=== PATIENT | male | born 1965 | race Caucasian/White ===

== ENCOUNTER 2019-12-01 13:49 | Emergency (ER) | payer OTHER, SELFPAY ==
[2019-12-01] VITALS (7 sets, daily range): BP systolic 86–125; BP diastolic 50–76; PULSE 73–118; RESP 18–19; TEMP 36.7–37.1; O2SAT 99–100; BMI 25.8
[2019-12-01 15:07] LABS: Basophils # 0.1 10^3/uL (0.0-0.1); Basophils % 1.1 %; Eosinophils # 0.1 10^3/uL (0.0-0.8); Hematocrit 28.5 % (42.0-52.0); Hemoglobin 9.4 g/dL (11.7-16.6); Lymphocytes % 9.8 %; Mean Corpuscular Hemoglobin 31.2 pg (28.0-34.0); Mean Corpuscular Volume 94.7 fL (80-94); Monocytes # 0.8 10^3/uL (0.2-0.9); Monocytes % 7.3 %; Neutrophils # 8.3 10^3/uL (1.8-7.7); Neutrophils % 80.4 %; Nucleated Red Blood Cells % 0 %; Platelet Count 139 10^3/cmm (130-400); Red Blood Count 3.01 10^6/uL (4.1-5.3); Red Cell Distribution Width 15.8 % (12.1-15.1); White Blood Count 10.3 10^3/uL (4.0-10.0)
[2019-12-01 15:16] LABS: Partial Thromboplastin Time 26.7 SECONDS (23.9-36.7)
[2019-12-01 15:19] LABS: Alanine Aminotransferase 24 U/L (0-41); Albumin Level 3.8 g/dL (3.5-5.2); Alkaline Phosphatase 61 IU/L (40-130); Anion Gap 19.5 (5-19); Aspartate Amino Transferase 25 U/L (0-40); Blood Urea Nitrogen 36 mg/dL (6-20); Calcium 9.6 mg/dL (8.5-10.5); Carbon Dioxide 22 mmol/L (22-29); Chloride 95 mmol/L (98-107); Globulin 3.4 g/dL (1.3-4.6); Glomerular Filtration Rate 69.5 mL/min (90-130); Glucose 415 mg/dL (65-115); Lipase 41 U/L (13-60); Magnesium 1.9 mg/dL (1.7-2.3); Osmolality Calculated 289 mOsm/kg (285-295); Potassium 4.5 mmol/L (3.5-5.1); Sodium 132 mmol/L (136-145); Total Bilirubin 1.6 mg/dL (0.15-1.2); Total Protein 7.2 g/dL (6.6-8.7)
--- NOTE | 2019-12-01 15:57 | ED_ITS ---
Documented by User: Nadia Mosquera MD 12/01/19 17:59 HPI - Nausea/Vomiting/Diarrhea General: Chief complaint: Nausea/Vomiting/Diarrhea Stated complaint: abd pain, N/vomiting blood Time Seen by Provider: 12/01/19 15:36 History of Present Illness: HPI Narrative: This patient is a 54-year-old male presenting with vomiting blood. He said last night around midnight he threw up about a quart and 1/2 to 2 quarts of dark blood. He did not come in right away because he was hoping it would stop and he would feel better. He has not had any further episodes of vomiting blood but has had black tarry stools today. He feels queasy and has a little bit of discomfort on the left side of his abdomen. He feels weak and a little bit lightheaded. He said his heart rate at home was 135. He has had one episode of GI bleeding, approximately a year ago that was treated here. He has seen Dr. Bowen for endoscopies and also for treatment of nonalcoholic cirrhosis. He also sees a GI specialist in [place]. He has type 2 diabetes. He denies any history of heart problems. MD elicited complaint: nausea and vomiting Onset (ago): day(s) (1) Description of vomiting: bloody Description of diarrhea: black tarry Associated nausea: Yes Severity: similar to previous episodes Associated symtoms: Reports fatigue, malaise and nausea; Denies change in vision, chest pain or headache(s) Review of Systems General: Reports: 10 or more systems reviewed and unremarkable except in HPI and below Const: Reports: fatigue and malaise; Denies: fever(s) or chills Eyes: Denies: change in vision ENMT: Denies: odynophagia Card: Denies: chest pain or swelling of feet/ankles Resp: Denies: dyspnea, productive cough or non-productive cough GI: Reports: abdominal pain, nausea, vomiting, hematemesis and melena : Denies: flank pain Musc: Denies: neck pain or back pain Skin/Breast: Denies: rash Neuro: Denies: headache(s), numbness in extremities or weakness in extremities Chip/Lymph: Denies: easy bruising or easy bleeding PFS ED PFSH: Medical History (Updated 06/06/20 @ 19:32 by Jimmie Christine MD) Anemia Hypertension Liver cirrhosis Nephrolithiasis Normal colonoscopy Type 2 diabetes mellitus Surgical History (Updated 12/01/19 @ 17:15 by Duane Preston MD) H/O lithotripsy History of esophagogastroduodenoscopy (EGD) April 2019 Family History (Updated 12/01/19 @ 17:17 by Duane Preston MD) Other Cancer Diabetes Social History (Updated 12/01/19 @ 17:17 by Duane Preston MD) Smoking and tobacco status: former smoker Alcohol intake: former Marital status: Physical Exam Const: COMMON NORMALS: no acute distress, patient oriented x3, no limitations and alert GENERAL APPEARANCE: cooperative and comfortable HENMT: HEAD & SCALP: normal to inspection FACE & SINUS: normal facial exam Eye: GENERAL EYE: appearance normal, both eyes and all related structures Neck/C-Spine: COMMON NORMALS: supple, no meningeal signs and no JVD Chest: COMMONS NORMALS: normal inspection of the chest Resp: COMMON NORMALS: normal respiratory effort, No use of accessory muscles and clear to auscultation bilaterally AUSCULTATION: clear to auscultation bilaterally Cardio: COMMON NORMALS: no JVD, regular rhythm and No murmurs present (Cardio) RATE: tachycardic RHYTHM: regular rhythm GI: COMMON NORMALS: Normal to inspection, nondistended, normoactive bowel sounds present and Soft to palpation INSPECTION: Yes normal to inspection AUSCULTATION: Yes normoactive bowel sounds PALPATION: Yes Soft to palpation and Yes Tenderness to palpation present (GI) (Mild tenderness in the left upper quadrant.) Back/Pelvis: COMMON NORMALS: thoracic and lumbar spine normal to inspection Extremity: COMMON NORMALS: normal to inspection Neuro: COMMON NORMALS: patient oriented x3, moves all extremities, no focal motor deficits and no sensory deficits noted SENSORIUM/ORIENTATION: Yes alert MENINGEAL SIGNS: Yes no meningeal signs Psych: COMMON NORMALS: mental status grossly normal, cooperative and normal a ffect Skin: COMMON NORMALS: no rashes or lesions noted and turgor normal GENERAL SKIN EXAM: no rashes or lesions noted and turgor normal Course ED course: I spoke with Dr. Sosa by admitting the patient. He reviewed the patient's chart and was concerned that he might have esophageal varices. For that reason he has ordered some octreotide. Patient also has become somewhat more tachycardic and his blood pressure is dropping again so he asked me to order a unit of packed red cells which have done. I have also ordered some albumin. I am turning the patient over to Dr. Christine at this point while awaiting evaluation by Dr. Baez. Dr. Sosa agrees that if Dr. Baez is comfortable keeping him here that is fine. If not he would like him transferred out due to the concern for possible varices. Vital Signs: Vital signs: Vital Signs Temperature 97.8 F 12/02/19 00:09 Pulse Rate 87 12/02/19 00:09 Respiratory Rate 18 12/02/19 00:09 Blood Pressure 138/64 12/02/19 00:09 Pulse Oximetry 99 12/02/19 00:09 MDM - Nausea/Vomiting/Diarrhea MDM Narrative: Medical decision making narrative: Tachycardia, hypotension, hemoglobin of 9, history of upper GI bleed and liver disease. Patient will need to be admitted to the hospital and scoped. Discussed with Dr. Renae who will admit to the ICU. He requested that I consult Dr. Baez who is on-call for surgery today. Patient is agreeable to the plan. I do not think he needs to be transfused at this time but will require rechecks of his hemoglobin. Blood sugar was also markedly elevated and insulin was given in the ED. Lab Data: Labs: Lab Results 12/01/19 12/01/19 12/01/19 Range/Units 14:50 14:50 14:50 WBC 10.3 H (4.0-10.0) 10^3/ uL RBC 3.01 L (4.1-5.3) 10^6/u L Hgb 9.4 L (11.7-16.6) g/dL Hct 28.5 L (42.0-52.0) % MCV 94.7 H (80-94) fL MCH 31.2 (28.0-34.0) pg MCHC 33.0 (30.0-36.0) g/dL RDW 15.8 H (12.1-15.1) % Plt Count 139 (130-400) 10^3/c mm MPV 12.0 H (7.4-10.4) fL Neut % (Auto) 80.4 % Lymph % (Auto) 9.8 % [place] % (Auto) 7.3 % Eos % (Auto) 1.0 % Baso % (Auto) 1.1 % Neut # (Auto) 8.3 H (1.8-7.7) 10^3/u L Lymph # (Auto) 1.0 (0.8-4.8) 10^3/u L [place] # (Auto) 0.8 (0.2-0.9) 10^3/u L Eos # (Auto) 0.1 (0.0-0.8) 10^3/u L Baso # (Auto) 0.1 (0.0-0.1) 10^3/u L Nucleated RBC % (a uto) 0 % Nucleated RBCs # 0.0 /100WBC PT 16.60 H (10.5-13.3) SECO NDS INR 1.30 H (0.8-1.2) APTT 26.7 (23.9-36.7) SECO NDS Sodium 132 L (136-145) mmol/L Potassium 4.5 (3.5-5.1) mmol/L Chloride 95 L (98-107) mmol/L Carbon Dioxide 22 (22-29) mmol/L Anion Gap 19.5 H (5-19) BUN 36 H (6-20) mg/dL Creatinine 1.1 (0.7-1.2) mg/dL GFR Calculation 69.5 L (90-130) mL/min Glucose 415 H (65-115) mg/dL Calculated Osmolal ity 289 (285-295) mOsm/k g Calcium 9.6 (8.5-10.5) mg/dL Magnesium 1.9 (1.7-2.3) mg/dL Iron (59-158) ug/dL TIBC mcg/dl % Saturation (20-50) % Unsat Iron Binding (112-347) ug/dL Total Bilirubin 1.6 H (0.15-1.2) mg/dL AST 25 (0-40) U/L ALT 24 (0-41) U/L Alkaline Phosphata se 61 (40-130) IU/L Total Protein 7.2 (6.6-8.7) g/dL Albumin 3.8 (3.5-5.2) g/dL Globulin 3.4 (1.3-4.6) g/dL Lipase 41 (13-60) U/L Blood Type Rho(D) Type Antibody Screen Crossmatch 12/01/19 12/01/19 Range/Units 14:50 14:50 WBC (4.0-10.0) 10^3/ uL RBC (4.1-5.3) 10^6/u L Hgb (11.7-16.6) g/dL Hct (42.0-52.0) % MCV (80-94) fL MCH (28.0-34.0) pg MCHC (30.0-36.0) g/dL RDW (12.1-15.1) % Plt Count (130-400) 10^3/c mm MPV (7.4-10.4) fL Neut % (Auto) % Lymph % (Auto) % [place] % (Auto) % Eos % (Auto) % Baso % (Auto) % Neut # (Auto) (1.8-7.7) 10^3/u L Lymph # (Auto) (0.8-4.8) 10^3/u L [place] # (Auto) (0.2-0.9) 10^3/u L Eos # (Auto) (0.0-0.8) 10^3/u L Baso # (Auto) (0.0-0.1) 10^3/u L Nucleated RBC % (a uto) % Nucleated RBCs # /100WBC PT (10.5-13.3) SECO NDS INR (0.8-1.2) APTT (23.9-36.7) SECO NDS Sodium (136-145) mmol/L Potassium (3.5-5.1) mmol/L Chloride (98-107) mmol/L Carbon Dioxide (22-29) mmol/L Anion Gap (5-19) BUN (6-20) mg/dL Creatinine (0.7-1.2) mg/dL GFR Calculation (90-130) mL/min Glucose (65-115) mg/dL Calculated Osmolal ity (285-295) mOsm/k g Calcium (8.5-10.5) mg/dL Magnesium (1.7-2.3) mg/dL Iron 231 H (59-158) ug/dL TIBC 248 mcg/dl % Saturation 93.1 H (20-50) % Unsat Iron Binding < 17 L (112-347) ug/dL Total Bilirubin (0.15-1.2) mg/dL AST (0-40) U/L ALT (0-41) U/L Alkaline Phosphata se (40-130) IU/L Total Protein (6.6-8.7) g/dL Albumin (3.5-5.2) g/dL Globulin (1.3-4.6) g/dL Lipase (13-60) U/L Blood Type A Positive Rho(D) Type Positive Antibody Screen Negative Crossmatch See Detail Discharge Plan Discharge Patient Disposition: Xfer Other Clinical Impression: GI bleed Qualifiers: GI bleed type/associated pathology: melena Qualified Code(s): K92.1 - Melena Liver cirrhosis Qualifiers: Hepatic cirrhosis type: unspecified hepatic cirrhosis Ascites presence: without ascites Qualified Code(s): K74.60 - Unspecified cirrhosis of liver Condition: Stable Referrals: Viktor Bowen MD [Primary Care Provider] - Discharge Date/Time: 12/02/19 00:14 Coding Level of Care Code ED Shipping Checker for Chg Fwd Exam Comprehensive Documented by User: Jimmie Christine MD 12/02/19 00:17 HPI - Nausea/Vomiting/Diarrhea General: Chief complaint: Nausea/Vomiting/Diarrhea Stated complaint: abd pain, N/vomiting blood Time Seen by Provider: 12/01/19 15:36 [facility] ED PFSH: Medical History (Updated 12/01/19 @ 19:32 by Jimmie Christine MD) Anemia Hypertension Liver cirrhosis Nephrolithiasis Normal colonoscopy Type 2 diabetes mellitus Surgical History (Updated 12/01/19 @ 17:15 by Duane Preston MD) H/O lithotripsy History of esophagogastroduodenoscopy (EGD) April 2019 Family History (Updated 12/01/19 @ 17:17 by Duane Preston MD) Other Cancer Diabetes Social History (Updated 12/01/19 @ 17:17 by Duane Preston MD) Smoking and tobacco status: former smoker Alcohol intake: former Marital status: Course Vital Signs: Vital signs: Vital Signs Temperature 97.8 F 12/02/19 00:09 Pulse Rate 87 12/02/19 00:09 Respiratory Rate 18 12/02/19 00:09 Blood Pressure 138/64 12/02/19 00:09 Pulse Oximetry 99 12/02/19 00:09 MDM - Nausea/Vomiting/Diarrhea MDM Narrative: Medical decision making narrative: Patient presents with upper GI bleed does have a history of cirrhosis. Spoke to Dr. Baez general surgery who felt patient needs to be transferred as he is at risk for variceal bleed and we do not have GI capability. Spoke to ER physician at [facility] and will transfer there for higher level of care needing GI physician. Lab Data: Labs: Lab Results 12/01/19 12/01/19 12/01/19 Range/Units 14:50 14:50 14:50 WBC 10.3 H (4.0-10.0) 10^3/ uL RBC 3.01 L (4.1-5.3) 10^6/u L Hgb 9.4 L (11.7-16.6) g/dL Hct 28.5 L (42.0-52.0) % MCV 94.7 H (80-94) fL MCH 31.2 (28.0-34.0) pg MCHC 33.0 (30.0-36.0) g/dL RDW 15.8 H (12.1-15.1) % Plt Count 139 (130-400) 10^3/c mm MPV 12.0 H (7.4-10.4) fL Neut % (Auto) 80.4 % Lymph % (Auto) 9.8 % [place] % (Auto) 7.3 % Eos % (Auto) 1.0 % Baso % (Auto) 1.1 % Neut # (Auto) 8.3 H (1.8-7.7) 10^3/u L Lymph # (Auto) 1.0 (0.8-4.8) 10^3/u L [place] # (Auto) 0.8 (0.2-0.9) 10^3/u L Eos # (Auto) 0.1 (0.0-0.8) 10^3/u L Baso # (Auto) 0.1 (0.0-0.1) 10^3/u L Nucleated RBC % (a uto) 0 % Nucleated RBCs # 0.0 /100WBC PT 16.60 H (10.5-13.3) SECO NDS INR 1.30 H (0.8-1.2) APTT 26.7 (23.9-36.7) SECO NDS Sodium 132 L (136-145) mmol/L Potassium 4.5 (3.5-5.1) mmol/L Chloride 95 L (98-107) mmol/L Carbon Dioxide 22 (22-29) mmol/L Anion Gap 19.5 H (5-19) BUN 36 H (6-20) mg/dL Creatinine 1.1 (0.7-1.2) mg/dL GFR Calculation 69.5 L (90-130) mL/min Glucose 415 H (65-115) mg/dL Calculated Osmolal ity 289 (285-295) mOsm/k g Calcium 9.6 (8.5-10.5) mg/dL Magnesium 1.9 (1.7-2.3) mg/dL Iron (59-158) ug/dL TIBC mcg/dl % Saturation (20-50) % Unsat Iron Binding (112-347) ug/dL Total Bilirubin 1.6 H (0.15-1.2) mg/dL AST 25 (0-40) U/L ALT 24 (0-41) U/L Alkaline Phosphata se 61 (40-130) IU/L Total Protein 7.2 (6.6-8.7) g/dL Albumin 3.8 (3.5-5.2) g/dL Globulin 3.4 (1.3-4.6) g/dL Lipase 41 (13-60) U/L Blood Type Rho(D) Type Antibody Screen Crossmatch 12/01/19 12/01/19 Range/Units 14:50 14:50 WBC (4.0-10.0) 10^3/ uL RBC (4.1-5.3) 10^6/u L Hgb (11.7-16.6) g/dL Hct (42.0-52.0) % MCV (80-94) fL MCH (28.0-34.0) pg MCHC (30.0-36.0) g/dL RDW (12.1-15.1) % Plt Count (130-400) 10^3/c mm MPV (7.4-10.4) fL Neut % (Auto) % Lymph % (Auto) % [place] % (Auto) % Eos % (Auto) % Baso % (Auto) % Neut # (Auto) (1.8-7.7) 10^3/u L Lymph # (Auto) (0.8-4.8) 10^3/u L [place] # (Auto) (0.2-0.9) 10^3/u L Eos # (Auto) (0.0-0.8) 10^3/u L Baso # (Auto) (0.0-0.1) 10^3/u L Nucleated RBC % (a uto) % Nucleated RBCs # /100WBC PT (10.5-13.3) SECO NDS INR (0.8-1.2) APTT (23.9-36.7) SECO NDS Sodium (136-145) mmol/L Potassium (3.5-5.1) mmol/L Chloride (98-107) mmol/L Carbon Dioxide (22-29) mmol/L Anion Gap (5-19) BUN (6-20) mg/dL Creatinine (0.7-1.2) mg/dL GFR Calculation (90-130) mL/min Glucose (65-115) mg/dL Calculated Osmolal ity (285-295) mOsm/k g Calcium (8.5-10.5) mg/dL Magnesium (1.7-2.3) mg/dL Iron 231 H (59-158) ug/dL TIBC 248 mcg/dl % Saturation 93.1 H (20-50) % Unsat Iron Binding < 17 L (112-347) ug/dL Total Bilirubin (0.15-1.2) mg/dL AST (0-40) U/L ALT (0-41) U/L Alkaline Phosphata se (40-130) IU/L Total Protein (6.6-8.7) g/dL Albumin (3.5-5.2) g/dL Globulin (1.3-4.6) g/dL Lipase (13-60) U/L Blood Type A Positive Rho(D) Type Positive Antibody Screen Negative Crossmatch See Detail Critical Care Time Critical Care Time: Critical Care Time: Yes Total Critical Care Time: 36 Attestation: This case had a high probability of a clinically significant, sudden, or life threatening deterioration of this patient's condition which required my full and direct attention, intervention and personal management. Discharge Plan Discharge Patient Disposition: Xfer Other Clinical Impression: GI bleed Qualifiers: GI bleed type/associated pathology: melena Qualified Code(s): K92.1 - Melena Liver cirrhosis Qualifiers: Hepatic cirrhosis type: unspecified hepatic cirrhosis Ascites presence: without ascites Qualified Code(s): K74.60 - Unspecified cirrhosis of liver Condition: Stable Referrals: Viktor Bowen MD [Primary Care Provider] - Discharge Date/Time: 12/02/19 00:14 Coding Level of Care Code ED Shipping Checker for Chg Fwd Exam Comprehensive
[2019-12-01] MEDS: sodium chloride 0.9% 1,000 ML 999 ML IV (17:08)
[2019-12-01] MEDS: cefTRIAXone 1,000 MG in sodium chloride 0.9% (plus) 50 ML 100 MG IV (17:11)
--- NOTE | 2019-12-01 17:12 | PM.HP ---
Providers/Chief Complaint Primary Care Provider: Viktor Bowen MD Chief Complaint: weak, vomiting blood History of Present Illness Tani Montenegro is a 54 year old male past medical history of hypertension, type 2 diabetes mellitus, liver cirrhosis, leukopenia and thrombocytopenia being followed up with Dr. Floyd with baseline hemoglobin of around 12-13 in November 2018. Patient presented to the ER with c/o 1 episode of spring bloody emesis last night along with 2 episodes of black tarry bowel movement since last night. Patient states he has been having some black tarry bowel movements for last. Bowel movements are usually well formed. Patient has been feeling weak, tired and dizzy since yesterday. He denies of having any abdominal pain, dysuria, flulike symptoms, fever, NSAID use, use of any pain medications. He complains of feeling dizzy, lightheaded on slight movement and sitting up since today morning so he presented to the ER. In ER patient was found to have a hemoglobin of 8.9 with blood pressure of 80 systolic which responded to a bolus of fluid. He was started on Protonix drip. On my evaluation patient was tachycardic with blood pressure back in 80s systolics but patient was AO x3 and patient has not had any bowel movements of hematemesis or melena since presenting to the ER. On review of old records patient had a CT scan done in January 2019 which was concerning for liver cirrhosis with splenomegaly and he had an EGD and colonoscopy in February [address] Bowen with those being normal. Review of Systems Const: Denies: fever(s), chills, body aches, change in appetite, malaise, night sweats, diaphoresis, change in sleep pattern, daytime sleepiness or snoring Eyes: Denies: change in vision, blurry vision, photophobia, eye discomfort or eye discharge ENMT: Denies: throat pain, enlarged tonsils, hoarseness, mouth pain, oral sores, dry mouth, tinnitus, nasal congestion or post nasal drip Card: Denies: chest pain, palpitations, irregular heart rhythm, edema, swelling of feet/ankles, lightheadedness, syncope, pre-syncope, dyspnea on exertion, orthopnea, leg pain with exertion or acrocyanosis Resp: Denies: dyspnea, productive cough, non-productive cough, wheezing, stridor, pain on inspiration, change in phlegm color, hemoptysis or chest congestion GI: Reports: nausea, vomiting, hematemesis, coffee ground emesis, heartburn and melena; Denies: abdominal pain, dysphagia, diarrhea, constipation, bloating, GI cramping, change in bowel habits, pain on defecation or hematochezia : Denies: flank pain, difficulty urinating, dysuria, urinary frequency, urinary urgency, urinary hesitancy, urinary dribbling, difficulty starting urination, change in urine stream, nocturia or hematuria Musc: Denies: neck pain, back pain, extremity pain, joint pain, joint swelling, joint redness, joint stiffness or limited range of motion Neuro: Reports: weakness in extremities and dizziness; Denies: headache(s), numbness in extremities, sensory changes, lack of coordination, difficulty walking, frequent falls, vertigo, confusion, Slurred speech present, difficulty communicating thoughts or seizure-like activity Psych: Denies: anxiety, depression, mood swings, panic attacks, hopelessness or irritability Endo: Denies: polyuria, polydipsia, tired all the time, cold intolerance, excessive sweating, flushing or heat intolerance Chip/Lymph: Denies: easy bruising or easy bleeding All/Imm: Denies: tongue swelling, facial swelling or acute wheezing Medications/Allergies Home Medications Medication Instructions Recorded Confirmed Last Taken Type lisinopril 10 mg tablet 10 mg PO DAILY #30 tab 11/13/19 12/01/19 12/01/19 Rx cinnamon bark [Cinnamon] 500 mg PO BID 12/01/19 12/01/19 Unknown History cranberry 1 tab PO BID 12/01/19 12/01/19 Unknown History ferrous gluconate 324 mg PO BID 12/01/19 12/01/19 12/01/19 History levothyroxine 50 mcg PO DAILY 12/01/19 12/01/19 12/01/19 History metformin 1,000 mg PO BID 12/01/19 12/01/19 12/01/19 History spironolactone 50 mg PO DAILY 12/01/19 12/01/19 12/01/19 History Allergies Allergy/AdvReac Type Severity Reaction Status Date / Time No Known Allergies Allergy Verified 12/01/19 16:18 PFSH Acute PFSH: Medical History (Updated 12/01/19 @ 19:32 by Jimmie Christine MD) Anemia Hypertension Liver cirrhosis Nephrolithiasis Normal colonoscopy Type 2 diabetes mellitus Surgical History (Updated 12/01/19 @ 17:15 by Duane Preston MD) H/O lithotripsy History of esophagogastroduodenoscopy (EGD) April 2019 Family History (Updated 12/01/19 @ 17:17 by Duane Preston MD) Other Cancer Diabetes Social History (Updated 12/01/19 @ 17:17 by Duane Preston MD) Smoking and tobacco status: former smoker Alcohol intake: former Marital status: Vitals/I&O/Wt Last Vital Signs Temp 98.0 F 12/01/19 14:11 Pulse 118 H 12/01/19 14:11 Resp 18 12/01/19 14:11 BP 86/50 12/01/19 14:11 Pulse Ox 100 12/01/19 14:11 Weight last 48 hrs Weight 81.647 kg Physical Exam Narrative: EXAM NARRATIVE: General: No acute distress, AO x3, pale, mildly icteric, pulse soft and thready HEENT: PERRLA, pupils bilaterally equal and reactive Chest: Normal vesicular breath sounds, no added sounds, equal good air entry bilaterally CVS: S1-S2 regular, no murmurs, tachycardia, no gallops, no rubs Abdomen: Soft, nontender, no organomegaly, bowel sounds present Neuro: No focal deficits, no facial deformity, AO x3, power 5/5 in all limbs Data : 12/01/19 14:50 12/01/19 14:50 A&P Assessment and plan (1) Liver cirrhosis: Status: Acute (2) Anemia: Status: Acute (3) GI bleed: Status: Acute (4) Type 2 diabetes mellitus: Status: Acute (5) Hypertension: Status: Acute Additional A&P Information GI bleed: Most likely upper GI. Given the finding of cirrhosis on abdominal imaging less than 1 year ago with splenomegaly and history of alcohol use in the past with bilirubin of 1.6 I am concerned about origin of bleed being variceal. Along with Protonix drip will also start patient on octreotide drip. Stat type and screen. Transfuse 1 unit of PRBC. We will also request for albumin. Normal saline 100 cc/h. Hold off on antihypertensives for now. CBC every 6 hours. Last colonoscopy and EGD done February 2019 was negative for any varices. Case discussed with Dr. Mosquera. Have discussed that given the history of cirrhosis and some concerns of varices will have to confirm with general surgery first if they are comfortable with patient being at [facility] or if their suspicions are also high for variceal bleed. For now we will hold off on admission as if the suspicion of variceal bleed also high as per surgical recommendation then patient should be transferred to a facility to have gastroenterology. Attestations Medical Necessity Statement*: Await recommendations from general surgery before admission. Time Spent in Patient Care: Greater than 35 minutes (>than 50% of time spent in counselling and/or direct pt care on unit). Coding Level of Care Code [employer] Counselor for humberto Murphy Diagnoses Liver cirrhosis K74.60 Anemia D64.9 GI bleed K92.2 Type 2 diabetes mellitus E11.9 Hypertension I10
[2019-12-01] MEDS: pantoprazole 40 mg SDV 80 MG IVP (17:13)
[2019-12-01] MEDS: pantoprazole 40 MG in sodium chloride 0.9% (plus) 100 ML 20 MG IV (17:24)
[2019-12-01] MEDS: insulin regular-human 100 units/1 mL 10 UNIT IVP (17:29)
[2019-12-01 17:48] LABS: Iron 231 ug/dL (59-158)
[2019-12-01 18:40] LABS: Percent Saturation 93.1 % (20-50); Total Iron Binding Capacity 248 mcg/dl; Unsaturated Iron Binding < 17 ug/dL (112-347)
--- NOTE | 2019-12-01 22:14 | PC.NURSE ---
During pt rounding, pt informed of transport ETA of [id number]. Pt ECG leads readjusted. Pt reports of no complaints at this time
[2019-12-02 00:09] VITALS: BP 138/64; PULSE 87; RESP 18; TEMP 36.6; O2SAT 99
== END 2019-12-02 00:14 | disposition other institution (70) ==
LOC: ER 15:36 → ICU 18:14
PROVIDERS: Emergency Medicine; Student in an Organized Health Care Education/Training Program; Emergency Provider Emergency Medicine; PCP Internal Medicine
DX: K92.1 Melena (principal); K74.60 Unspecified cirrhosis of liver; I10 Essential (primary) hypertension; E11.9 Type 2 diabetes mellitus without complications; Z87.891 Personal history of nicotine dependence
CPT/HCPCS: 12345; 36415; 36430; 80053; 83540; 83550; 83690; 83735; 85025; 85610; 85730; 86850; 86900; 86920; 96365; 96366; 96367; 96368; 96375; 99283; 99285; C9113; J0696; J1815; J7030; J7050; P9016

== ENCOUNTER → 2019-12-11 11:57 | Outpatient (BNVA) | payer OTHER, SELFPAY | PROVIDERS: PCP Internal Medicine; Visit Provider Internal Medicine | DX: K92.1 Melena (principal); K74.60 Unspecified cirrhosis of liver; I10 Essential (primary) hypertension | CPT/HCPCS: 85007; 85025 ==

== ENCOUNTER → 2020-01-16 10:00 | Outpatient (BNVA) | payer OTHER, SELFPAY | PROVIDERS: PCP Internal Medicine; Visit Provider Internal Medicine | DX: K74.60 Unspecified cirrhosis of liver (principal); E11.9 Type 2 diabetes mellitus without complications; I10 Essential (primary) hypertension; D64.9 Anemia, unspecified | CPT/HCPCS: 80053 ==

== ENCOUNTER → 2020-04-24 10:30 | Outpatient (BNVA) | payer OTHER, SELFPAY | PROVIDERS: PCP Internal Medicine; Visit Provider Internal Medicine | DX: D64.9 Anemia, unspecified (principal); R11.2 Nausea with vomiting, unspecified; K74.60 Unspecified cirrhosis of liver; K92.1 Melena | CPT/HCPCS: 80053; 83550; 85025 ==

== ENCOUNTER 2020-04-25 07:35 | Emergency (ER) | payer OTHER, SELFPAY ==
--- NOTE | 2020-04-25 07:41 | ECG_ITS ---
[facility] Test Date: 2020-04-25 Pat Name: Tani Montenegro Department: Room: Gender: Male [employer]: : 1965 Requested By: Richard Campbell Order Number: [id number] Reading MD: STEVE MORRIS Measurements Intervals [place] Rate: 118 P: 50 MN: 178 QRS: -3 QRSD: 103 T: 61 QT: 330 QTc: 464 Interpretive Statements SINUS TACHYCARDIA ABNORMAL RHYTHM ECG No previous ECG available for comparison Electronically Signed On 04-25-2020 18:20:51 CDT by SETVE MORRIS [email or web address]
[2020-04-25 07:43] VITALS: BP 131/70; PULSE 127; RESP 19; TEMP 36.2; O2SAT 100; BMI 25.1
[2020-04-25 07:55] LABS: Glucose Point of Care 507 mg/dL (70-110)
[2020-04-25 08:13] LABS: Basophils # 0.1 10^3/uL (0.0-0.1); Basophils % 0.6 %; Eosinophils % 0.1 %; Hematocrit 25.1 % (42.0-52.0); Lymphocytes # 1.3 10^3/uL (0.8-4.8); Lymphocytes % 9.7 %; Mean Corpuscular HGB Conc 31.9 g/dL (30.0-36.0); Mean Corpuscular Hemoglobin 30.9 pg (28.0-34.0); Mean Corpuscular Volume 96.9 fL (80-94); Monocytes # 0.6 10^3/uL (0.2-0.9); Monocytes % 4.3 %; Neutrophils # 11.07 10^3/uL (1.8-7.7); Neutrophils % 84.4 %; Nucleated Red Blood Cells % 0 %; Platelet Count 220 10^3/cmm (130-400); Red Blood Count 2.59 10^6/uL (4.1-5.3); Red Cell Distribution Width 14.8 % (12.1-15.1); White Blood Count 13.1 10^3/uL (4.0-10.0)
[2020-04-25 08:16] LABS: ABG PCO2 24.9 mmHg (35-45); ABG PH Result 7.33 (7.35-7.45); Arterial Blood Gas Hematocrit 26.3 % (42-52); Base Excess ABG -11.6 mmol/L (-2.0-2.0); Blood Gas Allen Test Pos; Blood Gas Sample Site Radial, left; Blood Gas Sample Type Arterial; Carboxyhemoglobin 1.4 %THgb (0.4-20.1); HGB O2 Sat 96.3 % (95-100); Ionized Calcium Level - ABG 1.1 mmol/L (1.1-1.4); Oxygen Device ROOM AIR; Oxygen Saturation ABG 98.7; Potassium Level - ABG 4.8 mmol/L (3.5-5.0); Total Hemoglobin 8.6 g/dL (14-18)
[2020-04-25 08:23] LABS: Ketone (Acetest) Serum Negative (Negative)
[2020-04-25 08:31] LABS: Alanine Aminotransferase 43 U/L (0-41); Albumin Level 3.5 g/dL (3.5-5.2); Alkaline Phosphatase 75 IU/L (40-130); Anion Gap 28.2 (5-19); Aspartate Amino Transferase 34 U/L (0-40); Blood Urea Nitrogen 57 mg/dL (6-20); Calcium 8.9 mg/dL (8.5-10.5); Carbon Dioxide 15 mmol/L (22-29); Chloride 88 mmol/L (98-107); Globulin 3.1 g/dL (1.3-4.6); Glomerular Filtration Rate 62.6 mL/min (90-130); Lipase 43 U/L (13-60); Osmolality Calculated 301 mOsm/kg (285-295); Potassium 5.2 mmol/L (3.5-5.1); Sodium 126 mmol/L (136-145); Total Bilirubin 1.2 mg/dL (0.15-1.2); Total Protein 6.6 g/dL (6.6-8.7)
[2020-04-25] MEDS: sodium chloride 0.9% 1,000 ML 999 ML IV (08:37)
[2020-04-25] MEDS: pantoprazole 40 MG in sodium chloride 0.9% (plus) 100 ML 20 MG IV ×2 (08:41→15:01)
--- NOTE | 2020-04-25 08:42 | ED_ITS ---
HPI - General Adult General: Chief complaint: General Medical Stated complaint: hyperglycemia Time Seen by Provider: 04/25/20 07:42 History of Present Illness: HPI narrative: This patient is a 55-year-old male who comes in with vomiting since Tuesday night. He has been feeling very poorly. He feels very weak. He denies cough, fever, shortness of breath. He has been having some dark stools. He is had some dark emesis and has also seen some blood in it. He has a history of some liver problems and has had some cirrhosis. He had a endoscopy over the summer and did not have any esophageal varices at that time. He had been admitted due to something similar with GI bleeding and a low hemoglobin. He was given 2 units of blood at that time. He said no one is really figured out why he is having the symptoms. He was put on Protonix at that time and did run out a couple of days ago. He saw his primary care doctor, Dr. Bowen yesterday. He refilled his Protonix and sent him home. Review of the office notes shows that at that time he was tachycardic and borderline hypotensive as well. Apparently his blood sugar was quite elevated yesterday and is elevated again today. He only takes Metformin for type 2 diabetes. His blood sugars have been over 400 at least since last night. He also has a history of hypothyroidism. Onset (ago): day(s) (4) Associated symptoms: Reports decreased appetite, malaise, nausea and vomiting; Deny chest pain, dyspnea or rash Review of Systems General: Reports: 10 or more systems reviewed and unremarkable except in HPI and below Const: Reports: malaise Eyes: Denies: change in vision ENMT: Denies: odynophagia Card: Denies: chest pain or swelling of feet/ankles Resp: Denies: dyspnea, productive cough or non-productive cough GI: Reports: nausea and vomiting : Denies: flank pain Musc: Denies: neck pain or back pain Skin/Breast: Denies: rash Neuro: Denies: numbness in extremities or weakness in extremities Chip/Lymph: Denies: easy bruising or easy bleeding PFS ED PFSH: Medical History Anemia Hypertension Liver cirrhosis Nephrolithiasis Normal colonoscopy Type 2 diabetes mellitus Surgical History H/O lithotripsy History of esophagogastroduodenoscopy (EGD) April 2019 Family History Other Cancer Diabetes Social History Smoking and tobacco status: former smoker Alcohol intake: former Substance/Drug Use: never Marital status: History of recent travel: No Physical Exam Const: COMMON NORMALS: patient oriented x3, no limitations and alert GENERAL APPEARANCE: cooperative, ill appearing and other (Pale) NUTRITIONAL APPEARANCE: thin ORIENTATION/CONSCIOUSNESS: Yes awake HENMT: HEAD & SCALP: normal to inspection FACE & SINUS: normal facial exam Eye: GENERAL EYE: appearance normal, both eyes and all related structures Neck/C-Spine: COMMON NORMALS: supple, no meningeal signs and no JVD Chest: COMMONS NORMALS: normal inspection of the chest Resp: COMMON NORMALS: normal respiratory effort, No use of accessory muscles and clear to auscultation bilaterally AUSCULTATION: clear to auscultation bilaterally Cardio: COMMON NORMALS: no JVD, regular rhythm and No murmurs present (Cardio) RATE: tachycardic RHYTHM: regular rhythm GI: COMMON NORMALS: Normal to inspection, nondistended, normoactive bowel sounds present, Soft to palpation and non-tender INSPECTION: Yes normal to inspection AUSCULTATION: Yes normoactive bowel sounds PALPATION: Yes Soft to palpation Back/Pelvis: COMMON NORMALS: thoracic and lumbar spine normal to inspection Extremity: COMMON NORMALS: normal to inspection Neuro: COMMON NORMALS: patient oriented x3, moves all extremities, no focal motor deficits and no sensory deficits noted SENSORIUM/ORIENTATION: Yes alert MENINGEAL SIGNS: Yes no meningeal signs Psych: COMMON NORMALS: mental status grossly normal, cooperative and normal affect Skin: COMMON NORMALS: no rashes or lesions noted and turgor normal GENERAL SKIN EXAM: no rashes or lesions noted and turgor normal Course ED course: This patient presents with DKA although he is a type II diabetic normally on metformin. His serum ketones were negative but his urine ketones are positive. He is slightly acidotic on his ABG with a pH of 7.33. His CO2 is low. He also is having blood in his emesis. His hemoglobin was 8. He had an EGD recently which showed no varices. He is having blood in his stool and vomit. He is not having abdominal pain but does have continued nausea. During his ED stay he was persistently tachycardic around 125. His blood pressures remained good around 110 systolic. His BUN was elevated at 57 with a normal creatinine. Initial blood sugar was 518. He was put on appropriate tonics drip and an insulin drip. His blood sugar was gradually coming down. Repeat labs prior to transfer showed his hemoglobin had dropped to 7.0. I have not witnessed any further vomiting of blood or bloody stools while in the department. This may be from hydration. We have no ICU beds or monitored beds here and we will transfer the patient to [facility]. He is concerned about the financial implications of that but did eventually agree to go. His repeat chemistry still pending at this time. Vital Signs: Vital signs: Vital Signs Temperature 97.2 F L 04/25/20 07:43 Pulse Rate 124 H 04/25/20 15:06 Respiratory Rate 16 04/25/20 15:06 Blood Pressure 111/59 04/25/20 15:06 Pulse Oximetry 99 04/25/20 15:06 MDM - General Adult Lab Data: Labs: Lab Results 04/25/20 04/25/20 04/25/20 Range/Units 07:52 08:06 08:07 WBC 13.1 H (4.0-10.0) 10^3/ uL RBC 2.59 L (4.1-5.3) 10^6/u L Hgb 8.0 L (11.7-16.6) g/dL Hct 25.1 L (42.0-52.0) % MCV 96.9 H (80-94) fL MCH 30.9 (28.0-34.0) pg MCHC 31.9 (30.0-36.0) g/dL RDW 14.8 (12.1-15.1) % Plt Count 220 (130-400) 10^3/c mm MPV 12.0 H (7.4-10.4) fL Neut % (Auto) 84.4 % Lymph % (Auto) 9.7 % [place] % (Auto) 4.3 % Eos % (Auto) 0.1 % Baso % (Auto) 0.6 % Neut # (Auto) 11.07 H (1.8-7.7) 10^3/u L Lymph # (Auto) 1.3 (0.8-4.8) 10^3/u L [place] # (Auto) 0.6 (0.2-0.9) 10^3/u L Eos # (Auto) 0.0 (0.0-0.8) 10^3/u L Baso # (Auto) 0.1 (0.0-0.1) 10^3/u L Nucleated RBC % (a uto) 0 % Nucleated RBCs # 0.0 /100WBC Specimen Type Arterial Sample Site Radial, left ABG pH 7.33 L (7.35-7.45) ABG pCO2 24.9 L (35-45) mmHg ABG pO2 103.0 H (80.0-100.0) mmH g ABG HCO3 13.0 L (22-26) mmol/L ABG O2 Saturation 98.7 ABG Base Excess -11.6 L (-2.0-2.0) mmol/ L Paresh Test Pos A-a O2 Gradient 2.0 L (5-10) mmHg Hematocrit 26.3 L (42-52) % Hgb O2 Saturation 96.3 (95-100) % Carboxyhemoglobin 1.4 (0.4-20.1) %THgb Methemoglobin 1.0 (0.4-1.5) % Total Hemoglobin 8.6 L (14-18) g/dL Sodium 130.0 L (131-143) mmol/L Potassium 4.8 (3.5-5.0) mmol/L Glucose 461.0 H (70-115) mg/dL Ionized Calcium 1.1 (1.1-1.4) mmol/L O2 Delivery Device Room air FiO2 21.0 % Tandem [employer] Sticker ID jmn Chloride (98-107) mmol/L Carbon Dioxide (22-29) mmol/L Anion Gap (5-19) BUN (6-20) mg/dL Creatinine (0.7-1.2) mg/dL GFR Calculation (90-130) mL/min POC Glucose 507 (70-110) mg/dL Calculated Osmolal ity (285-295) mOsm/k g Calcium (8.5-10.5) mg/dL Total Bilirubin (0.15-1.2) mg/dL AST (0-40) U/L ALT (0-41) U/L Alkaline Phosphata se (40-130) IU/L Total Protein (6.6-8.7) g/dL Albumin (3.5-5.2) g/dL Globulin (1.3-4.6) g/dL Lipase (13-60) U/L Urine Color (Yellow) Urine Appearance (CLEAR) Urine pH (5-7) Ur Specific Gravit y (1.005-1.030) Urine Protein (Negative) Urine Glucose (UA) (Normal) Urine Ketones (Negative) Urine Blood (Negative) Urine Nitrate (Negative) Urine Bilirubin (Negative) Urine Urobilinogen (Negative) mg/dL Ur Leukocyte Elma ase (Negative) Urine RBC (0-2) /hpf Urine WBC (0-5) /hpf Ur Squamous Epith Cells (0-5) /hpf Amorphous Sediment Urine Bacteria (NONE) /hpf Serum Ketones (Negative) Blood Type Rho(D) Type Antibody Screen 04/25/20 04/25/20 04/25/20 Range/Units 08:07 08:07 09:33 WBC (4.0-10.0) 10^3/ uL RBC (4.1-5.3) 10^6/u L Hgb (11.7-16.6) g/dL Hct (42.0-52.0) % MCV (80-94) fL MCH (28.0-34.0) pg MCHC (30.0-36.0) g/dL RDW (12.1-15.1) % Plt Count (130-400) 10^3/c mm MPV (7.4-10.4) fL Neut % (Auto) % Lymph % (Auto) % [place] % (Auto) % Eos % (Auto) % Baso % (Auto) % Neut # (Auto) (1.8-7.7) 10^3/u L Lymph # (Auto) (0.8-4.8) 10^3/u L [place] # (Auto) (0.2-0.9) 10^3/u L Eos # (Auto) (0.0-0.8) 10^3/u L Baso # (Auto) (0.0-0.1) 10^3/u L Nucleated RBC % (a uto) % Nucleated RBCs # /100WBC Specimen Type Sample Site ABG pH (7.35-7.45) ABG pCO2 (35-45) mmHg ABG pO2 (80.0-100.0) mmH g ABG HCO3 (22-26) mmol/L ABG O2 Saturation ABG Base Excess (-2.0-2.0) mmol/ L Paresh Test A-a O2 Gradient (5-10) mmHg Hematocrit (42-52) % Hgb O2 Saturation (95-100) % Carboxyhemoglobin (0.4-20.1) %THgb Methemoglobin (0.4-1.5) % Total Hemoglobin (14-18) g/dL Sodium 126 L (131-143) mmol/L Potassium 5.2 H (3.5-5.0) mmol/L Glucose 518 H* (70-115) mg/dL Ionized Calcium (1.1-1.4) mmol/L O2 Delivery Device FiO2 % Tandem [employer] Sticker ID Chloride 88 L (98-107) mmol/L Carbon Dioxide 15 L (22-29) mmol/L Anion Gap 28.2 H (5-19) BUN 57 H (6-20) mg/dL Creatinine 1.2 (0.7-1.2) mg/dL GFR Calculation 62.6 L (90-130) mL/min POC Glucose (70-110) mg/dL Calculated Osmolal ity 301 H (285-295) mOsm/k g Calcium 8.9 (8.5-10.5) mg/dL Total Bilirubin 1.2 (0.15-1.2) mg/dL AST 34 (0-40) U/L ALT 43 H (0-41) U/L Alkaline Phosphata se 75 (40-130) IU/L Total Protein 6.6 (6.6-8.7) g/dL Albumin 3.5 (3.5-5.2) g/dL Globulin 3.1 (1.3-4.6) g/dL Lipase 43 (13-60) U/L Urine Color Yellow (Yellow) Urine Appearance Clear (CLEAR) Urine pH 5.0 (5-7) Ur Specific Gravit y 1.015 (1.005-1.030) Urine Protein Neg (Negative) Urine Glucose (UA) 4+ H (Normal) Urine Ketones 1+ H (Negative) Urine Blood Neg (Negative) Urine Nitrate Negative (Negative) Urine Bilirubin Neg (Negative) Urine Urobilinogen Norm (Negative) mg/dL Ur Leukocyte Elma ase Negative (Negative) Urine RBC Rare (0-2) /hpf Urine WBC Rare (0-5) /hpf Ur Squamous Epith Cells Rare (0-5) /hpf Amorphous Sediment Not Reportable Urine Bacteria None (NONE) /hpf Serum Ketones Negative (Negative) Blood Type A Positive Rho(D) Type Positive Antibody Screen Negative 04/25/20 04/25/20 04/25/20 Range/Units 10:03 11:00 13:05 WBC (4.0-10.0) 10^3/ uL RBC (4.1-5.3) 10^6/u L Hgb (11.7-16.6) g/dL Hct (42.0-52.0) % MCV (80-94) fL MCH (28.0-34.0) pg MCHC (30.0-36.0) g/dL RDW (12.1-15.1) % Plt Count (130-400) 10^3/c mm MPV (7.4-10.4) fL Neut % (Auto) % Lymph % (Auto) % [place] % (Auto) % Eos % (Auto) % Baso % (Auto) % Neut # (Auto) (1.8-7.7) 10^3/u L Lymph # (Auto) (0.8-4.8) 10^3/u L [place] # (Auto) (0.2-0.9) 10^3/u L Eos # (Auto) (0.0-0.8) 10^3/u L Baso # (Auto) (0.0-0.1) 10^3/u L Nucleated RBC % (a uto) % Nucleated RBCs # /100WBC Specimen Type Sample Site ABG pH (7.35-7.45) ABG pCO2 (35-45) mmHg ABG pO2 (80.0-100.0) mmH g ABG HCO3 (22-26) mmol/L ABG O2 Saturation ABG Base Excess (-2.0-2.0) mmol/ L Paresh Test A-a O2 Gradient (5-10) mmHg Hematocrit (42-52) % Hgb O2 Saturation (95-100) % Carboxyhemoglobin (0.4-20.1) %THgb Methemoglobin (0.4-1.5) % Total Hemoglobin (14-18) g/dL Sodium (131-143) mmol/L Potassium (3.5-5.0) mmol/L Glucose (70-115) mg/dL Ionized Calcium (1.1-1.4) mmol/L O2 Delivery Device FiO2 % Tandem [employer] Sticker ID Chloride (98-107) mmol/L Carbon Dioxide (22-29) mmol/L Anion Gap (5-19) BUN (6-20) mg/dL Creatinine (0.7-1.2) mg/dL GFR Calculation (90-130) mL/min POC Glucose 459 445 385 (70-110) mg/dL Calculated Osmolal ity (285-295) mOsm/k g Calcium (8.5-10.5) mg/dL Total Bilirubin (0.15-1.2) mg/dL AST (0-40) U/L ALT (0-41) U/L Alkaline Phosphata se (40-130) IU/L Total Protein (6.6-8.7) g/dL Albumin (3.5-5.2) g/dL Globulin (1.3-4.6) g/dL Lipase (13-60) U/L Urine Color (Yellow) Urine Appearance (CLEAR) Urine pH (5-7) Ur Specific Gravit y (1.005-1.030) Urine Protein (Negative) Urine Glucose (UA) (Normal) Urine Ketones (Negative) Urine Blood (Negative) Urine Nitrate (Negative) Urine Bilirubin (Negative) Urine Urobilinogen (Negative) mg/dL Ur Leukocyte Elma ase (Negative) Urine RBC (0-2) /hpf Urine WBC (0-5) /hpf Ur Squamous Epith Cells (0-5) /hpf Amorphous Sediment Urine Bacteria (NONE) /hpf Serum Ketones (Negative) Blood Type Rho(D) Type Antibody Screen 04/25/20 04/25/20 04/25/20 Range/Units 14:24 14:24 14:27 WBC 12.7 H (4.0-10.0) 10^3/ uL RBC 2.25 L (4.1-5.3) 10^6/u L Hgb 7.1 L (11.7-16.6) g/dL Hct 20.9 L (42.0-52.0) % MCV 92.9 (80-94) fL MCH 31.6 (28.0-34.0) pg MCHC 34.0 D (30.0-36.0) g/dL RDW 14.8 (12.1-15.1) % Plt Count 180 (130-400) 10^3/c mm MPV 11.8 H (7.4-10.4) fL Neut % (Auto) 79.2 % Lymph % (Auto) 12.0 % [place] % (Auto) 8.2 % Eos % (Auto) 0.0 % Baso % (Auto) 0.2 % Neut # (Auto) 10.05 H (1.8-7.7) 10^3/u L Lymph # (Auto) 1.5 (0.8-4.8) 10^3/u L [place] # (Auto) 1.0 H (0.2-0.9) 10^3/u L Eos # (Auto) 0.0 (0.0-0.8) 10^3/u L Baso # (Auto) 0.0 (0.0-0.1) 10^3/u L Nucleated RBC % (a uto) 0 % Nucleated RBCs # 0.0 /100WBC Specimen Type Sample Site ABG pH (7.35-7.45) ABG pCO2 (35-45) mmHg ABG pO2 (80.0-100.0) mmH g ABG HCO3 (22-26) mmol/L ABG O2 Saturation ABG Base Excess (-2.0-2.0) mmol/ L Paresh Test A-a O2 Gradient (5-10) mmHg Hematocrit (42-52) % Hgb O2 Saturation (95-100) % Carboxyhemoglobin (0.4-20.1) %THgb Methemoglobin (0.4-1.5) % Total Hemoglobin (14-18) g/dL Sodium 126 L (131-143) mmol/L Potassium 4.2 (3.5-5.0) mmol/L Glucose 345 H (70-115) mg/dL Ionized Calcium (1.1-1.4) mmol/L O2 Delivery Device FiO2 % Tandem Mill Sticker ID Chloride 93 L (98-107) mmol/L Carbon Dioxide 20 L (22-29) mmol/L Anion Gap 17.2 (5-19) BUN 57 H (6-20) mg/dL Creatinine 1.0 (0.7-1.2) mg/dL GFR Calculation 77.3 L (90-130) mL/min POC Glucose 365 (70-110) mg/dL Calculated Osmolal ity 292 (285-295) mOsm/k g Calcium 8.2 L (8.5-10.5) mg/dL Total Bilirubin (0.15-1.2) mg/dL AST (0-40) U/L ALT (0-41) U/L Alkaline Phosphata se (40-130) IU/L Total Protein (6.6-8.7) g/dL Albumin (3.5-5.2) g/dL Globulin (1.3-4.6) g/dL Lipase (13-60) U/L Urine Color (Yellow) Urine Appearance (CLEAR) Urine pH (5-7) Ur Specific Gravit y (1.005-1.030) Urine Protein (Negative) Urine Glucose (UA) (Normal) Urine Ketones (Negative) Urine Blood (Negative) Urine Nitrate (Negative) Urine Bilirubin (Negative) Urine Urobilinogen (Negative) mg/dL Ur Leukocyte Elma ase (Negative) Urine RBC (0-2) /hpf Urine WBC (0-5) /hpf Ur Squamous Epith Cells (0-5) /hpf Amorphous Sediment Urine Bacteria (NONE) /hpf Serum Ketones (Negative) Blood Type Rho(D) Type Antibody Screen Discharge Plan Discharge Patient Disposition: Xfer Short-Term Hosp Clinical Impression: Acute GI bleeding Nausea & vomiting Qualifiers: Vomiting type: unspecified Vomiting Intractability: unspecified Qualified Code(s): R11.2 - Nausea with vomiting, unspecified Anemia Qualifiers: Anemia type: unspecified type Qualified Code(s): D64.9 - Anemia, unspecified DKA (diabetic ketoacidoses) Qualifiers: Diabetes mellitus type: type 2 Diabetes mellitus complication detail: without coma Qualified Code(s): E11.10 - Type 2 diabetes mellitus with ketoacidosis without coma Condition: Stable Referrals: Viktor Bowen MD [Primary Care Provider] - Discharge Date/Time: 04/25/20 15:03 Coding Level of Care Code ED Licensed Appraiser for Chg Fwd Exam Comprehensive
[2020-04-25 08:43] LABS: Glucose 518 mg/dL (65-115)
[2020-04-25] MEDS: insulin regular-human 250 UNIT in sodium chloride 0.9% 250 ML 7.1 UNIT IV (09:20)
[2020-04-25 09:44] LABS: Bilirubin Urine Neg (Negative); Blood Urine Neg (Negative); Glucose Urine UA 4+ (Normal); Ketones Urine 1+ (Negative); Leukocyte Esterase Urine Negative (Negative); Nitrate Urine Negative (Negative); Protein Urine Neg (Negative); Specific Gravity, Urine 1.015 (1.005-1.030); Urine Appearance Clear (CLEAR); Urine Color Yellow (Yellow); Urobilinogen Urine Norm (Negative)
[2020-04-25 09:47] VITALS: PULSE 120; RESP 18; O2SAT 99
[2020-04-25 10:00] LABS: Add Urine Culture? No; RBC Urine RARE /hpf (0-2); Squamous Epithelial Cell Urine RARE /hpf (0-5); WBC Urine RARE /hpf (0-5)
--- NOTE | 2020-04-25 10:08 | PC.NURSE ---
Accucheck per protocol perofrmed at this time. [id number]. Dr. Mosquera notified at this time. No further orders received.
[2020-04-25 10:09] LABS: Glucose Point of Care 459 mg/dL (70-110)
[2020-04-25] MEDS: sodium chloride 0.9% 1,000 ML 125 ML IV (10:45)
[2020-04-25] MEDS: metoclopramide 5 mg/mL SDV 2 mL IVP (10:45)
[2020-04-25 10:58] VITALS: BP 106/63; PULSE 134; RESP 16; O2SAT 100
[2020-04-25 11:03] LABS: Glucose Point of Care 445 mg/dL (70-110)
[2020-04-25 13:09] LABS: Glucose Point of Care 385 mg/dL (70-110)
[2020-04-25 14:32] LABS: Glucose Point of Care 365 mg/dL (70-110)
[2020-04-25 14:34] LABS: Basophils % 0.2 %; Hematocrit 20.9 % (42.0-52.0); Hemoglobin 7.1 g/dL (11.7-16.6); Lymphocytes # 1.5 10^3/uL (0.8-4.8); Mean Corpuscular Hemoglobin 31.6 pg (28.0-34.0); Mean Corpuscular Volume 92.9 fL (80-94); Mean Platelet Volume 11.8 fL (7.4-10.4); Monocytes % 8.2 %; Neutrophils # 10.05 10^3/uL (1.8-7.7); Neutrophils % 79.2 %; Nucleated Red Blood Cells % 0 %; Platelet Count 180 10^3/cmm (130-400); Red Blood Count 2.25 10^6/uL (4.1-5.3); Red Cell Distribution Width 14.8 % (12.1-15.1); White Blood Count 12.7 10^3/uL (4.0-10.0)
[2020-04-25 14:51] LABS: Anion Gap 17.2 (5-19); Blood Urea Nitrogen 57 mg/dL (6-20); Calcium 8.2 mg/dL (8.5-10.5); Carbon Dioxide 20 mmol/L (22-29); Chloride 93 mmol/L (98-107); Glomerular Filtration Rate 77.3 mL/min (90-130); Glucose 345 mg/dL (65-115); Osmolality Calculated 292 mOsm/kg (285-295); Potassium 4.2 mmol/L (3.5-5.1); Sodium 126 mmol/L (136-145)
[2020-04-25 15:06] VITALS: BP 111/59; PULSE 124; RESP 16; O2SAT 99
== END 2020-04-25 15:03 | disposition short-term general hospital (02) ==
PROVIDERS: Physician Assistant; Emergency Provider Emergency Medicine; PCP Internal Medicine
DX: E11.10 Type 2 diabetes mellitus with ketoacidosis without coma (principal); D64.9 Anemia, unspecified; K92.2 Gastrointestinal hemorrhage, unspecified; R11.2 Nausea with vomiting, unspecified; I10 Essential (primary) hypertension; Z87.891 Personal history of nicotine dependence
CPT/HCPCS: 12345; 36416; 36600; 80048; 80051; 80053; 81001; 82009; 82330; 82805; 82962; 83605; 83690; 85025; 86850; 86900; 93005; 96365; 96366; 96367; 96375; 99283; 99285; C9113; J1815; J2765; J7030; J7050

== ENCOUNTER → 2020-05-07 10:52 | Outpatient (BNVA) | payer OTHER, SELFPAY | PROVIDERS: PCP Internal Medicine; Visit Provider Internal Medicine | DX: E03.9 Hypothyroidism, unspecified (principal); E11.65 Type 2 diabetes mellitus with hyperglycemia; Z79.4 Long term (current) use of insulin; I10 Essential (primary) hypertension; K74.60 Unspecified cirrhosis of liver | CPT/HCPCS: 99204 ==

== ENCOUNTER → 2020-08-08 08:22 | Outpatient (BNVA) | payer OTHER, SELFPAY | PROVIDERS: PCP Internal Medicine; Visit Provider Internal Medicine | DX: E03.9 Hypothyroidism, unspecified (principal); E11.65 Type 2 diabetes mellitus with hyperglycemia; Z79.4 Long term (current) use of insulin; I10 Essential (primary) hypertension; K74.60 Unspecified cirrhosis of liver | CPT/HCPCS: 99215 ==

== ENCOUNTER 2020-12-17 18:32 | Inpatient (IN) | payer OTHER, SELFPAY ==
[2020-12-17 19:06] VITALS: BP 131/68; PULSE 134; RESP 16; TEMP 36.8; O2SAT 98; BMI 25.9
[2020-12-17 19:48] LABS: Glucose Point of Care 325 mg/dL (70-110)
[2020-12-17 20:10] VITALS: BP 139/87; PULSE 111; RESP 18; O2SAT 99
[2020-12-17 20:24] LABS: Basophils # 0.1 10^3/uL (0.0-0.1); Basophils % 1.4 %; Eosinophils # 0.1 10^3/uL (0.0-0.8); Eosinophils % 1.4 %; Hematocrit 29.5 % (42.0-52.0); Hemoglobin 9.9 g/dL (11.7-16.6); Lymphocytes % 13.2 %; Mean Corpuscular HGB Conc 33.6 g/dL (30.0-36.0); Mean Corpuscular Hemoglobin 31.8 pg (28.0-34.0); Mean Corpuscular Volume 94.9 fL (80-94); Mean Platelet Volume 11.5 fL (7.4-10.4); Monocytes # 0.7 10^3/uL (0.2-0.9); Monocytes % 9.1 %; Neutrophils # 5.41 10^3/uL (1.8-7.7); Neutrophils % 74.6 %; Nucleated Red Blood Cells % 0 %; Platelet Count 138 10^3/cmm (130-400); Red Blood Count 3.11 10^6/uL (4.1-5.3); Red Cell Distribution Width 13.5 % (12.1-15.1); White Blood Count 7.3 10^3/uL (4.0-10.0)
--- NOTE | 2020-12-17 20:30 | CTR_ITS ---
PROCEDURE INFORMATION: Exam: CT Abdomen And Pelvis With Contrast Exam date and time: 12/17/2020 8:30 PM Age: 55 years old Clinical indication: Nausea and other: Blood in stool; Abdominal pain; Generalized; Prior surgery; Surgery type: Egd, lithotripsy; Additional info: Abd pain. Rectal bleeding TECHNIQUE: Imaging protocol: Computed tomography of the abdomen and pelvis with contrast. Total images: 227 Radiation optimization: All CT scans at this facility use at least one of these dose optimization techniques: automated exposure control; mA and/or kV adjustment per patient size (includes targeted exams where dose is matched to clinical indication); or iterative reconstruction. Contrast material: OMNI 300; Contrast volume: 95 ml; Contrast route: INTRAVENOUS (IV); COMPARISON: 1. CT abdomen pelvis w con* [id number] 02/09/2019 9:[address] Abdomen/Pelvis Renal [id number] 04/11/2015 10:12 AM RADIATION DOSE METRICS: Total DLP (mGy-cm): 1310.74 FINDINGS: Lungs: Limited assessment of the lung bases fails to reveal evidence for active cardiopulmonary process. Liver: Cirrhosis of the liver. No visible hepatic mass or cystic structure. Few scattered hepatic calcified granulomas. Gallbladder and bile ducts: Gallbladder partially contracted. No visible cholelithiasis. No visible intra or extrahepatic biliary ectasia. Pancreas: Pancreas is unremarkable. No visible pancreatic ductal ectasia. Spleen: Splenomegaly. Scattered splenic calcified granulomas of antecedent disease. Small splenule. Adrenal glands: Adrenal glands unremarkable. Kidneys and ureters: No visible hydronephrosis or perinephric fluid. No visible nephrolithiasis. Stable simple cortical cyst equator right kidney measuring 14 mm. No follow-up recommended. Stomach and bowel: Colonic mucosal thickening beginning at the level of the hepatic flexure extending across the transverse colon terminating at the splenic flexure with concern for either active inflammatory or infectious colitis. Diverticulosis coli but without visible evidence for acute diverticulitis. Heavy fecal residue consistent with constipation. Nonobstructive bowel pattern. No visible evidence of significant associated adynamic or reactive ileus. Distended stomach without evidence for gastric outlet obstruction. Appendix: The appendix is visualized and appears noninflamed. Intraperitoneal space: Evidence of mild mesenteric lymphadenitis without associated panniculitis/mesenteritis. No visible pneumoperitoneum or generalized intraperitoneal ascites. Vasculature: Portal vein patent. Evidence of portal venous hypertension. Perigastric and paraesophageal varices. The abdominal aorta is nonaneurysmal. No visible intimal flap or dissection. Mild arterial sclerotic disease. Lymph nodes: Mild mesenteric lymphadenitis. Urinary bladder: Urinary bladder unremarkable. Reproductive: Mild prostate hypertrophy. Bones/joints: No visible active or acute osseous pathology. Age-appropriate degenerative disease and degenerative disc disease. Soft tissues: Unremarkable. Other findings: Motion artifact. CT/CT abdomen pelvis w con* [id number] IMPRESSION: 1. Colonic mucosal thickening beginning at the level of the hepatic flexure extending across the transverse colon terminating at the splenic flexure with concern for either active inflammatory or infectious colitis. 2. Diverticulosis coli but without visible evidence for acute diverticulitis. 3. Heavy fecal residue consistent with constipation. 4. Mild mesenteric lymphadenitis. 5. Cirrhosis of the liver with portal venous hypertension. 6. Splenomegaly. 7. Distended stomach without evidence for gastric outlet obstruction. 8. The appendix is visualized and appears noninflamed. Radiation Dose CTDIVOL = (mGy): DLP = 1310.74 (mGy-cm)
--- NOTE | 2020-12-17 20:30 | XRR_ITS ---
PROCEDURE INFORMATION: Exam: XR Chest Exam date and time: 12/17/2020 8:30 PM Age: 55 years old Clinical indication: Other: Low blood sugar; Additional info: Reduced breath sounds TECHNIQUE: Imaging protocol: XR of the chest. Views: 1 view. Total images: 1 COMPARISON: 1. CT abdomen pelvis w con* [id number] 02/09/2019 9:36 AM 2. CA XR KUB [id number] 04/11/2015 10:[address] Abdomen/Pelvis Renal [id number] 04/11/2015 10:12 AM FINDINGS: Lungs: No visible active interstitial or alveolar airspace disease. Pleural spaces: Unremarkable. No pleural effusion. No pneumothorax. Heart/Mediastinum: Unremarkable. No cardiomegaly. Bones/joints: Unremarkable. XR/XR chest 1V portable [id number] IMPRESSION: Nonacute.
--- NOTE | 2020-12-17 20:32 | ECG_ITS ---
[facility] Test Date: 2020-12-17 Pat Name: Tani Montenegro Department: Room: Gender: Male Physical Geographer: : 1965 Requested By: Chaitanya Alexandra Order Number: [id number] Armando MD: Tatiana Hewitt M.D. Measurements Intervals [place] Rate: 113 P: 34 WV: 182 QRS: -21 QRSD: 97 T: 59 QT: 315 QTc: 433 Interpretive Statements SINUS TACHYCARDIA ANTERIOR MYOCARDIAL INFARCTION [40+ ms Q WAVE AND/OR ST/T ABNORMALITY IN V3/V4], OF INDETERMINATE AGE Compared to ECG 04/25/2020 08:14:29 Myocardial infarct finding now present Electronically Signed On 12-19-2020 14:23:20 CDT by Tatiana Hewitt M.D. [email or web address]
[2020-12-17 20:47] LABS: Alanine Aminotransferase 48 U/L (0-41); Albumin Level 3.6 g/dL (3.5-5.2); Alkaline Phosphatase 83 IU/L (40-130); Anion Gap 15.1 (5-19); Aspartate Amino Transferase 33 U/L (0-40); Blood Urea Nitrogen 37 mg/dL (6-20); Calcium 9.2 mg/dL (8.5-10.5); Carbon Dioxide 24 mmol/L (22-29); Chloride 101 mmol/L (98-107); Globulin 2.8 g/dL (1.3-4.6); Glucose 318 mg/dL (65-115); Osmolality Calculated 303 mOsm/kg (285-295); Potassium 4.1 mmol/L (3.5-5.1); Sodium 136 mmol/L (136-145); Total Bilirubin 1.1 mg/dL (0.15-1.2); Total Protein 6.4 g/dL (6.6-8.7)
[2020-12-17] MEDS: iohexol 300 mg/mL 100 mL Btl IV (20:47)
[2020-12-17] MEDS: sodium chloride 0.9% 1,000 ML 999 ML IV (20:53)
[2020-12-17 20:58] LABS: Ketone (Acetest) Serum Negative (Negative)
[2020-12-17 21:07] LABS: Lipase 34 U/L (13-60); Troponin(5th) Baseline 11 ng/L (0-15)
[2020-12-17 21:36] VITALS: BP 129/82; PULSE 123; RESP 18; O2SAT 98
[2020-12-17 22:23] LABS: Glucose Point of Care 324 mg/dL (70-110)
[2020-12-17 22:26] VITALS: BP 118/71; PULSE 130; RESP 18; O2SAT 97
--- NOTE | 2020-12-17 22:32 | ECG_ITS ---
[facility] ED Test Date: 2020-12-18 Pat Name: Tani Montenegro Department: Room: 251 Gender: Male Portrait Consultant: : 1965 Requested By: Chaitanya Alexandra Order Number: [id number] Armando MD: Tatiana Hewitt M.D. Measurements Intervals [place] Rate: 109 P: 46 FL: 191 QRS: 2 QRSD: 95 T: 60 QT: 328 QTc: 443 Interpretive Statements SINUS TACHYCARDIA ABNORMAL RHYTHM ECG Compared to ECG 12/17/2020 20:39:20 Myocardial infarct finding no longer present Electronically Signed On 12-19-2020 14:27:05 CDT by Tatiana Hewitt M.D. [id number]
[2020-12-17 22:52] LABS: Add Urine Microscopic? NO; Charge for UA Resulting for Rev
[2020-12-17 22:56] LABS: Bilirubin Urine Neg (Negative); Blood Urine Neg (Negative); Glucose Urine UA 4+ (Normal); Ketones Urine Negative (Negative); Leukocyte Esterase Urine Negative (Negative); Nitrate Urine Negative (Negative); Protein Urine Neg (Negative); Urine Appearance Clear (CLEAR); Urine Color Yellow (Yellow); Urobilinogen Urine Norm (Negative); pH Urine 5 (5-7)
[2020-12-17 22:58] LABS: Troponin 5 2HR 14.74 ng/L (0-15); Troponin 5 2HR Delta 3.74 ABS# (0-10)
[2020-12-17 23:00] VITALS: BP 122/72; PULSE 131; RESP 16; O2SAT 96
[2020-12-17 23:03] LABS: D Dimer <= 0.27 ug/mIFEU (0-0.59)
[2020-12-17 23:31] LABS: Lactic Sepsis W/Reflex 2.2 mmol/L (0.5-2.2)
[2020-12-17] MEDS: ciprofloxacin 400 MG/200 ML PREMIX 200 MG IV (23:31)
[2020-12-17] MEDS: metroNIDAZOLE 500 MG Tablet PO (23:31)
--- NOTE | 2020-12-17 23:35 | PM.HP ---
Providers/Chief Complaint Primary Care Provider: Viktor Bowen MD Chief Complaint: low blood counts History of Present Illness Tani Montenegro is a 55 year old male who presents today with chief complaint of not feeling well. 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 He went home to rest but his symptoms did not resolve today he was experiencing worse hence decided to come to the hospital for further evaluation. He is denying fever, shortness of breath, chest pain, diarrhea, abdominal pain, but he is endorsing dark-colored stools for last 2 to 3 days, his previous colonoscopy was unremarkable. In the ER he had 1 large coffee-ground emesis. Diagnostics in the ER revealed normal lactic acid, CBC revealed anemia, macrocytic, normal BMP, hyperglycemia, no signs of DKA, EKG showing sinus tachycardia no signs of A. fib, clinically does not show signs of peritonitis. CT abdomen consistent with colitis involving hepatic flexure transverse colon extending up to the splenic flexure Patient is stating that his liver cirrhosis was thought secondary to Metformin use in the past, however no objective evidence no histopathological diagnosis has been made, he is a non-smoker, nonalcoholic. 1. Colonic mucosal thickening beginning at the level of the hepatic flexure extending across the transverse colon terminating at the splenic flexure with concern for either active inflammatory or infectious colitis. 2. Diverticulosis coli but without visible evidence for acute diverticulitis. 3. Heavy fecal residue consistent with constipation. 4. Mild mesenteric lymphadenitis. 5. Cirrhosis of the liver with portal venous hypertension. 6. Splenomegaly. 7. Distended stomach without evidence for gastric outlet obstruction. 8. The appendix is visualized and appears noninflamed. Review of Systems Const: Reports: chills, body aches, fatigue and malaise; Denies: fever(s) Eyes: Denies: change in vision ENMT: Denies: throat pain Card: Denies: chest pain Resp: Denies: dyspnea GI: Reports: nausea and vomiting; Denies: abdominal pain : Denies: flank pain Musc: Denies: neck pain Skin/Breast: Denies: rash Neuro: Denies: headache(s) Psych: Denies: anxiety Endo: Denies: polyuria Chip/Lymph: Denies: easy bruising All/Imm: Denies: urticaria Medications/Allergies Home Medications Medication Instructions Recorded Confirmed Last Taken Type cinnamon bark [Cinnamon] 500 mg PO BID 12/01/19 05/07/20 Unknown History cranberry 1 tab PO BID 12/01/19 08/08/20 Unknown History ferrous gluconate 324 mg PO BID 12/01/19 05/07/20 12/01/19 History ondansetron HCl 8 mg tablet 8 mg PO Q8H PRN #60 tab 04/24/20 05/07/20 04/25/20 Rx pen needle, diabetic 32 gauge x #50 each 04/24/20 05/07/20 Unknown Rx lisinopril 10 mg tablet 10 mg PO DAILY #30 tab 06/10/20 08/08/20 Unknown Rx spironolactone 50 mg tablet 50 mg PO DAILY #30 tab 06/23/20 08/08/20 Unknown Rx multivitamin 1 tab PO DAILY 08/08/20 08/08/20 Unknown History pantoprazole 40 mg tablet,delayed 40 mg PO DAILY #90 tab 08/29/20 Unknown Rx release levothyroxine 50 mcg tablet 50 mcg PO DAILY #40 tab 10/15/20 10/15/20 Unknown Rx insulin glargine U-300 conc 300 20 unit SUBCUT DAILY 90 Days #60 ml 10/27/20 Unknown Rx unit/mL (3 mL) subcutaneous pen liraglutide 0.6 mg/0.1 mL (18 mg/3 1.8 mg SUBCUT DAILY 90 Days #27 ml 10/27/20 Unknown Rx mL) subcutaneous pen injector Allergies Allergy/AdvReac Type Severity Reaction Status Date / Time No Known Allergies Allergy Verified 08/08/20 08:36 PFSH Acute PFSH: Medical History (Updated 12/18/20 @ 01:26 by Evonne Villeda MD) Anemia Hypertension Liver cirrhosis Nephrolithiasis Normal colonoscopy Type 2 diabetes mellitus Surgical History H/O lithotripsy History of esophagogastroduodenoscopy (EGD) April 2019 Family History Other Cancer Diabetes Social History Smoking and tobacco status: former smoker Alcohol intake: former Marital status: History of recent travel: No Vitals/I&O/Wt Last Vital Signs Temp 98.3 F 12/17/20 19:06 Pulse 130 H 12/17/20 22:26 Resp 18 12/17/20 22:26 BP 118/71 12/17/20 22:26 Pulse Ox 97 12/17/20 22:26 12/17/20 12/17/20 12/18/20 14:59 22:59 06:59 Intake Total 1000 / 1000 Balance 1000 / 1000 Weight last 48 hrs Weight 82.1 kg Physical Exam Narrative: EXAM NARRATIVE: This is a young male who appears his stated age, does not look in distress Sinus tachycardia on telemetry Does not look dehydrated No signs of fluid overload, S1, S2 sinus tachycardia no signs of murmur Abdomen soft nontender no signs of peritonitis, bowel sounds present in all quadrants Lower extremity no edema gangrene ulcer EOMI, PERRLA No neurological deficits, Pleasant and cooperative during my evaluation No joint swelling no sign of cellulitis Bilateral breath sounds without audible wheezing or stridor Data : 12/17/20 20:20 12/17/20 20:20 A&P Assessment and plan (1) Colitis: Status: Acute (2) Nausea & vomiting: Status: Acute Qualifiers: Vomiting Intractability: unspecified Vomiting type: unspecified Qualified Code(s): R11.2 - Nausea with vomiting, unspecified (3) Anemia: Status: Acute (4) Hematemesis: Status: Acute Additional A&P Information Colitis No signs of sepsis, no signs of A. fib, lactic acid normal no leukocytosis highly doubt mesenteric ischemia, patient ate tacos on Tuesday, his symptoms started on subsequent day, I would treat him as infectious colitis for now with Zosyn keep him n.p.o., he will need endoscopy in near future for histopathological diagnosis, he does not smoke nor drink alcohol Check celiac panel, stool culture requested Normal saline maintenance fluid Hematemesis Single episode, hemoglobin seems to be around baseline, he has history of liver cirrhosis which seems to be nonalcoholic, hemodynamically stable no urgent need of endoscopy Protonix 40 IV twice daily Type 2 diabetes: Hyperglycemia without signs of DKA, continue normal saline for now Full code N.p.o. DVT prophylaxis SCDs avoid anticoagulating agent Attestations Medical Necessity Statement*: Anticipating discharge within 48 hours, overnight monitoring needed for colitis, he needs IV fluid hydration Time Spent in Patient Care: 40 minutes Coding Level of Care Code Acute Under Presser for Erick Fwchandana Diagnoses Colitis K52.9 Nausea & vomiting R11.2 Vomiting Intractability: unspecified Vomiting type: unspecified Anemia D64.9 Hematemesis K92.0
[2020-12-17 23:37] LABS: Reflex Lactate Order REFLEX LACTIC ORDERD
[2020-12-17 23:38] LABS: Procalcitonin 0.11 ng/mL (0-0.5)
--- NOTE | 2020-12-17 23:57 | ED_ITS ---
Documented by User: Chaitanya Alexandra MD 12/18/20 17:48 HPI - General Adult General: Chief complaint: General Medical Stated complaint: Blood Sugar Low Time Seen by Provider: 12/17/20 19:59 History of Present Illness: HPI narrative: Patient comes to the ER complaining of not feeling well. He cannot describe it very well but he says occasionally he feels this way he needs a blood transfusion. He has a history of cirrhosis which she says is nonalcoholic and he follows a doctor for this. He has had scope EGD and colonoscopy which have been inconclusive but did not any find any acute reason for him to be needing blood. He is also diabetic with his glucose in the 300s. Heart rate 130 on arrival sinus tachycardia. He denies chest pain and shortness of breath. Admits mild discomfort in his abdomen. Severity: mild Pain Consistency: constant Relieving factors: none Exacerbating factors: none Associated symptoms: Reports no associated symptoms; Deny chest pain, cough, dyspnea, fevers/chills, headache(s), nausea, rash, vomiting or weakness Review of Systems General: Reports: 10 or more systems reviewed and unremarkable except in HPI and below Const: Denies: fatigue Eyes: Denies: change in vision, blurry vision or eye redness ENMT: Denies: throat pain, swelling of lips/tongue, ear or mastoid pain or nasal congestion Card: Denies: chest pain Resp: Denies: dyspnea GI: Reports: abdominal pain; Denies: nausea or vomiting : Denies: flank pain, urinary frequency or urinary urgency Musc: Denies: neck pain, back pain, extremity pain, joint pain, joint redness, limited range of motion or muscle weakness Skin/Breast: Denies: rash, pruritus, erythema, skin pain or skin tenderness Neuro: Denies: headache(s) Psych: Denies: anxiety or depression Endo: Denies: polyuria All/Imm: Denies: urticaria, throat swelling or tongue swelling PFSH ED PFSH: Medical History (Updated 12/18/20 @ 01:26 by Evonne Villeda MD) Anemia Hypertension Liver cirrhosis Nephrolithiasis Normal colonoscopy Type 2 diabetes mellitus Surgical History H/O lithotripsy History of esophagogastroduodenoscopy (EGD) April 2019 Family History Other Cancer Diabetes Social History (Reviewed 12/18/20 @ :24 by Evonne Villeda MD) Smoking and tobacco status: former smoker Alcohol intake: former Marital status: History of recent travel: No Physical Exam Const: COMMON NORMALS: no acute distress, average body habitus, patient oriented x3, no limitations, healthy appearing, alert and well nourished GENERAL APPEARANCE: cooperative, comfortable, well kempt and well developed ORIENTATION/CONSCIOUSNESS: Yes awake, Yes oriented to person, Yes oriented to place and Yes oriented to time HENMT: COMMON NORMALS: normocephalic, external ears normal and Normal external nose present HEAD & SCALP: normal to inspection and normocephalic NOSE: Normal external nose present EXTERNAL EAR: Yes external ears normal MOUTH: Normal oral and palatal mucosa present THROAT: posterior oropharynx normal Eye: COMMON NORMALS: Equal, round and reactive pupils present and EOMs intact bilaterally GENERAL EYE: appearance normal, both eyes and all related structures PUPIL: Yes Equal, round and reactive pupils present Neck/C-Spine: COMMON NORMALS: full ROM, no lymphadenopathy, no meningeal signs and no JVD GENERAL: Yes normal visual inspection Lymph: LYMPHATIC: no lymphadenopathy noted Chest: COMMONS NORMALS: normal inspection of the chest and normal palpation of entire chest wall Resp: COMMON NORMALS: normal respiratory effort, No retractions, No use of accessory muscles, clear to auscultation bilaterally and percussion normal EFFORT & INSPECTION: Yes able to speak in complete sentences AUSCULTATION: clear to auscultation bilaterally PERCUSSION: percussion normal Cardio: COMMON NORMALS: no JVD, regular rhythm, S1 normal heart sound present, S2 normal heart sound present and Peripheral pulses 2+ throughout RATE: tachycardic RHYTHM: regular rhythm HEART SOUNDS: S1 normal heart sound present and S2 normal heart sound present PERIPHERAL PULSES: Peripheral pulses 2+ throughout GI: COMMON NORMALS: Normal to inspection, nondistended, normoactive bowel sounds present, Soft to palpation, non-tender and no masses INSPECTION: Yes normal to inspection PALPATION: Yes Soft to palpation : COMMON NORMALS: Yes no CVA tenderness BLADDER/KIDNEY EXAM: Yes no CVA tenderness Back/Pelvis: COMMON NORMALS: no CVA tenderness, thoracic and lumbar spine normal to inspection, no thoracic nor lumbar tenderness and thoraco-lumbar ROM normal Extremity: COMMON NORMALS: normal to inspection, full ROM, capillary refill normal, no joint enlargement and no pedal edema GENERAL: Yes normal exam except as noted Neuro: COMMON NORMALS: patient oriented x3, CN's II-XII intact bilaterally, moves all extremities, no focal motor deficits, no sensory deficits noted and gait normal SENSORIUM/ORIENTATION: Yes alert, Yes oriented to person, Yes oriented to place and Yes oriented to time MENINGEAL SIGNS: Yes no meningeal signs Psych: COMMON NORMALS: mental status grossly normal, Normal thought process present, cooperative, normal affect and speech normal APPEARANCE: Yes well kempt ATTITUDE: Yes calm SPEECH: Yes normal speech THOUGHT PROCESS: Normal thought process present Skin: COMMON NORMALS: no rashes or lesions noted GENERAL SKIN EXAM: no rashes or lesions noted Course Vital Signs: Vital signs: Vital Signs Temperature 98.1 F 12/18/20 17:20 Pulse Rate 125 H 12/18/20 17:20 Respiratory Rate 18 12/18/20 17:20 Blood Pressure 121/65 12/18/20 17:20 Pulse Oximetry 98 12/18/20 17:20 MDM - General Adult MDM Narrative: Medical decision making narrative: Patient came in complaining of mild abdominal discomfort and feeling like he needs a transfusion of blood. His hemoglobin is 9.9 so he most certainly does not. He has been worked up in the past and found no reason that he needs transfusions. 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 CT of his abdomen pelvis does show colitis. Normal white count. He was given a liter of IV fluids and Cipro and Flagyl as well. On reexam he was in sinus tachycardia in the mid 130s. Discussed with Dr. Christine who I will be signing him out to at midnight. We will give a second liter of fluid and he will reexamine him at that time and decide whether he needs to be held observation versus discharge home. Lab Data: Labs: Lab Results 12/17/20 12/17/20 12/17/20 Range/Units 19:17 20:20 20:20 WBC 7.3 (4.0-10.0) 10^3/ uL RBC 3.11 L (4.1-5.3) 10^6/u L Hgb 9.9 L (11.7-16.6) g/dL Hct 29.5 L (42.0-52.0) % MCV 94.9 H (80-94) fL MCH 31.8 (28.0-34.0) pg MCHC 33.6 (30.0-36.0) g/dL RDW 13.5 (12.1-15.1) % Plt Count 138 (130-400) 10^3/c mm MPV 11.5 H (7.4-10.4) fL Neut % (Auto) 74.6 % Lymph % (Auto) 13.2 % [place] % (Auto) 9.1 % Eos % (Auto) 1.4 % Baso % (Auto) 1.4 % Neut # (Auto) 5.41 (1.8-7.7) 10^3/u L Lymph # (Auto) 1.0 (0.8-4.8) 10^3/u L [place] # (Auto) 0.7 (0.2-0.9) 10^3/u L Eos # (Auto) 0.1 (0.0-0.8) 10^3/u L Baso # (Auto) 0.1 (0.0-0.1) 10^3/u L Nucleated RBC % (a uto) 0 % Nucleated RBCs # 0.0 /100WBC D-Dimer (0-0.59) ug/mIFE U Sodium 136 (136-145) mmol/L Potassium 4.1 (3.5-5.1) mmol/L Chloride 101 (98-107) mmol/L Carbon Dioxide 24 (22-29) mmol/L Anion Gap 15.1 (5-19) BUN 37 H (6-20) mg/dL Creatinine 0.8 (0.7-1.2) mg/dL GFR Calculation 100.0 (90-130) mL/min Glucose 318 H (65-115) mg/dL POC Glucose 325 H (70-110) mg/dL Calculated Osmolal ity 303 H (285-295) mOsm/k g Lactic Acid (0.5-2.2) mmol/L Calcium 9.2 (8.5-10.5) mg/dL Total Bilirubin 1.1 (0.15-1.2) mg/dL AST 33 (0-40) U/L ALT 48 H (0-41) U/L Alkaline Phosphata se 83 (40-130) IU/L Troponin T Baselin e (0-15) ng/L Troponin T 120 Min [place] (0-15) ng/L Delta Troponin T (0-10) ABS# Total Protein 6.4 L (6.6-8.7) g/dL Albumin 3.6 (3.5-5.2) g/dL Globulin 2.8 (1.3-4.6) g/dL Lipase (13-60) U/L Procalcitonin (0-0.5) ng/mL Urine Color (Yellow) Urine Appearance (CLEAR) Urine pH (5-7) Ur Specific Gravit y (1.005-1.030) Urine Protein (Negative) Urine Glucose (UA) (Normal) Urine Ketones (Negative) Urine Blood (Negative) Urine Nitrate (Negative) Urine Bilirubin (Negative) Urine Urobilinogen (Negative) mg/dL Ur Leukocyte [place]ma ase (Negative) Serum Ketones (Negative) 12/17/20 12/17/20 12/17/20 Range/Units 20:20 20:20 20:20 WBC (4.0-10.0) 10^3/ uL RBC (4.1-5.3) 10^6/u L Hgb (11.7-16.6) g/dL Hct (42.0-52.0) % MCV (80-94) fL MCH (28.0-34.0) pg MCHC (30.0-36.0) g/dL RDW (12.1-15.1) % Plt Count (130-400) 10^3/c mm MPV (7.4-10.4) fL Neut % (Auto) % Lymph % (Auto) % [place] % (Auto) % Eos % (Auto) % Baso % (Auto) % Neut # (Auto) (1.8-7.7) 10^3/u L Lymph # (Auto) (0.8-4.8) 10^3/u L [place] # (Auto) (0.2-0.9) 10^3/u L Eos # (Auto) (0.0-0.8) 10^3/u L Baso # (Auto) (0.0-0.1) 10^3/u L Nucleated RBC % (a uto) % Nucleated RBCs # /100WBC D-Dimer (0-0.59) ug/mIFE U Sodium (136-145) mmol/L Potassium (3.5-5.1) mmol/L Chloride (98-107) mmol/L Carbon Dioxide (22-29) mmol/L Anion Gap (5-19) BUN (6-20) mg/dL Creatinine (0.7-1.2) mg/dL GFR Calculation (90-130) mL/min Glucose (65-115) mg/dL POC Glucose (70-110) mg/dL Calculated Osmolal ity (285-295) mOsm/k g Lactic Acid (0.5-2.2) mmol/L Calcium (8.5-10.5) mg/dL Total Bilirubin (0.15-1.2) mg/dL AST (0-40) U/L ALT (0-41) U/L Alkaline Phosphata se (40-130) IU/L Troponin T Baselin e 11 (0-15) ng/L Troponin T 120 Min [place] (0-15) ng/L Delta Troponin T (0-10) ABS# Total Protein (6.6-8.7) g/dL Albumin (3.5-5.2) g/dL Globulin (1.3-4.6) g/dL Lipase 34 (13-60) U/L Procalcitonin (0-0.5) ng/mL Urine Color (Yellow) Urine Appearance (CLEAR) Urine pH (5-7) Ur Specific Gravit y (1.005-1.030) Urine Protein (Negative) Urine Glucose (UA) (Normal) Urine Ketones (Negative) Urine Blood (Negative) Urine Nitrate (Negative) Urine Bilirubin (Negative) Urine Urobilinogen (Negative) mg/dL Ur Leukocyte [place] ase (Negative) Serum Ketones Negative (Negative) 12/17/20 12/17/20 12/17/20 Range/Units 20:20 22:21 22:27 WBC (4.0-10.0) 10^3/ uL RBC (4.1-5.3) 10^6/u L Hgb (11.7-16.6) g/dL Hct (42.0-52.0) % MCV (80-94) fL MCH (28.0-34.0) pg MCHC (30.0-36.0) g/dL RDW (12.1-15.1) % Plt Count (130-400) 10^3/c mm MPV (7.4-10.4) fL Neut % (Auto) % Lymph % (Auto) % [place] % (Auto) % Eos % (Auto) % Baso % (Auto) % Neut # (Auto) (1.8-7.7) 10^3/u L Lymph # (Auto) (0.8-4.8) 10^3/u L [place] # (Auto) (0.2-0.9) 10^3/u L Eos # (Auto) (0.0-0.8) 10^3/u L Baso # (Auto) (0.0-0.1) 10^3/u L Nucleated RBC % (a uto) % Nucleated RBCs # /100WBC D-Dimer (0-0.59) ug/mIFE U Sodium (136-145) mmol/L Potassium (3.5-5.1) mmol/L Chloride (98-107) mmol/L Carbon Dioxide (22-29) mmol/L Anion Gap (5-19) BUN (6-20) mg/dL Creatinine (0.7-1.2) mg/dL GFR Calculation (90-130) mL/min Glucose (65-115) mg/dL POC Glucose 324 H (70-110) mg/dL Calculated Osmolal ity (285-295) mOsm/k g Lactic Acid 2.2 (0.5-2.2) mmol/L Calcium (8.5-10.5) mg/dL Total Bilirubin (0.15-1.2) mg/dL AST (0-40) U/L ALT (0-41) U/L Alkaline Phosphata se (40-130) IU/L Troponin T Baselin e (0-15) ng/L Troponin T 120 Min [place] (0-15) ng/L Delta Troponin T (0-10) ABS# Total Protein (6.6-8.7) g/dL Albumin (3.5-5.2) g/dL Globulin (1.3-4.6) g/dL Lipase (13-60) U/L Procalcitonin (0-0.5) ng/mL Urine Color Yellow (Yellow) Urine Appearance Clear (CLEAR) Urine pH 5 (5-7) Ur Specific Gravit y 1.010 (1.005-1.030) Urine Protein Neg (Negative) Urine Glucose (UA) 4+ H (Normal) Urine Ketones Negative (Negative) Urine Blood Neg (Negative) Urine Nitrate Negative (Negative) Urine Bilirubin Neg (Negative) Urine Urobilinogen Norm (Negative) mg/dL Ur Leukocyte [place] a[place] Negative (Negative) Serum Ketones (Negative) 12/17/20 12/17/20 12/17/20 Range/Units 22:32 22:32 22:40 WBC (4.0-10.0) 10^3/ uL RBC (4.1-5.3) 10^6/u L Hgb (11.7-16.6) g/dL Hct (42.0-52.0) % MCV (80-94) fL MCH (28.0-34.0) pg MCHC (30.0-36.0) g/dL RDW (12.1-15.1) % Plt Count (130-400) 10^3/c mm MPV (7.4-10.4) fL Neut % (Auto) % Lymph % (Auto) % [place] % (Auto) % Eos % (Auto) % Baso % (Auto) % Neut # (Auto) (1.8-7.7) 10^3/u L Lymph # (Auto) (0.8-4.8) 10^3/u L [place] # (Auto) (0.2-0.9) 10^3/u L Eos # (Auto) (0.0-0.8) 10^3/u L Baso # (Auto) (0.0-0.1) 10^3/u L Nucleated RBC % (a uto) % Nucleated RBCs # /100WBC D-Dimer <= 0.27 (0-0.59) ug/mIFE U Sodium (136-145) mmol/L Potassium (3.5-5.1) mmol/L Chloride (98-107) mmol/L Carbon Dioxide (22-29) mmol/L Anion Gap (5-19) BUN (6-20) mg/dL Creatinine (0.7-1.2) mg/dL GFR Calculation (90-130) mL/min Glucose (65-115) mg/dL POC Glucose (70-110) mg/dL Calculated Osmolal ity (285-295) mOsm/k g Lactic Acid (0.5-2.2) mmol/L Calcium (8.5-10.5) mg/dL Total Bilirubin (0.15-1.2) mg/dL AST (0-40) U/L ALT (0-41) U/L Alkaline Phosphata se (40-130) IU/L Troponin T Baselin e (0-15) ng/L Troponin T 120 Min [place] 14.74 (0-15) ng/L Delta Troponin T 3.74 (0-10) ABS# Total Protein (6.6-8.7) g/dL Albumin (3.5-5.2) g/dL Globulin (1.3-4.6) g/dL Lipase (13-60) U/L Procalcitonin 0.11 (0-0.5) ng/mL Urine Color (Yellow) Urine Appearance (CLEAR) Urine pH (5-7) Ur Specific Gravit y (1.005-1.030) Urine Protein (Negative) Urine Glucose (UA) (Normal) Urine Ketones (Negative) Urine Blood (Negative) Urine Nitrate (Negative) Urine Bilirubin (Negative) Urine Urobilinogen (Negative) mg/dL Ur Leukocyte [place] a[place] (Negative) Serum Ketones (Negative) 12/18/20 12/18/20 Range/Units 01:27 06:11 WBC (4.0-10.0) 10^3/ uL RBC (4.1-5.3) 10^6/u L Hgb (11.7-16.6) g/dL Hct (42.0-52.0) % MCV (80-94) fL MCH (28.0-34.0) pg MCHC (30.0-36.0) g/dL RDW (12.1-15.1) % Plt Count (130-400) 10^3/c mm MPV (7.4-10.4) fL Neut % (Auto) % Lymph % (Auto) % [place] % (Auto) % Eos % (Auto) % Baso % (Auto) % Neut # (Auto) (1.8-7.7) 10^3/u L Lymph # (Auto) (0.8-4.8) 10^3/u L [place] # (Auto) (0.2-0.9) 10^3/u L Eos # (Auto) (0.0-0.8) 10^3/u L Baso # (Auto) (0.0-0.1) 10^3/u L Nucleated RBC % (a uto) % Nucleated RBCs # /100WBC D-Dimer (0-0.59) ug/mIFE U Sodium (136-145) mmol/L Potassium (3.5-5.1) mmol/L Chloride (98-107) mmol/L Carbon Dioxide (22-29) mmol/L Anion Gap (5-19) BUN (6-20) mg/dL Creatinine (0.7-1.2) mg/dL GFR Calculation (90-130) mL/min Glucose (65-115) mg/dL POC Glucose 273 H 302 H (70-110) mg/dL Calculated Osmolal ity (285-295) mOsm/k g Lactic Acid (0.5-2.2) mmol/L Calcium (8.5-10.5) mg/dL Total Bilirubin (0.15-1.2) mg/dL AST (0-40) U/L ALT (0-41) U/L Alkaline Phosphata se (40-130) IU/L Troponin T Baselin e (0-15) ng/L Troponin T 120 Min [place] (0-15) ng/L Delta Troponin T (0-10) ABS# Total Protein (6.6-8.7) g/dL Albumin (3.5-5.2) g/dL Globulin (1.3-4.6) g/dL Lipase (13-60) U/L Procalcitonin (0-0.5) ng/mL Urine Color (Yellow) Urine Appearance (CLEAR) Urine pH (5-7) Ur Specific Gravit y (1.005-1.030) Urine Protein (Negative) Urine Glucose (UA) (Normal) Urine Ketones (Negative) Urine Blood (Negative) Urine Nitrate (Negative) Urine Bilirubin (Negative) Urine Urobilinogen (Negative) mg/dL Ur Leukocyte [place] ase (Negative) Serum Ketones (Negative) Discharge Plan Discharge Patient Disposition: Placed in Observation Admit Provider: Evonne Villeda Clinical Impression: Colitis Coding Level of Care Code ED Consolidation Accountant for Chg Fwd Exam Comprehensive Documented by User: Jimmie Christine MD 12/18/20 01:16 HPI - General Adult General: Chief complaint: General Medical Stated complaint: Blood Sugar Low Time Seen by Provider: 12/17/20 19:59 PFSH ED PFSH: Medical History (Updated 12/18/20 @ 01:26 by Evonne Villeda MD) Anemia Hypertension Liver cirrhosis Nephrolithiasis Normal colonoscopy Type 2 diabetes mellitus Surgical History H/O lithotripsy History of esophagogastroduodenoscopy (EGD) April 2019 Family History Other Cancer Diabetes Social History Smoking and tobacco status: former smoker Alcohol intake: former Marital status: History of recent travel: No Course Vital Signs: Vital signs: Vital Signs Temperature 98.1 F 12/18/20 17:20 Pulse Rate 125 H 12/18/20 17:20 Respiratory Rate 18 12/18/20 17:20 Blood Pressure 121/65 12/18/20 17:20 Pulse Oximetry 98 12/18/20 17:20 MDM - General Adult MDM Narrative: Medical decision making narrative: Patient still tachycardic and spoke to zeke Hunt and will admit for observation. Lab Data: Labs: Lab Results 12/17/20 12/17/20 12/17/20 Range/Units 19:17 20:20 20:20 WBC 7.3 (4.0-10.0) 10^3/ uL RBC 3.11 L (4.1-5.3) 10^6/u L Hgb 9.9 L (11.7-16.6) g/dL Hct 29.5 L (42.0-52.0) % MCV 94.9 H (80-94) fL MCH 31.8 (28.0-34.0) pg MCHC 33.6 (30.0-36.0) g/dL RDW 13.5 (12.1-15.1) % Plt Count 138 (130-400) 10^3/c mm MPV 11.5 H (7.4-10.4) fL Neut % (Auto) 74.6 % Lymph % (Auto) 13.2 % [place] % (Auto) 9.1 % Eos % (Auto) 1.4 % Baso % (Auto) 1.4 % Neut # (Auto) 5.41 (1.8-7.7) 10^3/u L Lymph # (Auto) 1.0 (0.8-4.8) 10^3/u L [place] # (Auto) 0.7 (0.2-0.9) 10^3/u L Eos # (Auto) 0.1 (0.0-0.8) 10^3/u L Baso # (Auto) 0.1 (0.0-0.1) 10^3/u L Nucleated RBC % (a uto) 0 % Nucleated RBCs # 0.0 /100WBC D-Dimer (0-0.59) ug/mIFE U Sodium 136 (136-145) mmol/L Potassium 4.1 (3.5-5.1) mmol/L Chloride 101 (98-107) mmol/L Carbon Dioxide 24 (22-29) mmol/L Anion Gap 15.1 (5-19) BUN 37 H (6-20) mg/dL Creatinine 0.8 (0.7-1.2) mg/dL GFR Calculation 100.0 (90-130) mL/min Glucose 318 H (65-115) mg/dL POC Glucose 325 H (70-110) mg/dL Calculated Osmolal ity 303 H (285-295) mOsm/k g Lactic Acid (0.5-2.2) mmol/L Calcium 9.2 (8.5-10.5) mg/dL Total Bilirubin 1.1 (0.15-1.2) mg/dL AST 33 (0-40) U/L ALT 48 H (0-41) U/L Alkaline Phosphata se 83 (40-130) IU/L Troponin T Baselin e (0-15) ng/L Troponin T 120 Min [place] (0-15) ng/L Delta Troponin T (0-10) ABS# Total Protein 6.4 L (6.6-8.7) g/dL Albumin 3.6 (3.5-5.2) g/dL Globulin 2.8 (1.3-4.6) g/dL Lipase (13-60) U/L Procalcitonin (0-0.5) ng/mL Urine Color (Yellow) Urine Appearance (CLEAR) Urine pH (5-7) Ur Specific Gravit y (1.005-1.030) Urine Protein (Negative) Urine Glucose (UA) (Normal) Urine Ketones (Negative) Urine Blood (Negative) Urine Nitrate (Negative) Urine Bilirubin (Negative) Urine Urobilinogen (Negative) mg/dL Ur Leukocyte [place] ase (Negative) Serum Ketones (Negative) 12/17/20 12/17/20 12/17/20 Range/Units 20:20 20:20 20:20 WBC (4.0-10.0) 10^3/ uL RBC (4.1-5.3) 10^6/u L Hgb (11.7-16.6) g/dL Hct (42.0-52.0) % MCV (80-94) fL MCH (28.0-34.0) pg MCHC (30.0-36.0) g/dL RDW (12.1-15.1) % Plt Count (130-400) 10^3/c mm MPV (7.4-10.4) fL Neut % (Auto) % Lymph % (Auto) % [place] % (Auto) % Eos % (Auto) % Baso % (Auto) % Neut # (Auto) (1.8-7.7) 10^3/u L Lymph # (Auto) (0.8-4.8) 10^3/u L [place] # (Auto) (0.2-0.9) 10^3/u L Eos # (Auto) (0.0-0.8) 10^3/u L Baso # (Auto) (0.0-0.1) 10^3/u L Nucleated RBC % (a uto) % Nucleated RBCs # /100WBC D-Dimer (0-0.59) ug/mIFE U Sodium (136-145) mmol/L Potassium (3.5-5.1) mmol/L Chloride (98-107) mmol/L Carbon Dioxide (22-29) mmol/L Anion Gap (5-19) BUN (6-20) mg/dL Creatinine (0.7-1.2) mg/dL GFR Calculation (90-130) mL/min Glucose (65-115) mg/dL POC Glucose (70-110) mg/dL Calculated Osmolal ity (285-295) mOsm/k g Lactic Acid (0.5-2.2) mmol/L Calcium (8.5-10.5) mg/dL Total Bilirubin (0.15-1.2) mg/dL AST (0-40) U/L ALT (0-41) U/L Alkaline Phosphata se (40-130) IU/L Troponin T Baselin e 11 (0-15) ng/L Troponin T 120 Min [place] (0-15) ng/L Delta Troponin T (0-10) ABS# Total Protein (6.6-8.7) g/dL Albumin (3.5-5.2) g/dL Globulin (1.3-4.6) g/dL Lipase 34 (13-60) U/L Procalcitonin (0-0.5) ng/mL Urine Color (Yellow) Urine Appearance (CLEAR) Urine pH (5-7) Ur Specific Gravit y (1.005-1.030) Urine Protein (Negative) Urine Glucose (UA) (Normal) Urine Ketones (Negative) Urine Blood (Negative) Urine Nitrate (Negative) Urine Bilirubin (Negative) Urine Urobilinogen (Negative) mg/dL Ur Leukocyte [place] ase (Negative) Serum Ketones Negative (Negative) 12/17/20 12/17/20 12/17/20 Range/Units 20:20 22:21 22:27 WBC (4.0-10.0) 10^3/ uL RBC (4.1-5.3) 10^6/u L Hgb (11.7-16.6) g/dL Hct (42.0-52.0) % MCV (80-94) fL MCH (28.0-34.0) pg MCHC (30.0-36.0) g/dL RDW (12.1-15.1) % Plt Count (130-400) 10^3/c mm MPV (7.4-10.4) fL Neut % (Auto) % Lymph % (Auto) % [place] % (Auto) % Eos % (Auto) % Baso % (Auto) % Neut # (Auto) (1.8-7.7) 10^3/u L Lymph # (Auto) (0.8-4.8) 10^3/u L [place] # (Auto) (0.2-0.9) 10^3/u L Eos # (Auto) (0.0-0.8) 10^3/u L Baso # (Auto) (0.0-0.1) 10^3/u L Nucleated RBC % (a uto) % Nucleated RBCs # /100WBC D-Dimer (0-0.59) ug/mIFE U Sodium (136-145) mmol/L Potassium (3.5-5.1) mmol/L Chloride (98-107) mmol/L Carbon Dioxide (22-29) mmol/L Anion Gap (5-19) BUN (6-20) mg/dL Creatinine (0.7-1.2) mg/dL GFR Calculation (90-130) mL/min Glucose (65-115) mg/dL POC Glucose 324 H (70-110) mg/dL Calculated Osmolal ity (285-295) mOsm/k g Lactic Acid 2.2 (0.5-2.2) mmol/L Calcium (8.5-10.5) mg/dL Total Bilirubin (0.15-1.2) mg/dL AST (0-40) U/L ALT (0-41) U/L Alkaline Phosphata se (40-130) IU/L Troponin T Baselin e (0-15) ng/L Troponin T 120 Min [place] (0-15) ng/L Delta Troponin T (0-10) ABS# Total Protein (6.6-8.7) g/dL Albumin (3.5-5.2) g/dL Globulin (1.3-4.6) g/dL Lipase (13-60) U/L Procalcitonin (0-0.5) ng/mL Urine Color Yellow (Yellow) Urine Appearance Clear (CLEAR) Urine pH 5 (5-7) Ur Specific Gravit y 1.010 (1.005-1.030) Urine Protein Neg (Negative) Urine Glucose (UA) 4+ H (Normal) Urine Ketones Negative (Negative) Urine Blood Neg (Negative) Urine Nitrate Negative (Negative) Urine Bilirubin Neg (Negative) Urine Urobilinogen Norm (Negative) mg/dL Ur Leukocyte [place] Negative (Negative) Serum Ketones (Negative) 12/17/20 12/17/20 12/17/20 Range/Units 22:32 22:32 22:40 WBC (4.0-10.0) 10^3/ uL RBC (4.1-5.3) 10^6/u L Hgb (11.7-16.6) g/dL Hct (42.0-52.0) % MCV (80-94) fL MCH (28.0-34.0) pg MCHC (30.0-36.0) g/dL RDW (12.1-15.1) % Plt Count (130-400) 10^3/c mm MPV (7.4-10.4) fL Neut % (Auto) % Lymph % (Auto) % [place] % (Auto) % Eos % (Auto) % Baso % (Auto) % Neut # (Auto) (1.8-7.7) 10^3/u L Lymph # (Auto) (0.8-4.8) 10^3/u L [place] # (Auto) (0.2-0.9) 10^3/u L Eos # (Auto) (0.0-0.8) 10^3/u L Baso # (Auto) (0.0-0.1) 10^3/u L Nucleated RBC % (a uto) % Nucleated RBCs # /100WBC D-Dimer <= 0.27 (0-0.59) ug/mIFE U Sodium (136-145) mmol/L Potassium (3.5-5.1) mmol/L Chloride (98-107) mmol/L Carbon Dioxide (22-29) mmol/L Anion Gap (5-19) BUN (6-20) mg/dL Creatinine (0.7-1.2) mg/dL GFR Calculation (90-130) mL/min Glucose (65-115) mg/dL POC Glucose (70-110) mg/dL Calculated Osmolal ity (285-295) mOsm/k g Lactic Acid (0.5-2.2) mmol/L Calcium (8.5-10.5) mg/dL Total Bilirubin (0.15-1.2) mg/dL AST (0-40) U/L ALT (0-41) U/L Alkaline Phosphata se (40-130) IU/L Troponin T Baselin e (0-15) ng/L Troponin T 120 Min [place] 14.74 (0-15) ng/L Delta Troponin T 3.74 (0-10) ABS# Total Protein (6.6-8.7) g/dL Albumin (3.5-5.2) g/dL Globulin (1.3-4.6) g/dL Lipase (13-60) U/L Procalcitonin 0.11 (0-0.5) ng/mL Urine Color (Yellow) Urine Appearance (CLEAR) Urine pH (5-7) Ur Specific Gravit y (1.005-1.030) Urine Protein (Negative) Urine Glucose (UA) (Normal) Urine Ketones (Negative) Urine Blood (Negative) Urine Nitrate (Negative) Urine Bilirubin (Negative) Urine Urobilinogen (Negative) mg/dL Ur Leukocyte [place] (Negative) Serum Ketones (Negative) 12/18/20 12/18/20 Range/Units 01:27 06:11 WBC (4.0-10.0) 10^3/ uL RBC (4.1-5.3) 10^6/u L Hgb (11.7-16.6) g/dL Hct (42.0-52.0) % MCV (80-94) fL MCH (28.0-34.0) pg MCHC (30.0-36.0) g/dL RDW (12.1-15.1) % Plt Count (130-400) 10^3/c mm MPV (7.4-10.4) fL Neut % (Auto) % Lymph % (Auto) % [place] % (Auto) % Eos % (Auto) % Baso % (Auto) % Neut # (Auto) (1.8-7.7) 10^3/u L Lymph # (Auto) (0.8-4.8) 10^3/u L [place] # (Auto) (0.2-0.9) 10^3/u L Eos # (Auto) (0.0-0.8) 10^3/u L Baso # (Auto) (0.0-0.1) 10^3/u L Nucleated RBC % (a uto) % Nucleated RBCs # /100WBC D-Dimer (0-0.59) ug/mIFE U Sodium (136-145) mmol/L Potassium (3.5-5.1) mmol/L Chloride (98-107) mmol/L Carbon Dioxide (22-29) mmol/L Anion Gap (5-19) BUN (6-20) mg/dL Creatinine (0.7-1.2) mg/dL GFR Calculation (90-130) mL/min Glucose (65-115) mg/dL POC Glucose 273 H 302 H (70-110) mg/dL Calculated Osmolal ity (285-295) mOsm/k g Lactic Acid (0.5-2.2) mmol/L Calcium (8.5-10.5) mg/dL Total Bilirubin (0.15-1.2) mg/dL AST (0-40) U/L ALT (0-41) U/L Alkaline Phosphata se (40-130) IU/L Troponin T Baselin e (0-15) ng/L Troponin T 120 Min [place] (0-15) ng/L Delta Troponin T (0-10) ABS# Total Protein (6.6-8.7) g/dL Albumin (3.5-5.2) g/dL Globulin (1.3-4.6) g/dL Lipase (13-60) U/L Procalcitonin (0-0.5) ng/mL Urine Color (Yellow) Urine Appearance (CLEAR) Urine pH (5-7) Ur Specific Gravit y (1.005-1.030) Urine Protein (Negative) Urine Glucose (UA) (Normal) Urine Ketones (Negative) Urine Blood (Negative) Urine Nitrate (Negative) Urine Bilirubin (Negative) Urine Urobilinogen (Negative) mg/dL Ur Leukocyte Elma ase (Negative) Serum Ketones (Negative) Discharge Plan Discharge Patient Disposition: Placed in Observation Admit Provider: Evonne Villeda Clinical Impression: Colitis Coding Level of Care Code ED Consolidation Accountant for Chg Fwd Exam Comprehensive
[2020-12-18] VITALS (19 sets, daily range): BP systolic 105–131; BP diastolic 57–77; PULSE 101–130; RESP 16–20; TEMP 36.7–37.6; O2SAT 97–99
[2020-12-18] MEDS: sodium chloride 0.9% 1,000 ML 999 ML IV (00:10)
[2020-12-18 01:30] LABS: Glucose Point of Care 273 mg/dL (70-110)
[2020-12-18] MEDS: sodium chloride 0.9% 1,000 ML 100 ML IV ×2 (02:57→12:33)
[2020-12-18] MEDS: piperacillin-tazobactam 3.375 GM in sodium chloride 0.9% (plus) 50 ML IV ×3 (02:57→18:21)
[2020-12-18 06:20] LABS: Glucose Point of Care 302 mg/dL (70-110)
[2020-12-18] MEDS: ondansetron 2 mg/ML SDV 2 mL 4 MG IVP (10:41)
[2020-12-18 12:15] LABS: Glucose Point of Care 381 mg/dL (70-110)
[2020-12-18] MEDS: pantoprazole 40 mg SDV IVP ×2 (12:33→22:08)
--- NOTE | 2020-12-18 14:51 | P.PN_ITS ---
Subjective Subjective: Interval history: Had additional episodes of vomiting again with dark coffee colored old blood, with some fresh blood mixed in. Denies abdominal pain. States felt a tiny bit better after having some clear liquids. Had a dark bowel movement, although was not collected. Feels he may have had an EGD in April but is really not sure. Had previously had a colonoscopy. Denies NSAID use. Does not drink alcohol. Vitals/I&O/Wt Last Vital Signs Temp 99.4 F 12/18/20 12:00 Pulse 126 H 12/18/20 12:00 Resp 20 H 12/18/20 12:00 BP 106/64 12/18/20 12:00 Pulse Ox 98 12/18/20 12:00 12/17/20 12/18/20 12/18/20 22:59 06:59 14:59 Intake Total 2199 / 0 2089 / 2089 Output Total 0 / 0 Balance 2199 / 2199 2089 / 2089 Weight last 48 hrs Weight 82.1 kg Physical Exam Const: COMMON NORMALS: no acute distress and patient oriented x3 HENMT: COMMON NORMALS: oropharynx normal Neck/C-Spine: COMMON NORMALS: no JVD Resp: COMMON NORMALS: normal respiratory effort and clear to auscultation b ilaterally AUSCULTATION: clear to auscultation bilaterally Cardio: COMMON NORMALS: no JVD, regular rhythm, S1 normal heart sound present, S2 normal heart sound present and No murmurs present (Cardio) RHYTHM: regular rhythm HEART SOUNDS: S1 normal heart sound present and S2 normal heart sound present GI: COMMON NORMALS: Normal to inspection, nondistended, normoactive bowel sounds present, Soft to palpation and non-tender PALPATION: Yes Soft to palpation Extremity: COMMON NORMALS: no joint enlargement and no pedal edema Neuro: COMMON NORMALS: patient oriented x3 and moves all extremities Skin: COMMON NORMALS: no rashes or lesions noted GENERAL SKIN EXAM: no rashes or lesions noted Data : 12/18/20 16:04 12/17/20 20:20 A&P Assessment and plan (1) GI bleed: Again had additional episode of vomiting after bloody contents mixed with some fresh blood. Loose stool which was dark today. No spring blood in the stool. Added Protonix IV twice daily. Sucralfate. Requested recheck hemoglobin. On recheck hemoglobin coming back as 5.7 down from 9.9. Requesting blood for him, as appears he is tachycardic, blood pressure with some mild decline down to 105/57, requesting 1 emergency release O+ blood unit, additional units after crossmatch should be available. Change to n.p.o., continue Protonix, sucralfate. Discussed with surgery with regards to consultation. Requesting to also place NGT. Liver cirrhosis is pleasant, although without ascites, he does not have known history of varices. Some portal venous hypertension noted on CT, no obvious varicose veins noted. He states he may have had a EGD in April in [place] which was inconclusive. Given coffee-ground/dark contents, not spring blood emesis, doubt variceal bleed so far, but continue to closely monitor, monitor output from NGT. On Zosyn, which should provide antibiotic prophylaxis, although does not have a scites. Status: Acute Qualifiers: GI bleed type/associated pathology: melena Qualified Code(s): K92.1 - Melena (2) Hematemesis: Denies NSAID. Does not drink alcohol. Status: Acute (3) Colitis: Possible colitis noted on CT. No diarrhea, loose stool which is dark currently. Given transfers location, upper GI symptoms, consideration may be given perhaps to local inflammatory changes secondary to significant upper GI inflammation. Discussed with him. For now continue empiric antibiotic coverage. Collect stool studies. Additional management as above. Consideration regarding colonoscopy after recovery. 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 Status: Acute Qualifiers: Ascites presence: without ascites Hepatic cirrhosis type: unspecified hepatic cirrhosis Qualified Code(s): K74.60 - Unspecified cirrhosis of liver Additional A&P Information Type 2 diabetes: Hyperglycemia without signs of DKA, continue normal saline for now Full code N.p.o. DVT prophylaxis SCDs avoid anticoagulating agent Attestations Medical Necessity Statement*: Admission of over 2 midnights is needed for assessment of management of GI bleed, acute blood loss anemia, possible colitis. Coding Level of Care Code Acute [facility] Hand for [facility] Fwd Exam Comprehensive Diagnoses GI bleed K92.1 GI bleed type/associated pathology: melena Hematemesis K92.0 Colitis K52.9 Nausea & vomiting R11.2 Vomiting Intractability: unspecified Vomiting type: unspecified Anemia D64.9 Liver cirrhosis K74.60 Ascites presence: without ascites Hepatic cirrhosis type: unspecified hepatic cirrhosis
[2020-12-18 16:23] LABS: Hemoglobin 5.7 g/dL (11.7-16.6)
[2020-12-18 17:43] LABS: Glucose Point of Care 339 mg/dL (70-110)
[2020-12-18] MEDS: sucralfate 1 gm/10 mL Oral Liq UDC PO ×2 (18:24→21:01)
[2020-12-18] MEDS: sodium chloride 0.9% (100 ml) 100 ML (18:25)
[2020-12-18 20:35] LABS: Glucose Point of Care 286 mg/dL (70-110)
[2020-12-18] MEDS: sodium chloride 0.9% 1,000 ML 30 ML IV (21:01)
[2020-12-18] MEDS: insulin glargine 100 units/1 mL 5 UNIT SUBCUT (22:07)
[2020-12-18] MEDS: sodium chloride 0.9% (100 ml) 100 ML 50 ML (22:37)
[2020-12-19] VITALS (13 sets, daily range): BP systolic 109–173; BP diastolic 61–89; PULSE 82–113; RESP 16–18; TEMP 36.6–37.2; O2SAT 95–99
[2020-12-19 02:58] LABS: Basophils # 0.1 10^3/uL (0.0-0.1); Basophils % 0.7 %; Eosinophils # 0.2 10^3/uL (0.0-0.8); Eosinophils % 1.4 %; Hematocrit 23.9 % (42.0-52.0); Lymphocytes # 1.5 10^3/uL (0.8-4.8); Lymphocytes % 14.4 %; Mean Corpuscular HGB Conc 33.5 g/dL (30.0-36.0); Mean Corpuscular Hemoglobin 31.1 pg (28.0-34.0); Mean Platelet Volume 11.3 fL (7.4-10.4); Monocytes # 1.4 10^3/uL (0.2-0.9); Monocytes % 13.5 %; Neutrophils % 69.4 %; Nucleated Red Blood Cells % 0 %; Platelet Count 115 10^3/cmm (130-400); Red Blood Count 2.57 10^6/uL (4.1-5.3); White Blood Count 10.5 10^3/uL (4.0-10.0)
[2020-12-19 03:17] LABS: Alanine Aminotransferase 56 U/L (0-41); Albumin Level 2.8 g/dL (3.5-5.2); Alkaline Phosphatase 58 IU/L (40-130); Anion Gap 12.8 (5-19); Aspartate Amino Transferase 49 U/L (0-40); Blood Urea Nitrogen 33 mg/dL (6-20); Calcium 7.6 mg/dL (8.5-10.5); Carbon Dioxide 24 mmol/L (22-29); Chloride 106 mmol/L (98-107); Glucose 193 mg/dL (65-115); Osmolality Calculated 301 mOsm/kg (285-295); Potassium 3.8 mmol/L (3.5-5.1); Sodium 139 mmol/L (136-145); Total Bilirubin 2.2 mg/dL (0.15-1.2); Total Protein 4.8 g/dL (6.6-8.7)
[2020-12-19] MEDS: piperacillin-tazobactam 3.375 GM in sodium chloride 0.9% (plus) 50 ML IV ×3 (04:54→18:24)
--- NOTE | 2020-12-19 06:18 | PC.NURSE ---
Patient off floor to GI lab.
[2020-12-19] MEDS: sodium chloride 0.9% 1,000 ML 30 ML IV (06:23)
--- NOTE | 2020-12-19 06:50 | ANES.PREANE2 ---
Pre-Anesthetic Assessment Pre-Anesthetic Assessment: Height/Weight: Height 1.78 m Weight 82.1 kg Temp Pulse Resp BP Pulse Ox 98.5 F 96 18 173/89 99 12/19/20 06:21 12/19/20 06:21 12/19/20 06:21 12/19/20 06:21 12/19/20 06:21 Preop Diagnosis: gi bleed Proposed Procedure: Operation Date: 12/19/20 07:00 Proposed Procedures p EGD(Not Applicable) - Micheal Carlos MD Familial anesthetic complications: none Was Beta Benita taken within 24 hours: N/A Was Clonidine taken within 24 hours: N/A Last intake: Intake Last Liquid Date 12/17/20 Last Liquid Time 12:00 Last Solid Date 12/17/20 Last Solid Time 12:00 Social: Social History: Tobacco and No alcohol Packs per day: chewing tobacco Exam: Pre-Anes Outpt Exam: alert and oriented x 3 Airway: Submandibular: WNL Cervical ROM: WNL MP: 3 Dentition: Full History/ROS: No significant history except as noted Pulmonary: Pulmonary: None reported CV/HEM: CV/HEM: HTN : : None reported Hepatic: Hepatic: Cirrohsis GI: GI: None reported Metabolic: Metabolic: DM and Thyroid Neuropsych: Neuropsych: None reported Anesthetic Plan: ASA status: 3 Anesthesia: Anesthesia Evaluation and MAC Risk of > 500 ml blood loss (7ml/kg in children): No Other Pertinent Information: patient denies nausea and reports no emesis for almost 24 hours, NG tube in place. Meds/Allergies Current Medications: Current Medications Generic Name Dose Route Start Last Admin Trade Name Ministerioq PRN Reason Stop Dose Admin Piperacillin Sod/T azobactam 50 mls @ 12.5 mls /hr 12/18/20 02:00 12/19/20 04:54 Sod 3.375 gm/ So dium Chloride IV 12.5 mls/hr Q8H IMMANUEL Administration Protocol As Directed Sodium Chloride 1,000 mls @ 30 ml s/hr 12/18/20 18:50 12/18/20 21:01 Sodium Chloride 0.9% IV 12/19/20 18:49 30 mls/hr .Q24H ONE Administration Sodium Chloride 1,000 mls @ 30 ml s/hr 12/19/20 06:15 12/19/20 06:23 Sodium Chloride 0.9% IV 12/20/20 06:14 30 mls/hr .Q24H IMMANUEL Administration Insulin Aspart 0 unit 12/18/20 08:00 12/18/20 21:01 Insulin Aspart 1 00 Unit/1 Ml SUBCUT 8 unit WM&BEDTIME IMMANUEL Administration Protocol Insulin Glargine 5 unit 12/18/20 21:00 12/18/20 22:07 Insulin Glargine 100 Units/1 Ml SUBCUT 5 unit BEDTIME IMMANUEL Administration Ondansetron HCl 4 mg 12/18/20 09:10 12/18/20 10:41 Ondansetron 2 Mg /Ml Sdv 2 Ml IVP 4 mg Q6H PRN Administration NAUSEA AND VOMITI NG Pantoprazole Sodiu m 40 mg 12/18/20 11:30 12/18/20 22:08 Pantoprazole 40 Mg Sdv IVP 40 mg Q12H IMMANUEL Administration Sucralfate 1 gm 12/18/20 17:00 12/18/20 21:01 Sucralfate 1 Gm/ 10 Ml Oral Liq Udc PO 1 gm AC&BEDTIME IMMANUEL Administration PFSH Anesthesia PFSH: Medical History (Updated 12/18/20 @ 01:26 by Evonne Villeda MD) Anemia Hypertension Liver cirrhosis Nephrolithiasis Normal colonoscopy Type 2 diabetes mellitus Surgical History H/O lithotripsy History of esophagogastroduodenoscopy (EGD) April 2019 Family History Other Cancer Diabetes Social History Smoking and tobacco status: former smoker Alcohol intake: former Marital status: History of recent travel: No Data Anesthesia CBC & Chem 7: 12/19/20 02:49 12/19/20 02:49 Other Labs: Laboratory Results - last 48 hr 12/17/20 12/17/20 12/17/20 19:17 20:20 20:20 WBC 7.3 RBC 3.11 L Hgb 9.9 L Hct 29.5 L MCV 94.9 H MCH 31.8 MCHC 33.6 RDW 13.5 Plt Count 138 MPV 11.5 H Neut % (Auto) 74.6 Lymph % (Auto) 13.2 [place] % (Auto) 9.1 Eos % (Auto) 1.4 Baso % (Auto) 1.4 Neut # (Auto) 5.41 Lymph # (Auto) 1.0 [place] # (Auto) 0.7 Eos # (Auto) 0.1 Baso # (Auto) 0.1 Nucleated RBC % (auto) 0 Nucleated RBCs # 0.0 D-Dimer Sodium 136 Potassium 4.1 Chloride 101 Carbon Dioxide 24 Anion Gap 15.1 BUN 37 H Creatinine 0.8 GFR Calculation 100.0 Glucose 318 H POC Glucose 325 H Calculated Osmolality 303 H Lactic Acid Calcium 9.2 Total Bilirubin 1.1 AST 33 ALT 48 H Alkaline Phosphatase 83 Troponin T Baseline Troponin T 120 Minute Delta Troponin T Total Protein 6.4 L Albumin 3.6 Globulin 2.8 Lipase Procalcitonin Urine Color Urine Appearance Urine pH Ur Specific [place] Urine Protein Urine Glucose (UA) Urine Ketones Urine Blood Urine Nitrate Urine Bilirubin Urine Urobilinogen Ur Leukocyte Esterase Serum Ketones Blood Type Rho(D) Type Antibody Screen Crossmatch 12/17/20 12/17/20 12/17/20 20:20 20:20 20:20 WBC RBC Hgb Hct MCV MCH MCHC RDW Plt Count MPV Neut % (Auto) Lymph % (Auto) [place] % (Auto) Eos % (Auto) Baso % (Auto) Neut # (Auto) Lymph # (Auto) [place] # (Auto) Eos # (Auto) Baso # (Auto) Nucleated RBC % (auto) Nucleated RBCs # D-Dimer Sodium Potassium Chloride Carbon Dioxide Anion Gap BUN Creatinine GFR Calculation Glucose POC Glucose Calculated Osmolality Lactic Acid Calcium Total Bilirubin AST ALT Alkaline Phosphatase Troponin T Baseline 11 Troponin T 120 Minute Delta Troponin T Total Protein Albumin Globulin Lipase 34 Procalcitonin Urine Color Urine Appearance Urine pH Ur Specific [place] Urine Protein Urine Glucose (UA) Urine Ketones Urine Blood Urine Nitrate Urine Bilirubin Urine Urobilinogen Ur Leukocyte Esterase Serum Ketones Negative Blood Type Rho(D) Type Antibody Screen Crossmatch 12/17/20 12/17/20 12/17/20 20:20 22:21 22:27 WBC RBC Hgb Hct MCV MCH MCHC RDW Plt Count MPV Neut % (Auto) Lymph % (Auto) [place] % (Auto) Eos % (Auto) Baso % (Auto) Neut # (Auto) Lymph # (Auto) [place] # (Auto) Eos # (Auto) Baso # (Auto) Nucleated RBC % (auto) Nucleated RBCs # D-Dimer Sodium Potassium Chloride Carbon Dioxide Anion Gap BUN Creatinine GFR Calculation Glucose POC Glucose 324 H Calculated Osmolality Lactic Acid 2.2 Calcium Total Bilirubin AST ALT Alkaline Phosphatase Troponin T Baseline Troponin T 120 Minute Delta Troponin T Total Protein Albumin Globulin Lipase Procalcitonin Urine Color Yellow Urine Appearance Clear Urine pH 5 Ur Specific Zimm[place] 1.010 Urine Protein Neg Urine Glucose (UA) 4+ H Urine Ketones Negative Urine Blood Neg Urine Nitrate Negative Urine Bilirubin Neg Urine Urobilinogen Norm Ur Leukocyte Esterase Negative Serum Ketones Blood Type Rho(D) Type Antibody Screen Crossmatch 12/17/20 12/17/20 12/17/20 22:32 22:32 22:40 WBC RBC Hgb Hct MCV MCH MCHC RDW Plt Count MPV Neut % (Auto) Lymph % (Auto) [place] % (Auto) Eos % (Auto) Baso % (Auto) Neut # (Auto) Lymph # (Auto) [place] # (Auto) Eos # (Auto) Baso # (Auto) Nucleated RBC % (auto) Nucleated RBCs # D-Dimer <= 0.27 Sodium Potassium Chloride Carbon Dioxide Anion Gap BUN Creatinine GFR Calculation Glucose POC Glucose Calculated Osmolality Lactic Acid Calcium Total Bilirubin AST ALT Alkaline Phosphatase Troponin T Baseline Troponin T 120 Minute 14.74 Delta Troponin T 3.74 Total Protein Albumin Globulin Lipase Procalcitonin 0.11 Urine Color Urine Appearance Urine pH Ur Specific [place] Urine Protein Urine Glucose (UA) Urine Ketones Urine Blood Urine Nitrate Urine Bilirubin Urine Urobilinogen Ur Leukocyte Esterase Serum Ketones Blood Type Rho(D) Type Antibody Screen Crossmatch 12/18/20 12/18/20 12/18/20 01:27 06:11 12:07 WBC RBC Hgb Hct MCV MCH MCHC RDW Plt Count MPV Neut % (Auto) Lymph % (Auto) [place] % (Auto) Eos % (Auto) Baso % (Auto) Neut # (Auto) Lymph # (Auto) [place] # (Auto) Eos # (Auto) Baso # (Auto) Nucleated RBC % (auto) Nucleated RBCs # D-Dimer Sodium Potassium Chloride Carbon Dioxide Anion Gap BUN Creatinine GFR Calculation Glucose POC Glucose 273 H 302 H 381 H Calculated Osmolality Lactic Acid Calcium Total Bilirubin AST ALT Alkaline Phosphatase Troponin T Baseline Troponin T 120 Minute Delta Troponin T Total Protein Albumin Globulin Lipase Procalcitonin Urine Color Urine Appearance Urine pH Ur Specific [place] Urine Protein Urine Glucose (UA) Urine Ketones Urine Blood Urine Nitrate Urine Bilirubin Urine Urobilinogen Ur Leukocyte Esterase Serum Ketones Blood Type Rho(D) Type Antibody Screen Crossmatch 12/18/20 12/18/20 12/18/20 16:04 16:06 17:41 WBC RBC Hgb 5.7 L* D Hct MCV MCH MCHC RDW Plt Count MPV Neut % (Auto) Lymph % (Auto) [place] % (Auto) Eos % (Auto) Baso % (Auto) Neut # (Auto) Lymph # (Auto) [place] # (Auto) Eos # (Auto) Baso # (Auto) Nucleated RBC % (auto) Nucleated RBCs # D-Dimer Sodium Potassium Chloride Carbon Dioxide Anion Gap BUN Creatinine GFR Calculation Glucose POC Glucose 339 H Calculated Osmolality Lactic Acid Calcium Total Bilirubin AST ALT Alkaline Phosphatase Troponin T Baseline Troponin T 120 Minute Delta Troponin T Total Protein Albumin Globulin Lipase Procalcitonin Urine Color Urine Appearance Urine pH Ur Specific [place] Urine Protein Urine Glucose (UA) Urine Ketones Urine Blood Urine Nitrate Urine Bilirubin Urine Urobilinogen Ur Leukocyte Esterase Serum Ketones Blood Type A Positive Rho(D) Type Positive / 4+ Antibody Screen Negative Crossmatch See Detail 12/18/20 12/19/20 12/19/20 20:31 02:49 02:49 WBC 10.5 H RBC 2.57 L Hgb 8.0 L D Hct 23.9 L MCV 93.0 MCH 31.1 MCHC 33.5 RDW 16.0 H Plt Count 115 L MPV 11.3 H Neut % (Auto) 69.4 Lymph % (Auto) 14.4 [place] % (Auto) 13.5 Eos % (Auto) 1.4 Baso % (Auto) 0.7 Neut # (Auto) 7.30 Lymph # (Auto) 1.5 [place] # (Auto) 1.4 H Eos # (Auto) 0.2 Baso # (Auto) 0.1 Nucleated RBC % (auto) 0 Nucleated RBCs # 0.0 D-Dimer Sodium 139 Potassium 3.8 Chloride 106 Carbon Dioxide 24 Anion Gap 12.8 BUN 33 H Creatinine 0.8 GFR Calculation 100.0 Glucose 193 H POC Glucose 286 H Calculated Osmolality 301 H Lactic Acid Calcium 7.6 L Total Bilirubin 2.2 H AST 49 H ALT 56 H Alkaline Phosphatase 58 Troponin T Baseline Troponin T 120 Minute Delta Troponin T Total Protein 4.8 L Albumin 2.8 L Globulin 2.0 Lipase Procalcitonin Urine Color Urine Appearance Urine pH Ur Specific [place] Urine Protein Urine Glucose (UA) Urine Ketones Urine Blood Urine Nitrate Urine Bilirubin Urine Urobilinogen Ur Leukocyte Esterase Serum Ketones Blood Type Rho(D) Type Antibody Screen Crossmatch Cardiac Studies: No Data to Display
--- NOTE | 2020-12-19 06:59 | PM.CONSULT ---
Providers/Reason For Consult Consulting Physician/Specialty*: General Surgery Dr. Carlos Reason for Consult*: GI bleed Attending Physician: Reji Napier Primary Care Provider: Viktor Bowen MD History of Present Illness History of Present Illness Tani Montenegro is a 55 year old male who works at [employer] [place] presented yesterday with weakness. Patient states that he has intermittent episodes of black stools. He denies any abdominal pain, nausea, vomiting, hematemesis or hematochezia. He had a similar episode in April when he was shipped to [place] and an EGD was performed there which was inconclusive. Patient has nonalcoholic cirrhosis. His hemoglobin is down to 5 and he received 2 units PRBC and his hemoglobin is up to 8. Review of Systems General: Reports: 10 or more systems reviewed and unremarkable except in HPI and below Meds/Allergies Home Medications and Allergies Home Medications Medication Instructions Recorded Confirmed Last Taken Type pen needle, diabetic 32 gauge x #50 each 04/24/20 12/18/20 Unknown Rx pantoprazole 40 mg tablet,delayed 40 mg PO DAILY #90 tab 08/29/20 12/18/20 Unknown Rx release insulin glargine U-300 conc 24 unit SUBCUT QAM 12/18/20 12/18/20 Unknown History [Toujeo Max U-300 SoloStar] levothyroxine See Rx Instructions .ROUTE .COMPLEX 12/18/20 12/18/20 Unknown History liraglutide [Victoza 3-Harsh] 1.8 mg SUBCUT QAM 12/18/20 12/18/20 Unknown History lisinopril 10 mg PO QAM 12/18/20 12/18/20 Unknown History [id number]-lutein 1 tab PO QAM 12/18/20 12/18/20 Unknown History [Complete Multi 50+] Allergies Allergy/AdvReac Type Severity Reaction Status Date / Time No Known Allergies Allergy Verified 12/18/20 10:16 Current Medications Current Medications Generic Name Dose Route Start Last Admin Trade Name Freq PRN Reason Stop Dose Admin Piperacillin Sod/Tazobactam 50 mls @ 12.5 mls/hr 12/18/20 02:00 12/19/20 04:54 Sod 3.375 gm/ Sodium Chloride IV 12.5 mls/hr Q8H IMMANUEL Administration Protocol As Directed Sodium Chloride 1,000 mls @ 30 mls/hr 12/18/20 18:50 12/18/20 21:01 Sodium Chloride 0.9% IV 12/19/20 18:49 30 mls/hr .Q24H ONE Administration Sodium Chloride 1,000 mls @ 30 mls/hr 12/19/20 06:15 12/19/20 06:23 Sodium Chloride 0.9% IV 12/20/20 06:14 30 mls/hr .Q24H IMMANUEL Administration Insulin Aspart 0 unit 12/18/20 08:00 12/18/20 21:01 Insulin Aspart 100 Unit/1 Ml SUBCUT 8 unit WM&BEDTIME IMMANUEL Administration Protocol Insulin Glargine 5 unit 12/18/20 21:00 12/18/20 22:07 Insulin Glargine 100 Units/1 Ml SUBCUT 5 unit BEDTIME IMMANUEL Administration Ondansetron HCl 4 mg 12/18/20 09:10 12/18/20 10:41 Ondansetron 2 Mg/Ml Sdv 2 Ml IVP 4 mg Q6H PRN Administration NAUSEA AND VOMITING Pantoprazole Sodium 40 mg 12/18/20 11:30 12/18/20 22:08 Pantoprazole 40 Mg Sdv IVP 40 mg Q12H IMMANUEL Administration Sucralfate 1 gm 12/18/20 17:00 12/18/20 21:01 Sucralfate 1 Gm/10 Ml Oral Liq Udc PO 1 gm AC&BEDTIME IMMANUEL Administration PFSH Acute PFSH: Medical History Anemia Hypertension Liver cirrhosis Nephrolithiasis Type 2 diabetes mellitus Surgical History (Updated 12/19/20 @ 07:01 by Micheal Carlos MD) H/O lithotripsy History of esophagogastroduodenoscopy (EGD) April 2019 Normal colonoscopy Family History Other Cancer Diabetes Social History Smoking and tobacco status: former smoker Alcohol intake: former Marital status: History of recent travel: No Vitals/I&O/Wt Last Vital Signs Temp 98.5 F 12/19/20 06:21 Pulse 96 12/19/20 06:21 Resp 18 12/19/20 06:21 BP 173/89 12/19/20 06:21 Pulse Ox 99 12/19/20 06:21 12/18/20 12/18/20 12/19/20 14:59 22:59 06:59 Intake Total 2140 / 3990 1500 / 3990 350 / 3990 Output Total 100 / 100 Balance 2140 / 3890 1500 / 3890 250 / 3890 Weight last 48 hrs Weight 181 lb Physical Exam Narrative: EXAM NARRATIVE: HEENT: Normocephalic Eye: Sclera /conjunctiva normal Abdomen: Soft to palpation, nontender, nondistended Neurological: Oriented to place person and time Skin: Intact, no lesions appreciated on gross exam A&P Assessment and plan (1) Colitis: 55-year-old male admitted with weakness and melena. CT showed possible transverse colitis. He does not have any diarrhea or abdominal pain. Continue with empiric antibiotics Status: Acute (2) GI bleed: Continue Protonix and Carafate Plan for EGD under MAC today Status: Acute Qualifiers: GI bleed type/associated pathology: melena Qualified Code(s): K92.1 - Melena Consult Attestations Medical Necessity Statement: As per attending physician Coding Level of Care Code Acute Net Application Support Specialist for [facility] Fwd Diagnoses Colitis K52.9 GI bleed K92.1 GI bleed type/associated pathology: melena
--- NOTE | 2020-12-19 07:28 | ANE.PACU2 ---
Inpatient post-anesthesia follow up: Airway intact: Yes Vital signs: Temperature 98.4 F Pulse Rate [Monito r] 134 Pulse Rate 101 Respiratory Rate 16 Blood Pressure [Le ft Arm] 131/68 Blood Pressure 138/73 Pulse Oximetry 97 Oxygen Delivery Me thod Room Air Oxygen Flow Rate Fraction of Inspir ed Oxygen Hydration adequate: Yes Nausea and vomiting: No Mental status: Baseline
[2020-12-19 08:00] LABS: Glucose Point of Care 308 mg/dL (70-110)
[2020-12-19] MEDS: sucralfate 1 gm/10 mL Oral Liq UDC PO ×4 (08:17→20:54)
[2020-12-19 11:17] LABS: Hemoglobin 7.9 g/dL (11.7-16.6)
--- NOTE | 2020-12-19 11:27 | PC.CHAP ---
Pastoral Care Encounter/Spiritual Assessment Type of Contact [] Declined latex dipper visit [] Patient/Family/Request visit [] Outpatient visit [] Follow-up visit [] Physician referral [] Code/Alert [xx] Routine visit [] Staff referral [] Actively dying [] Patient sleeping [] Family support [] [] Out of room [] Palliative care [] [] Receiving care in room [] Pre-surgical visit [] Trauma [] Long length of stay [] ICU visit [] Other: Relational/Emotional Strength [xx] Patient feels connected with others/family/visitors/staff [] Distress [] Loneliness/isolation [] Abandonment Spirituality of Patient [xx] Person of Summer [] Attends Anabaptist of their Summer [xx] Believes in Prayer [] Reads Bible or Restoration materials [] There are Spiritual issues to be addressed Ed Tech Interventions [xx] Prayer [xx] Active listening [xx] Non-anxious presence [] Spiritual/emotional support [] Crisis/trauma care [] Spiritual counseling [] Bereavement support [] Provided bereavement packet [] Provided Bible/devotional materials [] Provided toy/stuffed animal, coloring book to patient or family member [] Provided Communion [] Anointing/[place] [] Salvation [xx] Completed spiritual assessment [] Other: Impact on Illness or Injury [] Angry [] Fearful [] Anxious [] Often cries [] Exhaustion [] Unable to work [] Unable to attend mosque [] Unable to walk/stand [] Unable to read [] Unable to drive [] Unable to eat/drink [] Unable to sleep [] Unable to be with family [] Patient intubated [] Other: Summary Patient pleasant and smiling. He says he feels much better and is ready to return to work. Time spent with patient 6 minutes
[2020-12-19] MEDS: pantoprazole 40 mg SDV IVP ×2 (11:29→23:58)
[2020-12-19 11:30] LABS: Glucose Point of Care 313 mg/dL (70-110)
--- NOTE | 2020-12-19 12:11 | PC.NUTR ---
Nutrition assessment completed d/t MST score of 2 for decreased appetite and wt loss. Recommend advance diet as tolerated to Consisted Carb diet when medically appropriate. Offered nutrition education related to DM/consistent carb intake, however pt declined at this time, stating he has received this information before. Recommend to consider CAM MILLING MACHINE OPERATOR eval given pt report of food getting stuck in throat and swallowing difficulty noted on admission assessment. See RD assessment for further details.
--- NOTE | 2020-12-19 13:17 | P.PN_ITS ---
Subjective Subjective: Interval history: He is feeling a bit better today. So far no additional vomiting. Underwent EGD today. Doing well after the procedure. Discussed with him preliminary results with finding of gastritis, nonbleeding esophageal varices. Discussed with him regarding liver cirrhosis. He needs regular follow-up including ultrasound imaging. He states was following in [place] but has not gotten out there due to Covid. Encouraged him to follow-up again. Discussed with him additional consideration of complications including varices and progression, variceal bleeding, consideration of propranolol, monitoring with liver ultrasounds, possibility of ascites, possibility of hyperammonemia and other complications. He verbalized understanding, states will be following up. Vitals/I&O/Wt Last Vital Signs Temp 98.9 F 12/19/20 11:29 Pulse 97 12/19/20 11:29 Resp 18 12/19/20 11:29 BP 121/67 12/19/20 11:29 Pulse Ox 95 12/19/20 11:29 12/18/20 12/19/20 12/19/20 22:59 06:59 14:59 Intake Total 1500 / 3640 350 / 3990 970 / 970 Output Total 100 / 100 250 / 250 Balance 1500 / 3640 250 / 3890 720 / 720 Weight last 48 hrs Weight 82.1 kg Physical Exam Const: COMMON NORMALS: no acute distress and patient oriented x3 HENMT: COMMON NORMALS: oropharynx normal Neck/C-Spine: COMMON NORMALS: no JVD Resp: COMMON NORMALS: normal respiratory effort and clear to auscultation bilaterally AUSCULTATION: clear to auscultation bilaterally Cardio: COMMON NORMALS: no JVD, regular rhythm, S1 normal heart sound present, S2 normal heart sound present and No murmurs present (Cardio) RHYTHM: regular rhythm HEART SOUNDS: S1 normal heart sound present and S2 normal heart sound present GI: COMMON NORMALS: Normal to inspection, nondistended, normoactive bowel sounds present, Soft to palpation and non-tender PALPATION: Yes Soft to palpation Extremity: COMMON NORMALS: no joint enlargement and no pedal edema Neuro: COMMON NORMALS: patient oriented x3 and moves all extremities Skin: COMMON NORMALS: no rashes or lesions noted GENERAL SKIN EXAM: no rashes or lesions noted Data : 12/19/20 11:11 12/19/20 02:49 A&P Assessment and plan (1) GI bleed: Status post 2 units PRBC last night. Hemoglobin this morning 8, recheck this afternoon 7.9. Continue to monitor. Appears stabilized. He is feeling better. No additional vomiting for now. Continue PPI twice daily. Sucralfate. Gastritis noted, nonbleeding esophageal varices. Appreciate EGD report, recommendation for capsule endoscopy, will need referral to have this done. This is not available here. Monitor hemoglobin tonight. Surgery giving trial of clear liquid diet. Mild thrombocytopenia noted today 115, possibly dilutional. Monitor. On Zosyn, which should provide antibiotic prophylaxis, although does not have ascites. Status: Acute Qualifiers: GI bleed type/associated pathology: melena Qualified Code(s): K92.1 - Melena (2) Hematemesis: Denies NSAID. Does not drink alcohol. As above. Will need capsule endoscopy. Status: Acute (3) Colitis: Collect stool studies. Continue Zosyn. Possible colitis noted on CT. No diarrhea, loose stool which is dark currently. Given transfers location, upper GI symptoms, consideration may be given perhaps to local inflammatory changes secondary to significant upper GI inflammation. For now continue empiric antibiotic coverage. Additional management as above. Consideration regarding colonoscopy after recovery. Capsule endoscopy due to recurrent melena. 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 Should follow-up again with hepatology for chronic follow-up. Consider addition of propranolol once he is more stable. No ascites noted. Monitor for hepatic encephalopathy. Needs regular ultrasound follow-up. Discussed with him. He verbalized understanding, will be following up with hepatology. Status: Acute Qualifiers: Ascites presence: without ascites Hepatic cirrhosis type: unspecified hepatic cirrhosis Qualified Code(s): K74.60 - Unspecified cirrhosis of liver (7) Esophageal varices: Nonbleeding esophageal varices noted on EGD. Consider addition of propranolol once he is more stable. Status: Acute (8) Nonerosive nonspecific gastritis: Continue PPI, sucralfate. Status: Acute Additional A&P Information Type 2 diabetes: Hyperglycemia without signs of DKA, continue normal saline for now resumed low-dose Lantus yesterday at 5 units only due to being n.p.o. Monitor glucose. Continue SSI. 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 Will refer for MBS. Full code DVT prophylaxis SCDs avoid anticoagulating agent Attestations Medical Necessity Statement*: Continue admission for assessment of management of upper GI bleeding, acute anemia, colitis. Coding Level of Care Code Acute Legal Assistant for [facility] Fwd Diagnoses GI bleed K92.1 GI bleed type/associated pathology: melena Hematemesis K92.0 Colitis K52.9 Nausea & vomiting R11.2 Vomiting Intractability: unspecified Vomiting type: unspecified Anemia D64.9 Liver cirrhosis K74.60 Ascites presence: without ascites Hepatic cirrhosis type: unspecified hepatic cirrhosis Esophageal varices I85.00 Nonerosive nonspecific gastritis K29.60
[2020-12-19 15:28] LABS: Hemoglobin 7.4 g/dL (11.7-16.6)
[2020-12-19 16:35] LABS: Glucose Point of Care 255 mg/dL (70-110)
[2020-12-19 18:55] LABS: Hemoglobin 7.3 g/dL (11.7-16.6)
--- NOTE | 2020-12-19 19:30 | PC.NURSE ---
Report to Rebeca VALLADARES at bedside at this time.
[2020-12-19] MEDS: insulin glargine 100 units/1 mL 5 UNIT SUBCUT (20:54)
[2020-12-19 21:32] LABS: Glucose Point of Care 265 mg/dL (70-110)
[2020-12-19 23:03] LABS: Hemoglobin 7.3 g/dL (11.7-16.6)
[2020-12-20] VITALS (12 sets, daily range): BP systolic 115–142; BP diastolic 61–69; PULSE 83–92; RESP 14–18; TEMP 36.6–37.1; O2SAT 95–98
[2020-12-20] MEDS: piperacillin-tazobactam 3.375 GM in sodium chloride 0.9% (plus) 50 ML IV ×2 (03:23→11:29)
[2020-12-20] MEDS: sucralfate 1 gm/10 mL Oral Liq UDC PO ×2 (06:27→11:29)
[2020-12-20 06:41] LABS: Basophils # 0.1 10^3/uL (0.0-0.1); Basophils % 1.2 %; Eosinophils # 0.2 10^3/uL (0.0-0.8); Eosinophils % 3.9 %; Hematocrit 22.8 % (42.0-52.0); Hemoglobin 7.3 g/dL (11.7-16.6); Lymphocytes % 19.9 %; Mean Corpuscular Hemoglobin 31.6 pg (28.0-34.0); Mean Corpuscular Volume 98.7 fL (80-94); Mean Platelet Volume 11.2 fL (7.4-10.4); Monocytes # 0.6 10^3/uL (0.2-0.9); Monocytes % 12.1 %; Neutrophils # 3.04 10^3/uL (1.8-7.7); Neutrophils % 62.3 %; Nucleated Red Blood Cells % 0.6 %; Platelet Count 98 10^3/cmm (130-400); Red Blood Count 2.31 10^6/uL (4.1-5.3); Red Cell Distribution Width 17.1 % (12.1-15.1); White Blood Count 4.9 10^3/uL (4.0-10.0)
[2020-12-20 07:01] LABS: Glucose Point of Care 210 mg/dL (70-110)
[2020-12-20 07:21] LABS: Alanine Aminotransferase 87 U/L (0-41); Albumin Level 2.6 g/dL (3.5-5.2); Alkaline Phosphatase 62 IU/L (40-130); Anion Gap 8.5 (5-19); Aspartate Amino Transferase 71 U/L (0-40); Blood Urea Nitrogen 22 mg/dL (6-20); Calcium 7.3 mg/dL (8.5-10.5); Carbon Dioxide 26 mmol/L (22-29); Chloride 105 mmol/L (98-107); Globulin 2.3 g/dL (1.3-4.6); Glomerular Filtration Rate 116.7 mL/min (90-130); Glucose 198 mg/dL (65-115); Osmolality Calculated 291 mOsm/kg (285-295); Potassium 3.5 mmol/L (3.5-5.1); Sodium 136 mmol/L (136-145); Total Bilirubin 1.2 mg/dL (0.15-1.2); Total Protein 4.9 g/dL (6.6-8.7)
[2020-12-20 11:01] LABS: Glucose Point of Care 334 mg/dL (70-110)
[2020-12-20] MEDS: pantoprazole 40 mg SDV IVP (11:30)
--- NOTE | 2020-12-20 16:31 | PM.DCS ---
Discharge Providers Date of Admission: 12/18/20 11:27 Date of Discharge: December 20, 2020 Attending Provider at Admission: Evonne Villeda MD Attending Provider at Discharge: Reji Napier Primary Care Provider: Viktor Bowen MD Diagnoses at Discharge Discharge Diagnosis (1) GI bleed: Status: Acute Qualifiers: GI bleed type/associated pathology: melena Qualified Code(s): K92.1 - Melena (2) Hematemesis: Status: Acute (3) Colitis: Status: Acute (4) Nausea & vomiting: Status: Acute Qualifiers: Vomiting Intractability: unspecified Vomiting type: unspecified Qualified Code(s): R11.2 - Nausea with vomiting, unspecified (5) Anemia: Status: Acute (6) Liver cirrhosis: Status: Acute Qualifiers: Ascites presence: without ascites Hepatic cirrhosis type: unspecified hepatic cirrhosis Qualified Code(s): K74.60 - Unspecified cirrhosis of liver (7) Esophageal varices: Status: Acute (8) Nonerosive nonspecific gastritis: Status: Acute Reason for Visit Reason for Visit: low blood counts Hospital Course Hospital Course Very pleasant 55-year-old gentleman with history of nonalcoholic cirrhosis, previously following up with [facility], diabetes following up with endocrinology, HTN, anemia was admitted for assessment of management after presenting with malaise, generalized weakness and lethargy, dark-colored stools for 2-3 days. He reported having a colonoscopy within the last [address] abdomen pelviswith concern for colitis. Mild mesenteric lymphadenitis. Cirrhosis of liver with portal hypertension. Splenomegaly. Distended stomach without gastric outlet obstruction. He has had no abdominal pain. Had no diarrhea, although dark-colored stools were soft. In ER he had episode of coffee-ground emesis. He denies use of NSAIDs. He does not drink alcohol. He was started on Zosyn for possible colitis, kept on bowel rest, IV hydration, although without any diarrhea stool samples could never be collected. He had additional episode of hematemesis, and recheck hemoglobin noted decreased down to 5.7. He was given 2 units PBC transfusion. He was treated with IV PPI, sucralfate. Made n.p.o. and underwent EGD evaluation on 12/19 with finding of nonerosive gastritis, nonbleeding esophageal varices. Hemoglobin with minimal further decline, stabilized around 7.3. Given recurrent anemia, melanotic stools without good explanation the surgeon recommends additional follow-up to include assessment by capsule endoscopy. In case of again lack of explanation of GI bleeding, additional consideration may be given to empiric banding of the esophageal varices. Given also this is a recurrent issue, and with somewhat borderline hemoglobin he is given additional 1 unit PBC transfusion prior to discharge. He is continued on PPI. Sucralfate. He is subjectively feeling better. Tolerating oral intake. No further vomiting. No abdominal pain. Feels ready to return home. Please follow-up blood counts at the next visit including hemoglobin and platelet level. Incidentally noted thrombocytopenia, platelets 98,000 thought to be dilutional secondary to blood transfusions and IV rehydration in the setting of cirrhosis related splenomegaly. He is asked to resume follow-up with regards to his liver cirrhosis, with consideration of nonselective beta-mara in addition once his condition stabilizes, and chronic follow-up and monitoring with regards to liver cirrhosis and its potential complications. While in the hospital he also reported that on and off he has been having sensation of food sticking in his throat, for evaluation of which she is referred additionally for MBS. Physical Exam Const: COMMON NORMALS: no acute distress and patient oriented x3 HENMT: COMMON NORMALS: oropharynx normal Neck/C-Spine: COMMON NORMALS: no JVD Resp: COMMON NORMALS: normal respiratory effort and clear to auscultation bilaterally AUSCULTATION: clear to auscultation bilaterally Cardio: COMMON NORMALS: no JVD, regular rhythm, S1 normal heart sound present, S2 normal heart sound present and No murmurs present (Cardio) RHYTHM: regular rhythm HEART SOUNDS: S1 normal heart sound present and S2 normal heart sound present GI: COMMON NORMALS: Normal to inspection, nondistended, normoactive bowel sounds present, Soft to palpation and non-tender PALPATION: Yes Soft to palpation Extremity: COMMON NORMALS: no joint enlargement and no pedal edema Neuro: COMMON NORMALS: patient oriented x3 and moves all extremities Skin: COMMON NORMALS: no rashes or lesions noted GENERAL SKIN EXAM: no rashes or lesions noted Discharge Data Data Completed and Pending: Completed Studies During Hospitalization Category Date Time Status CT abdomen pelvis w con* [id number] Urge nt Cat Scan 12/17/20 20:30 Completed XR chest 1V howard ble [id number] Urgent Exams 12/17/20 20:30 Completed Pending at discharge Category Date Time Status Clostridioides Di fficile PCR Routin e Lab 12/18/20 01:48 Uncollected Complete Blood Co unt w/Auto AM LABS Lab 12/21/20 04:00 Ordered Comprehensive Met abolic Panel AM LA BS Lab 12/21/20 04:00 Ordered Enteric Bacterial Panel by PCR Rout ine Lab 12/18/20 01:48 Uncollected Enteric Parasite Panel by PCR Routi ne Lab 12/18/20 01:48 Uncollected Immunochemical Fe mynor OCB Routine Lab 12/18/20 11:25 Uncollected Leukocyte Reduced RBC Stat Lab 12/18/20 16:06 Results Type and Screen S tat Lab 12/18/20 16:06 Results Labs from last 24 hours 12/20/20 12/20/20 12/20/20 10:48 06:52 05:45 WBC RBC Hgb Hct MCV MCH MCHC RDW Plt Count MPV Neut % (Auto) Lymph % (Auto) Mcintosh % (Auto) Eos % (Auto) Baso % (Auto) Neut # (Auto) Lymph # (Auto) Mcintosh # (Auto) Eos # (Auto) Baso # (Auto) Nucleated RBC % (a uto) Nucleated RBCs # Sodium 136 Potassium 3.5 Chloride 105 Carbon Dioxide 26 Anion Gap 8.5 BUN 22 H Creatinine 0.7 GFR Calculation 116.7 Glucose 198 H POC Glucose 334 H 210 H Calculated Osmolal ity 291 Calcium 7.3 L Total Bilirubin 1.2 AST 71 H ALT 87 H Alkaline Phosphata se 62 Total Protein 4.9 L Albumin 2.6 L Globulin 2.3 Blood Type Rho(D) Type Antibody Screen Crossmatch 12/20/20 12/19/20 12/19/20 05:45 22:47 20:30 WBC 4.9 RBC 2.31 L Hgb 7.3 L 7.3 L Hct 22.8 L MCV 98.7 H MCH 31.6 MCHC 32.0 RDW 17.1 H Plt Count 98 L MPV 11.2 H Neut % (Auto) 62.3 Lymph % (Auto) 19.9 Mcintosh % (Auto) 12.1 Eos % (Auto) 3.9 Baso % (Auto) 1.2 Neut # (Auto) 3.04 Lymph # (Auto) 1.0 Mcintosh # (Auto) 0.6 Eos # (Auto) 0.2 Baso # (Auto) 0.1 Nucleated RBC % (a uto) 0.6 Nucleated RBCs # 0.0 Sodium Potassium Chloride Carbon Dioxide Anion Gap BUN Creatinine GFR Calculation Glucose POC Glucose 265 H Calculated Osmolal ity Calcium Total Bilirubin AST ALT Alkaline Phosphata se Total Protein Albumin Globulin Blood Type Rho(D) Type Antibody Screen Crossmatch 12/19/20 12/19/20 12/18/20 18:47 16:30 16:06 WBC RBC Hgb 7.3 L Hct MCV MCH MCHC RDW Plt Count MPV Neut % (Auto) Lymph % (Auto) Mcintosh % (Auto) Eos % (Auto) Baso % (Auto) Neut # (Auto) Lymph # (Auto) Mcintosh # (Auto) Eos # (Auto) Baso # (Auto) Nucleated RBC % (a uto) Nucleated RBCs # Sodium Potassium Chloride Carbon Dioxide Anion Gap BUN Creatinine GFR Calculation Glucose POC Glucose 255 H Calculated Osmolal ity Calcium Total Bilirubin AST ALT Alkaline Phosphata se Total Protein Albumin Globulin Blood Type A Positive Rho(D) Type Positive / 4+ Antibody Screen Negative Crossmatch See Detail Vitals: Last Vital Signs Temp 98.3 F 12/20/20 16:05 Pulse 86 12/20/20 16:05 Resp 18 12/20/20 16:05 BP 116/65 12/20/20 16:05 Pulse Ox 96 12/20/20 16:05 Discharge Plan Discharge Patient Disposition: Home Condition: Stable Prescriptions: New sucralfate 1 gram tablet 1 g PO TID 28 Days Qty: 84 RF: 0 Cipro 500 mg tablet 500 mg PO BID Qty: 10 RF: 0 Flagyl 500 mg tablet 500 mg PO Q8H 5 Days Qty: 15 RF: 0 Continued (DME) pen needle, diabetic [Easy Comfort Pen [place]] 32 gauge x 5/32 needle See Rx Instructions .ROUTE .MEDSUPPLY Qty: 50 RF: 3 levothyroxine 50 mcg tablet See Rx Instructions .ROUTE .COMPLEX RF: 0 lisinopril 10 mg tablet 10 mg PO QAM RF: 0 Victoza 3-Harsh 0.6 mg/0.1 mL (18 mg/3 mL) pen injector 1.8 mg SUBCUT QAM RF: 0 rcpwvyzg-rks-EM-lycopen-lutein 500-300-250 mcg Tablet 1 tab PO QAM RF: 0 Changed pantoprazole 40 mg tablet,delayed release (DR/EC) 40 mg PO BIDWM Qty: 60 RF: 3 Toujeo Max U-300 SoloStar 300 unit/mL (3 mL) insulin pen 10 unit SUBCUT QAM Qty: 0 RF: 0 Discharge Orders: Discharge Order (Routine); Ordered 12/20/20 Ordered By: Reji Napier Other Ambulatory Orders: [place] barium swallow modifd [id number] (Routine) Timeframe: 6 Days Facility: [facility] - Location: Radiology Ordered By: Reji Napier Referrals: Viktor Bowen MD [Primary Care Provider] - 4-7 days (Please call Tuesday to schedule a follow up appointment.) Discharge Diet: Advance as tolerated and Full LIquid Discharge Activity: Increase activity as tolerated Patient Instructions: Ciprofloxacin (By mouth), Sucralfate (By mouth), Metronidazole (By mouth), GI Bleeding, Gastritis (GEN), Cirrhosis (GEN), GI Discharge Instructions Activity Restrictions/Additional Instructions: Please have your primary doctor check the hemoglobin and platelet counts at the visit next week. Please have your primary care doctor arrange also referral for capsule endoscopy evaluation given recurrent melena and anemia, so far without identified source. Please discuss with your primary doctor regarding gastritis seen on EGD, as well as esophageal varices. In case of no additional source of recurrent blood loss is noted on capsule endoscopy, discussed with your primary doctor consideration of referral for esophageal variceal banding as recommended by surgery. Please discuss with your primary provider regarding finding of suspected colitis in the colon, complete antibiotic course. Discussed consideration of additional follow-up with colonoscopy, although given recent colonoscopy this may not be necessary. Please resume follow-up with your hepatology specialist with regards to liver cirrhosis. Discussed with them and/or your primary doctor initiation of medication like propranolol for esophageal varices once your condition is stable. 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 Please note due to reported feeling of food sticking in your throat you are also referred for modified barium swallow to closer us this for any issues with swallowing. Please follow-up regarding results with your primary provider. Please note in the hospital you were receiving 5 units of long-acting insulin as compared to the 24 units at home due to reduced oral intake, bowel rest for a while. At home resume cautiously at 10 units daily and consider gradual return to the previous 24 units as you are advancing your diet. Avoid blood sugars less than 100. In case blood sugar is 70 or below, take sugary snacks, recheck in 15-20 minutes, if not increasing, take further sugary snacks and seek medical attention. Discharge Attestations Time Spent in Discharge Care*: greater than 30 min Quality Metrics Clinical Quality Measures During this hospital stay, did patient experience: None Coding Level of Care Code Acute [facility] note Diagnoses GI bleed K92.1 GI bleed type/associated pathology: melena Hematemesis K92.0 Colitis K52.9 Nausea & vomiting R11.2 Vomiting Intractability: unspecified Vomiting type: unspecified Anemia D64.9 Liver cirrhosis K74.60 Ascites presence: without ascites Hepatic cirrhosis type: unspecified hepatic cirrhosis Esophageal varices I85.00 Nonerosive nonspecific gastritis K29.60
[2020-12-20 16:54] LABS: Glucose Point of Care 225 mg/dL (70-110)
== END 2020-12-20 16:57 | disposition home or self-care (01) | DRG 392 ==
LOC: ER 12-18 00:04 → MEDSURG 12-18 00:21
PROVIDERS: Family Medicine; Surgery; Admitting Provider Internal Medicine; Emergency Provider Emergency Medicine; PCP Internal Medicine; Visit Provider Internal Medicine
PROC: 0DJ08ZZ Inspection of Upper Intestinal Tract, Via Natural or Artificial Opening Endoscopic (ICD-10-PCS; CPT 43235; principal; 2020-12-19 07:00)
DX: K52.9 Noninfective gastroenteritis and colitis, unspecified (principal); K92.1 Melena; K92.0 Hematemesis; K76.6 Portal hypertension; I85.10 Secondary esophageal varices without bleeding; D64.9 Anemia, unspecified; K74.60 Unspecified cirrhosis of liver; K57.30 Diverticulosis of large intestine without perforation or abscess without bleeding; K59.00 Constipation, unspecified; I88.0 Nonspecific mesenteric lymphadenitis; R16.1 Splenomegaly, not elsewhere classified; Z87.442 Personal history of urinary calculi; E11.65 Type 2 diabetes mellitus with hyperglycemia; Z87.891 Personal history of nicotine dependence; K29.70 Gastritis, unspecified, without bleeding; D69.6 Thrombocytopenia, unspecified; R13.10 Dysphagia, unspecified; Z79.4 Long term (current) use of insulin
CPT/HCPCS: 36415; 36416; 36430; 43235; 71045; 74177; 80053; 81003; 82009; 82962; 83605; 83690; 84145; 84484; 85018; 85025; 85378; 86850; 86900; 86920; 93005; 96361; 96365; 96372; 99285; C9113; G0378; J0744; J1815 ×2; J2405; J2543; J2704; J7030; P9016; Q9967

== ENCOUNTER 2021-01-07 10:45 | Outpatient (CLI) | payer OTHER, SELFPAY ==
--- NOTE | 2021-01-07 11:00 | FL_ITS ---
WS: [id number] Modified barium swallow, 01/07/2021 Clinical Data: Oropharyngeal dysphagia Comparison: None. Fluoroscopy time: 1.3 minutes. Findings: The patient mistreated normal oral and pharyngeal function. There was no aspiration or penetration. T he barium bolus proceeded normally from the oropharynx to the hypopharynx into the esophagus. There i s normal esophageal motility. I FL/FL barium swallow modifd [id number] Impression: Normal oral and pharyngeal function.
== END 2021-01-07 10:46 | disposition home or self-care (01) ==
PROVIDERS: PCP Internal Medicine; Visit Provider Internal Medicine
DX: R13.10 Dysphagia, unspecified (principal)
CPT/HCPCS: 74230; 92611

== ENCOUNTER 2021-10-11 18:57 | Emergency (ER) | payer OTHER, SELFPAY ==
[2021-10-11 19:05] VITALS: BP 107/66; PULSE 77; RESP 20; TEMP 37; O2SAT 97; BMI 25.9
--- NOTE | 2021-10-11 19:21 | W.ED.WEAKNES ---
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 He states that he has been getting generally weak over the last few days states he has been having dark tarry stools again as well. He states that he believes is likely anemic. He denies any pain denies any vomiting no known history of esophageal varices. Associated symptoms: Denies chest pain, dysuria, easy bruising or headache(s) Review of Systems Const: Reports: fatigue Eyes: Denies: blurry vision or eye discomfort ENMT: Denies: throat pain or dental pain Card: Denies: chest pain Resp: Denies: dyspnea GI: Reports: hematochezia : Denies: dysuria Musc: Denies: neck pain or back pain Skin/Breast: Denies: rash Neuro: Denies: headache(s) Psych: Denies: depression Chip/Lymph: Denies: easy bruising All/Imm: Denies: urticaria PFSH ED PFSH: Medical History Anemia Esophageal varices GI bleed Hematemesis Hypertension Liver cirrhosis Nephrolithiasis Type 2 diabetes mellitus Surgical History H/O lithotripsy History of esophagogastroduodenoscopy (EGD) April 2019 Normal colonoscopy Family History Other Cancer Diabetes Social History Smoking and tobacco status: former smoker Alcohol intake: former Marital status: History of recent travel: No Physical Exam Const: COMMON NORMALS: patient oriented x3 GENERAL APPEARANCE: ill appearing HENMT: COMMON NORMALS: normocephalic and atraumatic HEAD & SCALP: normocephalic and atraumatic Eye: COMMON NORMALS: Equal, round and reactive pupils present and EOMs intact bilaterally PUPIL: Yes Equal, round and reactive pupils present Neck/C-Spine: COMMON NORMALS: full ROM and supple Chest: COMMONS NORMALS: normal inspection of the chest and normal palpation of entire chest wall Resp: COMMON NORMALS: normal respiratory effort, No retractions, No use of accessory muscles and clear to auscultation bilaterally AUSCULTATION: clear to auscultation bilaterally Cardio: COMMON NORMALS: regular rate, regular rhythm and No murmurs present (Cardio) RATE: regular rate RHYTHM: regular rhythm GI: COMMON NORMALS: Normal to inspection, nondistended, normoactive bowel sounds present, Soft to palpation, non-tender and no masses PALPATION: Yes Soft to palpation Extremity: COMMON NORMALS: normal to inspection and full ROM Neuro: COMMON NORMALS: patient oriented x3, moves all extremities and no focal motor deficits Psych: COMMON NORMALS: mental status grossly normal, Normal thought process present and cooperative THOUGHT PROCESS: Normal thought process present Skin: COMMON NORMALS: no rashes or lesions noted and no wounds GENERAL SKIN EXAM: no rashes or lesions noted Course Vital Signs: Vital signs: Vital Signs Temperature 98.8 F 10/11/21 20:29 Pulse Rate 104 H 10/11/21 20:29 Respiratory Rate 18 10/11/21 20:29 Blood Pressure 120/58 10/11/21 20:29 Pulse Oximetry 100 10/11/21 20:29 MDM - Weakness Medical Decision Making Patient presents with upper GI bleed with anemia. He is found to be anemic with a hemoglobin of 5.4 he also has some hyponatremia and hyperglycemia as well. Patient was transfused a unit of blood here I spoke to GI on-call here Dr. Bowen did not feel comfortable with patient staying here due to his history of esophageal varices as we do not have official GI coverage. I informed patient we have to transfer him to [facility] as he has been transferred there before due to his varices. He is adamant here that he is not going to go by ambulance that he is getting go by PO. I did speak to [facility] informed him that he will likely be coming there patient did receive a transfusion before he left. He did sign out AGAINST MEDICAL ADVICE and understands the risks with his anemia of going to [place] not by ambulance. Lab Data : 10/11/21 19:27 10/11/21 19:27 Laboratory Results WBC 6.5 10^3/uL (4.0-10.0) 10/11/21 19:27 RBC 2.17 10^6/uL (4.1-5.3) L 10/11/21: Hgb 5.4 g/dL (11.7-16.6) L* 10/11/21: Hct 17.8 % (42.0-52.0) L* 10/11/21: MCV 82.0 fl (80-94) 10/11/21: MCH 24.9 pg (28.0-34.0) L 10/11/21: MCHC 30.3 g/dL (30.0-36.0) 10/11/21: RDW 20.0 % (12.1-15.1) H 10/11/21 Plt Count 190 10^3/cmm (130-400) 10/11/21: MPV 12.0 fL (7.4-10.4) H 10/11/21: Neut % (Auto) 64.8 % 10/11/21: Lymph % (Auto) 16.4 % 10/11/21: [place] % (Auto) 15.3 % 10/11/21: Eos % (Auto) 2.1 % 10/11/21 Baso % (Auto) 1.1 % 10/11/21 Neut # (Auto) 4.23 10^3/uL (1.8-7.7) 10/11/21 Lymph # (Auto) 1.1 10^3/uL (0.8-4.8) 10/11/21: [place] # (Auto) 1.0 10^3/uL (0.2-0.9) H 10/11/21: Eos # (Auto) 0.1 10^3/uL (0.0-0.8) 10/11/21 Baso # (Auto) 0.1 10^3/uL (0.0-0.1) 10/11/21 Nucleated RBC % (auto) 0 % 10/11/21 Nucleated RBCs # 0.0 /100WBC 10/11/21: PT 16.90 SECONDS (12.1-14.9) H 10/11/21 19:27 INR 1.34 (0.8-1.2) H 10/11/21 19:27 Sodium 123 mmol/L (136-145) L 10/11/21 19:27 Potassium 4.7 mmol/L (3.5-5.1) 10/11/21 19:27 Chloride 89 mmol/L (98-107) L 10/11/21 19:27 Carbon Dioxide 21 mmol/L (22-29) L 10/11/21 19:27 Anion Gap 17.7 (5-19) 10/11/21 19:27 BUN 39 mg/dL (6-20) H 10/11/21 19:27 Creatinine 1.1 mg/dL (0.7-1.2) 10/11/21 19:27 GFR Calculation 69.0 mL/min (90-130) L 10/11/21 19:27 Glucose 539 mg/dL (65-115) H* 10/11/21 19:27 Calculated Osmolality 290 mOsm/kg (285-295) 10/11/21 19:27 Calcium 8.1 mg/dL (8.5-10.5) L 10/11/21 19:27 Total Bilirubin 0.9 mg/dL (0.15-1.2) 10/11/21 19:27 AST 47 U/L (0-40) H 10/11/21 19:27 ALT 51 U/L (0-41) H 10/11/21 19:27 Alkaline Phosphatase 82 IU/L (40-130) 10/11/21 19:27 Total Protein 6.0 g/dL (6.6-8.7) L 10/11/21 19:27 Albumin 3.2 g/dL (3.5-5.2) L 10/11/21 19:27 Globulin 2.8 g/dL (1.3-4.6) 10/11/21 19:27 Blood Type A Positive 10/11/21 19:28 Rho(D) Type Positive 10/11/21 19:28 Antibody Screen Negative 10/11/21 19:28 Crossmatch See Detail 10/11/21 19:28 Critical Care Time Critical Care Time: Critical Care Time: Yes Total Critical Care Time: 40 Attestation: The high probability of a clinically significant, sudden or life threatening deterioration of the patient's Gi system(s) required my full and direct attention, intervention and personal management. The critical care time is as shown. This time is in addition to time spent performing any reported procedures but includes the following: [x] Data and vital sign review and interpretation [x] Patient assessment, examination and intervention [x] Documentation [x] Medication orders and management Discharge Plan Discharge Patient Disposition: Left Against Medical Advice Clinical Impression: Esophageal varices, Anemia, Acute upper GI bleed, Acute hyponatremia Condition: Stable Prescriptions: No Action lactulose 10 gram/15 mL solution 10 g PO DAILY Qty: 946 3RF furosemide [Lasix] 20 mg tablet 20 mg PO QAM Qty: 30 0RF potassium chloride 10 mEq capsule, extended release 10 meq PO DAILY Qty: 30 0RF lisinopril 10 mg tablet See Rx Instructions .ROUTE .COMPLEX Qty: 90 3RF Dose Instruction: TAKE 1 TABLET BY MOUTH EVERY DAY Rx Instructions: TAKE 1 TABLET BY MOUTH EVERY DAY (DME) pen needle, diabetic [Easy Comfort Pen [place]] 32 gauge x 5/32 needle See Rx Instructions .ROUTE .MEDSUPPLY Qty: 50 3RF Rx Instructions: daily levothyroxine 50 mcg tablet See Rx Instructions .ROUTE .COMPLEX 0RF Rx Instructions: 50 mcg po daily on tuesday thretuesday and 75 mcg po daily on tuesday and tuesday Victoza 3-Harsh 0.6 mg/0.1 mL (18 mg/3 mL) pen injector 1.8 mg SUBCUT QAM 0RF dfcpclim-mtw-TO-lycopen-lutein 500-300-250 mcg Tablet 1 tab PO QAM 0RF pantoprazole 40 mg tablet,delayed release (DR/EC) 40 mg PO BIDWM Qty: 60 3RF Toujeo Max U-300 SoloStar 300 unit/mL (3 mL) insulin pen 10 unit SUBCUT QAM Qty: 0 0RF Referrals: Viktor Bowen MD [Primary Care Provider] - Coding Level of Care Code ED Hand Hide Stretcher for [place] Fwd Exam Comprehensive
[2021-10-11 19:37] LABS: Basophils # 0.1 10^3/uL (0.0-0.1); Basophils % 1.1 %; Eosinophils # 0.1 10^3/uL (0.0-0.8); Eosinophils % 2.1 %; Lymphocytes # 1.1 10^3/uL (0.8-4.8); Lymphocytes % 16.4 %; Mean Corpuscular HGB Conc 30.3 g/dL (30.0-36.0); Mean Corpuscular Hemoglobin 24.9 pg (28.0-34.0); Monocytes % 15.3 %; Neutrophils # 4.23 10^3/uL (1.8-7.7); Neutrophils % 64.8 %; Nucleated Red Blood Cells % 0 %; Platelet Count 190 10^3/cmm (130-400); Red Blood Count 2.17 10^6/uL (4.1-5.3); White Blood Count 6.5 10^3/uL (4.0-10.0)
[2021-10-11 19:40] LABS: Hematocrit 17.8 % (42.0-52.0); Hemoglobin 5.4 g/dL (11.7-16.6)
--- NOTE | 2021-10-11 19:40 | PC.NURSE ---
Critical lab Hgb 5.4 Hct [address] Christine.
[2021-10-11 19:54] LABS: Alanine Aminotransferase 51 U/L (0-41); Albumin Level 3.2 g/dL (3.5-5.2); Alkaline Phosphatase 82 IU/L (40-130); Anion Gap 17.7 (5-19); Aspartate Amino Transferase 47 U/L (0-40); Blood Urea Nitrogen 39 mg/dL (6-20); Calcium 8.1 mg/dL (8.5-10.5); Carbon Dioxide 21 mmol/L (22-29); Chloride 89 mmol/L (98-107); Globulin 2.8 g/dL (1.3-4.6); Osmolality Calculated 290 mOsm/kg (285-295); Potassium 4.7 mmol/L (3.5-5.1); Sodium 123 mmol/L (136-145); Total Bilirubin 0.9 mg/dL (0.15-1.2)
[2021-10-11 20:02] LABS: INR 1.34 (0.8-1.2)
[2021-10-11 20:05] LABS: Glucose 539 mg/dL (65-115)
[2021-10-11] MEDS: pantoprazole 40 mg SDV 80 MG IVP (20:26)
[2021-10-11] MEDS: insulin regular-human 100 units/1 mL 10 UNIT IVP (20:26)
[2021-10-11] MEDS: sodium chloride 0.9% 1,000 ML 999 ML IV (20:27)
[2021-10-11 20:29] VITALS: BP 120/58; PULSE 104; RESP 18; TEMP 37.1; O2SAT 100
--- NOTE | 2021-10-11 20:31 | PC.NURSE ---
Pt. states that he does not do ambulances because they charged him a lot of money 2 different times and he said after that , no more.
[2021-10-11 20:45] VITALS: BP 118/59; PULSE 107; RESP 18; TEMP 36.9
[2021-10-11 20:59] VITALS: BP 114/54; PULSE 101; RESP 18; TEMP 37.1; O2SAT 100
[2021-10-11 21:00] VITALS: BP 109/58; PULSE 97; RESP 18; TEMP 37.1
[2021-10-11 21:43] LABS: Glucose Point of Care 507 mg/dL (70-110)
== END 2021-10-11 21:55 | disposition left against medical advice (07) ==
PROVIDERS: Emergency Provider Emergency Medicine; PCP Internal Medicine
DX: K92.2 Gastrointestinal hemorrhage, unspecified (principal); Z87.891 Personal history of nicotine dependence; D64.9 Anemia, unspecified; K70.30 Alcoholic cirrhosis of liver without ascites; F10.21 Alcohol dependence, in remission; Z53.29 Procedure and treatment not carried out because of patient's decision for other reasons; I85.10 Secondary esophageal varices without bleeding; E87.1 Hypo-osmolality and hyponatremia; Z79.4 Long term (current) use of insulin
CPT/HCPCS: 36416; 36430; 80053; 82962; 85025; 85610; 86850; 86900; 86920; 96361; 96374; 96375; 99284; C9113; J1815; J7030; P9016

== ENCOUNTER 2021-11-04 06:00 | Outpatient (RCR) | payer OTHER, SELFPAY | END 2021-11-24 23:59 | disposition home or self-care (01) | LOC: SPT 06:00 | PROVIDERS: PCP Internal Medicine; Referring Provider Hospitalist; Visit Provider Hospitalist | DX: K74.60 Unspecified cirrhosis of liver (principal); R26.89 Other abnormalities of gait and mobility | CPT/HCPCS: 85018; 97161 ==

== ENCOUNTER → 2021-11-17 15:46 | Outpatient (BNVA) | payer OTHER, SELFPAY | PROVIDERS: PCP Internal Medicine; Visit Provider Family Medicine | DX: K74.60 Unspecified cirrhosis of liver (principal); E03.9 Hypothyroidism, unspecified; D64.9 Anemia, unspecified; E11.65 Type 2 diabetes mellitus with hyperglycemia; Z79.4 Long term (current) use of insulin; I85.00 Esophageal varices without bleeding; I82.402 Acute embolism and thrombosis of unspecified deep veins of left lower extremity; Z87.19 Personal history of other diseases of the digestive system | CPT/HCPCS: 80053; 85025 ==

== ENCOUNTER 2021-12-11 09:10 | Emergency (ER) | payer OTHER, SELFPAY ==
[2021-12-11 09:50] VITALS: BP 164/79; PULSE 106; RESP 16; TEMP 37.2; O2SAT 98; BMI 24.3
--- NOTE | 2021-12-11 11:08 | ED_ITS ---
HPI - GI Bleed General: Chief complaint: GI Bleed Stated complaint: feeling lethargic Time Seen by Provider: 12/11/21 10:52 Source: patient Mode of arrival: ambulatory Limitations: no limitations History of Present Illness: 56 yo male presents with complaints of generally feeling weak. Patient is on Eliquis for DVT has been having dark tarry stools for some time now. He has a history of liver disease has esophageal varices. Continues to have some bleeding. In talking to him they are uncertain of what precipitated his liver disease. He denies any abdominal pain today has not had any hematemesis no bright red blood per rectum. MD complaint: melena Onset (ago): week(s) Pain Consistency: intermittent Severity: moderate Relieving factors: none Exacerbating factors: none Context: history of GI bleed and liver disease Associated symptoms: Reports easy bruising; Denies abdominal pain, chills, epistaxis, fever(s), headache(s), malaise, nausea, other bleeding, poor appetite, rash, syncope, vomiting or weakness Treatments Prior to Arrival: none Review of Systems Const: Denies: fever(s), chills or malaise ENMT: Denies: epistaxis Card: Denies: syncope Resp: Denies: dyspnea, productive cough or non-productive cough GI: Denies: abdominal pain, nausea or vomiting : Denies: flank pain, dysuria, urinary frequency or urinary urgency Skin/Breast: Denies: rash Neuro: Denies: headache(s) Chip/Lymph: Reports: easy bruising PFS ED PFSH: Medical History Anemia Chronic anticoagulation Esophageal varices GI bleed Hematemesis Hypertension Liver cirrhosis Nephrolithiasis Type 2 diabetes mellitus Surgical History H/O lithotripsy History of esophagogastroduodenoscopy (EGD) April 2019 Normal colonoscopy Family History Other Cancer Diabetes Social History Smoking and tobacco status: former smoker Alcohol intake: former Marital status: History of recent travel: No Physical Exam Const: COMMON NORMALS: no acute distress GENERAL APPEARANCE: cooperative and comfortable ORIENTATION/CONSCIOUSNESS: Yes awake, Yes oriented to person, Yes oriented to place and Yes oriented to time HENMT: COMMON NORMALS: normocephalic, atraumatic and hearing grossly normal bilaterally HEAD & SCALP: normocephalic and atraumatic Neck/C-Spine: COMMON NORMALS: no JVD Resp: COMMON NORMALS: normal respiratory effort, No retractions, No use of accessory muscles and clear to auscultation bilaterally AUSCULTATION: clear to auscultation bilaterally Cardio: COMMON NORMALS: no JVD, regular rate, regular rhythm and No murmurs present (Cardio) RATE: regular rate RHYTHM: regular rhythm GI: COMMON NORMALS: Soft to palpation and No hepatosplenomegaly present AUSCULTATION: Yes normoactive bowel sounds PALPATION: Yes Soft to palpation, No Tenderness to palpation present (GI), No Guarding due to palpation present (GI) and Yes No hepatosplenomegaly present Extremity: COMMON NORMALS: normal to inspection, capillary refill normal, no clubbing, cyanosis or edema, no calf tenderness and no pedal edema Neuro: SENSORIUM/ORIENTATION: Yes oriented to person, Yes oriented to place and Yes oriented to time Skin: COMMON NORMALS: no rashes or lesions noted GENERAL SKIN EXAM: no rashes or lesions noted Course Vital Signs: Vital signs: Vital Signs Temperature 99 F 12/11/21 09:50 Pulse Rate 106 H 12/11/21 09:50 Respiratory Rate 16 12/11/21 09:50 Blood Pressure 164/79 12/11/21 09:50 Pulse Oximetry 98 12/11/21 09:50 MDM - GI Bleed Medical Decision Making Labs reviewed. No acute anemia at this time patient states he is feeling better we will go ahead and discharge him home follow-up with his primary care as previously scheduled return if needed. Medical Records I reviewed the patient's medical records. Lab Data I reviewed the patient's lab results. : 12/11/21 11:38 12/11/21 11:38 Laboratory Results WBC 3.7 10^3/uL (4.0-10.0) L 12/11/21 11:38 RBC 4.52 10^6/uL (4.1-5.3) 12/11/21 11:38 Hgb 12.6 g/dL (11.7-16.6) 12/11/21 11:38 Hct 37.4 % (42.0-52.0) L 12/11/21 11:38 MCV 82.7 fl (80-94) 12/11/21 11:38 MCH 27.9 pg (28.0-34.0) L 12/11/21 11:38 MCHC 33.7 g/dL (30.0-36.0) 12/11/21 11:38 RDW 16.3 % (12.1-15.1) H 12/11/21 11:38 Plt Count 138 10^3/cmm (130-400) 12/11/21 11:38 MPV 10.8 fL (7.4-10.4) H 12/11/21 11:38 Neut % (Auto) 58.7 % 12/11/21 11:38 Lymph % (Auto) 19.2 % 12/11/21 11:38 [place] % (Auto) 15.9 % 12/11/21 11:38 Eos % (Auto) 4.3 % 12/11/21 11:38 Baso % (Auto) 1.6 % 12/11/21 11:38 Neut # (Auto) 2.17 10^3/uL (1.8-7.7) 12/11/21 11:38 Lymph # (Auto) 0.7 10^3/uL (0.8-4.8) L 12/11/21 11:38 [place] # (Auto) 0.6 10^3/uL (0.2-0.9) 12/11/21 11:38 Eos # (Auto) 0.2 10^3/uL (0.0-0.8) 12/11/21 11:38 Baso # (Auto) 0.1 10^3/uL (0.0-0.1) 12/11/21 11:38 Nucleated RBC % (auto) 0 % 12/11/21 11:38 Nucleated RBCs # 0.0 /100WBC 12/11/21 11:38 PT 16.90 SECONDS (12.1-14.9) H 12/11/21 11:38 INR 1.34 (0.8-1.2) H 12/11/21 11:38 APTT 28.9 SECONDS (23.9-36.7) 12/11/21 11:38 Sodium 133 mmol/L (136-145) L 12/11/21 11:38 Potassium 3.9 mmol/L (3.5-5.1) 12/11/21 11:38 Chloride 98 mmol/L (98-107) 12/11/21 11:38 Carbon Dioxide 23 mmol/L (22-29) 12/11/21 11:38 Anion Gap 15.9 (5-19) 12/11/21 11:38 BUN 20 mg/dL (6-20) 12/11/21 11:38 Creatinine 0.8 mg/dL (0.7-1.2) 12/11/21 11:38 GFR Calculation 99.6 mL/min (90-130) 12/11/21 11:38 Glucose 320 mg/dL (65-115) H 12/11/21 11:38 Calculated Osmolality 291 mOsm/kg (285-295) 12/11/21 11:38 Calcium 10.0 mg/dL (8.5-10.5) 12/11/21 11:38 Blood Type A Positive 12/11/21 11:38 Rho(D) Type Positive 12/11/21 11:38 Antibody Screen Negative 12/11/21 11:38 Discharge Plan Discharge Patient Disposition: Home Clinical Impression: History of GI bleed, Chronic anticoagulation, Liver cirrhosis Condition: Stable Prescriptions: No Action lactulose [Constulose] 10 gram/15 mL solution 15 ml PO TID 0RF levothyroxine 50 mcg tablet See Rx Instructions .ROUTE .COMPLEX Qty: 100 3RF Rx Instructions: 50 mcg po daily on tuesday through tuesday and 75 mcg po daily on tuesday and tuesday cyanocobalamin (vitamin B-12) 1,000 mcg capsule 1,000 mcg PO DAILY 0RF (DME) pen needle, diabetic [Easy Comfort Pen [place]] 32 gauge x 5/32 needle See Rx Instructions .ROUTE .MEDSUPPLY Qty: 50 3RF Rx Instructions: daily Victoza 3-Harsh 0.6 mg/0.1 mL (18 mg/3 mL) pen injector 1.8 mg SUBCUT QAM Qty: 27 3RF Eliquis 5 mg tablet 5 mg PO BID Qty: 60 3RF lisinopril 10 mg tablet 10 mg PO DAILY 0RF Centrum Silver Men 300-600-300 mcg Tablet 1 tab PO DAILY 0RF Toujeo Max U-300 SoloStar 300 unit/mL (3 mL) insulin pen 20 unit SUBCUT BEDTIME 0RF Xifaxan 550 mg tablet 550 mg PO BID 0RF Discharge Orders: Discharge ED (Routine); Ordered 12/11/21 Ordered By: Neville Hassan Referrals: Amber Can MD [Primary Care Provider] - Discharge Diet: Usual diet Discharge Activity: Resume usual activity Patient Instructions: Opioid Safety Activity Restrictions/Additional Instructions: Follow-up with your primary care doctor as previously scheduled. Coding Level of Care Code ED Tank Systems Maintainer for Erick Fwd Exam Comprehensive
[2021-12-11 12:02] LABS: Basophils # 0.1 10^3/uL (0.0-0.1); Basophils % 1.6 %; Eosinophils # 0.2 10^3/uL (0.0-0.8); Eosinophils % 4.3 %; Hematocrit 37.4 % (42.0-52.0); Hemoglobin 12.6 g/dL (11.7-16.6); Lymphocytes # 0.7 10^3/uL (0.8-4.8); Lymphocytes % 19.2 %; Mean Corpuscular HGB Conc 33.7 g/dL (30.0-36.0); Mean Corpuscular Hemoglobin 27.9 pg (28.0-34.0); Mean Corpuscular Volume 82.7 fl (80-94); Mean Platelet Volume 10.8 fL (7.4-10.4); Monocytes # 0.6 10^3/uL (0.2-0.9); Monocytes % 15.9 %; Neutrophils # 2.17 10^3/uL (1.8-7.7); Neutrophils % 58.7 %; Nucleated Red Blood Cells % 0 %; Platelet Count 138 10^3/cmm (130-400); Red Blood Count 4.52 10^6/uL (4.1-5.3); Red Cell Distribution Width 16.3 % (12.1-15.1); White Blood Count 3.7 10^3/uL (4.0-10.0)
[2021-12-11 12:13] LABS: INR 1.34 (0.8-1.2); Partial Thromboplastin Time 28.9 SECONDS (23.9-36.7)
[2021-12-11 12:21] LABS: Anion Gap 15.9 (5-19); Blood Urea Nitrogen 20 mg/dL (6-20); Carbon Dioxide 23 mmol/L (22-29); Chloride 98 mmol/L (98-107); Glomerular Filtration Rate 99.6 mL/min (90-130); Glucose 320 mg/dL (65-115); Osmolality Calculated 291 mOsm/kg (285-295); Potassium 3.9 mmol/L (3.5-5.1); Sodium 133 mmol/L (136-145)
--- NOTE | 2021-12-11 12:56 | PC.PHAR ---
pt states he takes care of his own medications-ext med history shows jammie last filled 12/04/21 for 10mg bid for 7 days then 5mg bid called [facility] talked to koffi rain this was transferred to them from [place] first fill date was 10/21/21 -pt states he is taking the 5mg bid-pt states he is unsure if he is taking lisinopril 10mg daily filled 10/07/21 90d/s or xifaxan 550mg bid filled 10/21/21 30d/s-pt states he is pretty sure he uses 20 units at bedtime of toujeo max u-300 ext med history shows last filled 12/04/21 51d/s for 35 units qam-notes are made in the pharmacy comments
[2021-12-11 13:36] VITALS: BP 154/76; PULSE 90; RESP 18; O2SAT 99
== END 2021-12-11 13:39 | disposition home or self-care (01) ==
PROVIDERS: Emergency Medicine; Emergency Provider Family Medicine; PCP Family Medicine
DX: R53.83 Other fatigue (principal); Z87.19 Personal history of other diseases of the digestive system; K74.60 Unspecified cirrhosis of liver; I10 Essential (primary) hypertension; Z86.718 Personal history of other venous thrombosis and embolism; Z79.01 Long term (current) use of anticoagulants; Z87.891 Personal history of nicotine dependence; Z86.2 Personal history of diseases of the blood and blood-forming organs and certain disorders involving the immune mechanism
CPT/HCPCS: 80048; 85025; 85610; 85730; 86850; 86900; 99282

== ENCOUNTER 2021-12-15 11:01 | Observation (INO) | payer OTHER, SELFPAY ==
[2021-12-15] VITALS (7 sets, daily range): BP systolic 131–175; BP diastolic 69–88; PULSE 88–116; RESP 10–18; TEMP 36.6–36.8; O2SAT 96–100; BMI 22.9
--- NOTE | 2021-12-15 11:09 | CT_ITS ---
WS: [id number] CT HEAD TECHNIQUE: Noncontrast CT of the head obtained from the skullbase to the vertex. CLINICAL INFORMATION: ams COMPARISON: None. DLP: 796.[address] scans at [facility] use at least one of these dose optimization techniques: automated e xposure control; mA and/or kV adjustment per patient size (includes targeted exams where dose is matc hed to clinical indication); or iterative reconstruction. FINDINGS: No evidence of intracranial hemorrhage or mass effect. Ventricular system and basal cisterns are haynes nt. No extra-axial fluid collections. No evidence of mass or mass effect. Normal pagan-white different iation. Mild intracranial vascular calcification. Mild parenchymal volume loss. Mild mucosal thickening in the ethmoid air cells. Mastoid air cells well aerated. Frontal sinuses are well aerated. CT/CT head wo con* [id number] IMPRESSION: 1. No evidence of intracranial hemorrhage or mass effect. 2. Mild ethmoid sinusitis 3. No acute intracranial findings.
--- NOTE | 2021-12-15 11:09 | XR_ITS ---
WS: [id number] Exam: XR chest 1V portable [id number] Date/Time of Exam: 12/15/2021 11:24 AM Reason For Exam: dyspnea Comparison 12/17/2020. Findings: The lungs are clear and fully expanded. Costophrenic angles are sharp. No infiltrates. Bronchovascula r relief appears normal. Cardiac silhouette is unremarkable. Bony elements are intact. XR/XR chest 1V portable [id number] IMPRESSION: Unremarkable chest radiograph.
--- NOTE | 2021-12-15 11:10 | ECG_ITS ---
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 Measurements Intervals [place] Rate: 114 P: 88 TX: 249 QRS: 0 QRSD: 101 T: 40 QT: 359 QTc: 494 Interpretive Statements SINUS TACHYCARDIA WITH FIRST DEGREE AV BLOCK LEFT ATRIAL ENLARGEMENT [-0.15mV P-WAVE IN V1/V2] Compared to ECG 12/18/2020 01:55:52 First degree AV block now present Atrial abnormality now present Electronically Signed On 12-15-2021 22:28:36 CDT by Nickie Denton M.D. [email or web address]
--- NOTE | 2021-12-15 11:12 | W.ED.GENADLT ---
HPI - General Adult General: Chief complaint: Altered Mental Status Stated complaint: AMS Time Seen by Provider: 12/15/21 11:06 History of Present Illness: Patient is a 56-year-old male with history of cirrhosis s/p TIPS procedure at [facility] in 10/2021, DM2 who presents emergency room for evaluation of altered mental status. Patient was found at home confused and not responsive. Patient opened his eyes and left side of his head but is unable to move his extremities. Per EMS, patient is able to blank and track but is not following commands. In route, patient had a glucose of 388. Per patient's family, patient has been out of his lactulose since Tuesday. Patient was doing well up until yesterday night when he became more sluggish. This morning when family checked on patient, patient is unable to respond to commands Onset:1 day Duration:ongoing Location:home Severity:moderate/severe Review of Systems General: Reports: ROS unobtainable due to mental status Neuro: Reports: other (+confusion, not able to follow command) PFSH ED PFSH: Medical History Anemia Chronic anticoagulation Esophageal varices GI bleed Hematemesis Hypertension Liver cirrhosis Nephrolithiasis Type 2 diabetes mellitus Surgical History H/O lithotripsy History of esophagogastroduodenoscopy (EGD) April 2019 Normal colonoscopy Family History Other Cancer Diabetes Social History Smoking and tobacco status: former smoker Alcohol intake: former Marital status: History of recent travel: No Physical Exam HENMT: COMMON NORMALS: atraumatic HEAD & SCALP: atraumatic MOUTH: moist mucous membranes abnormal Eye: COMMON NORMALS: conjunctivae normal CONJUNCTIVA: Yes conjunctivae normal Neck/C-Spine: COMMON NORMALS: supple Resp: COMMON NORMALS: normal respiratory effort and clear to auscultation bilaterally AUSCULTATION: clear to auscultation bilaterally Cardio: RATE: tachycardic GI: COMMON NORMALS: Soft to palpation and non-tender PALPATION: Yes Soft to palpation Extremity: COMMON NORMALS: full ROM Neuro: OTHER: + Eyes open and blinking, patient is able to lift up his head, patient is moving all extremities to pain stimuli, not able to follow commands, rest of history limited Psych: OTHER: +unable to assess due to AMS Course Vital Signs: Vital signs: Vital Signs Temperature 98.2 F 12/15/21 11:06 Pulse Rate 103 H 12/15/21 11:39 Respiratory Rate 18 12/15/21 11:39 Blood Pressure 154/73 12/15/21 11:39 Pulse Oximetry 100 12/15/21 11:39 MDM - General Adult Medical Decision Making 56-year-old male with history of cirrhosis, diabetes presenting to the emergency room for evaluation of altered mental status. On arrival, patient is unable to follow commands. Patient has eye-opening, moving all extremities to pain stimuli. Rest of history limited. Patient is noted be tachycardic and dry on exam. Patient has not been able to take lactulose for last 3 days White count 3.5. Hemoglobin 9.1 consistent with baseline. X-ray chest negative for any acute finding. Ammonia level of 84. CT head negative for any acute finding. UA negative for UTI. Serum ketone within normal limit. No signs of anion gap to suggest DKA. Patient is status post NG tube will be receiving lactulose for treatment of hepatic encephalopathy. Disposition: admission Lab Data : 12/15/21 10:42 12/15/21 10:42 Radiology Impressions Chest X-Ray 12/15/21 11:09 IMPRESSION: Unremarkable chest radiograph. Head CT 12/15/21 11:09 IMPRESSION: 1. No evidence of intracranial hemorrhage or mass effect. 2. Mild ethmoid sinusitis 3. No acute intracranial findings. Laboratory Results WBC 3.5 10^3/uL (4.0-10.0) L 12/15/21 10:42 RBC 3.17 10^6/uL (4.1-5.3) L 12/15/21 10:42 Hgb 9.1 g/dL (11.7-16.6) L 12/15/21 10:42 Hct 26.4 % (42.0-52.0) L 12/15/21 10:42 MCV 83.3 fl (80-94) 12/15/21 10:42 MCH 28.7 pg (28.0-34.0) 12/15/21 10:42 MCHC 34.5 g/dL (30.0-36.0) 12/15/21 10:42 RDW 17.2 % (12.1-15.1) H 12/15/21 10:42 Plt Count 124 10^3/cmm (130-400) L 12/15/21 10:42 MPV 11.4 fL (7.4-10.4) H 12/15/21 10:42 Neut % (Auto) 56.4 % 12/15/21 10:42 Lymph % (Auto) 22.1 % 12/15/21 10:42 [place] % (Auto) 15.8 % 12/15/21 10:42 Eos % (Auto) 3.4 % 12/15/21 10:42 Baso % (Auto) 2.0 % 12/15/21 10:42 Neut # (Auto) 1.97 10^3/uL (1.8-7.7) 12/15/21 10:42 Lymph # (Auto) 0.8 10^3/uL (0.8-4.8) 12/15/21 10:42 [place] # (Auto) 0.6 10^3/uL (0.2-0.9) 12/15/21 10:42 Eos # (Auto) 0.1 10^3/uL (0.0-0.8) 12/15/21 10:42 Baso # (Auto) 0.1 10^3/uL (0.0-0.1) 12/15/21 10:42 Nucleated RBC % (auto) 0 % 12/15/21 10:42 Nucleated RBCs # 0.0 /100WBC 12/15/21 10:42 PT 16.60 SECONDS (12.1-14.9) H 12/15/21 11:34 INR 1.31 (0.8-1.2) H 12/15/21 11:34 APTT 28.5 SECONDS (23.9-36.7) 12/15/21 11:34 Sodium 135 mmol/L (136-145) L 12/15/21 10:42 Potassium 3.9 mmol/L (3.5-5.1) 12/15/21 10:42 Chloride 101 mmol/L (98-107) 12/15/21 10:42 Carbon Dioxide 22 mmol/L (22-29) 12/15/21 10:42 Anion Gap 15.9 (5-19) 12/15/21 10:42 BUN 22 mg/dL (6-20) H 12/15/21 10:42 Creatinine 0.7 mg/dL (0.7-1.2) 12/15/21 10:42 GFR Calculation 116.2 mL/min (90-130) 12/15/21 10:42 Glucose 326 mg/dL (65-115) H 12/15/21 10:42 POC Glucose 319 mg/dL (70-110) H 12/15/21 12:09 Calculated Osmolality 296 mOsm/kg (285-295) H 12/15/21 10:42 Calcium 8.7 mg/dL (8.5-10.5) 12/15/21 10:42 Total Bilirubin 0.9 mg/dL (0.15-1.2) 12/15/21 10:42 AST 38 U/L (0-40) 12/15/21 10:42 ALT 46 U/L (0-41) H 12/15/21 10:42 Alkaline Phosphatase 124 IU/L (40-130) 12/15/21 10:42 Ammonia 84 umol/L (16-60) H 12/15/21 11:34 Troponin T Baseline 14 ng/L (0-15) 12/15/21 10:42 C-Reactive Protein 5.0 mg/L (0.0-4.9) H 12/15/21 10:42 NT-Pro-B Natriuret Pep 5 pg/mL (0-125) 12/15/21 10:42 Total Protein 6.9 g/dL (6.6-8.7) 12/15/21 10:42 Albumin 3.2 g/dL (3.5-5.2) L 12/15/21 10:42 Globulin 3.7 g/dL (1.3-4.6) 12/15/21 10:42 Lipase 58 U/L (13-60) 12/15/21 10:42 Procalcitonin 0.08 ng/mL (0-0.5) 12/15/21 10:42 TSH 4.61 uIU/mL (0.27-4.20) H 12/15/21 10:42 Free T4 0.97 ng/dL (0.82-1.77) 12/15/21 10:42 Urine Color Yellow (Yellow) 12/15/21 11:25 Urine Appearance Clear (CLEAR) 12/15/21 11:25 Urine pH 5 (5-7) 12/15/21 11:25 Ur Specific Entiat 1.015 (1.005-1.030) 12/15/21 11:25 Urine Protein Neg (Negative) 12/15/21 11:25 Urine Glucose (UA) 4+ (Normal) H 12/15/21 11:25 Urine Ketones 1+ (Negative) H 12/15/21 11:25 Urine Blood Neg (Negative) 12/15/21 11:25 Urine Nitrate Negative (Negative) 12/15/21 11:25 Urine Bilirubin Neg (Negative) 12/15/21 11:25 Urine Urobilinogen Norm mg/dL (Negative) 12/15/21 11:25 Ur Leukocyte Esterase Negative (Negative) 12/15/21 11:25 Salicylates < 0.3 mg/dL (3-10) L 12/15/21 10:42 Acetaminophen < 5.0 ug/mL (10-30) L 12/15/21 10:42 Serum Ketones Negative (Negative) 12/15/21 11:34 Imaging Data Other Imaging: Radiologist's impression: Launch?Image [address] [place] [address] XRay Report Signed Patient: Tani Montenegro Unit #: [id number] : 1965 Age/Sex: 56 / M ADM Date: 12/15/21 Loc: ER Room/Bed: Attending Dr: Ordering Provider/Ordering MD: Paula Benitez MD Date of Service: 12/15/21 Procedure(s): XR chest 1V portable [id number] Accession Number(s): [id number] Report Number: [id number] WS: [email or web address] Exam: XR chest 1V portable [id number] Date/Time of Exam: 12/15/2021 11:24 AM Reason For Exam: dyspnea Comparison 12/17/2020. Findings: The lungs are clear and fully expanded. Costophrenic angles are sharp. No infiltrates. Bronchovascular relief appears normal. Cardiac silhouette is unremarkable. Bony elements are intact. ? XR/XR chest 1V portable [id number] IMPRESSION: Unremarkable chest radiograph. ? ? Dictated By: Bertin Gamez DO Signed By: Bertin Gamez DO Signed Date/Time: 12/15/21 1132 DD/ [address] [address] [address] Scan Report Signed Patient: Tani Montenegro Unit #: [id number] : 1965 Age/Sex: 56 / M ADM Date: 12/15/21 Loc: ER Room/Bed: Attending Dr: Ordering Provider/Ordering MD: Paula Benitez MD Date of Service: 12/15/21 Procedure(s): CT head wo con* [id number] Accession Number(s): [id number] Report Number: [id number] WS: [email or web address] CT HEAD TECHNIQUE: Noncontrast CT of the head obtained from the skullbase to the vertex. CLINICAL INFORMATION: ams COMPARISON: None. DLP: 796.[address] scans at [facility] use at least one of these dose optimization techniques: automated exposure control; mA and/or kV adjustment per patient size (includes targeted exams where dose is matched to clinical indication); or iterative reconstruction. FINDINGS: No evidence of intracranial hemorrhage or mass effect. Ventricular system and basal cisterns are patent. No extra-axial fluid collections. No evidence of mass or mass effect. Normal pagan-white differentiation. Mild intracranial vascular calcification. Mild parenchymal volume loss. Mild mucosal thickening in the ethmoid air cells. Mastoid air cells well aerated. Frontal sinuses are well aerated. CT/CT head wo con* [id number] IMPRESSION: ? 1.? No evidence of intracranial hemorrhage or mass effect. 2.? Mild ethmoid sinusitis 3.? No acute intracranial findings. ? Dictated By: Ulises Broussard MD Signed By: Ulises Broussard MD Signed Date/Time: 12/15/21 1210 DD/ 1205 Discharge Plan Discharge Patient Disposition: Admitted As Inpatient Clinical Impression: Altered mental status, Acute hepatic encephalopathy Condition: Stable Coding Level of Care Code ED Software Configuration Analyst for Chg Fwd Exam Detailed
[2021-12-15 11:26] LABS: Basophils # 0.1 10^3/uL (0.0-0.1); Eosinophils # 0.1 10^3/uL (0.0-0.8); Eosinophils % 3.4 %; Hematocrit 26.4 % (42.0-52.0); Hemoglobin 9.1 g/dL (11.7-16.6); Lymphocytes # 0.8 10^3/uL (0.8-4.8); Lymphocytes % 22.1 %; Mean Corpuscular HGB Conc 34.5 g/dL (30.0-36.0); Mean Corpuscular Hemoglobin 28.7 pg (28.0-34.0); Mean Corpuscular Volume 83.3 fl (80-94); Mean Platelet Volume 11.4 fL (7.4-10.4); Monocytes # 0.6 10^3/uL (0.2-0.9); Monocytes % 15.8 %; Neutrophils # 1.97 10^3/uL (1.8-7.7); Neutrophils % 56.4 %; Nucleated Red Blood Cells % 0 %; Platelet Count 124 10^3/cmm (130-400); Red Blood Count 3.17 10^6/uL (4.1-5.3); Red Cell Distribution Width 17.2 % (12.1-15.1); White Blood Count 3.5 10^3/uL (4.0-10.0)
[2021-12-15 11:48] LABS: Add Urine Microscopic? NO; Charge for UA Resulting for Rev
[2021-12-15] MEDS: sodium chloride 0.9% 500 ML IV (11:48)
[2021-12-15 11:53] LABS: Protein Urine Neg (Negative); Specific Gravity, Urine 1.015 (1.005-1.030); Urine Appearance Clear (CLEAR); Urine Color Yellow (Yellow); pH Urine 5 (5-7)
[2021-12-15 11:54] LABS: Troponin(5th) Baseline 14 ng/L (0-15)
[2021-12-15 11:54] LABS: Bilirubin Urine Neg (Negative); Blood Urine Neg (Negative); Glucose Urine UA 4+ (Normal); Ketones Urine 1+ (Negative); Leukocyte Esterase Urine Negative (Negative); Nitrate Urine Negative (Negative); Urobilinogen Urine Norm (Negative)
[2021-12-15 12:02] LABS: Free T4 Free Thyroxine 0.97 ng/dL (0.82-1.77); NT Pro B Type Natriuretic Pept 5 pg/mL (0-125); Procalcitonin 0.08 ng/mL (0-0.5); Thyroid Stimulating Hormone 4.61 uIU/mL (0.27-4.20)
[2021-12-15 12:05] LABS: Ketone (Acetest) Serum Negative (Negative); Partial Thromboplastin Time 28.5 SECONDS (23.9-36.7)
[2021-12-15 12:06] LABS: INR 1.31 (0.8-1.2)
[2021-12-15 12:11] LABS: Ammonia 84 umol/L (16-60)
[2021-12-15 12:12] LABS: Glucose Point of Care 319 mg/dL (70-110)
[2021-12-15 12:13] LABS: Alanine Aminotransferase 46 U/L (0-41); Albumin Level 3.2 g/dL (3.5-5.2); Alkaline Phosphatase 124 IU/L (40-130); Anion Gap 15.9 (5-19); Aspartate Amino Transferase 38 U/L (0-40); Blood Urea Nitrogen 22 mg/dL (6-20); Calcium 8.7 mg/dL (8.5-10.5); Carbon Dioxide 22 mmol/L (22-29); Chloride 101 mmol/L (98-107); Globulin 3.7 g/dL (1.3-4.6); Glomerular Filtration Rate 116.2 mL/min (90-130); Glucose 326 mg/dL (65-115); Lipase 58 U/L (13-60); Osmolality Calculated 296 mOsm/kg (285-295); Potassium 3.9 mmol/L (3.5-5.1); Sodium 135 mmol/L (136-145); Total Bilirubin 0.9 mg/dL (0.15-1.2); Total Protein 6.9 g/dL (6.6-8.7)
[2021-12-15 12:16] LABS: Acetaminophen < 5.0 ug/mL (10-30); Salicylate < 0.3 mg/dL (3-10)
--- NOTE | 2021-12-15 12:59 | XR_ITS ---
WS: [email or web address] Exam: XR abdomen 1V* [id number] Date/Time of Exam: 12/15/2021 1:04 PM Reason For Exam: NG Tube placement An NG tube has been placed with the tip entering the fundus of the stomach. The side-port of the tube is just above the expected region of the gastroesophageal junction. No bowel obstruction seen. Signi ficant stool retention in the visualized colon. A vascular stent is seen in the right upper abdomen a nd may represent a stent within the liver. XR/XR abdomen 1V* [id number] IMPRESSION: 1. NG tube in place with the tip probably in the gastric fundus. The side-port of the tube is likely still in the distal esophagus. The tube should be advance d another 10 cm for optimal position. 2. No acute finding. Constipation.
--- NOTE | 2021-12-15 13:10 | ECG_ITS ---
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 Measurements Intervals [place] Rate: 103 P: 56 TX: 181 QRS: -1 QRSD: 105 T: 18 QT: 386 QTc: 507 Interpretive Statements SINUS TACHYCARDIA ABNORMAL RHYTHM ECG Compared to ECG 12/15/2021 11:25:08 First degree AV block no longer present Atrial abnormality no longer present Electronically Signed On 12-15-2021 22:36:53 CDT by Nickie Denton M.D. [email or web address] [email or web address] residential centerNovetas Solutionsscci hospital [facility].[employer]/store/OM/[id number]
[2021-12-15 13:12] LABS: Troponin 5 2HR 13.06 ng/L (0-15)
[2021-12-15 13:15] LABS: Troponin 5 2HR Delta -0.84 ABS# (0-10)
[2021-12-15] MEDS: lactulose oral liq 20 gm/30 mL UDC 30 GM PO (13:51)
--- NOTE | 2021-12-15 13:52 | PC.NURSE ---
Advanced NG approx 10cm per radiology recommendation. Lactulose administered per NG. Pt jimbo well.
--- NOTE | 2021-12-15 15:04 | PC.NURSE ---
Attempted to call report, nurse unavailable. Restraints off approx 20 minutes after application. Pt pulled NG tube & physicians states can leave out. He is currently resting in bed, no s/s of distress.
--- NOTE | 2021-12-15 15:36 | PC.NURSE ---
Report called. Pt was OOB w/o assist. HRFF.
[2021-12-15 16:58] LABS: Glucose Point of Care 342 mg/dL (70-110)
[2021-12-15] MEDS: insulin lispro 100 unit/1 mL SUBCUT ×2 (17:10→21:26)
[2021-12-15] MEDS: lactulose oral liq 20 gm/30 mL UDC 10 GM PO ×2 (17:10→21:25)
[2021-12-15] MEDS: apixaban 5 mg Tablet PO (17:10)
--- NOTE | 2021-12-15 17:10 | ECG_ITS ---
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 Measurements Intervals [place] Rate: 105 P: 48 MI: 199 QRS: -14 QRSD: 113 T: 44 QT: 375 QTc: 497 Interpretive Statements SINUS TACHYCARDIA MODERATE INTRAVENTRICULAR CONDUCTION DELAY [110+ ms QRS DURATION] ABNORMAL RHYTHM ECG Compared to ECG 12/15/2021 13:14:53 Intraventricular conduction delay now present Electronically Signed On 12-15-2021 22:37:54 CDT by Nickie Denton M.D. [email or web address] [email or web address] leflore hospitalDxContinuumbucyrus community hospital.[employer]/store/OM/[id number]
--- NOTE | 2021-12-15 17:15 | PM.HP ---
Providers/Chief Complaint Admitting Physician: Reji Napier Primary Care Provider: Amber Can MD Chief Complaint: AMS History of Present Illness Pleasant 46-year-old gentleman with history of liver cirrhosis, status post TIPS procedure at [facility] in October 2021 with brought in for evaluation to ER due to noted decreased responsiveness today, confusion since sometime yesterday night at which time was noticed to be sluggish. Reportedly had run out of lactulose since Tuesday. He is unable to provide history. He is providing very basic review of systems, although unclear how reliable this is. During questioning asking him orientation questions he repeats his first name several times. He is groggy/somewhat, later on with more alert, states he hurts all over. Reports having some nausea. Reports recently also having some diarrhea. He is not answering orientation questions. Unfortunate family and around. Attempted to reach by phone. Review of Systems General: Reports: ROS unobtainable due to mental status (Very limited ROS) Const: Reports: body aches and malaise GI: Reports: abdominal pain, nausea and diarrhea Medications/Allergies Home Medications Medication Instructions Recorded Confirmed Last Taken Type pen needle, diabetic 32 gauge x #50 each 04/01/21 12/15/21 Unknown Rx (Easy Comfort Pen [place]) lactulose 10 gram/15 mL oral 15 ml PO TID ml 11/02/21 12/15/21 Unknown History solution (Constulose) levothyroxine 50 mcg tablet See Rx Instructions .ROUTE 11/02/21 12/15/21 Unknown Rx .COMPLEX #100 tab cyanocobalamin (vitamin B-12) 1,000 mcg PO DAILY 11/04/21 12/15/21 Unknown History 1,000 mcg capsule liraglutide 0.6 mg/0.1 mL (18 mg/3 1.8 mg (0.3 mL) SUBCUT QAM #27 ml 12/04/21 12/15/21 12/11/21 Rx mL) subcutaneous pen injector (Victoza 3-Harsh) apixaban 5 mg tablet (Eliquis) 5 mg PO BID #60 tab 12/07/21 12/15/21 Unknown Rx insulin glargine U-300 conc 300 20 unit SUBCUT BEDTIME 12/11/21 12/15/21 Unknown History unit/mL (3 mL) subcutaneous pen (Toujeo Max U-300 SoloStar) nzoxdcoe-hgy-speoh acid 300 1 tab PO DAILY 12/11/21 12/15/21 Unknown History mcg-lycopene 600 mcg-lutein 300 mcg tablet (Centrum Silver Men) Allergies Allergy/AdvReac Type Severity Reaction Status Date / Time No Known Allergies Allergy Verified 12/15/21 11:45 PFSH Acute PFSH: Medical History Anemia Chronic anticoagulation Esophageal varices GI bleed Hematemesis Hypertension Liver cirrhosis Nephrolithiasis Type 2 diabetes mellitus Surgical History H/O lithotripsy History of esophagogastroduodenoscopy (EGD) April 2019 Normal colonoscopy Family History Other Cancer Diabetes Social History Smoking and tobacco status: former smoker Alcohol intake: former Marital status: History of recent travel: No Vitals/I&O/Wt Last Vital Signs Temp 98.1 F 12/15/21 16:00 Pulse 102 H 12/15/21 16:54 Resp 14 12/15/21 16:00 BP 140/76 12/15/21 16:00 Pulse Ox 98 12/15/21 16:54 12/15/21 12/15/21 12/15/21 06:59 14:59 22:59 Intake Total 500 / 500 Balance 500 / 500 Weight last 48 hrs Weight 72.575 kg Physical Exam Const: COMMON NORMALS: alert; negative for patient oriented x3 GENERAL APPEARANCE: cooperative ORIENTATION/CONSCIOUSNESS: Yes awake and Yes confused HENMT: COMMON NORMALS: normocephalic, EAC's normal, Normal external nose present and moist oral mucous membranes HEAD & SCALP: normocephalic NOSE: Normal external nose present EXTERNAL AUDITORY CANAL: EAC's normal Neck/C-Spine: COMMON NORMALS: no meningeal signs Chest: CHEST: Yes Symmetrical chest wall rise Resp: COMMON NORMALS: clear to auscultation bilaterally AUSCULTATION: clear to auscultation bilaterally Cardio: COMMON NORMALS: regular rate, regular rhythm and No murmurs present (Cardio) RATE: regular rate RHYTHM: regular rhythm GI: COMMON NORMALS: Normal to inspection, nondistended, normoactive bowel sounds present, Soft to palpation and non-tender PALPATION: Yes Soft to palpation Extremity: COMMON NORMALS: no pedal edema Neuro: COMMON NORMALS: moves all extremities SENSORIUM/ORIENTATION: Yes alert MENINGEAL SIGNS: Yes no meningeal signs Psych: COMMON NORMALS: mental status grossly normal Skin: COMMON NORMALS: no wounds RASHES: no rashes Urinary Catheter Management: Rajan: Cath Placed During This Visit: yes Urinary Catheter Date of Insertion: 12/15/21 Urinary Catheter Time of Insertion: 11:34 Data : 12/15/21 10:42 12/15/21 10:42 Micro: Microbiology 12/15/21 11:42 Blood Culture - Preliminary Blood SPECIMEN COLLECTED 12/15/21 11:34 Blood Culture - Preliminary Blood SPECIMEN COLLECTED A&P Assessment and plan (1) Acute hepatic encephalopathy: Acute encephalopathy since slight, at which point was coming sluggish, today decreased responsiveness. Groggy. Not oriented. Elevated ammonia. Reportedly ran out of lactulose since Tuesday. Started back on lactulose for hepatic encephalopathy. Additional investigation as below given he does report some malaise, including nausea, abdominal discomfort, diarrhea. Status: Acute (2) Malaise: Reports some body aches, generally not feeling well, nausea, abdominal discomfort, diarrhea. Abdomen is soft to palpation. Does not appear distended. He does have cirrhosis, some history of ascites, will request for limited ultrasound of the abdomen to see if there is ascites, consideration of paracentesis. Transition anticoagulation to Lovenox for now. Blood cultures requested as well, although he is afebrile, infection less likely, but he does have leukopenia, some sinus tachycardia 102. Empirically started on ceftriaxone. Requested COVID-19 PCR, rapid influenza. Status: Acute Plan Liver cirrhosis status post TIPS in October, reported to be on liver transplant list. Chronic anticoagulation Anemia Esophageal varices History of GI bleed HTN Nephrolithiasis DM2 Attestations Medical Necessity Statement*: Place in observation for additional assessment and management of acute encephalopathy and malaise in a gentleman with liver cirrhosis. 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
--- NOTE | 2021-12-15 17:17 | USR_ITS ---
PROCEDURE INFORMATION: Exam: US Abdomen; Limited Exam date and time: 12/15/2021 5:39 PM Age: 56 years old Clinical indication: Bloating; Additional info: Check for ascites TECHNIQUE: Imaging protocol: Real time ultrasound of the abdomen with image documentation. Limited exam focused on the region of clinical interest. COMPARISON: CT abdomen pelvis w con* [id number] 12/17/2020 8:44 PM FINDINGS: Intraperitoneal space: Negative for ascites. US/US abdomen limited [id number] IMPRESSION: Negative for ascites.
[2021-12-15] MEDS: cefTRIAXone 2,000 MG in sodium chloride 0.9% (plus) 50 ML 100 MG IV (17:21)
[2021-12-15 17:35] LABS: Adenovirus Not Detected (NOT DETECT); Chlamydia Pneumoniae Not Detected (NOT DETECT); Coronavirus 229E,HKU1,NL63,OC4 Not Detected (NOT DETECT); Human Metapneumovirus Not Detected (NOT DETECT); Human Rhinovirus/Enterovirus Not Detected (NOT DETECT); Influenza A Not Detected (NOT DETECT); Influenza A H1 Not Detected (NOT DETECT); Influenza A H1-2009 Not Detected (NOT DETECT); Influenza A H3 Not Detected (NOT DETECT); Influenza B Not Detected (NOT DETECT); Mycoplasma Pneumoniae Not Detected (NOT DETECT); Parainfluenza Virus Type 1 Not Detected (NOT DETECT); Parainfluenza Virus Type 2 Not Detected (NOT DETECT); Parainfluenza Virus Type 3 Not Detected (NOT DETECT); Parainfluenza Virus Type 4 Not Detected (NOT DETECT); Respiratory Syncytial Virus A Not Detected (NOT DETECT); Respiratory Syncytial Virus B Not Detected (NOT DETECT); SARS-COV-2 Not Detected (NOT DETECT)
[2021-12-15 18:03] LABS: Troponin 5 6HR 13.03 ng/L (0-15)
[2021-12-15 18:18] LABS: Creatine Phosphokinase 23 U/L (39-308)
[2021-12-15 18:36] LABS: Troponin 5 6HR Delta 0.87 ng/L (0-12)
[2021-12-15 19:40] LABS: Results from Genmark
[2021-12-15] MEDS: insulin glargine 100 units/1 mL 20 UNIT SUBCUT (21:25)
[2021-12-15 21:31] LABS: Glucose Point of Care 339 mg/dL (70-110)
[2021-12-16] VITALS (10 sets, daily range): BP systolic 107–154; BP diastolic 58–79; PULSE 86–110; RESP 16–18; TEMP 36.7–36.9; O2SAT 95–99
[2021-12-16] MEDS: enoxaparin 80 mg/0.8 mL Syringe 70 MG SUBCUT ×2 (05:35→17:21)
[2021-12-16] MEDS: cefTRIAXone 2,000 MG in sodium chloride 0.9% (plus) 50 ML 100 MG IV ×2 (05:35→17:22)
[2021-12-16 06:30] LABS: Basophils # 0.1 10^3/uL (0.0-0.1); Basophils % 1.8 %; Eosinophils # 0.2 10^3/uL (0.0-0.8); Eosinophils % 4.6 %; Hematocrit 23.5 % (42.0-52.0); Hemoglobin 8.2 g/dL (11.7-16.6); Lymphocytes % 31.5 %; Mean Corpuscular HGB Conc 34.9 g/dL (30.0-36.0); Mean Corpuscular Hemoglobin 28.7 pg (28.0-34.0); Mean Corpuscular Volume 82.2 fl (80-94); Mean Platelet Volume 11.3 fL (7.4-10.4); Monocytes # 0.5 10^3/uL (0.2-0.9); Monocytes % 14.4 %; Neutrophils # 1.56 10^3/uL (1.8-7.7); Neutrophils % 47.7 %; Nucleated Red Blood Cells % 0 %; Platelet Count 110 10^3/cmm (130-400); Red Blood Count 2.86 10^6/uL (4.1-5.3); Red Cell Distribution Width 17.8 % (12.1-15.1); White Blood Count 3.3 10^3/uL (4.0-10.0)
[2021-12-16 06:45] LABS: Alanine Aminotransferase 42 U/L (0-41); Albumin Level 2.8 g/dL (3.5-5.2); Alkaline Phosphatase 120 IU/L (40-130); Anion Gap 11.4 (5-19); Aspartate Amino Transferase 51 U/L (0-40); Blood Urea Nitrogen 22 mg/dL (6-20); Calcium 8.3 mg/dL (8.5-10.5); Carbon Dioxide 21 mmol/L (22-29); Chloride 98 mmol/L (98-107); Globulin 3.5 g/dL (1.3-4.6); Glomerular Filtration Rate 116.2 mL/min (90-130); Glucose 327 mg/dL (65-115); Osmolality Calculated 280 mOsm/kg (285-295); Potassium 3.4 mmol/L (3.5-5.1); Sodium 127 mmol/L (136-145); Total Bilirubin 0.6 mg/dL (0.15-1.2); Total Protein 6.3 g/dL (6.6-8.7)
[2021-12-16 07:06] LABS: Glucose Point of Care 199 mg/dL (70-110)
[2021-12-16] MEDS: lactulose oral liq 20 gm/30 mL UDC 10 GM PO ×3 (08:43→20:41)
[2021-12-16] MEDS: levothyroxine 50 mcg Tablet PO (08:43)
[2021-12-16] MEDS: insulin lispro 100 unit/1 mL SUBCUT ×4 (08:45→21:43)
[2021-12-16 09:00] LABS: Ammonia 97 umol/L (16-60)
--- NOTE | 2021-12-16 15:29 | USCV_ITS ---
Tani Montenegro Age: 56 Gender: M : 1965 Exam Date: 12/16/2021 18:38 Ordering Phys: Reji Napier MD Technologist: AUGUSTIN Exam Location: [facility] Indication: Patient is on liver XPLNT list at [facility]. states that he was diagnosed at [facility] 2 wks ago with acute BLE DVT. HISTORY: Patient is on liver XPLNT list at [facility]. states that he was diagnosed at [facility] 2 wks ago with acute BLE DVT. PROCEDURES: Venous duplex imaging was performed in bilateral lower extremities. The venous duplex Doppler examination of both lower extremities was performed in the standard fashion. The following venous structures were evaluated: common femoral vein, profunda vein, proximal portion of the greater saphenous vein, superficial femoral vein, and the popliteal vein. In addition, the posterior tibial and peroneal veins were evaluated. Bilaterally, the common femoral, superficial femoral, profunda femoral, popliteal, posterior tibial, greater saphenous veins, and the peroneal veins were identified and interrogated in the standard fashion. These veins were found to be easily compressible with spontaneous blood flow. No evidence of thrombus noted. CONCLUSIONS No evidence of right lower extremity DVT. No evidence of left lower extremity DVT. Ulises Broussard MD (Electronically Signed) Final Date: 17 December 2021 08:40 S
--- NOTE | 2021-12-16 15:29 | PM.PN ---
Subjective Subjective: Today he is doing better. He is more alert. Conversing with his family. He is oriented x3. Denies any headache, body aches, nausea, vomiting, abdominal pain. No fevers, chills, malaise. Does not recall much from yesterday. Seems he had ran out of lactulose. Vitals/I&O/Wt Last Vital Signs Temp 98.1 F 12/16/21 12:00 Pulse 100 12/16/21 14:14 Resp 16 12/16/21 12:00 BP 116/68 12/16/21 12:00 Pulse Ox 98 12/16/21 14:14 12/16/21 12/16/21 12/16/21 06:59 14:59 22:59 Intake Total 410 / 410 Output Total 400 / 1050 Balance -400 / -20 410 / 410 Weight last 48 hrs Weight 76.204 kg Weight 72.575 kg Physical Exam Narrative: Son and sister at bedside. Const: COMMON NORMALS: alert GENERAL APPEARANCE: cooperative ORIENTATION/CONSCIOUSNESS: Yes awake HENMT: COMMON NORMALS: normocephalic, EAC's normal, Normal external nose present and moist oral mucous membranes HEAD & SCALP: normocephalic NOSE: Normal external nose present EXTERNAL AUDITORY CANAL: EAC's normal Neck/C-Spine: COMMON NORMALS: no meningeal signs Chest: CHEST: Yes Symmetrical chest wall rise Resp: COMMON NORMALS: clear to auscultation bilaterally AUSCULTATION: clear to auscultation bilaterally Cardio: COMMON NORMALS: regular rate, regular rhythm and No murmurs present (Cardio) RATE: regular rate RHYTHM: regular rhythm GI: COMMON NORMALS: Normal to inspection, nondistended, normoactive bowel sounds present, Soft to palpation and non-tender PALPATION: Yes Soft to palpation Extremity: COMMON NORMALS: no pedal edema Neuro: COMMON NORMALS: moves all extremities SENSORIUM/ORIENTATION: Yes alert MENINGEAL SIGNS: Yes no meningeal signs Psych: COMMON NORMALS: mental status grossly normal Skin: COMMON NORMALS: no wounds RASHES: no rashes Urinary Catheter Management: Rajan: Cath Placed During This Visit: yes Reason for Continuing Indwelling Catheter: Acute Urinary Retention or Obstruction Urinary Catheter Date of Insertion: 12/15/21 Urinary Catheter Time of Insertion: 11:34 Data : 12/16/21 06:14 12/16/21 06:14 Micro: Microbiology 12/15/21 11:42 Blood Culture - Preliminary Blood NEGATIVE TO DATE 12/15/21 11:34 Blood Culture - Preliminary Blood NEGATIVE TO DATE A&P Assessment and plan (1) Acute hepatic encephalopathy: Significantly improved, although is somewhat more tired this afternoon. He is oriented x3. Gives negative review of systems. Perhaps mildly sluggish in his responses. Discussed elevation of ammonia level up to 97. He has been restarted on lactulose. Discussed importance of not missing lactulose. Does seem that he had ran out of lactulose at home. Still no BM. Continue lactulose, target 2-3 soft BMs. Follow-up ammonia. Otherwise does not appear to have infectious etiology. Afebrile. Some persistent leukopenia. Review of systems unremarkable. Negative COVID PCR, influenza rapid test. Abdominal ultrasound without ascites. No suggestion of pneumonia. For now continue attempts to control hyperammonemia due to hepatic encephalopathy, in the hospital, reassess in the morning. Status: Acute (2) Malaise: Denies reporting malaise. Encephalopathy is better. Today he denies any malaise. COVID-19, influenza negative. No ascites on abdominal ultrasound. No pneumonia on chest x-ray. Status: Acute Plan Recent DVT: About 6 weeks ago diagnosed with a DVT, on anticoagulation. Continue anticoagulation. Family are requesting duplex of lower extremities, stating was asked to have done by [facility] for consideration of liver transplantation. They are requesting to be done here stating results are negative next week, and he has not been able to follow-up with PCP. Requested. Liver cirrhosis status post TIPS in October, reported to be on liver transplant list. Chronic anticoagulation Anemia Esophageal varices History of GI bleed HTN Nephrolithiasis DM2 Attestations Medical Necessity Statement*: Continue hospitalization for reassessment with hepatic encephalopathy, hyperammonemia in setting of cirrhosis, status post TIPS, reassessment given recent reports of malaise. 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
[2021-12-16 21:27] LABS: Glucose Point of Care 276 mg/dL (70-110)
[2021-12-16 21:27] LABS: Glucose Point of Care 372 mg/dL (70-110)
[2021-12-16 21:27] LABS: Glucose Point of Care 316 mg/dL (70-110)
[2021-12-16] MEDS: diphenhydrAMINE 25 mg Capsule PO (21:42)
[2021-12-16] MEDS: insulin glargine 100 units/1 mL 20 UNIT SUBCUT (21:44)
[2021-12-17 04:00] VITALS: BP 112/62; PULSE 92; RESP 14; TEMP 36.6; O2SAT 99
[2021-12-17 05:21] LABS: Basophils # 0.1 10^3/uL (0.0-0.1); Basophils % 2.2 %; Eosinophils # 0.3 10^3/uL (0.0-0.8); Eosinophils % 11.3 %; Hematocrit 22.6 % (42.0-52.0); Hemoglobin 7.6 g/dL (11.7-16.6); Lymphocytes # 0.8 10^3/uL (0.8-4.8); Lymphocytes % 35.1 %; Mean Corpuscular HGB Conc 33.6 g/dL (30.0-36.0); Mean Corpuscular Hemoglobin 28.1 pg (28.0-34.0); Mean Corpuscular Volume 83.7 fl (80-94); Mean Platelet Volume 11.2 fL (7.4-10.4); Monocytes # 0.3 10^3/uL (0.2-0.9); Monocytes % 13.9 %; Neutrophils % 37.5 %; Nucleated Red Blood Cells % 0 %; Platelet Count 92 10^3/cmm (130-400); Red Cell Distribution Width 17.6 % (12.1-15.1); White Blood Count 2.3 10^3/uL (4.0-10.0)
[2021-12-17] MEDS: cefTRIAXone 2,000 MG in sodium chloride 0.9% (plus) 50 ML 100 MG IV ×2 (05:21→17:33)
[2021-12-17] MEDS: enoxaparin 80 mg/0.8 mL Syringe 70 MG SUBCUT ×2 (05:21→17:32)
[2021-12-17 05:23] LABS: Neutrophils # 0.87 10^3/uL (1.8-7.7)
[2021-12-17 05:41] LABS: Ammonia 98 umol/L (16-60)
[2021-12-17 05:42] LABS: Alanine Aminotransferase 65 U/L (0-41); Albumin Level 2.6 g/dL (3.5-5.2); Alkaline Phosphatase 118 IU/L (40-130); Anion Gap 13.4 (5-19); Aspartate Amino Transferase 88 U/L (0-40); Blood Urea Nitrogen 17 mg/dL (6-20); Calcium 7.8 mg/dL (8.5-10.5); Carbon Dioxide 22 mmol/L (22-29); Chloride 108 mmol/L (98-107); Globulin 3.3 g/dL (1.3-4.6); Glomerular Filtration Rate 116.2 mL/min (90-130); Glucose 133 mg/dL (65-115); Osmolality Calculated 293 mOsm/kg (285-295); Potassium 3.4 mmol/L (3.5-5.1); Sodium 140 mmol/L (136-145); Total Bilirubin 0.7 mg/dL (0.15-1.2); Total Protein 5.9 g/dL (6.6-8.7)
[2021-12-17 06:38] LABS: Glucose Point of Care 165 mg/dL (70-110)
--- NOTE | 2021-12-17 07:10 | PC.NURSE ---
Bedside report received from VINNY Nuno.
[2021-12-17 07:21] VITALS: BP 101/61; PULSE 98; RESP 16; TEMP 36.6; O2SAT 98
[2021-12-17] MEDS: lactulose oral liq 20 gm/30 mL UDC 10 GM PO ×2 (08:08→14:53)
[2021-12-17] MEDS: insulin lispro 100 unit/1 mL SUBCUT ×4 (08:08→22:32)
[2021-12-17] MEDS: levothyroxine 50 mcg Tablet PO (08:09)
[2021-12-17 09:42] LABS: Hepatitis A Antibody IgM Non-Reactive (Nonreactive); Hepatitis B Core IgM Non-Reactive (Nonreactive); Hepatitis B Surface Antigen Non-Reactive (Nonreactive); Hepatitis C Virus Antibody Non-Reactive (Nonreactive)
[2021-12-17 12:00] VITALS: BP 125/70; PULSE 89; RESP 14; TEMP 36.7; O2SAT 99
[2021-12-17 12:49] LABS: Glucose Point of Care 343 mg/dL (70-110)
[2021-12-17 16:00] VITALS: BP 141/76; PULSE 103; RESP 16; TEMP 36.7; O2SAT 98
[2021-12-17 17:33] LABS: Glucose Point of Care 202 mg/dL (70-110)
[2021-12-17 20:00] VITALS: BP 137/69; PULSE 102; RESP 16; TEMP 36.6; O2SAT 98
--- NOTE | 2021-12-17 20:16 | P.PN_ITS ---
Subjective Subjective: Denies headache, vision changes, nausea vomiting, difficulty swallowing, abdominal discomfort. No diarrhea. No rashes. Discussed with him worsened WBC count. He recalls previously having issues t imes with low cell counts. Discussed with him mild rise in AST and ALT. Discussed further elevation of ammonia. Etiology unclear at this time. Per his sister in terms of mental status he is getting nearer his usual self. Vitals/I&O/Wt Last Vital Signs Temp 98.0 F 12/17/21 16:00 Pulse 103 H 12/17/21 16:00 Resp 16 12/17/21 16:00 BP 141/76 12/17/21 16:00 Pulse Ox 98 12/17/21 16:00 12/17/21 12/17/21 12/17/21 06:59 14:59 22:59 Intake Total 50 / 510 600 / 600 290 / 890 Balance 50 / 510 600 / 600 290 / 890 Weight last 48 hrs Weight 76.204 kg Physical Exam Narrative: Sister at bedside. Const: COMMON NORMALS: alert; negative for patient oriented x3 GENERAL APPEARANCE: cooperative ORIENTATION/CONSCIOUSNESS: Yes awake; not confused HENMT: COMMON NORMALS: normocephalic, EAC's normal, Normal external nose present and moist oral mucous membranes HEAD & SCALP: normocephalic NOSE: Normal external nose present EXTERNAL AUDITORY CANAL: EAC's normal Neck/C-Spine: COMMON NORMALS: no meningeal signs Chest: CHEST: Yes Symmetrical chest wall rise Resp: COMMON NORMALS: clear to auscultation bilaterally AUSCULTATION: clear to auscultation bilaterally Cardio: COMMON NORMALS: regular rate, regular rhythm and No murmurs present (Cardio) RATE: regular rate RHYTHM: regular rhythm GI: COMMON NORMALS: Normal to inspection, nondistended, normoactive bowel sounds present, Soft to palpation and non-tender PALPATION: Yes Soft to palpation Extremity: COMMON NORMALS: no pedal edema Neuro: COMMON NORMALS: moves all extremities; negative for patient oriented x3 SENSORIUM/ORIENTATION: Yes alert MENINGEAL SIGNS: Yes no meningeal signs Psych: COMMON NORMALS: mental status grossly normal Skin: COMMON NORMALS: no wounds RASHES: no rashes Urinary Catheter Management: Rajan: Cath Placed During This Visit: yes Reason for Continuing Indwelling Catheter: Other Urinary Catheter Date of Insertion: 12/15/21 Urinary Catheter Time of Insertion: 11:34 Data : 12/17/21 05:09 12/17/21 05:09 A&P Assessment and plan (1) Acute hepatic encephalopathy: Clinically with improvement, although still mildly sluggish, persistent near to his usual self. Ammonia with further rise today. We will further escalate lactulose. Recheck ammonia. Continue lactulose, target 2-3 soft BMs. Follow-up ammonia. Otherwise does not appear to have infectious etiology. Afebrile. Some persistent leukopenia. Review of systems unremarkable. Negative COVID PCR, influenza rapid test. Abdominal ultrasound without ascites. No suggestion of pneumonia. But with worsened neutropenia. Status: Acute (2) Neutropenia: Unclear etiology of neutropenia, but had neutropenia previously. Will check B12, folic acid. Follow-up with hematology. Status: Acute (3) Transaminitis: Hepatitis panel requested. Negative. Some higher elevation of AST. Check CK. Unclear if possible effects recommended TIPS with relative hypoperfusion of the liver which may be associated with the procedure. Check INR. Albumin low at 2.6. Status: Acute (4) Malaise: Denies malaise. Encephalopathy is better. COVID-19, influenza negative. No ascites on abdominal ultrasound. No pneumonia on chest x-ray. Status: Acute Plan Recent DVT: Repeat venous duplex negative for DVT. Continues on anticoagulation. Liver cirrhosis status post TIPS in October, reported to be on liver transplant list. Chronic anticoagulation Anemia Esophageal varices History of GI bleed HTN Nephrolithiasis DM2 Attestations Medical Necessity Statement*: Continue with exertion for reassessment of hepatic encephalopathy, worsening transaminitis, suspect possibility of liver failure, neutropenia and gentleman with underlying liver cirrhosis, status post recent TIPS. 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
[2021-12-17 20:50] LABS: Creatine Phosphokinase 69 U/L (39-308)
[2021-12-17] MEDS: lactulose oral liq 20 gm/30 mL UDC PO (22:32)
[2021-12-17] MEDS: insulin glargine 100 units/1 mL 20 UNIT SUBCUT (22:37)
[2021-12-17] MEDS: diphenhydrAMINE 25 mg Capsule PO (23:46)
[2021-12-17 23:53] VITALS: BP 117/64; PULSE 96; RESP 16; TEMP 37.1; O2SAT 99
[2021-12-18 04:34] VITALS: BP 101/53; PULSE 98; RESP 16; TEMP 36.5; O2SAT 98
[2021-12-18 05:18] LABS: Basophils % 1.8 %; Eosinophils # 0.2 10^3/uL (0.0-0.8); Eosinophils % 10.3 %; Hematocrit 21.5 % (42.0-52.0); Hemoglobin 7.4 g/dL (11.7-16.6); Lymphocytes # 0.6 10^3/uL (0.8-4.8); Lymphocytes % 37.6 %; Mean Corpuscular HGB Conc 34.4 g/dL (30.0-36.0); Mean Corpuscular Hemoglobin 28.9 pg (28.0-34.0); Mean Platelet Volume 10.4 fL (7.4-10.4); Monocytes # 0.3 10^3/uL (0.2-0.9); Monocytes % 17.6 %; Neutrophils % 32.7 %; Nucleated Red Blood Cells % 0 %; Platelet Count 93 10^3/cmm (130-400); Red Blood Count 2.56 10^6/uL (4.1-5.3); Red Cell Distribution Width 17.5 % (12.1-15.1); White Blood Count 1.7 10^3/uL (4.0-10.0)
[2021-12-18 05:30] LABS: INR 1.31 (0.8-1.2)
[2021-12-18 05:39] LABS: Ammonia 88 umol/L (16-60)
[2021-12-18 05:41] LABS: Alanine Aminotransferase 70 U/L (0-41); Albumin Level 2.6 g/dL (3.5-5.2); Alkaline Phosphatase 119 IU/L (40-130); Anion Gap 11.5 (5-19); Aspartate Amino Transferase 87 U/L (0-40); Blood Urea Nitrogen 12 mg/dL (6-20); Calcium 7.9 mg/dL (8.5-10.5); Carbon Dioxide 23 mmol/L (22-29); Chloride 106 mmol/L (98-107); Glomerular Filtration Rate 138.9 mL/min (90-130); Glucose 200 mg/dL (65-115); Osmolality Calculated 289 mOsm/kg (285-295); Potassium 3.5 mmol/L (3.5-5.1); Sodium 137 mmol/L (136-145); Total Bilirubin 0.5 mg/dL (0.15-1.2); Total Protein 5.6 g/dL (6.6-8.7)
[2021-12-18 05:44] LABS: Neutrophils # 0.54 10^3/uL (1.8-7.7)
[2021-12-18 05:58] LABS: Folate Level 13.1 ng/mL (4.5-32.2)
[2021-12-18 06:10] LABS: Vitamin B12 > 2000 pg/mL (232-1245)
[2021-12-18] MEDS: cefTRIAXone 2,000 MG in sodium chloride 0.9% (plus) 50 ML 100 MG IV (06:10)
[2021-12-18] MEDS: enoxaparin 80 mg/0.8 mL Syringe 70 MG SUBCUT (06:11)
[2021-12-18 06:30] LABS: Glucose Point of Care 202 mg/dL (70-110)
[2021-12-18 06:30] LABS: Glucose Point of Care 276 mg/dL (70-110)
--- NOTE | 2021-12-18 07:00 | PC.NURSE ---
Patient verbally requesting to have his IV out this morning. IV removed intact. Patient tolerated well. Patient states, I am going home today one way or the other.
[2021-12-18 08:00] VITALS: BP 131/72; PULSE 97; RESP 16; TEMP 36.4; O2SAT 100
[2021-12-18] MEDS: insulin lispro 100 unit/1 mL SUBCUT (08:51)
[2021-12-18] MEDS: lactulose oral liq 20 gm/30 mL UDC PO (08:51)
[2021-12-18] MEDS: levothyroxine 50 mcg Tablet PO (08:51)
--- NOTE | 2021-12-18 10:42 | P.DS_ITS ---
Discharge Providers Date of Admission: 12/15/21 17:28 Date of Discharge: December 18, 2021 Attending Provider at Admission: Reji Napier Attending Provider at Discharge: Reji Napier Primary Care Provider: Amber Can MD Diagnoses at Discharge Discharge Diagnosis (1) Acute hepatic encephalopathy: Status: Acute (2) Neutropenia: Status: Acute (3) Transaminitis: Status: Acute (4) Malaise: Status: Acute Reason for Visit Reason for Visit: AMS Hospital Course Hospital Course Pleasant 56-year-old gentleman with history of liver cirrhosis, status post TIPS procedure at [facility] in October, liver transplantation list, with recent DVT, on anticoagulation, was brought in due to decreased responsiveness, confusion, lethargic, unable to provide history at presentation, unable to follow commands well. Initially with some reports of diffuse body aches, abdominal pain, with consideration of possible underlying infection was started on Rocephin, assessed with abdominal ultrasound for possible ascites, which did not show ascites. Was assessed with COVID-19 PCR panel which was negative. He ran out of lactulose sometime on Tuesday preceding day of admission. Was restarted on lactulose with first dose given by NGT. Is acute encephalopathy significantly improved. Ammonia continue to rise for several days additionally, but has now plateaued, and with some decrease from 98 down to 88 today. He is still not having optimal number of bowel movements, so lactulose dose is increased to 20 g 4 times daily until achieves 2-3 soft bowel movements in a day. During hospitalization also noted to have leukopenia, also with some chronic thrombocytopenia, but leukopenia currently has been worse, with also neutropenia, ANC 540. With some lymphopenia, 0.6. B12, folic acid were not low. TSH with minimal elevation 4.61, free T4 normal. Please follow-up thyroid function. He has remained afebrile. He remains lucid, ambulatory, without any complaints on review of systems, except today he is having mild ache in mid abdomen, but no issues with bowel movements, no nausea or vomiting. And is tolerating oral intake. He does not want to stay in the hospital for any further monitoring or evaluation at this time, however, knows to seek medical attention in case there is any worsening or arising concerning symptoms. His sister is also going to be staying with him. He is asked to continue neutropenic precautions, neutropenic diet. With prior transient leukopenia as well, concerns for possible bone marrow pathology. He is asked to follow up with hematology for reassessment. He will be following up with his liver team as well. With prior DVT, per request of [facility] by phone call from with sisters tenderness, he was reassessed with duplex ultrasound of lower extremities which was negative for DVT. Physical Exam Narrative: Sister at bedside. Const: COMMON NORMALS: alert; negative for patient oriented x3 GENERAL APPEARANCE: cooperative ORIENTATION/CONSCIOUSNESS: Yes awake; not confused HENMT: COMMON NORMALS: normocephalic, EAC's normal, Normal external nose present and moist oral mucous membranes HEAD & SCALP: normocephalic NOSE: Normal external nose present EXTERNAL AUDITORY CANAL: EAC's normal Neck/C-Spine: COMMON NORMALS: no meningeal signs Chest: CHEST: Yes Symmetrical chest wall rise Resp: COMMON NORMALS: clear to auscultation bilaterally AUSCULTATION: clear to auscultation bilaterally Cardio: COMMON NORMALS: regular rate, regular rhythm and No murmurs present (Cardio) RATE: regular rate RHYTHM: regular rhythm GI: COMMON NORMALS: Normal to inspection, nondistended, normoactive bowel sounds present and Soft to palpation PALPATION: Yes Soft to palpation Extremity: COMMON NORMALS: no pedal edema Neuro: COMMON NORMALS: moves all extremities; negative for patient oriented x3 SENSORIUM/ORIENTATION: Yes alert MENINGEAL SIGNS: Yes no meningeal signs Psych: COMMON NORMALS: mental status grossly normal Skin: COMMON NORMALS: no wounds RASHES: no rashes Urinary Catheter Management: Rajan: Cath Placed During This Visit: yes Reason for Continuing Indwelling Catheter: Other Urinary Catheter Date of Insertion: 12/15/21 Urinary Catheter Time of Insertion: 11:34 Discharge Data Studies Completed and Pending Completed Studies During Hospitalization Category Date Time Status CT head wo con* [id number] Urgent Cat Scan 12/15/21 11:09 Completed XR abdomen 1V* [id number] Stat Exams 12/15/21 12:59 Completed XR chest 1V portable [id number] Urgent Exams 12/15/21 11:09 [place] [id number] Routine Ultrasound 12/16/21 15:29 Completed US abdomen limited [id number] Routine Ultrasound 12/15/21 17:17 Completed Pending at discharge Category Date Time Status Ammonia AM LABS Lab 12/19/21 04:00 Ordered Blood Culture Stat Lab 12/15/21 11:42 Results Radiology Impressions Chest X-Ray 12/15/21 11:09 IMPRESSION: Unremarkable chest radiograph. Head CT 12/15/21 11:09 IMPRESSION: 1. No evidence of intracranial hemorrhage or mass effect. 2. Mild ethmoid sinusitis 3. No acute intracranial findings. Abdomen X-Ray 12/15/21 12:59 IMPRESSION: 1. NG tube in place with the tip probably in the gastric fundus. The side-port of the tube is likely still in the distal esophagus. The tube should be advanced another 10 cm for optimal position. 2. No acute finding. Constipation. Abdomen Ultrasound 12/15/21 17:17 IMPRESSION: Negative for ascites. Laboratory Results WBC 1.7 10^3/uL (4.0-10.0) L 12/18/21 05:06 RBC 2.56 10^6/uL (4.1-5.3) L 12/18/21 05:06 Hgb 7.4 g/dL (11.7-16.6) L 12/18/21 05:06 Hct 21.5 % (42.0-52.0) L 12/18/21 05:06 MCV 84.0 fl (80-94) 12/18/21 05:06 MCH 28.9 pg (28.0-34.0) 12/18/21 05:06 MCHC 34.4 g/dL (30.0-36.0) 12/18/21 05:06 RDW 17.5 % (12.1-15.1) H 12/18/21 05:06 Plt Count 93 10^3/cmm (130-400) L 12/18/21 05:06 MPV 10.4 fL (7.4-10.4) 12/18/21 05:06 Neut % (Auto) 32.7 % 12/18/21 05:06 Lymph % (Auto) 37.6 % 12/18/21 05:06 [place] % (Auto) 17.6 % 12/18/21 05:06 Eos % (Auto) 10.3 % 12/18/21 05:06 Baso % (Auto) 1.8 % 12/18/21 05:06 Neut # (Auto) 0.54 10^3/uL (1.8-7.7) L* 12/18/21 05:06 Lymph # (Auto) 0.6 10^3/uL (0.8-4.8) L 12/18/21 05:06 [place] # (Auto) 0.3 10^3/uL (0.2-0.9) 12/18/21 05:06 Eos # (Auto) 0.2 10^3/uL (0.0-0.8) 12/18/21 05:06 Baso # (Auto) 0.0 10^3/uL (0.0-0.1) 12/18/21 05:06 Nucleated RBC % (auto) 0 % 12/18/21 05:06 Nucleated RBCs # 0.0 /100WBC 12/18/21 05:06 PT 16.70 SECONDS (12.1-14.9) H 12/18/21 05:06 INR 1.31 (0.8-1.2) H 12/18/21 05:06 APTT 28.5 SECONDS (23.9-36.7) 12/15/21 11:34 Sodium 137 mmol/L (136-145) 12/18/21 05:06 Potassium 3.5 mmol/L (3.5-5.1) 12/18/21 05:06 Chloride 106 mmol/L (98-107) 12/18/21 05:06 Carbon Dioxide 23 mmol/L (22-29) 12/18/21 05:06 Anion Gap 11.5 (5-19) 12/18/21 05:06 BUN 12 mg/dL (6-20) 12/18/21 05:06 Creatinine 0.6 mg/dL (0.7-1.2) L 12/18/21 05:06 GFR Calculation 138.9 mL/min (90-130) H 12/18/21 05:06 Glucose 200 mg/dL (65-115) H 12/18/21 05:06 POC Glucose 202 mg/dL (70-110) H 12/18/21 06:25 Calculated Osmolality 289 mOsm/kg (285-295) 12/18/21 05:06 Calcium 7.9 mg/dL (8.5-10.5) L 12/18/21 05:06 Total Bilirubin 0.5 mg/dL (0.15-1.2) 06/24/22 05:06 AST 87 U/L (0-40) H 12/18/21 05:06 ALT 70 U/L (0-41) H 12/18/21 05:06 Alkaline Phosphatase 119 IU/L (40-130) 12/18/21 05:06 Ammonia 88 umol/L (16-60) H 12/18/21 05:06 Creatine Kinase 69 U/L (39-308) 12/17/21 05:09 Troponin T Baseline 14 ng/L (0-15) 12/15/21 10:42 Troponin T 120 Minute 13.06 ng/L (0-15) 12/15/21 12:42 Delta Troponin T -0.84 ABS# (0-10) L 12/15/21 12:42 Troponin T Hi Sens 6Hr 13.03 ng/L (0-15) 12/15/21 17:07 Troponin T Hi Sens 6Hr Delta 0.87 ng/L (0-12) 12/15/21 17:07 C-Reactive Protein 5.0 mg/L (0.0-4.9) H 12/15/21 10:42 NT-Pro-B Natriuret Pep 5 pg/mL (0-125) 12/15/21 10:42 Total Protein 5.6 g/dL (6.6-8.7) L 12/18/21 05:06 Albumin 2.6 g/dL (3.5-5.2) L 12/18/21 05:06 Globulin 3.0 g/dL (1.3-4.6) 12/18/21 05:06 Lipase 58 U/L (13-60) 12/15/21 10:42 Vitamin B12 > 2000 pg/mL (232-1245) H 12/18/21 05:06 Folate 13.1 ng/mL (4.5-32.2) 12/18/21 05:06 Procalcitonin 0.08 ng/mL (0-0.5) 12/15/21 10:42 TSH 4.61 uIU/mL (0.27-4.20) H 12/15/21 10:42 Free T4 0.97 ng/dL (0.82-1.77) 12/15/21 10:42 Urine Color Yellow (Yellow) 12/15/21 11:25 Urine Appearance Clear (CLEAR) 12/15/21 11:25 Urine pH 5 (5-7) 12/15/21 11:25 Ur Specific [place] 1.015 (1.005-1.030) 12/15/21 11:25 Urine Protein Neg (Negative) 12/15/21 11:25 Urine Glucose (UA) 4+ (Normal) H 12/15/21 11:25 Urine Ketones 1+ (Negative) H 12/15/21 11:25 Urine Blood Neg (Negative) 12/15/21 11:25 Urine Nitrate Negative (Negative) 12/15/21 11:25 Urine Bilirubin Neg (Negative) 12/15/21 11:25 Urine Urobilinogen Norm mg/dL (Negative) 12/15/21 11:25 Ur Leukocyte Esterase Negative (Negative) 12/15/21 11:25 Nasal Influ A H1 2008 PCR Not detected (NOT DETECT) 12/15/21 15:05 Salicylates < 0.3 mg/dL (3-10) L 12/15/21 10:42 Acetaminophen < 5.0 ug/mL (10-30) L 12/15/21 10:42 Serum Ketones Negative (Negative) 12/15/21 11:34 Coronavirus 229E (PCR) Not detected (NOT DETECT) 12/15/21 15:05 Hepatitis A IgM Ab Non-reactive (Nonreactive) 12/17/21 05:09 Hep Bs Antigen Non-reactive (Nonreactive) 12/17/21 05:09 Hep B Core IgM Ab Non-reactive (Nonreactive) 12/17/21 05:09 Hepatitis C Antibody Non-reactive (Nonreactive) 12/17/21 05:09 Influenza A (H1) PCR Not detected (NOT DETECT) 12/15/21 15:05 Influenza A (H3) PCR Not detected (NOT DETECT) 12/15/21 15:05 Influenza Type A (PCR) Not detected (NOT DETECT) 12/15/21 15:05 Influenza Type B (PCR) Not detected (NOT DETECT) 12/15/21 15:05 SARS-CoV-2 (PCR) Not detected (NOT DETECT) 12/15/21 15:05 Vitals Last Vital Signs Temp 97.6 F 12/18/21 08:00 Pulse 97 12/18/21 08:00 Resp 16 12/18/21 08:00 BP 131/72 12/18/21 08:00 Pulse Ox 100 12/18/21 08:00 Discharge Plan Discharge Patient Disposition: Home Condition: Stable Prescriptions: New lactulose 20 gram/30 mL Solution 20 g PO QID 90 Days Qty: 52495 3RF Continued levothyroxine 50 mcg tablet See Rx Instructions .ROUTE .COMPLEX Qty: 100 3RF Rx Instructions: 50 mcg po daily on tuesday through tuesday and 75 mcg po daily on tuesday and tuesday cyanocobalamin (vitamin B-12) 1,000 mcg capsule 1,000 mcg PO DAILY 0RF (DME) pen needle, diabetic [Easy Comfort Pen [place]] 32 gauge x 5/32 needle See Rx Instructions .ROUTE .MEDSUPPLY Qty: 50 3RF Rx Instructions: daily Victoza 3-Harsh 0.6 mg/0.1 mL (18 mg/3 mL) pen injector 1.8 mg SUBCUT QAM Qty: 27 3RF Eliquis 5 mg tablet 5 mg PO BID Qty: 60 3RF Centrum Silver Men 300-600-300 mcg Tablet 1 tab PO DAILY 0RF Toujeo Max U-300 SoloStar 300 unit/mL (3 mL) insulin pen 20 unit SUBCUT BEDTIME 0RF Discontinued lactulose [Constulose] 10 gram/15 mL solution 15 ml PO TID 0RF Discharge Orders: Discharge Order (Routine); Ordered 12/18/21 Ordered By: Reji Napier Referrals: Amber Can MD [Primary Care Provider] - 12/23/21 9:00 am [facility] [Provider Group] - 1 week (Hematology - leukopenia/neutropenia) Discharge Diet: As Directed Discharge Activity: Increase activity as tolerated Patient Instructions: Lactulose (By mouth), Hepatic Encephalopathy (GEN), Neutropenic Precautions (GEN), Neutropenic Diet Activity Restrictions/Additional Instructions: Please continue neutropenic precautions, neutropenic diet at home. Follow-up with hematology for reassessment of blood counts and neutropenia and low platelets. Please follow-up with your primary doctor for reassessment of your condition, reassessment of blood counts, as well as reassessment of liver parameters, with noted mild transaminase elevation. Reassessment of ammonia. Please make sure to continue lactulose, keep taking until 2-3 soft bowel movements each day are achieved, then skip remaining doses until the next day. If you run out of medication please make sure to let someone know soon as possible. Ammonia accumulation which may have been without achieving 2-3 soft bowel movements in a day may lead to hepatic encephalopathy with confusion, or in severe cases coma. Follow-up with your liver team in [place]. Discharge Attestations Time Spent in Discharge Care*: greater than 30 min Quality Metrics Clinical Quality Measures [ No reported AMI, CVA or VTE this stay] Coding Level of Care Code Acute Chg FW DC note Diagnoses Acute hepatic encephalopathy K72.00 Neutropenia D70.9 Transaminitis R74.01 Malaise R53.81
[2021-12-18 10:58] VITALS: BP 131/72; PULSE 97; RESP 16; TEMP 36.4; O2SAT 100
--- NOTE | 2021-12-18 11:00 | PC.NURSE ---
Patient is A&Ox3. Respirations even and non-labored on room air. Reviewed discharge with patient at this time. Patient verbalized understanding of discharge instructions including follow up appointments and follow up doctor appointments. Patient ambulated to private car.
--- NOTE | 2021-12-22 09:08 | W.PM.EVENTAC ---
Event Note Event Note: Came into lab to have lab draw, unclear what he was to have done. Sister is with him and reports some slight increasing confusion lately. I reviewed chart and ordered a CBC, CMP, and ammonia level to go to his primary care provider as well as hematology. We discussed medications, and he may have been taking a lower dose of lactulose than intended by the discharging physician. I encouraged sister and patient to take 30 mils(20 g) 4 times daily and titrate to 2-3 loose bowel movements per day. Added rifaximin. They are to keep follow-up with [facility]. Encouraged to go to the emergency department for any worsening of confusion secondary to his hepatic encephalopathy history. Sister reported that he has not had any fevers, abdominal pain.
== END 2021-12-18 10:50 | disposition home or self-care (01) ==
LOC: ER 12:25 → MEDSURG 12-16 06:11
PROVIDERS: Admitting Provider Internal Medicine; Emergency Provider Emergency Medicine; PCP Family Medicine; Visit Provider Internal Medicine
DX: K72.00 Acute and subacute hepatic failure without coma (principal); D70.9 Neutropenia, unspecified; R74.01 Elevation of levels of liver transaminase levels; R53.81 Other malaise; Z86.718 Personal history of other venous thrombosis and embolism; E11.9 Type 2 diabetes mellitus without complications; Z79.4 Long term (current) use of insulin; I10 Essential (primary) hypertension; Z79.01 Long term (current) use of anticoagulants; Z87.891 Personal history of nicotine dependence; D64.9 Anemia, unspecified
CPT/HCPCS: 36415; 36416; 51702; 70450; 71045; 74018; 76705; 80053; 80074; 80307; 81003; 82009; 82140; 82550; 82607; 82746; 82962; 83690; 83880; 84145; 84439; 84443; 84484; 85025; 85610; 85730; 86140; 87040; 87631; 87635; 93005; 93970; 96365; 96372; 99285; G0378; J0696; J1650; J1815; J7040

== ENCOUNTER 2021-12-22 08:04 | Outpatient (CLI) | payer OTHER, SELFPAY ==
[2021-12-22 09:38] LABS: Basophils % 1.3 %; Eosinophils # 0.2 10^3/uL (0.0-0.8); Eosinophils % 6.8 %; Hematocrit 26.1 % (42.0-52.0); Hemoglobin 8.4 g/dL (11.7-16.6); Lymphocytes # 0.5 10^3/uL (0.8-4.8); Lymphocytes % 17.3 %; Mean Corpuscular HGB Conc 32.2 g/dL (30.0-36.0); Mean Corpuscular Hemoglobin 27.8 pg (28.0-34.0); Mean Corpuscular Volume 86.4 fl (80-94); Mean Platelet Volume 10.7 fL (7.4-10.4); Monocytes # 0.3 10^3/uL (0.2-0.9); Monocytes % 10.1 %; Neutrophils # 1.97 10^3/uL (1.8-7.7); Neutrophils % 64.2 %; Nucleated Red Blood Cells % 0 %; Platelet Count 124 10^3/cmm (130-400); Red Blood Count 3.02 10^6/uL (4.1-5.3); Red Cell Distribution Width 17.6 % (12.1-15.1); White Blood Count 3.1 10^3/uL (4.0-10.0)
[2021-12-22 10:00] LABS: Ammonia 61 umol/L (16-60)
[2021-12-22 10:01] LABS: Alanine Aminotransferase 64 U/L (0-41); Albumin Level 3.2 g/dL (3.5-5.2); Alkaline Phosphatase 155 IU/L (40-130); Anion Gap 12.8 (5-19); Aspartate Amino Transferase 62 U/L (0-40); Blood Urea Nitrogen 16 mg/dL (6-20); Calcium 8.5 mg/dL (8.5-10.5); Carbon Dioxide 20 mmol/L (22-29); Chloride 104 mmol/L (98-107); Globulin 4.1 g/dL (1.3-4.6); Glomerular Filtration Rate 116.2 mL/min (90-130); Glucose 285 mg/dL (65-115); Osmolality Calculated 286 mOsm/kg (285-295); Potassium 4.8 mmol/L (3.5-5.1); Sodium 132 mmol/L (136-145); Total Bilirubin 0.8 mg/dL (0.15-1.2); Total Protein 7.3 g/dL (6.6-8.7)
[2021-12-24 10:28] LABS: Thyroid Stimulating Hormone 3.75 uIU/mL (0.27-4.20)
[2021-12-24 10:29] LABS: Estmated Average Glucose 217; Hemoglobin A1C 9.2 % (4.0-6.0)
== END 2021-12-22 08:05 | disposition home or self-care (01) ==
PROVIDERS: Internal Medicine; PCP Family Medicine; Visit Provider Family Medicine
DX: D70.9 Neutropenia, unspecified (principal); K74.60 Unspecified cirrhosis of liver; Z79.01 Long term (current) use of anticoagulants
CPT/HCPCS: 80053; 82140; 83036; 84443; 85025

== ENCOUNTER → 2021-12-23 10:19 | Outpatient (BNVA) | payer OTHER, SELFPAY | PROVIDERS: PCP Family Medicine; Visit Provider Family Medicine | DX: Z09 Encounter for follow-up examination after completed treatment for conditions other than malignant neoplasm (principal); E11.9 Type 2 diabetes mellitus without complications; E03.9 Hypothyroidism, unspecified; K74.60 Unspecified cirrhosis of liver; I82.402 Acute embolism and thrombosis of unspecified deep veins of left lower extremity; E11.65 Type 2 diabetes mellitus with hyperglycemia; Z79.4 Long term (current) use of insulin | CPT/HCPCS: 83036; 84443 ==

== ENCOUNTER 2021-12-24 07:38 | Oncology outpatient (recurring) (ONCR) | payer OTHER, SELFPAY ==
[2021-12-24 10:38] LABS: Basophils # 0.1 10^3/uL (0.0-0.1); Basophils % 1.9 %; Eosinophils # 0.2 10^3/uL (0.0-0.8); Eosinophils % 6.1 %; Hematocrit 25.4 % (42.0-52.0); Hemoglobin 8.2 g/dL (11.7-16.6); Lymphocytes # 0.7 10^3/uL (0.8-4.8); Lymphocytes % 21.4 %; Mean Corpuscular HGB Conc 32.3 g/dL (30.0-36.0); Mean Corpuscular Hemoglobin 27.5 pg (28.0-34.0); Mean Corpuscular Volume 85.2 fl (80-94); Mean Platelet Volume 10.5 fL (7.4-10.4); Monocytes # 0.4 10^3/uL (0.2-0.9); Monocytes % 11.2 %; Neutrophils # 1.85 10^3/uL (1.8-7.7); Neutrophils % 59.1 %; Nucleated Red Blood Cells % 0 %; Platelet Count 122 10^3/cmm (130-400); Red Blood Count 2.98 10^6/uL (4.1-5.3); Red Cell Distribution Width 17.1 % (12.1-15.1); White Blood Count 3.1 10^3/uL (4.0-10.0)
[2021-12-24 11:12] LABS: Estmated Average Glucose 209; Hemoglobin A1C 8.9 % (4.0-6.0)
[2021-12-24 11:14] LABS: Iron 24 ug/dL (59-158); Percent Saturation 11.1 % (20-50); Total Iron Binding Capacity 216 mcg/dl; Unsaturated Iron Binding 192 ug/dL (112-347)
[2021-12-24 11:52] LABS: Vitamin B12 > 2000 pg/mL (232-1245)
[2021-12-24 22:00] LABS: Thyroid Stimulating Hormone 2.29 uIU/mL (0.27-4.20)
== END 2021-12-24 23:59 | disposition home or self-care (01) ==
PROVIDERS: Internal Medicine; Internal Medicine Medical Oncology; PCP Family Medicine; Visit Provider Internal Medicine Hematology & Oncology
DX: D64.9 Anemia, unspecified (principal); E11.9 Type 2 diabetes mellitus without complications; E03.9 Hypothyroidism, unspecified; E78.2 Mixed hyperlipidemia
CPT/HCPCS: 36415; 82607; 83036; 83540; 83550; 84443; 85025; 86850; 86900

== ENCOUNTER → 2021-12-30 11:28 | Outpatient (BNVA) | payer OTHER, SELFPAY | PROVIDERS: PCP Family Medicine; Visit Provider Family Medicine | DX: D50.0 Iron deficiency anemia secondary to blood loss (chronic) (principal); K74.60 Unspecified cirrhosis of liver; E11.65 Type 2 diabetes mellitus with hyperglycemia; Z79.4 Long term (current) use of insulin | CPT/HCPCS: 85018 ==

== ENCOUNTER 2022-01-20 15:00 | Oncology outpatient (recurring) (ONCR) | payer OTHER, SELFPAY ==
[2022-01-13 15:10] VITALS: BMI 26.4
[2022-01-13] MEDS: sodium chloride 0.9% 250 ML 75 ML IV (15:26)
[2022-01-13] MEDS: ferric carboxy (IVPB) 750 MG in sodium chloride 0.9% (100 ml) 100 ML 345 MG IV (15:31)
[2022-01-13 16:28] VITALS: BP 129/69; PULSE 95; RESP 18; TEMP 37.5; O2SAT 97
[2022-01-20] MEDS: ferric carboxy (IVPB) 750 MG in sodium chloride 0.9% (100 ml) 100 ML 345 MG IV (15:05)
[2022-01-20 15:41] VITALS: BP 120/61; PULSE 76; RESP 16; TEMP 36.9; O2SAT 98
== END 2022-01-24 23:59 | disposition home or self-care (01) ==
PROVIDERS: PCP Family Medicine; Visit Provider Internal Medicine Hematology & Oncology
DX: D50.0 Iron deficiency anemia secondary to blood loss (chronic) (principal); Z79.899 Other long term (current) drug therapy
CPT/HCPCS: 96365; J1439; J7050

== ENCOUNTER 2022-02-17 06:00 | Oncology outpatient (recurring) (ONCR) | payer OTHER, SELFPAY ==
[2022-02-17 11:44] LABS: Basophils % 2.1 %; Eosinophils # 0.3 10^3/uL (0.0-0.8); Eosinophils % 16.7 %; Hematocrit 36.9 % (42.0-52.0); Lymphocytes # 0.6 10^3/uL (0.8-4.8); Lymphocytes % 29.2 %; Mean Corpuscular HGB Conc 32.5 g/dL (30.0-36.0); Mean Corpuscular Hemoglobin 29.7 pg (28.0-34.0); Mean Corpuscular Volume 91.3 fl (80-94); Monocytes # 0.3 10^3/uL (0.2-0.9); Monocytes % 15.6 %; Neutrophils % 36.4 %; Nucleated Red Blood Cells % 0 %; Platelet Count 73 10^3/cmm (130-400); Red Blood Count 4.04 10^6/uL (4.1-5.3); Red Cell Distribution Width 20.8 % (12.1-15.1); White Blood Count 1.9 10^3/uL (4.0-10.0)
[2022-02-17 12:02] LABS: Alanine Aminotransferase 47 U/L (0-41); Albumin Level 3.4 g/dL (3.5-5.2); Alkaline Phosphatase 139 U/L (40-130); Anion Gap 12.6 (5-19); Aspartate Amino Transferase 55 U/L (0-40); Blood Urea Nitrogen 13 mg/dL (6-20); Calcium 8.9 mg/dL (8.5-10.5); Carbon Dioxide 24 mmol/L (22-29); Chloride 102 mmol/L (98-107); Globulin 3.8 g/dL (1.3-4.6); Glomerular Filtration Rate 138.9 mL/min (90-130); Glucose 362 mg/dL (65-115); Iron 117 ug/dL (59-158); Osmolality Calculated 293 mOsm/kg (285-295); Potassium 4.6 mmol/L (3.5-5.1); Sodium 134 mmol/L (136-145); Total Bilirubin 1.1 mg/dL (0.15-1.2); Total Iron Binding Capacity 156 mcg/dl; Total Protein 7.2 g/dL (6.6-8.7); Unsaturated Iron Binding 39 ug/dL (112-347)
== END 2022-02-24 23:59 | disposition home or self-care (01) ==
LOC: ONCMED 03-17 16:17
PROVIDERS: Internal Medicine Medical Oncology; PCP Family Medicine; Visit Provider Internal Medicine Hematology & Oncology
DX: D70.9 Neutropenia, unspecified; D50.0 Iron deficiency anemia secondary to blood loss (chronic)
CPT/HCPCS: 80053; 83540; 83550; 85025

== ENCOUNTER 2022-03-02 10:04 | Outpatient (CLI) | payer OTHER, SELFPAY ==
[2022-03-02 11:04] LABS: INR 1.14 (0.8-1.2)
[2022-03-02 11:06] LABS: Basophils % 2.2 %; Hematocrit 37.3 % (42.0-52.0); Mean Corpuscular Hemoglobin 30.7 pg (28.0-34.0); Nucleated Red Blood Cells % 0 %
[2022-03-02 11:15] LABS: Alanine Aminotransferase 52 U/L (0-41); Albumin Level 3.2 g/dL (3.5-5.2); Alkaline Phosphatase 148 U/L (40-130); Anion Gap 12.8 (5-19); Aspartate Amino Transferase 63 U/L (0-40); Blood Urea Nitrogen 14 mg/dL (6-20); Calcium 8.7 mg/dL (8.5-10.5); Carbon Dioxide 26 mmol/L (22-29); Chloride 102 mmol/L (98-107); Globulin 3.8 g/dL (1.3-4.6); Glomerular Filtration Rate 138.4 mL/min (90-130); Glucose 483 mg/dL (65-115); Osmolality Calculated 304 mOsm/kg (285-295); Potassium 4.8 mmol/L (3.5-5.1); Sodium 136 mmol/L (136-145); Total Bilirubin 1.5 mg/dL (0.15-1.2)
[2022-03-02 11:18] LABS: Eosinophils # 0.3 10^3/uL (0.0-0.8); Eosinophils % 13.8 %; Hemoglobin 12.7 g/dL (11.7-16.6); Lymphocytes # 0.5 10^3/uL (0.8-4.8); Lymphocytes % 26.5 %; Mean Corpuscular Volume 90.1 fl (80-94); Mean Platelet Volume 10.3 fL (7.4-10.4); Monocytes # 0.3 10^3/uL (0.2-0.9); Monocytes % 18.2 %; Neutrophils % 39.3 %; Platelet Count 91 10^3/cmm (130-400); Red Blood Count 4.14 10^6/uL (4.1-5.3); Red Cell Distribution Width 19.9 % (12.1-15.1); White Blood Count 1.8 10^3/uL (4.0-10.0)
[2022-03-02 13:14] LABS: Neutrophils # 0.71 10^3/uL (1.8-7.7)
== END 2022-03-02 10:05 | disposition home or self-care (01) ==
LOC: LAB 10:14
PROVIDERS: PCP Family Medicine; Visit Provider Internal Medicine Gastroenterology
DX: C22.0 Liver cell carcinoma (principal)
CPT/HCPCS: 36415; 80053; 82105; 85025; 85610

== ENCOUNTER → 2022-04-07 09:30 | Outpatient (BNVA) | payer OTHER, SELFPAY | PROVIDERS: PCP Family Medicine; Visit Provider Internal Medicine | DX: E11.65 Type 2 diabetes mellitus with hyperglycemia (principal); Z79.4 Long term (current) use of insulin; E03.9 Hypothyroidism, unspecified; E11.9 Type 2 diabetes mellitus without complications; K22.9 Disease of esophagus, unspecified; E78.2 Mixed hyperlipidemia; K74.60 Unspecified cirrhosis of liver; R16.0 Hepatomegaly, not elsewhere classified; R74.01 Elevation of levels of liver transaminase levels | CPT/HCPCS: 36415; 83036; 84439; 84443 ==

== ENCOUNTER 2022-05-25 10:11 | Outpatient (CLI) | payer OTHER, SELFPAY ==
--- NOTE | 2022-05-25 11:15 | FL_ITS ---
WS: [id number] FL barium swallow modifd [id number] REASON FOR EXAM: Difficulty swallowing. FLUOROSCOPY TIME: 2min [id number] # OF SPOT FILMS: 1 FINDINGS: Examination was supervised by the speech therapy department. With the patient in the sitting upright position previous consistencies of barium were swallowed and monitored and recorded with fluoroscopy. No aspiration was identified. Detailed analysis and report will be rendered by the speech therapy department. FL/FL barium swallow modifd [id number] IMPRESSION: Modified barium swallow as above.
== END 2022-05-25 10:12 | disposition home or self-care (01) ==
LOC: RAD 10:11
PROVIDERS: PCP Family Medicine; Visit Provider Family Medicine
DX: R74.01 Elevation of levels of liver transaminase levels (principal); R13.10 Dysphagia, unspecified
CPT/HCPCS: 74230; 92611

== ENCOUNTER 2022-06-17 12:52 | Outpatient (CLI) | payer OTHER, SELFPAY ==
[2022-06-22 12:34] LABS: Quantiferon Mitogen 2.01 IU/mL; Quantiferon Nil 0.02 IU/mL; Quantiferon TB Gold NEGATIVE (NEGATIVE)
== END 2022-06-17 12:53 | disposition home or self-care (01) ==
PROVIDERS: PCP Family Medicine; Visit Provider Family Medicine
DX: C22.0 Liver cell carcinoma (principal)
CPT/HCPCS: 36415; 86480

== ENCOUNTER 2022-07-08 06:47 | Outpatient (CLI) | payer OTHER, SELFPAY ==
[2022-07-08 07:38] LABS: Chol HDL Ratio 4.86 mg/dL (1.0-5.00); Cholesterol 175 mg/dL (0-200); Free T4 Free Thyroxine 0.99 ng/dL (0.82-1.77); HDL Cholesterol 36 mg/dL (60-100); LDL Cholesterol Calculated 84 mg/dL (50-129); LDL HDL Ratio 2.33 RATIO (0.00-3.22); Thyroid Stimulating Hormone 4.17 uIU/mL (0.27-4.20); Triglycerides 274 mg/dL (0-150)
[2022-07-08 07:42] LABS: Estmated Average Glucose 232; Hemoglobin A1C 9.7 % (4.0-6.0)
== END 2022-07-08 06:48 | disposition home or self-care (01) ==
LOC: LAB 06:51
PROVIDERS: PCP Family Medicine; Visit Provider Internal Medicine
DX: E03.9 Hypothyroidism, unspecified (principal); E11.65 Type 2 diabetes mellitus with hyperglycemia; Z79.4 Long term (current) use of insulin
CPT/HCPCS: 36415; 80061; 83036; 84439; 84443

== ENCOUNTER 2022-08-23 10:23 | Outpatient (CLI) | payer OTHER, SELFPAY ==
[2022-08-23 12:39] LABS: Basophils # 0.1 10^3/uL (0.0-0.1); Basophils % 2.4 %; Eosinophils # 0.2 10^3/uL (0.0-0.8); Eosinophils % 5.7 %; Hematocrit 38.7 % (42.0-52.0); Hemoglobin 13.9 g/dL (11.7-16.6); Lymphocytes # 0.8 10^3/uL (0.8-4.8); Lymphocytes % 27.4 %; Mean Corpuscular HGB Conc 35.9 g/dL (30.0-36.0); Mean Corpuscular Hemoglobin 32.9 pg (28.0-34.0); Mean Corpuscular Volume 91.5 fl (80-94); Mean Platelet Volume 9.6 fL (7.4-10.4); Monocytes # 0.4 10^3/uL (0.2-0.9); Monocytes % 12.8 %; Neutrophils # 1.53 10^3/uL (1.8-7.7); Neutrophils % 51.7 %; Nucleated Red Blood Cells % 0 %; Platelet Count 95 10^3/cmm (130-400); Red Blood Count 4.23 10^6/uL (4.1-5.3); Red Cell Distribution Width 13.8 % (12.1-15.1)
[2022-08-23 12:49] LABS: INR 1.28 (0.8-1.2)
[2022-08-23 13:06] LABS: Tumor Marker Alpha Fetoprotein 3.6 ng/mL (0-8.3)
[2022-08-23 13:17] LABS: Alanine Aminotransferase 35 U/L (0-41); Albumin Level 3.4 g/dL (3.5-5.2); Alkaline Phosphatase 134 U/L (40-130); Aspartate Amino Transferase 54 U/L (0-40); Blood Urea Nitrogen 11 mg/dL (6-20); Calcium 9.5 mg/dL (8.5-10.5); Carbon Dioxide 23 mmol/L (22-29); Chloride 102 mmol/L (98-107); Globulin 4.5 g/dL (1.3-4.6); Glomerular Filtration Rate 115.8 mL/min (90-130); Glucose 321 mg/dL (65-115); Osmolality Calculated 294 mOsm/kg (285-295); Sodium 136 mmol/L (136-145); Total Protein 7.9 g/dL (6.6-8.7)
[2022-08-25 14:52] LABS: Estmated Average Glucose 209; Hemoglobin A1C 8.9 % (4.0-6.0)
[2022-08-25 14:53] LABS: Chol HDL Ratio 4.22 mg/dL (1.0-5.00); Cholesterol 156 mg/dL (0-200); Free T4 Free Thyroxine 1.31 ng/dL (0.82-1.77); HDL Cholesterol 37 mg/dL (60-100); LDL Cholesterol Calculated 95 mg/dL (50-129); LDL HDL Ratio 2.57 RATIO (0.00-3.22); Thyroid Stimulating Hormone 2.76 uIU/mL (0.27-4.20); Triglycerides 118 mg/dL (0-150)
== END 2022-08-23 10:24 | disposition home or self-care (01) ==
PROVIDERS: PCP Family Medicine; Referring Provider Internal Medicine Gastroenterology; Visit Provider Internal Medicine
DX: E03.9 Hypothyroidism, unspecified (principal); E11.65 Type 2 diabetes mellitus with hyperglycemia; Z79.4 Long term (current) use of insulin; C22.0 Liver cell carcinoma
CPT/HCPCS: 36415; 80053; 80061; 82105; 83036; 84439; 84443; 85025; 85610

== ENCOUNTER 2022-11-29 07:34 | Outpatient (CLI) | payer OTHER, SELFPAY ==
[2022-11-29 08:05] LABS: Basophils # 0.1 10^3/uL (0.0-0.1); Basophils % 0.9 %; Eosinophils # 0.2 10^3/uL (0.0-0.8); Eosinophils % 1.4 %; Hematocrit 39.9 % (42.0-52.0); Hemoglobin 13.3 g/dL (11.7-16.6); Lymphocytes # 0.9 10^3/uL (0.8-4.8); Lymphocytes % 8.5 %; Mean Corpuscular HGB Conc 33.3 g/dL (30.0-36.0); Mean Corpuscular Volume 96.1 fl (80-94); Monocytes # 0.8 10^3/uL (0.2-0.9); Neutrophils # 8.81 10^3/uL (1.8-7.7); Neutrophils % 81.7 %; Nucleated Red Blood Cells % 0 %; Platelet Count 235 10^3/cmm (130-400); Red Blood Count 4.15 10^6/uL (4.1-5.3); Red Cell Distribution Width 16.3 % (12.1-15.1); White Blood Count 10.8 10^3/uL (4.0-10.0)
[2022-11-29 08:31] LABS: Alanine Aminotransferase 35 U/L (0-41); Albumin Level 3.9 g/dL (3.5-5.2); Alkaline Phosphatase 142 U/L (40-130); Anion Gap 15.5 (5-19); Aspartate Amino Transferase 20 U/L (0-40); Blood Urea Nitrogen 24 mg/dL (6-20); Calcium 8.9 mg/dL (8.5-10.5); Carbon Dioxide 23 mmol/L (22-29); Chloride 98 mmol/L (98-107); Gamma Glutamyl Transferase 183 U/L (8-61); Globulin 3.3 g/dL (1.3-4.6); Glomerular Filtration Rate 115.8 mL/min (90-130); Glucose 173 mg/dL (65-115); Magnesium 1.6 mg/dL (1.7-2.3); Osmolality Calculated 282 mOsm/kg (285-295); Phosphorus 2.5 mg/dL (2.5-4.5); Potassium 4.5 mmol/L (3.5-5.1); Sodium 132 mmol/L (136-145); Total Bilirubin 0.5 mg/dL (0.15-1.2); Total Protein 7.2 g/dL (6.6-8.7)
== END 2022-11-29 07:35 | disposition home or self-care (01) ==
PROVIDERS: PCP Family Medicine; Visit Provider Surgery Surgical Oncology
DX: Z48.23 Encounter for aftercare following liver transplant (principal)
CPT/HCPCS: 36415; 80053; 80197; 82977; 83735; 84100; 85025

== ENCOUNTER 2022-12-02 06:14 | Outpatient (CLI) | payer OTHER, SELFPAY ==
[2022-12-02 06:43] LABS: Basophils # 0.1 10^3/uL (0.0-0.1); Basophils % 1.9 %; Eosinophils # 0.2 10^3/uL (0.0-0.8); Eosinophils % 3.3 %; Hematocrit 38.6 % (42.0-52.0); Hemoglobin 12.6 g/dL (11.7-16.6); Lymphocytes # 1.3 10^3/uL (0.8-4.8); Lymphocytes % 27.1 %; Mean Corpuscular HGB Conc 32.6 g/dL (30.0-36.0); Mean Corpuscular Hemoglobin 31.5 pg (28.0-34.0); Mean Corpuscular Volume 96.5 fl (80-94); Monocytes # 0.4 10^3/uL (0.2-0.9); Monocytes % 9.1 %; Neutrophils # 2.83 10^3/uL (1.8-7.7); Neutrophils % 58.4 %; Nucleated Red Blood Cells % 0 %; Platelet Count 186 10^3/cmm (130-400); Red Cell Distribution Width 15.9 % (12.1-15.1); White Blood Count 4.8 10^3/uL (4.0-10.0)
[2022-12-02 06:59] LABS: Alanine Aminotransferase 37 U/L (0-41); Albumin Level 3.9 g/dL (3.5-5.2); Alkaline Phosphatase 125 U/L (40-130); Anion Gap 12.6 (5-19); Aspartate Amino Transferase 20 U/L (0-40); Blood Urea Nitrogen 24 mg/dL (6-20); Carbon Dioxide 28 mmol/L (22-29); Chloride 103 mmol/L (98-107); Gamma Glutamyl Transferase 153 U/L (8-61); Globulin 3.3 g/dL (1.3-4.6); Glomerular Filtration Rate 99.3 mL/min (90-130); Glucose 120 mg/dL (65-115); Magnesium 1.5 mg/dL (1.7-2.3); Osmolality Calculated 293 mOsm/kg (285-295); Phosphorus 3.6 mg/dL (2.5-4.5); Potassium 4.6 mmol/L (3.5-5.1); Sodium 139 mmol/L (136-145); Total Bilirubin 0.3 mg/dL (0.15-1.2); Total Protein 7.2 g/dL (6.6-8.7)
== END 2022-12-02 06:15 | disposition home or self-care (01) ==
PROVIDERS: PCP Family Medicine; Referring Provider Internal Medicine; Visit Provider Surgery Surgical Oncology
DX: Z94.4 Liver transplant status (principal)
CPT/HCPCS: 36415; 80053; 80197; 82977; 83735; 84100; 85025

== ENCOUNTER 2022-12-06 06:43 | Outpatient (CLI) | payer OTHER, SELFPAY ==
[2022-12-06 07:03] LABS: Eosinophils # 0.2 10^3/uL (0.0-0.8); Eosinophils % 3.8 %; Hematocrit 39.1 % (42.0-52.0); Hemoglobin 12.8 g/dL (11.7-16.6); Lymphocytes # 1.1 10^3/uL (0.8-4.8); Lymphocytes % 28.6 %; Mean Corpuscular HGB Conc 32.7 g/dL (30.0-36.0); Mean Corpuscular Hemoglobin 31.1 pg (28.0-34.0); Mean Corpuscular Volume 95.1 fl (80-94); Mean Platelet Volume 9.2 fL (7.4-10.4); Monocytes # 0.6 10^3/uL (0.2-0.9); Monocytes % 14.6 %; Neutrophils # 2.05 10^3/uL (1.8-7.7); Neutrophils % 51.5 %; Nucleated Red Blood Cells % 0 %; Platelet Count 134 10^3/cmm (130-400); Red Blood Count 4.11 10^6/uL (4.1-5.3); Red Cell Distribution Width 15.5 % (12.1-15.1)
[2022-12-06 07:24] LABS: Alanine Aminotransferase 42 U/L (0-41); Albumin Level 3.9 g/dL (3.5-5.2); Alkaline Phosphatase 123 U/L (40-130); Anion Gap 11.2 (5-19); Aspartate Amino Transferase 23 U/L (0-40); Blood Urea Nitrogen 29 mg/dL (6-20); Calcium 9.1 mg/dL (8.5-10.5); Carbon Dioxide 27 mmol/L (22-29); Chloride 102 mmol/L (98-107); Gamma Glutamyl Transferase 129 U/L (8-61); Globulin 3.2 g/dL (1.3-4.6); Glomerular Filtration Rate 99.3 mL/min (90-130); Glucose 188 mg/dL (65-115); Magnesium 1.6 mg/dL (1.7-2.3); Osmolality Calculated 293 mOsm/kg (285-295); Phosphorus 3.5 mg/dL (2.5-4.5); Potassium 4.2 mmol/L (3.5-5.1); Sodium 136 mmol/L (136-145); Total Bilirubin 0.4 mg/dL (0.15-1.2); Total Protein 7.1 g/dL (6.6-8.7)
== END 2022-12-06 06:44 | disposition home or self-care (01) ==
LOC: LAB 06:45
PROVIDERS: PCP Family Medicine; Visit Provider Surgery Surgical Oncology
DX: Z94.4 Liver transplant status (principal)
CPT/HCPCS: 36415; 80053; 80197; 82977; 83735; 84100; 85025

== ENCOUNTER 2022-12-09 07:05 | Outpatient (CLI) | payer OTHER, SELFPAY ==
[2022-12-09 07:27] LABS: Basophils # 0.1 10^3/uL (0.0-0.1); Eosinophils # 0.2 10^3/uL (0.0-0.8); Eosinophils % 3.9 %; Hematocrit 38.2 % (42.0-52.0); Hemoglobin 12.7 g/dL (11.7-16.6); Lymphocytes # 1.3 10^3/uL (0.8-4.8); Lymphocytes % 25.4 %; Mean Corpuscular HGB Conc 33.2 g/dL (30.0-36.0); Mean Corpuscular Hemoglobin 31.5 pg (28.0-34.0); Mean Corpuscular Volume 94.8 fl (80-94); Mean Platelet Volume 9.1 fL (7.4-10.4); Monocytes # 0.4 10^3/uL (0.2-0.9); Monocytes % 8.7 %; Neutrophils # 2.97 10^3/uL (1.8-7.7); Neutrophils % 60.4 %; Nucleated Red Blood Cells % 0 %; Platelet Count 160 10^3/cmm (130-400); Red Blood Count 4.03 10^6/uL (4.1-5.3); Red Cell Distribution Width 15.6 % (12.1-15.1); White Blood Count 4.9 10^3/uL (4.0-10.0)
[2022-12-09 07:45] LABS: Alanine Aminotransferase 43 U/L (0-41); Albumin Level 4.1 g/dL (3.5-5.2); Alkaline Phosphatase 112 U/L (40-130); Anion Gap 14.2 (5-19); Aspartate Amino Transferase 18 U/L (0-40); Blood Urea Nitrogen 28 mg/dL (6-20); Calcium 9.2 mg/dL (8.5-10.5); Carbon Dioxide 28 mmol/L (22-29); Chloride 102 mmol/L (98-107); Gamma Glutamyl Transferase 115 U/L (8-61); Globulin 3.2 g/dL (1.3-4.6); Glomerular Filtration Rate 86.7 mL/min (90-130); Glucose 194 mg/dL (65-115); Magnesium 1.5 mg/dL (1.7-2.3); Osmolality Calculated 301 mOsm/kg (285-295); Phosphorus 3.8 mg/dL (2.5-4.5); Potassium 4.2 mmol/L (3.5-5.1); Sodium 140 mmol/L (136-145); Total Bilirubin 0.5 mg/dL (0.15-1.2); Total Protein 7.3 g/dL (6.6-8.7)
== END 2022-12-09 07:06 | disposition home or self-care (01) ==
LOC: LAB 07:07
PROVIDERS: PCP Family Medicine; Visit Provider Surgery Surgical Oncology
DX: Z94.4 Liver transplant status (principal); Z79.899 Other long term (current) drug therapy
CPT/HCPCS: 36415; 80053; 80197; 82977; 83735; 84100; 85025

== ENCOUNTER 2022-12-13 06:40 | Outpatient (CLI) | payer OTHER, SELFPAY ==
[2022-12-13 06:59] LABS: Basophils # 0.1 10^3/uL (0.0-0.1); Basophils % 0.8 %; Eosinophils # 0.2 10^3/uL (0.0-0.8); Eosinophils % 2.6 %; Hematocrit 38.7 % (42.0-52.0); Hemoglobin 12.8 g/dL (11.7-16.6); Lymphocytes # 1.4 10^3/uL (0.8-4.8); Lymphocytes % 21.9 %; Mean Corpuscular HGB Conc 33.1 g/dL (30.0-36.0); Mean Corpuscular Hemoglobin 31.3 pg (28.0-34.0); Mean Corpuscular Volume 94.6 fl (80-94); Mean Platelet Volume 9.3 fL (7.4-10.4); Monocytes # 0.5 10^3/uL (0.2-0.9); Monocytes % 8.7 %; Neutrophils # 4.07 10^3/uL (1.8-7.7); Neutrophils % 65.5 %; Nucleated Red Blood Cells % 0 %; Platelet Count 177 10^3/cmm (130-400); Red Blood Count 4.09 10^6/uL (4.1-5.3); Red Cell Distribution Width 15.4 % (12.1-15.1); White Blood Count 6.2 10^3/uL (4.0-10.0)
[2022-12-13 07:23] LABS: Alanine Aminotransferase 42 U/L (0-41); Albumin Level 4.1 g/dL (3.5-5.2); Alkaline Phosphatase 111 U/L (40-130); Aspartate Amino Transferase 22 U/L (0-40); Blood Urea Nitrogen 33 mg/dL (6-20); Carbon Dioxide 25 mmol/L (22-29); Chloride 104 mmol/L (98-107); Gamma Glutamyl Transferase 95 U/L (8-61); Globulin 2.9 g/dL (1.3-4.6); Glomerular Filtration Rate 99.3 mL/min (90-130); Glucose 316 mg/dL (65-115); Magnesium 1.6 mg/dL (1.7-2.3); Osmolality Calculated 305 mOsm/kg (285-295); Phosphorus 3.9 mg/dL (2.5-4.5); Sodium 138 mmol/L (136-145); Total Bilirubin 0.3 mg/dL (0.15-1.2)
[2022-12-13 07:24] LABS: Anion Gap 13.5 (5-19); Potassium 4.5 mmol/L (3.5-5.1)
== END 2022-12-13 06:41 | disposition home or self-care (01) ==
LOC: LAB 06:42
PROVIDERS: PCP Family Medicine; Visit Provider Internal Medicine
DX: Z94.4 Liver transplant status (principal)
CPT/HCPCS: 36415; 80053; 80197; 82977; 83735; 84100; 85025

== ENCOUNTER 2022-12-23 06:44 | Outpatient (RCR) | payer OTHER, SELFPAY ==
[2022-12-16 07:23] LABS: Basophils # 0.1 10^3/uL (0.0-0.1); Basophils % 1.2 %; Eosinophils # 0.2 10^3/uL (0.0-0.8); Eosinophils % 3.4 %; Hematocrit 40.9 % (42.0-52.0); Hemoglobin 13.5 g/dL (11.7-16.6); Lymphocytes # 1.2 10^3/uL (0.8-4.8); Lymphocytes % 21.9 %; Mean Corpuscular Hemoglobin 30.9 pg (28.0-34.0); Mean Corpuscular Volume 93.6 fl (80-94); Mean Platelet Volume 9.4 fL (7.4-10.4); Monocytes # 0.5 10^3/uL (0.2-0.9); Monocytes % 9.6 %; Neutrophils # 3.57 10^3/uL (1.8-7.7); Neutrophils % 63.7 %; Nucleated Red Blood Cells % 0 %; Platelet Count 176 10^3/cmm (130-400); Red Blood Count 4.37 10^6/uL (4.1-5.3); Red Cell Distribution Width 15.6 % (12.1-15.1); White Blood Count 5.6 10^3/uL (4.0-10.0)
[2022-12-16 07:45] LABS: Alanine Aminotransferase 45 U/L (0-41); Albumin Level 4.1 g/dL (3.5-5.2); Alkaline Phosphatase 105 U/L (40-130); Anion Gap 13.2 (5-19); Aspartate Amino Transferase 21 U/L (0-40); Blood Urea Nitrogen 27 mg/dL (6-20); Carbon Dioxide 26 mmol/L (22-29); Chloride 103 mmol/L (98-107); Gamma Glutamyl Transferase 94 U/L (8-61); Globulin 3.2 g/dL (1.3-4.6); Glomerular Filtration Rate 99.3 mL/min (90-130); Glucose 173 mg/dL (65-115); Magnesium 1.6 mg/dL (1.7-2.3); Osmolality Calculated 295 mOsm/kg (285-295); Phosphorus 3.5 mg/dL (2.5-4.5); Potassium 4.2 mmol/L (3.5-5.1); Sodium 138 mmol/L (136-145); Total Bilirubin 0.4 mg/dL (0.15-1.2); Total Protein 7.3 g/dL (6.6-8.7)
[2022-12-18 09:15] LABS: HIV RNA (CPY/ML) NOT DETECTED (NOT DETECTED); HIV RNA LOG NOT DETECTED copies/mL (NOT DETECTED)
[2022-12-18 17:00] LABS: Hepatitis B Virus DNA NOT DETECTED (NOT DETECTED); Hepatitis B Virus DNA PCR NOT DETECTED Log IU/mL (NOT DETECTED)
[2022-12-18 19:15] LABS: HEP C RNA Viral Load Quant <1.18 NOT DETECTED Log IU/mL (NOT DETECTED); HEP C RNA Viral Load Quant <15 NOT DETECTED IU/mL (NOT DETECTED)
[2022-12-20 07:25] LABS: Basophils # 0.1 10^3/uL (0.0-0.1); Basophils % 1.1 %; Eosinophils # 0.1 10^3/uL (0.0-0.8); Hematocrit 39.1 % (42.0-52.0); Hemoglobin 13.4 g/dL (11.7-16.6); Lymphocytes # 0.9 10^3/uL (0.8-4.8); Lymphocytes % 19.1 %; Mean Corpuscular HGB Conc 34.3 g/dL (30.0-36.0); Mean Corpuscular Hemoglobin 31.9 pg (28.0-34.0); Mean Corpuscular Volume 93.1 fl (80-94); Mean Platelet Volume 9.7 fL (7.4-10.4); Monocytes # 0.6 10^3/uL (0.2-0.9); Monocytes % 13.4 %; Neutrophils # 2.96 10^3/uL (1.8-7.7); Nucleated Red Blood Cells % 0 %; Platelet Count 153 10^3/cmm (130-400); Red Cell Distribution Width 15.4 % (12.1-15.1); White Blood Count 4.7 10^3/uL (4.0-10.0)
[2022-12-20 07:32] LABS: Alanine Aminotransferase 62 U/L (0-41); Albumin Level 4.1 g/dL (3.5-5.2); Alkaline Phosphatase 104 U/L (40-130); Anion Gap 14.3 (5-19); Aspartate Amino Transferase 32 U/L (0-40); Blood Urea Nitrogen 27 mg/dL (6-20); Calcium 8.9 mg/dL (8.5-10.5); Carbon Dioxide 25 mmol/L (22-29); Chloride 103 mmol/L (98-107); Gamma Glutamyl Transferase 81 U/L (8-61); Globulin 2.9 g/dL (1.3-4.6); Glomerular Filtration Rate 115.8 mL/min (90-130); Glucose 256 mg/dL (65-115); Magnesium 1.6 mg/dL (1.7-2.3); Osmolality Calculated 300 mOsm/kg (285-295); Phosphorus 3.1 mg/dL (2.5-4.5); Potassium 4.3 mmol/L (3.5-5.1); Sodium 138 mmol/L (136-145); Total Bilirubin 0.3 mg/dL (0.15-1.2)
[2022-12-23 07:00] LABS: Basophils # 0.1 10^3/uL (0.0-0.1); Basophils % 1.2 %; Eosinophils # 0.2 10^3/uL (0.0-0.8); Eosinophils % 3.4 %; Hematocrit 37.7 % (42.0-52.0); Hemoglobin 12.7 g/dL (11.7-16.6); Lymphocytes # 1.1 10^3/uL (0.8-4.8); Lymphocytes % 22.6 %; Mean Corpuscular HGB Conc 33.7 g/dL (30.0-36.0); Mean Corpuscular Hemoglobin 31.4 pg (28.0-34.0); Mean Corpuscular Volume 93.1 fl (80-94); Mean Platelet Volume 9.3 fL (7.4-10.4); Monocytes # 0.5 10^3/uL (0.2-0.9); Monocytes % 9.9 %; Neutrophils % 62.5 %; Nucleated Red Blood Cells % 0 %; Platelet Count 157 10^3/cmm (130-400); Red Blood Count 4.05 10^6/uL (4.1-5.3); Red Cell Distribution Width 15.4 % (12.1-15.1)
[2022-12-23 07:20] LABS: Alanine Aminotransferase 43 U/L (0-41); Alkaline Phosphatase 95 U/L (40-130); Anion Gap 13.4 (5-19); Aspartate Amino Transferase 15 U/L (0-40); Blood Urea Nitrogen 30 mg/dL (6-20); Calcium 8.9 mg/dL (8.5-10.5); Carbon Dioxide 24 mmol/L (22-29); Chloride 104 mmol/L (98-107); Gamma Glutamyl Transferase 72 U/L (8-61); Globulin 2.8 g/dL (1.3-4.6); Glomerular Filtration Rate 99.3 mL/min (90-130); Glucose 270 mg/dL (65-115); Magnesium 1.4 mg/dL (1.7-2.3); Osmolality Calculated 300 mOsm/kg (285-295); Phosphorus 3.4 mg/dL (2.5-4.5); Potassium 4.4 mmol/L (3.5-5.1); Sodium 137 mmol/L (136-145); Total Bilirubin 0.3 mg/dL (0.15-1.2); Total Protein 6.8 g/dL (6.6-8.7)
== END 2022-12-24 23:59 | disposition home or self-care (01) ==
LOC: LAB 06:44
PROVIDERS: PCP Family Medicine; Visit Provider Surgery Surgical Oncology
DX: Z94.4 Liver transplant status (principal); Z77.21 Contact with and (suspected) exposure to potentially hazardous body fluids; Z79.899 Other long term (current) drug therapy
CPT/HCPCS: 36415; 80053; 80197; 82977; 83735; 84100; 85025; 87517; 87522; 87536

== ENCOUNTER 2023-01-21 07:00 | Outpatient (CLI) | payer OTHER, SELFPAY ==
--- NOTE | 2023-01-21 07:06 | US_ITS ---
WS: [id number] ABDOMINAL ULTRASOUND LIMITED REASON FOR EXAM: PT IS S/P LIVER TRANSPLANT 11/06/2022 HAS ELEVATED LIVER ENZYMES COMPARISON: None available. ORDER DATE: 01/21/2023 7:18 AM TECHNIQUE: Grayscale and Doppler ultrasound examination of the abdomen. FINDINGS: Pancreas: Unremarkable Abdominal aorta and IVC: 16 mm and 21 mm in diameter respectively Liver: Liver measures 17.7 cm in length. Portal and hepatic veins demonstrate normal flow no sign of bile ductal dilatation Gallbladder: Gallbladder resected. Common bile duct diameter 6.5 mm Right kidney: Right kidney measures 12.6 cm x 5.1 cm x 3.9 cm. Right kidney cortex measures 1.1 cm. US/US liver [id number] IMPRESSION: No acute abnormality currently.
== END 2023-01-21 07:01 | disposition home or self-care (01) ==
PROVIDERS: PCP Family Medicine; Visit Provider Surgery Surgical Oncology
DX: R74.8 Abnormal levels of other serum enzymes (principal); Z94.4 Liver transplant status
CPT/HCPCS: 76705

== ENCOUNTER 2023-01-24 06:57 | Outpatient (RCR) | payer OTHER, SELFPAY ==
[2022-12-27 06:58] LABS: Basophils # 0.1 10^3/uL (0.0-0.1); Basophils % 0.8 %; Eosinophils # 0.1 10^3/uL (0.0-0.8); Eosinophils % 2.2 %; Hematocrit 39.2 % (42.0-52.0); Hemoglobin 13.2 g/dL (11.7-16.6); Lymphocytes # 0.5 10^3/uL (0.8-4.8); Lymphocytes % 8.8 %; Mean Corpuscular HGB Conc 33.7 g/dL (30.0-36.0); Mean Corpuscular Hemoglobin 30.8 pg (28.0-34.0); Mean Corpuscular Volume 91.4 fl (80-94); Mean Platelet Volume 9.5 fL (7.4-10.4); Monocytes # 0.6 10^3/uL (0.2-0.9); Monocytes % 10.1 %; Neutrophils # 4.67 10^3/uL (1.8-7.7); Neutrophils % 77.6 %; Nucleated Red Blood Cells % 0 %; Platelet Count 162 10^3/cmm (130-400); Red Blood Count 4.29 10^6/uL (4.1-5.3); Red Cell Distribution Width 15.3 % (12.1-15.1)
[2022-12-27 07:17] LABS: Alanine Aminotransferase 83 U/L (0-41); Albumin Level 4.2 g/dL (3.5-5.2); Alkaline Phosphatase 111 U/L (40-130); Anion Gap 12.3 (5-19); Aspartate Amino Transferase 26 U/L (0-40); Blood Urea Nitrogen 26 mg/dL (6-20); Calcium 9.4 mg/dL (8.5-10.5); Carbon Dioxide 25 mmol/L (22-29); Chloride 99 mmol/L (98-107); Gamma Glutamyl Transferase 86 U/L (8-61); Glomerular Filtration Rate 99.3 mL/min (90-130); Glucose 279 mg/dL (65-115); Magnesium 1.4 mg/dL (1.7-2.3); Osmolality Calculated 289 mOsm/kg (285-295); Phosphorus 3.2 mg/dL (2.5-4.5); Potassium 4.3 mmol/L (3.5-5.1); Sodium 132 mmol/L (136-145); Total Bilirubin 0.4 mg/dL (0.15-1.2); Total Protein 7.2 g/dL (6.6-8.7)
[2022-12-30 07:11] LABS: Basophils # 0.1 10^3/uL (0.0-0.1); Basophils % 1.4 %; Eosinophils # 0.1 10^3/uL (0.0-0.8); Eosinophils % 3.3 %; Hemoglobin 13.5 g/dL (11.7-16.6); Mean Corpuscular HGB Conc 33.8 g/dL (30.0-36.0); Mean Corpuscular Hemoglobin 31.1 pg (28.0-34.0); Mean Corpuscular Volume 92.2 fl (80-94); Mean Platelet Volume 9.5 fL (7.4-10.4); Monocytes # 0.4 10^3/uL (0.2-0.9); Monocytes % 10.9 %; Neutrophils # 2.09 10^3/uL (1.8-7.7); Neutrophils % 57.1 %; Nucleated Red Blood Cells % 0 %; Platelet Count 142 10^3/cmm (130-400); Red Blood Count 4.34 10^6/uL (4.1-5.3); Red Cell Distribution Width 14.8 % (12.1-15.1); White Blood Count 3.7 10^3/uL (4.0-10.0)
[2022-12-30 07:20] LABS: Gamma Glutamyl Transferase 80 U/L (8-61); Magnesium 1.5 mg/dL (1.7-2.3); Phosphorus 3.4 mg/dL (2.5-4.5)
[2022-12-30 07:23] LABS: Estmated Average Glucose 171; Hemoglobin A1C 7.6 % (4.0-6.0)
[2022-12-30 07:27] LABS: Creatinine Urine, Random 97 mg/dL (39-259); Microalbum Creatinine Ratio Ur 21 mg/dL (0-20); Microalbumin Random Urine 2 ug/dL (0-20)
[2022-12-30 07:33] LABS: Alanine Aminotransferase 56 U/L (0-41); Albumin Level 4.2 g/dL (3.5-5.2); Alkaline Phosphatase 112 U/L (40-130); Anion Gap 13.7 (5-19); Aspartate Amino Transferase 18 U/L (0-40); Blood Urea Nitrogen 31 mg/dL (6-20); Calcium 9.2 mg/dL (8.5-10.5); Carbon Dioxide 25 mmol/L (22-29); Chloride 101 mmol/L (98-107); Chol HDL Ratio 3.19 mg/dL (1.0-5.00); Cholesterol 150 mg/dL (0-200); Free T4 Free Thyroxine 1.11 ng/dL (0.82-1.77); Globulin 2.9 g/dL (1.3-4.6); Glomerular Filtration Rate 86.7 mL/min (90-130); Glucose 272 mg/dL (65-115); HDL Cholesterol 47 mg/dL (60-100); LDL Cholesterol Calculated 72 mg/dL (50-129); LDL HDL Ratio 1.53 RATIO (0.00-3.22); Osmolality Calculated 296 mOsm/kg (285-295); Potassium 4.7 mmol/L (3.5-5.1); Sodium 135 mmol/L (136-145); Thyroid Stimulating Hormone 5.78 uIU/mL (0.27-4.20); Total Bilirubin 0.4 mg/dL (0.15-1.2); Total Protein 7.1 g/dL (6.6-8.7); Triglycerides 154 mg/dL (0-150)
[2023-01-03 06:54] LABS: Basophils % 1.2 %; Eosinophils # 0.2 10^3/uL (0.0-0.8); Eosinophils % 4.9 %; Hematocrit 40.3 % (42.0-52.0); Hemoglobin 13.5 g/dL (11.7-16.6); Lymphocytes # 0.9 10^3/uL (0.8-4.8); Lymphocytes % 27.8 %; Mean Corpuscular HGB Conc 33.5 g/dL (30.0-36.0); Mean Corpuscular Volume 92.6 fl (80-94); Mean Platelet Volume 9.4 fL (7.4-10.4); Monocytes # 0.4 10^3/uL (0.2-0.9); Monocytes % 12.2 %; Neutrophils # 1.73 10^3/uL (1.8-7.7); Nucleated Red Blood Cells % 0 %; Platelet Count 137 10^3/cmm (130-400); Red Blood Count 4.35 10^6/uL (4.1-5.3); Red Cell Distribution Width 14.6 % (12.1-15.1); White Blood Count 3.3 10^3/uL (4.0-10.0)
[2023-01-03 07:17] LABS: Alanine Aminotransferase 54 U/L (0-41); Albumin Level 4.2 g/dL (3.5-5.2); Alkaline Phosphatase 110 U/L (40-130); Anion Gap 11.4 (5-19); Aspartate Amino Transferase 21 U/L (0-40); Blood Urea Nitrogen 29 mg/dL (6-20); Calcium 9.1 mg/dL (8.5-10.5); Carbon Dioxide 28 mmol/L (22-29); Chloride 97 mmol/L (98-107); Gamma Glutamyl Transferase 80 U/L (8-61); Globulin 2.9 g/dL (1.3-4.6); Glomerular Filtration Rate 86.7 mL/min (90-130); Glucose 246 mg/dL (65-115); Magnesium 1.6 mg/dL (1.7-2.3); Osmolality Calculated 288 mOsm/kg (285-295); Phosphorus 3.2 mg/dL (2.5-4.5); Potassium 4.4 mmol/L (3.5-5.1); Sodium 132 mmol/L (136-145); Total Bilirubin 0.2 mg/dL (0.15-1.2); Total Protein 7.1 g/dL (6.6-8.7)
[2023-01-06 08:35] LABS: Alanine Aminotransferase 98 U/L (0-41); Albumin Level 3.9 g/dL (3.5-5.2); Alkaline Phosphatase 121 U/L (40-130); Anion Gap 13.9 (5-19); Aspartate Amino Transferase 37 U/L (0-40); Blood Urea Nitrogen 26 mg/dL (6-20); Carbon Dioxide 24 mmol/L (22-29); Chloride 101 mmol/L (98-107); Gamma Glutamyl Transferase 98 U/L (8-61); Globulin 3.2 g/dL (1.3-4.6); Glomerular Filtration Rate 76.7 mL/min (90-130); Glucose 254 mg/dL (65-115); Magnesium 1.7 mg/dL (1.7-2.3); Osmolality Calculated 291 mOsm/kg (285-295); Phosphorus 2.9 mg/dL (2.5-4.5); Potassium 4.9 mmol/L (3.5-5.1); Sodium 134 mmol/L (136-145); Total Bilirubin 0.5 mg/dL (0.15-1.2); Total Protein 7.1 g/dL (6.6-8.7)
[2023-01-06 09:03] LABS: Basophils # 0.1 10^3/uL (0.0-0.1); Basophils % 2.3 %; Eosinophils # 0.1 10^3/uL (0.0-0.8); Hematocrit 41.1 % (42.0-52.0); Hemoglobin 13.8 g/dL (11.7-16.6); Lymphocytes # 0.5 10^3/uL (0.8-4.8); Lymphocytes % 24.4 %; Mean Corpuscular HGB Conc 33.6 g/dL (30.0-36.0); Mean Corpuscular Hemoglobin 31.3 pg (28.0-34.0); Mean Corpuscular Volume 93.2 fl (80-94); Mean Platelet Volume 9.5 fL (7.4-10.4); Monocytes # 0.5 10^3/uL (0.2-0.9); Monocytes % 22.1 %; Neutrophils % 44.7 %; Nucleated Red Blood Cells % 0 %; Platelet Count 160 10^3/cmm (130-400); Red Blood Count 4.41 10^6/uL (4.1-5.3); Red Cell Distribution Width 14.6 % (12.1-15.1); White Blood Count 2.2 10^3/uL (4.0-10.0)
[2023-01-06 09:09] LABS: Neutrophils # 0.97 10^3/uL (1.8-7.7)
[2023-01-10 06:52] LABS: Basophils # 0.1 10^3/uL (0.0-0.1); Eosinophils # 0.1 10^3/uL (0.0-0.8); Eosinophils % 5.1 %; Hematocrit 38.8 % (42.0-52.0); Lymphocytes # 0.8 10^3/uL (0.8-4.8); Lymphocytes % 31.3 %; Mean Corpuscular HGB Conc 33.5 g/dL (30.0-36.0); Mean Corpuscular Hemoglobin 30.7 pg (28.0-34.0); Mean Corpuscular Volume 91.5 fl (80-94); Mean Platelet Volume 9.7 fL (7.4-10.4); Monocytes # 0.6 10^3/uL (0.2-0.9); Monocytes % 22.3 %; Neutrophils % 37.7 %; Nucleated Red Blood Cells % 0 %; Platelet Count 158 10^3/cmm (130-400); Red Blood Count 4.24 10^6/uL (4.1-5.3); Red Cell Distribution Width 14.5 % (12.1-15.1); White Blood Count 2.6 10^3/uL (4.0-10.0)
[2023-01-10 07:11] LABS: Urine Creatinine 116 mg/dL (39-259)
[2023-01-10 07:16] LABS: Alanine Aminotransferase 113 U/L (0-41); Albumin Level 3.8 g/dL (3.5-5.2); Alkaline Phosphatase 134 U/L (40-130); Anion Gap 12.4 (5-19); Aspartate Amino Transferase 42 U/L (0-40); Blood Urea Nitrogen 27 mg/dL (6-20); Calcium 9.2 mg/dL (8.5-10.5); Carbon Dioxide 26 mmol/L (22-29); Chloride 100 mmol/L (98-107); Chol HDL Ratio 5.03 mg/dL (1.0-5.00); Cholesterol 196 mg/dL (0-200); Gamma Glutamyl Transferase 107 U/L (8-61); Glomerular Filtration Rate 86.7 mL/min (90-130); Glucose 230 mg/dL (65-115); HDL Cholesterol 39 mg/dL (60-100); LDL Cholesterol Calculated 116 mg/dL (50-129); LDL HDL Ratio 2.97 RATIO (0.00-3.22); Magnesium 1.6 mg/dL (1.7-2.3); Osmolality Calculated 290 mOsm/kg (285-295); Phosphorus 3.2 mg/dL (2.5-4.5); Potassium 4.4 mmol/L (3.5-5.1); Sodium 134 mmol/L (136-145); Total Bilirubin 0.3 mg/dL (0.15-1.2); Total Protein 6.8 g/dL (6.6-8.7); Triglycerides 205 mg/dL (0-150)
[2023-01-10 07:16] LABS: Total Protein, Random Urine 8.6 mg/dL (0.0-20.0)
[2023-01-10 08:46] LABS: Neutrophils # 0.97 10^3/uL (1.8-7.7)
[2023-01-13 06:51] LABS: Basophils # 0.1 10^3/uL (0.0-0.1); Basophils % 2.3 %; Eosinophils # 0.1 10^3/uL (0.0-0.8); Eosinophils % 3.7 %; Hematocrit 39.3 % (42.0-52.0); Hemoglobin 12.9 g/dL (11.7-16.6); Lymphocytes # 0.8 10^3/uL (0.8-4.8); Lymphocytes % 23.7 %; Mean Corpuscular HGB Conc 32.8 g/dL (30.0-36.0); Mean Corpuscular Hemoglobin 30.3 pg (28.0-34.0); Mean Corpuscular Volume 92.3 fl (80-94); Mean Platelet Volume 9.4 fL (7.4-10.4); Monocytes # 0.6 10^3/uL (0.2-0.9); Monocytes % 15.8 %; Neutrophils # 1.86 10^3/uL (1.8-7.7); Neutrophils % 52.5 %; Nucleated Red Blood Cells % 0 %; Platelet Count 153 10^3/cmm (130-400); Red Blood Count 4.26 10^6/uL (4.1-5.3); Red Cell Distribution Width 14.3 % (12.1-15.1); White Blood Count 3.5 10^3/uL (4.0-10.0)
[2023-01-13 07:15] LABS: Alanine Aminotransferase 89 U/L (0-41); Albumin Level 3.9 g/dL (3.5-5.2); Alkaline Phosphatase 120 U/L (40-130); Anion Gap 13.9 (5-19); Aspartate Amino Transferase 34 U/L (0-40); Blood Urea Nitrogen 17 mg/dL (6-20); Calcium 8.9 mg/dL (8.5-10.5); Carbon Dioxide 23 mmol/L (22-29); Chloride 104 mmol/L (98-107); Gamma Glutamyl Transferase 94 U/L (8-61); Globulin 2.7 g/dL (1.3-4.6); Glomerular Filtration Rate 86.7 mL/min (90-130); Glucose 270 mg/dL (65-115); Magnesium 1.7 mg/dL (1.7-2.3); Osmolality Calculated 293 mOsm/kg (285-295); Phosphorus 2.6 mg/dL (2.5-4.5); Potassium 4.9 mmol/L (3.5-5.1); Sodium 136 mmol/L (136-145); Total Bilirubin 0.3 mg/dL (0.15-1.2); Total Protein 6.6 g/dL (6.6-8.7)
[2023-01-17 07:28] LABS: Basophils # 0.1 10^3/uL (0.0-0.1); Basophils % 1.4 %; Eosinophils # 0.1 10^3/uL (0.0-0.8); Eosinophils % 2.9 %; Hemoglobin 13.8 g/dL (11.7-16.6); Lymphocytes % 19.6 %; Mean Corpuscular HGB Conc 33.7 g/dL (30.0-36.0); Mean Corpuscular Hemoglobin 30.5 pg (28.0-34.0); Mean Corpuscular Volume 90.5 fl (80-94); Mean Platelet Volume 9.7 fL (7.4-10.4); Monocytes # 0.7 10^3/uL (0.2-0.9); Monocytes % 13.6 %; Neutrophils # 2.98 10^3/uL (1.8-7.7); Neutrophils % 61.5 %; Nucleated Red Blood Cells % 0 %; Platelet Count 167 10^3/cmm (130-400); Red Blood Count 4.53 10^6/uL (4.1-5.3); Red Cell Distribution Width 14.2 % (12.1-15.1); White Blood Count 4.9 10^3/uL (4.0-10.0)
[2023-01-17 07:47] LABS: Alanine Aminotransferase 70 U/L (0-41); Albumin Level 4.3 g/dL (3.5-5.2); Alkaline Phosphatase 111 U/L (40-130); Anion Gap 13.7 (5-19); Aspartate Amino Transferase 29 U/L (0-40); Blood Urea Nitrogen 24 mg/dL (6-20); Calcium 9.2 mg/dL (8.5-10.5); Carbon Dioxide 23 mmol/L (22-29); Chloride 100 mmol/L (98-107); Gamma Glutamyl Transferase 84 U/L (8-61); Globulin 2.7 g/dL (1.3-4.6); Glomerular Filtration Rate 99.3 mL/min (90-130); Glucose 228 mg/dL (65-115); Magnesium 1.6 mg/dL (1.7-2.3); Osmolality Calculated 285 mOsm/kg (285-295); Phosphorus 3.3 mg/dL (2.5-4.5); Potassium 4.7 mmol/L (3.5-5.1); Sodium 132 mmol/L (136-145); Total Bilirubin 0.4 mg/dL (0.15-1.2)
[2023-01-20 07:30] LABS: Basophils # 0.1 10^3/uL (0.0-0.1); Basophils % 1.3 %; Eosinophils # 0.1 10^3/uL (0.0-0.8); Eosinophils % 2.5 %; Hemoglobin 13.4 g/dL (11.7-16.6); Lymphocytes # 0.6 10^3/uL (0.8-4.8); Lymphocytes % 10.8 %; Mean Corpuscular HGB Conc 33.5 g/dL (30.0-36.0); Mean Corpuscular Hemoglobin 30.5 pg (28.0-34.0); Mean Corpuscular Volume 91.1 fl (80-94); Mean Platelet Volume 9.6 fL (7.4-10.4); Monocytes # 0.8 10^3/uL (0.2-0.9); Monocytes % 14.9 %; Neutrophils # 3.67 10^3/uL (1.8-7.7); Neutrophils % 69.2 %; Nucleated Red Blood Cells % 0 %; Platelet Count 140 10^3/cmm (130-400); Red Blood Count 4.39 10^6/uL (4.1-5.3); Red Cell Distribution Width 14.4 % (12.1-15.1); White Blood Count 5.3 10^3/uL (4.0-10.0)
[2023-01-20 07:56] LABS: Alanine Aminotransferase 86 U/L (0-41); Albumin Level 3.9 g/dL (3.5-5.2); Alkaline Phosphatase 114 U/L (40-130); Aspartate Amino Transferase 47 U/L (0-40); Blood Urea Nitrogen 17 mg/dL (6-20); Calcium 8.7 mg/dL (8.5-10.5); Carbon Dioxide 23 mmol/L (22-29); Chloride 102 mmol/L (98-107); Gamma Glutamyl Transferase 87 U/L (8-61); Globulin 3.3 g/dL (1.3-4.6); Glomerular Filtration Rate 115.8 mL/min (90-130); Glucose 288 mg/dL (65-115); Magnesium 1.7 mg/dL (1.7-2.3); Osmolality Calculated 290 mOsm/kg (285-295); Phosphorus 2.4 mg/dL (2.5-4.5); Sodium 134 mmol/L (136-145); Total Bilirubin 0.4 mg/dL (0.15-1.2); Total Protein 7.2 g/dL (6.6-8.7)
[2023-01-20 08:03] LABS: Anion Gap 13.6 (5-19); Potassium 4.6 mmol/L (3.5-5.1)
[2023-01-24 07:12] LABS: Basophils # 0.1 10^3/uL (0.0-0.1); Basophils % 1.7 %; Eosinophils # 0.2 10^3/uL (0.0-0.8); Eosinophils % 5.1 %; Hematocrit 38.1 % (42.0-52.0); Hemoglobin 12.8 g/dL (11.7-16.6); Lymphocytes # 0.8 10^3/uL (0.8-4.8); Lymphocytes % 18.9 %; Mean Corpuscular HGB Conc 33.6 g/dL (30.0-36.0); Mean Corpuscular Volume 89.4 fl (80-94); Mean Platelet Volume 9.6 fL (7.4-10.4); Monocytes # 0.5 10^3/uL (0.2-0.9); Monocytes % 12.1 %; Neutrophils # 2.54 10^3/uL (1.8-7.7); Neutrophils % 61.5 %; Nucleated Red Blood Cells % 0 %; Platelet Count 160 10^3/cmm (130-400); Red Blood Count 4.26 10^6/uL (4.1-5.3); Red Cell Distribution Width 14.1 % (12.1-15.1); White Blood Count 4.1 10^3/uL (4.0-10.0)
[2023-01-24 07:57] LABS: Alanine Aminotransferase 54 U/L (0-41); Albumin Level 3.9 g/dL (3.5-5.2); Alkaline Phosphatase 111 U/L (40-130); Anion Gap 14.4 (5-19); Aspartate Amino Transferase 26 U/L (0-40); Blood Urea Nitrogen 18 mg/dL (6-20); Calcium 8.9 mg/dL (8.5-10.5); Carbon Dioxide 24 mmol/L (22-29); Chloride 105 mmol/L (98-107); Gamma Glutamyl Transferase 75 U/L (8-61); Globulin 2.7 g/dL (1.3-4.6); Glomerular Filtration Rate 115.8 mL/min (90-130); Glucose 233 mg/dL (65-115); Magnesium 1.6 mg/dL (1.7-2.3); Osmolality Calculated 297 mOsm/kg (285-295); Phosphorus 2.9 mg/dL (2.5-4.5); Potassium 4.4 mmol/L (3.5-5.1); Sodium 139 mmol/L (136-145); Total Bilirubin 0.3 mg/dL (0.15-1.2); Total Protein 6.6 g/dL (6.6-8.7)
== END 2023-01-24 23:59 | disposition home or self-care (01) ==
LOC: LAB 06:57
PROVIDERS: Internal Medicine; PCP Family Medicine; Visit Provider Surgery Surgical Oncology
DX: Z94.4 Liver transplant status (principal); Z77.21 Contact with and (suspected) exposure to potentially hazardous body fluids
CPT/HCPCS: 36415; 80053; 80061; 80197; 82044; 82570; 82977; 83036; 83735; 84100; 84156; 84439; 84443; 85025

== ENCOUNTER 2023-02-21 06:51 | Outpatient (RCR) | payer OTHER, SELFPAY ==
[2023-01-27 06:38] LABS: Basophils # 0.1 10^3/uL (0.0-0.1); Basophils % 1.7 %; Eosinophils # 0.3 10^3/uL (0.0-0.8); Eosinophils % 6.3 %; Hematocrit 38.4 % (42.0-52.0); Hemoglobin 13.2 g/dL (11.7-16.6); Lymphocytes # 0.8 10^3/uL (0.8-4.8); Lymphocytes % 18.6 %; Mean Corpuscular HGB Conc 34.4 g/dL (30.0-36.0); Mean Corpuscular Volume 90.1 fl (80-94); Mean Platelet Volume 9.3 fL (7.4-10.4); Monocytes # 0.5 10^3/uL (0.2-0.9); Monocytes % 12.5 %; Neutrophils # 2.48 10^3/uL (1.8-7.7); Neutrophils % 59.7 %; Nucleated Red Blood Cells % 0 %; Platelet Count 164 10^3/cmm (130-400); Red Blood Count 4.26 10^6/uL (4.1-5.3); Red Cell Distribution Width 14.1 % (12.1-15.1); White Blood Count 4.2 10^3/uL (4.0-10.0)
[2023-01-27 06:58] LABS: Alanine Aminotransferase 49 U/L (0-41); Albumin Level 3.7 g/dL (3.5-5.2); Alkaline Phosphatase 108 U/L (40-130); Anion Gap 14.5 (5-19); Aspartate Amino Transferase 27 U/L (0-40); Blood Urea Nitrogen 19 mg/dL (6-20); Calcium 9.1 mg/dL (8.5-10.5); Carbon Dioxide 23 mmol/L (22-29); Chloride 103 mmol/L (98-107); Gamma Glutamyl Transferase 85 U/L (8-61); Glomerular Filtration Rate 115.8 mL/min (90-130); Glucose 254 mg/dL (65-115); Magnesium 1.5 mg/dL (1.7-2.3); Osmolality Calculated 293 mOsm/kg (285-295); Phosphorus 2.8 mg/dL (2.5-4.5); Potassium 4.5 mmol/L (3.5-5.1); Sodium 136 mmol/L (136-145); Total Bilirubin 0.3 mg/dL (0.15-1.2); Total Protein 6.7 g/dL (6.6-8.7)
[2023-01-31 06:37] LABS: Basophils # 0.1 10^3/uL (0.0-0.1); Basophils % 1.1 %; Eosinophils # 0.3 10^3/uL (0.0-0.8); Eosinophils % 4.9 %; Hematocrit 40.6 % (42.0-52.0); Hemoglobin 13.5 g/dL (11.7-16.6); Lymphocytes # 0.8 10^3/uL (0.8-4.8); Lymphocytes % 15.5 %; Mean Corpuscular HGB Conc 33.3 g/dL (30.0-36.0); Mean Corpuscular Hemoglobin 29.7 pg (28.0-34.0); Mean Corpuscular Volume 89.4 fl (80-94); Mean Platelet Volume 9.1 fL (7.4-10.4); Monocytes # 0.8 10^3/uL (0.2-0.9); Neutrophils # 3.43 10^3/uL (1.8-7.7); Neutrophils % 64.1 %; Nucleated Red Blood Cells % 0 %; Platelet Count 167 10^3/cmm (130-400); Red Blood Count 4.54 10^6/uL (4.1-5.3); Red Cell Distribution Width 14.3 % (12.1-15.1); White Blood Count 5.4 10^3/uL (4.0-10.0)
[2023-01-31 07:15] LABS: Alanine Aminotransferase 68 U/L (0-41); Alkaline Phosphatase 122 U/L (40-130); Anion Gap 14.5 (5-19); Aspartate Amino Transferase 34 U/L (0-40); Blood Urea Nitrogen 16 mg/dL (6-20); Calcium 9.4 mg/dL (8.5-10.5); Carbon Dioxide 24 mmol/L (22-29); Chloride 103 mmol/L (98-107); Gamma Glutamyl Transferase 92 U/L (8-61); Globulin 3.1 g/dL (1.3-4.6); Glomerular Filtration Rate 99.3 mL/min (90-130); Glucose 209 mg/dL (65-115); Magnesium 1.7 mg/dL (1.7-2.3); Osmolality Calculated 291 mOsm/kg (285-295); Phosphorus 2.9 mg/dL (2.5-4.5); Potassium 4.5 mmol/L (3.5-5.1); Sodium 137 mmol/L (136-145); Total Bilirubin 0.5 mg/dL (0.15-1.2); Total Protein 7.1 g/dL (6.6-8.7)
[2023-02-07 06:58] LABS: Basophils # 0.1 10^3/uL (0.0-0.1); Basophils % 2.1 %; Eosinophils # 0.3 10^3/uL (0.0-0.8); Eosinophils % 8.3 %; Hematocrit 40.4 % (42.0-52.0); Hemoglobin 13.8 g/dL (11.7-16.6); Lymphocytes # 0.9 10^3/uL (0.8-4.8); Lymphocytes % 27.3 %; Mean Corpuscular HGB Conc 34.2 g/dL (30.0-36.0); Mean Corpuscular Hemoglobin 30.3 pg (28.0-34.0); Mean Corpuscular Volume 88.8 fl (80-94); Mean Platelet Volume 8.8 fL (7.4-10.4); Monocytes # 0.5 10^3/uL (0.2-0.9); Monocytes % 14.5 %; Neutrophils % 47.5 %; Nucleated Red Blood Cells % 0 %; Platelet Count 168 10^3/cmm (130-400); Red Blood Count 4.55 10^6/uL (4.1-5.3); Red Cell Distribution Width 13.7 % (12.1-15.1); White Blood Count 3.4 10^3/uL (4.0-10.0)
[2023-02-07 07:35] LABS: Alanine Aminotransferase 49 U/L (0-41); Albumin Level 3.9 g/dL (3.5-5.2); Alkaline Phosphatase 124 U/L (40-130); Anion Gap 13.8 (5-19); Aspartate Amino Transferase 26 U/L (0-40); Blood Urea Nitrogen 25 mg/dL (6-20); Calcium 9.1 mg/dL (8.5-10.5); Carbon Dioxide 23 mmol/L (22-29); Chloride 105 mmol/L (98-107); Gamma Glutamyl Transferase 78 U/L (8-61); Globulin 3.3 g/dL (1.3-4.6); Glomerular Filtration Rate 99.3 mL/min (90-130); Glucose 266 mg/dL (65-115); Magnesium 1.6 mg/dL (1.7-2.3); Osmolality Calculated 298 mOsm/kg (285-295); Phosphorus 2.7 mg/dL (2.5-4.5); Potassium 4.8 mmol/L (3.5-5.1); Sodium 137 mmol/L (136-145); Total Bilirubin 0.3 mg/dL (0.15-1.2); Total Protein 7.2 g/dL (6.6-8.7)
[2023-02-14 06:47] LABS: Basophils # 0.1 10^3/uL (0.0-0.1); Basophils % 1.4 %; Eosinophils # 0.3 10^3/uL (0.0-0.8); Eosinophils % 5.9 %; Hematocrit 40.3 % (42.0-52.0); Hemoglobin 13.5 g/dL (11.7-16.6); Lymphocytes % 22.4 %; Mean Corpuscular HGB Conc 33.5 g/dL (30.0-36.0); Mean Corpuscular Hemoglobin 29.9 pg (28.0-34.0); Mean Corpuscular Volume 89.4 fl (80-94); Mean Platelet Volume 9.5 fL (7.4-10.4); Monocytes # 0.7 10^3/uL (0.2-0.9); Monocytes % 16.3 %; Neutrophils # 2.36 10^3/uL (1.8-7.7); Neutrophils % 53.5 %; Nucleated Red Blood Cells % 0 %; Platelet Count 147 10^3/cmm (130-400); Red Blood Count 4.51 10^6/uL (4.1-5.3); Red Cell Distribution Width 13.9 % (12.1-15.1); White Blood Count 4.4 10^3/uL (4.0-10.0)
[2023-02-14 07:11] LABS: Carbon Dioxide 24 mmol/L (22-29); Chloride 107 mmol/L (98-107); Potassium 4.7 mmol/L (3.5-5.1); Sodium 139 mmol/L (136-145)
[2023-02-14 07:12] LABS: Alanine Aminotransferase 66 U/L (0-41); Albumin Level 3.9 g/dL (3.5-5.2); Alkaline Phosphatase 104 U/L (40-130); Anion Gap 12.7 (5-19); Aspartate Amino Transferase 32 U/L (0-40); Blood Urea Nitrogen 26 mg/dL (6-20); Calcium 8.9 mg/dL (8.5-10.5); Gamma Glutamyl Transferase 71 U/L (8-61); Globulin 2.8 g/dL (1.3-4.6); Glomerular Filtration Rate 99.3 mL/min (90-130); Glucose 189 mg/dL (65-115); Magnesium 1.7 mg/dL (1.7-2.3); Osmolality Calculated 298 mOsm/kg (285-295); Phosphorus 2.7 mg/dL (2.5-4.5); Total Bilirubin 0.3 mg/dL (0.15-1.2); Total Protein 6.7 g/dL (6.6-8.7)
[2023-02-21 07:13] LABS: Basophils # 0.1 10^3/uL (0.0-0.1); Basophils % 1.4 %; Eosinophils # 0.4 10^3/uL (0.0-0.8); Eosinophils % 7.5 %; Hematocrit 41.3 % (37-53); Lymphocytes % 18.8 %; Mean Corpuscular HGB Conc 33.9 g/dL (30-55); Mean Corpuscular Volume 88.6 fl (82-101); Monocytes # 0.7 10^3/uL (0.2-0.9); Monocytes % 14.1 %; Neutrophils # 2.99 10^3/uL (1.8-7.7); Neutrophils % 57.8 %; Nucleated Red Blood Cells % 0 %; Platelet Count 144 10^3/cmm (157-399); Red Blood Count 4.66 10^6/uL (3.85-5.65); Red Cell Distribution Width 13.8 % (12.1-15.1); White Blood Count 5.17 10^3/uL (3.29-11.43)
[2023-02-21 07:34] LABS: Alanine Aminotransferase 63 U/L (0-41); Alkaline Phosphatase 122 U/L (40-130); Anion Gap 12.5 (5-19); Aspartate Amino Transferase 23 U/L (0-40); Blood Urea Nitrogen 23 mg/dL (6-20); Calcium 9.1 mg/dL (8.5-10.5); Carbon Dioxide 24 mmol/L (22-29); Chloride 103 mmol/L (98-107); Gamma Glutamyl Transferase 83 U/L (8-61); Globulin 3.2 g/dL (1.3-4.6); Glomerular Filtration Rate 86.7 mL/min (90-130); Glucose 220 mg/dL (65-115); Magnesium 1.5 mg/dL (1.7-2.3); Osmolality Calculated 290 mOsm/kg (285-295); Phosphorus 2.9 mg/dL (2.5-4.5); Potassium 4.5 mmol/L (3.5-5.1); Sodium 135 mmol/L (136-145); Total Bilirubin 0.4 mg/dL (0.15-1.2); Total Protein 7.2 g/dL (6.6-8.7)
== END 2023-02-24 23:59 | disposition home or self-care (01) ==
LOC: LAB 06:51
PROVIDERS: PCP Family Medicine; Visit Provider Surgery Surgical Oncology
DX: Z94.4 Liver transplant status (principal); Z77.21 Contact with and (suspected) exposure to potentially hazardous body fluids
CPT/HCPCS: 36415; 80053; 80197; 82977; 83735; 84100; 85025

== ENCOUNTER 2023-02-22 17:15 | Outpatient (CLI) | payer OTHER, SELFPAY ==
[2023-02-03 07:22] LABS: Basophils # 0.1 10^3/uL (0.0-0.1); Basophils % 2.1 %; Eosinophils # 0.3 10^3/uL (0.0-0.8); Hemoglobin 13.9 g/dL (11.7-16.6); Lymphocytes # 0.8 10^3/uL (0.8-4.8); Lymphocytes % 20.8 %; Mean Corpuscular HGB Conc 33.9 g/dL (30.0-36.0); Mean Corpuscular Hemoglobin 30.4 pg (28.0-34.0); Mean Corpuscular Volume 89.7 fl (80-94); Mean Platelet Volume 9.2 fL (7.4-10.4); Monocytes # 0.7 10^3/uL (0.2-0.9); Monocytes % 18.4 %; Neutrophils # 1.98 10^3/uL (1.8-7.7); Neutrophils % 51.4 %; Nucleated Red Blood Cells % 0 %; Platelet Count 165 10^3/cmm (130-400); Red Blood Count 4.57 10^6/uL (4.1-5.3); Red Cell Distribution Width 14.1 % (12.1-15.1); White Blood Count 3.9 10^3/uL (4.0-10.0)
[2023-02-03 07:49] LABS: Alanine Aminotransferase 55 U/L (0-41); Albumin Level 3.9 g/dL (3.5-5.2); Alkaline Phosphatase 127 U/L (40-130); Anion Gap 13.8 (5-19); Aspartate Amino Transferase 24 U/L (0-40); Blood Urea Nitrogen 16 mg/dL (6-20); Calcium 9.1 mg/dL (8.5-10.5); Carbon Dioxide 26 mmol/L (22-29); Chloride 103 mmol/L (98-107); Globulin 3.4 g/dL (1.3-4.6); Glomerular Filtration Rate 99.3 mL/min (90-130); Glucose 264 mg/dL (65-115); Magnesium 1.6 mg/dL (1.7-2.3); Osmolality Calculated 296 mOsm/kg (285-295); Phosphorus 2.9 mg/dL (2.5-4.5); Potassium 4.8 mmol/L (3.5-5.1); Sodium 138 mmol/L (136-145); Total Bilirubin 0.4 mg/dL (0.15-1.2); Total Protein 7.3 g/dL (6.6-8.7)
[2023-02-03 08:58] LABS: Gamma Glutamyl Transferase 82 U/L (8-61)
== END 2023-02-22 17:16 | disposition home or self-care (01) ==
PROVIDERS: PCP Family Medicine; Visit Provider Surgery Surgical Oncology
DX: E03.9 Hypothyroidism, unspecified (principal); Z79.899 Other long term (current) drug therapy
CPT/HCPCS: 36415; 80053; 80197; 82977; 83735; 84100; 85025

== ENCOUNTER → 2023-03-11 12:37 | Outpatient (BNVA) | payer OTHER, SELFPAY | PROVIDERS: PCP Family Medicine; Visit Provider Internal Medicine | DX: E11.9 Type 2 diabetes mellitus without complications (principal); E78.2 Mixed hyperlipidemia; E03.9 Hypothyroidism, unspecified | CPT/HCPCS: 36415; 84439; 84443 ==

== ENCOUNTER 2023-03-21 06:20 | Outpatient (RCR) | payer OTHER, SELFPAY ==
[2023-02-28 07:43] LABS: Basophils # 0.1 10^3/uL (0.0-0.1); Basophils % 1.4 %; Eosinophils # 0.5 10^3/uL (0.0-0.8); Eosinophils % 9.1 %; Hematocrit 41.4 % (37-53); Lymphocytes # 0.8 10^3/uL (0.8-4.8); Lymphocytes % 16.7 %; Mean Corpuscular HGB Conc 33.8 g/dL (30-55); Mean Corpuscular Hemoglobin 29.5 pg (27-33); Mean Corpuscular Volume 87.3 fl (82-101); Mean Platelet Volume 9.6 fL (7.4-10.4); Monocytes # 0.7 10^3/uL (0.2-0.9); Monocytes % 13.3 %; Neutrophils # 2.98 10^3/uL (1.8-7.7); Neutrophils % 59.1 %; Nucleated Red Blood Cells % 0 %; Platelet Count 145 10^3/cmm (157-399); Red Blood Count 4.74 10^6/uL (3.85-5.65); Red Cell Distribution Width 13.8 % (12.1-15.1); White Blood Count 5.04 10^3/uL (3.29-11.43)
[2023-02-28 08:06] LABS: Alanine Aminotransferase 83 U/L (0-41); Albumin Level 4.2 g/dL (3.5-5.2); Alkaline Phosphatase 105 U/L (40-130); Anion Gap 13.2 (5-19); Aspartate Amino Transferase 48 U/L (0-40); Blood Urea Nitrogen 26 mg/dL (6-20); Calcium 9.2 mg/dL (8.5-10.5); Carbon Dioxide 25 mmol/L (22-29); Chloride 103 mmol/L (98-107); Globulin 3.2 g/dL (1.3-4.6); Glomerular Filtration Rate 98.9 mL/min (90-130); Glucose 261 mg/dL (65-115); Magnesium 1.7 mg/dL (1.7-2.3); Osmolality Calculated 296 mOsm/kg (285-295); Phosphorus 2.8 mg/dL (2.5-4.5); Potassium 5.2 mmol/L (3.5-5.1); Sodium 136 mmol/L (136-145); Total Bilirubin 0.4 mg/dL (0.15-1.2); Total Protein 7.4 g/dL (6.6-8.7)
[2023-02-28 08:24] LABS: Gamma Glutamyl Transferase 79 U/L (8-61)
[2023-03-07 07:12] LABS: Basophils # 0.1 10^3/uL (0.0-0.1); Basophils % 1.1 %; Eosinophils # 0.5 10^3/uL (0.0-0.8); Eosinophils % 10.2 %; Hematocrit 40.1 % (37-53); Lymphocytes # 0.9 10^3/uL (0.8-4.8); Lymphocytes % 21.4 %; Mean Corpuscular HGB Conc 34.2 g/dL (30-55); Mean Corpuscular Hemoglobin 29.7 pg (27-33); Mean Corpuscular Volume 86.8 fl (82-101); Mean Platelet Volume 9.4 fL (7.4-10.4); Monocytes # 0.6 10^3/uL (0.2-0.9); Monocytes % 14.1 %; Neutrophils # 2.33 10^3/uL (1.8-7.7); Nucleated Red Blood Cells % 0 %; Platelet Count 162 10^3/cmm (157-399); Red Blood Count 4.62 10^6/uL (3.85-5.65); Red Cell Distribution Width 13.6 % (12.1-15.1)
[2023-03-07 07:35] LABS: Magnesium 1.6 mg/dL (1.7-2.3); Phosphorus 2.8 mg/dL (2.5-4.5)
[2023-03-07 07:52] LABS: Gamma Glutamyl Transferase 65 U/L (8-61)
[2023-03-14 07:21] LABS: Basophils # 0.1 10^3/uL (0.0-0.1); Basophils % 1.1 %; Eosinophils # 0.4 10^3/uL (0.0-0.8); Eosinophils % 8.4 %; Hematocrit 40.9 % (37-53); Lymphocytes % 21.7 %; Mean Corpuscular Hemoglobin 29.8 pg (27-33); Mean Corpuscular Volume 87.6 fl (82-101); Mean Platelet Volume 9.3 fL (7.4-10.4); Monocytes # 0.7 10^3/uL (0.2-0.9); Monocytes % 13.9 %; Neutrophils # 2.55 10^3/uL (1.8-7.7); Neutrophils % 54.7 %; Nucleated Red Blood Cells % 0 %; Platelet Count 145 10^3/cmm (157-399); Red Blood Count 4.67 10^6/uL (3.85-5.65); Red Cell Distribution Width 13.8 % (12.1-15.1); White Blood Count 4.66 10^3/uL (3.29-11.43)
[2023-03-14 07:40] LABS: Alanine Aminotransferase 93 U/L (0-41); Albumin Level 4.2 g/dL (3.5-5.2); Alkaline Phosphatase 125 U/L (40-130); Anion Gap 9.7 (5-19); Aspartate Amino Transferase 35 U/L (0-40); Blood Urea Nitrogen 24 mg/dL (6-20); Calcium 9.2 mg/dL (8.5-10.5); Carbon Dioxide 29 mmol/L (22-29); Chloride 101 mmol/L (98-107); Globulin 3.1 g/dL (1.3-4.6); Glomerular Filtration Rate 86.4 mL/min (90-130); Glucose 252 mg/dL (65-115); Magnesium 1.7 mg/dL (1.7-2.3); Osmolality Calculated 293 mOsm/kg (285-295); Phosphorus 2.8 mg/dL (2.5-4.5); Potassium 4.7 mmol/L (3.5-5.1); Sodium 135 mmol/L (136-145); Total Bilirubin 0.3 mg/dL (0.15-1.2); Total Protein 7.3 g/dL (6.6-8.7)
[2023-03-14 08:18] LABS: Gamma Glutamyl Transferase 88 U/L (8-61)
[2023-03-21 06:40] LABS: Basophils # 0.1 10^3/uL (0.0-0.1); Eosinophils # 0.6 10^3/uL (0.0-0.8); Eosinophils % 9.4 %; Hematocrit 41.2 % (37-53); Lymphocytes # 1.3 10^3/uL (0.8-4.8); Lymphocytes % 21.4 %; Mean Corpuscular HGB Conc 34.5 g/dL (30-55); Mean Corpuscular Hemoglobin 29.7 pg (27-33); Mean Corpuscular Volume 86.2 fl (82-101); Mean Platelet Volume 9.2 fL (7.4-10.4); Monocytes # 0.7 10^3/uL (0.2-0.9); Monocytes % 12.6 %; Neutrophils # 3.24 10^3/uL (1.8-7.7); Neutrophils % 55.1 %; Nucleated Red Blood Cells % 0 %; Platelet Count 179 10^3/cmm (157-399); Red Blood Count 4.78 10^6/uL (3.85-5.65); Red Cell Distribution Width 13.6 % (12.1-15.1); White Blood Count 5.88 10^3/uL (3.29-11.43)
[2023-03-21 06:55] LABS: Alanine Aminotransferase 67 U/L (0-41); Alkaline Phosphatase 119 U/L (40-130); Anion Gap 11.4 (5-19); Aspartate Amino Transferase 27 U/L (0-40); Blood Urea Nitrogen 30 mg/dL (6-20); Calcium 8.9 mg/dL (8.5-10.5); Carbon Dioxide 27 mmol/L (22-29); Chloride 100 mmol/L (98-107); Gamma Glutamyl Transferase 90 U/L (8-61); Globulin 3.2 g/dL (1.3-4.6); Glomerular Filtration Rate 76.5 mL/min (90-130); Glucose 255 mg/dL (65-115); Magnesium 1.9 mg/dL (1.7-2.3); Osmolality Calculated 293 mOsm/kg (285-295); Phosphorus 2.9 mg/dL (2.5-4.5); Potassium 4.4 mmol/L (3.5-5.1); Sodium 134 mmol/L (136-145); Total Bilirubin 0.3 mg/dL (0.15-1.2); Total Protein 7.2 g/dL (6.6-8.7)
== END 2023-03-26 23:59 | disposition home or self-care (01) ==
LOC: LAB 06:20
PROVIDERS: PCP Family Medicine; Visit Provider Surgery Surgical Oncology
DX: Z94.4 Liver transplant status (principal); Z77.21 Contact with and (suspected) exposure to potentially hazardous body fluids
CPT/HCPCS: 36415; 36416; 80053; 80197; 82977; 83735; 84100; 85025

== ENCOUNTER 2023-04-25 06:12 | Outpatient (RCR) | payer OTHER, SELFPAY ==
[2023-03-28 06:39] LABS: Basophils # 0.1 10^3/uL (0.0-0.1); Basophils % 1.5 %; Eosinophils # 0.4 10^3/uL (0.0-0.8); Eosinophils % 9.6 %; Lymphocytes # 0.8 10^3/uL (0.8-4.8); Mean Corpuscular Hemoglobin 29.4 pg (27-33); Mean Corpuscular Volume 86.2 fl (82-101); Mean Platelet Volume 9.5 fL (7.4-10.4); Monocytes # 0.8 10^3/uL (0.2-0.9); Monocytes % 17.5 %; Neutrophils # 2.42 10^3/uL (1.8-7.7); Neutrophils % 53.2 %; Nucleated Red Blood Cells % 0 %; Platelet Count 159 10^3/cmm (157-399); Red Blood Count 4.87 10^6/uL (3.85-5.65); Red Cell Distribution Width 13.6 % (12.1-15.1); White Blood Count 4.56 10^3/uL (3.29-11.43)
[2023-03-28 07:00] LABS: Alanine Aminotransferase 138 U/L (0-41); Albumin Level 3.9 g/dL (3.5-5.2); Alkaline Phosphatase 132 U/L (40-130); Anion Gap 12.5 (5-19); Aspartate Amino Transferase 72 U/L (0-40); Blood Urea Nitrogen 18 mg/dL (6-20); Carbon Dioxide 28 mmol/L (22-29); Chloride 102 mmol/L (98-107); Gamma Glutamyl Transferase 111 U/L (8-61); Globulin 3.4 g/dL (1.3-4.6); Glomerular Filtration Rate 76.5 mL/min (90-130); Glucose 222 mg/dL (65-115); Osmolality Calculated 295 mOsm/kg (285-295); Phosphorus 2.3 mg/dL (2.5-4.5); Potassium 4.5 mmol/L (3.5-5.1); Sodium 138 mmol/L (136-145); Total Bilirubin 0.3 mg/dL (0.15-1.2); Total Protein 7.3 g/dL (6.6-8.7)
[2023-04-04 06:56] LABS: Basophils % 0.9 %; Eosinophils # 0.4 10^3/uL (0.0-0.8); Eosinophils % 8.6 %; Hematocrit 40.5 % (37-53); Lymphocytes # 0.9 10^3/uL (0.8-4.8); Lymphocytes % 18.3 %; Mean Corpuscular HGB Conc 33.6 g/dL (30-55); Mean Corpuscular Hemoglobin 29.5 pg (27-33); Mean Corpuscular Volume 87.9 fl (82-101); Mean Platelet Volume 9.4 fL (7.4-10.4); Monocytes # 0.7 10^3/uL (0.2-0.9); Monocytes % 15.1 %; Neutrophils # 2.63 10^3/uL (1.8-7.7); Neutrophils % 56.5 %; Nucleated Red Blood Cells % 0 %; Platelet Count 150 10^3/cmm (157-399); Red Blood Count 4.61 10^6/uL (3.85-5.65); Red Cell Distribution Width 13.7 % (12.1-15.1); White Blood Count 4.65 10^3/uL (3.29-11.43)
[2023-04-04 07:16] LABS: Alanine Aminotransferase 97 U/L (0-41); Albumin Level 3.8 g/dL (3.5-5.2); Alkaline Phosphatase 139 U/L (40-130); Anion Gap 10.1 (5-19); Aspartate Amino Transferase 41 U/L (0-40); Blood Urea Nitrogen 22 mg/dL (6-20); Carbon Dioxide 27 mmol/L (22-29); Chloride 100 mmol/L (98-107); Gamma Glutamyl Transferase 123 U/L (8-61); Glomerular Filtration Rate 98.9 mL/min (90-130); Glucose 204 mg/dL (65-115); Magnesium 1.8 mg/dL (1.7-2.3); Osmolality Calculated 285 mOsm/kg (285-295); Phosphorus 2.7 mg/dL (2.5-4.5); Potassium 4.1 mmol/L (3.5-5.1); Sodium 133 mmol/L (136-145); Total Bilirubin 0.3 mg/dL (0.15-1.2); Total Protein 6.8 g/dL (6.6-8.7)
[2023-04-11 06:48] LABS: Basophils # 0.1 10^3/uL (0.0-0.1); Basophils % 1.5 %; Eosinophils # 0.5 10^3/uL (0.0-0.8); Eosinophils % 9.9 %; Hematocrit 41.1 % (37-53); Lymphocytes % 21.8 %; Mean Corpuscular HGB Conc 33.1 g/dL (30-55); Mean Corpuscular Hemoglobin 29.2 pg (27-33); Mean Corpuscular Volume 88.4 fl (82-101); Monocytes # 0.5 10^3/uL (0.2-0.9); Monocytes % 11.9 %; Neutrophils # 2.49 10^3/uL (1.8-7.7); Neutrophils % 54.7 %; Nucleated Red Blood Cells % 0 %; Platelet Count 157 10^3/cmm (157-399); Red Blood Count 4.65 10^6/uL (3.85-5.65); Red Cell Distribution Width 14.1 % (12.1-15.1); White Blood Count 4.55 10^3/uL (3.29-11.43)
[2023-04-11 07:03] LABS: Alanine Aminotransferase 61 U/L (0-41); Albumin Level 3.9 g/dL (3.5-5.2); Alkaline Phosphatase 161 U/L (40-130); Anion Gap 13.4 (5-19); Aspartate Amino Transferase 35 U/L (0-40); Blood Urea Nitrogen 27 mg/dL (6-20); Calcium 9.1 mg/dL (8.5-10.5); Carbon Dioxide 25 mmol/L (22-29); Chloride 104 mmol/L (98-107); Glomerular Filtration Rate 76.5 mL/min (90-130); Glucose 320 mg/dL (65-115); Magnesium 1.6 mg/dL (1.7-2.3); Osmolality Calculated 303 mOsm/kg (285-295); Phosphorus 3.1 mg/dL (2.5-4.5); Potassium 4.4 mmol/L (3.5-5.1); Sodium 138 mmol/L (136-145); Total Bilirubin 0.2 mg/dL (0.15-1.2); Total Protein 6.9 g/dL (6.6-8.7)
[2023-04-11 07:25] LABS: Gamma Glutamyl Transferase 135 U/L (8-61)
[2023-04-18 06:38] LABS: Basophils # 0.1 10^3/uL (0.0-0.1); Eosinophils # 0.5 10^3/uL (0.0-0.8); Eosinophils % 10.3 %; Hematocrit 40.4 % (37-53); Lymphocytes # 0.9 10^3/uL (0.8-4.8); Lymphocytes % 17.7 %; Mean Corpuscular HGB Conc 33.7 g/dL (30-55); Mean Corpuscular Hemoglobin 29.4 pg (27-33); Mean Corpuscular Volume 87.3 fl (82-101); Mean Platelet Volume 9.7 fL (7.4-10.4); Monocytes # 0.7 10^3/uL (0.2-0.9); Monocytes % 14.2 %; Neutrophils # 2.74 10^3/uL (1.8-7.7); Neutrophils % 56.6 %; Nucleated Red Blood Cells % 0 %; Platelet Count 154 10^3/cmm (157-399); Red Blood Count 4.63 10^6/uL (3.85-5.65); Red Cell Distribution Width 14.2 % (12.1-15.1); White Blood Count 4.85 10^3/uL (3.29-11.43)
[2023-04-18 06:51] LABS: Alanine Aminotransferase 58 U/L (0-41); Albumin Level 3.9 g/dL (3.5-5.2); Alkaline Phosphatase 162 U/L (40-130); Anion Gap 10.5 (5-19); Aspartate Amino Transferase 27 U/L (0-40); Blood Urea Nitrogen 18 mg/dL (6-20); Calcium 9.3 mg/dL (8.5-10.5); Carbon Dioxide 25 mmol/L (22-29); Chloride 106 mmol/L (98-107); Glomerular Filtration Rate 98.9 mL/min (90-130); Glucose 295 mg/dL (65-115); Magnesium 1.7 mg/dL (1.7-2.3); Osmolality Calculated 297 mOsm/kg (285-295); Phosphorus 2.9 mg/dL (2.5-4.5); Potassium 4.5 mmol/L (3.5-5.1); Sodium 137 mmol/L (136-145); Total Bilirubin 0.3 mg/dL (0.15-1.2); Total Protein 6.9 g/dL (6.6-8.7)
[2023-04-18 07:18] LABS: Gamma Glutamyl Transferase 153 U/L (8-61)
[2023-04-25 07:02] LABS: Basophils # 0.1 10^3/uL (0.0-0.1); Basophils % 1.4 %; Eosinophils # 0.6 10^3/uL (0.0-0.8); Eosinophils % 11.6 %; Hematocrit 42.6 % (37-53); Lymphocytes # 1.1 10^3/uL (0.8-4.8); Lymphocytes % 21.1 %; Mean Corpuscular Hemoglobin 29.1 pg (27-33); Mean Corpuscular Volume 85.4 fl (82-101); Mean Platelet Volume 10.3 fL (7.4-10.4); Monocytes # 0.7 10^3/uL (0.2-0.9); Monocytes % 13.2 %; Neutrophils # 2.67 10^3/uL (1.8-7.7); Neutrophils % 52.5 %; Nucleated Red Blood Cells % 0 %; Platelet Count 173 10^3/cmm (157-399); Red Blood Count 4.99 10^6/uL (3.85-5.65); Red Cell Distribution Width 14.1 % (12.1-15.1); White Blood Count 5.08 10^3/uL (3.29-11.43)
[2023-04-25 07:24] LABS: Alanine Aminotransferase 36 U/L (0-41); Alkaline Phosphatase 142 U/L (40-130); Anion Gap 13.3 (5-19); Aspartate Amino Transferase 19 U/L (0-40); Blood Urea Nitrogen 21 mg/dL (6-20); Calcium 9.3 mg/dL (8.5-10.5); Carbon Dioxide 26 mmol/L (22-29); Chloride 103 mmol/L (98-107); Gamma Glutamyl Transferase 108 U/L (8-61); Globulin 3.3 g/dL (1.3-4.6); Glomerular Filtration Rate 86.4 mL/min (90-130); Glucose 239 mg/dL (65-115); Magnesium 1.6 mg/dL (1.7-2.3); Osmolality Calculated 297 mOsm/kg (285-295); Phosphorus 2.9 mg/dL (2.5-4.5); Potassium 4.3 mmol/L (3.5-5.1); Sodium 138 mmol/L (136-145); Total Bilirubin 0.4 mg/dL (0.15-1.2); Total Protein 7.3 g/dL (6.6-8.7)
== END 2023-04-26 23:59 | disposition home or self-care (01) ==
LOC: LAB 06:12
PROVIDERS: PCP Family Medicine; Visit Provider Surgery Surgical Oncology
DX: Z94.4 Liver transplant status (principal); Z77.21 Contact with and (suspected) exposure to potentially hazardous body fluids; Z79.899 Other long term (current) drug therapy
CPT/HCPCS: 36415; 80053; 80197; 82977; 83735; 84100; 85025

== ENCOUNTER → 2023-05-05 10:37 | Outpatient (BNVA) | payer OTHER, SELFPAY | PROVIDERS: PCP Family Medicine; Visit Provider Internal Medicine | DX: E11.9 Type 2 diabetes mellitus without complications (principal); E03.9 Hypothyroidism, unspecified; E78.2 Mixed hyperlipidemia; E11.65 Type 2 diabetes mellitus with hyperglycemia; Z79.4 Long term (current) use of insulin; K22.9 Disease of esophagus, unspecified; K74.60 Unspecified cirrhosis of liver; R16.0 Hepatomegaly, not elsewhere classified; R74.01 Elevation of levels of liver transaminase levels | CPT/HCPCS: 80053; 80061; 82044; 83036; 84439; 84443 ==

== ENCOUNTER 2023-05-23 06:17 | Outpatient (RCR) | payer OTHER, SELFPAY ==
[2023-05-02 06:43] LABS: Basophils # 0.1 10^3/uL (0.0-0.1); Basophils % 1.5 %; Eosinophils # 0.5 10^3/uL (0.0-0.8); Eosinophils % 11.2 %; Hematocrit 40.8 % (37-53); Lymphocytes # 0.9 10^3/uL (0.8-4.8); Lymphocytes % 19.4 %; Mean Corpuscular HGB Conc 34.1 g/dL (30-55); Mean Corpuscular Hemoglobin 29.3 pg (27-33); Mean Corpuscular Volume 86.1 fl (82-101); Mean Platelet Volume 9.7 fL (7.4-10.4); Monocytes # 0.7 10^3/uL (0.2-0.9); Monocytes % 13.7 %; Neutrophils # 2.53 10^3/uL (1.8-7.7); Neutrophils % 53.4 %; Nucleated Red Blood Cells % 0 %; Platelet Count 151 10^3/cmm (157-399); Red Blood Count 4.74 10^6/uL (3.85-5.65); Red Cell Distribution Width 13.9 % (12.1-15.1); White Blood Count 4.74 10^3/uL (3.29-11.43)
[2023-05-02 06:57] LABS: Alanine Aminotransferase 34 U/L (0-41); Albumin Level 4.1 g/dL (3.5-5.2); Alkaline Phosphatase 131 U/L (40-130); Anion Gap 12.5 (5-19); Aspartate Amino Transferase 17 U/L (0-40); Blood Urea Nitrogen 19 mg/dL (6-20); Calcium 9.1 mg/dL (8.5-10.5); Carbon Dioxide 25 mmol/L (22-29); Chloride 105 mmol/L (98-107); Globulin 2.7 g/dL (1.3-4.6); Glomerular Filtration Rate 86.4 mL/min (90-130); Glucose 264 mg/dL (65-115); Magnesium 1.6 mg/dL (1.7-2.3); Osmolality Calculated 297 mOsm/kg (285-295); Phosphorus 2.8 mg/dL (2.5-4.5); Potassium 4.5 mmol/L (3.5-5.1); Sodium 138 mmol/L (136-145); Total Bilirubin 0.4 mg/dL (0.15-1.2); Total Protein 6.8 g/dL (6.6-8.7)
[2023-05-02 10:06] LABS: Gamma Glutamyl Transferase 92 U/L (8-61)
[2023-05-09 06:39] LABS: Basophils # 0.1 10^3/uL (0.0-0.1); Eosinophils # 0.5 10^3/uL (0.0-0.8); Eosinophils % 10.4 %; Hematocrit 43.4 % (37-53); Lymphocytes % 21.3 %; Mean Corpuscular HGB Conc 33.4 g/dL (30-55); Mean Corpuscular Hemoglobin 28.8 pg (27-33); Mean Corpuscular Volume 86.3 fl (82-101); Mean Platelet Volume 9.9 fL (7.4-10.4); Monocytes # 0.7 10^3/uL (0.2-0.9); Monocytes % 13.3 %; Neutrophils # 2.63 10^3/uL (1.8-7.7); Neutrophils % 53.8 %; Nucleated Red Blood Cells % 0 %; Platelet Count 155 10^3/cmm (157-399); Red Blood Count 5.03 10^6/uL (3.85-5.65); Red Cell Distribution Width 14.3 % (12.1-15.1); White Blood Count 4.89 10^3/uL (3.29-11.43)
[2023-05-09 06:58] LABS: Alanine Aminotransferase 25 U/L (0-41); Alkaline Phosphatase 112 U/L (40-130); Anion Gap 11.1 (5-19); Aspartate Amino Transferase 16 U/L (0-40); Blood Urea Nitrogen 18 mg/dL (6-20); Calcium 9.1 mg/dL (8.5-10.5); Carbon Dioxide 26 mmol/L (22-29); Chloride 105 mmol/L (98-107); Gamma Glutamyl Transferase 73 U/L (8-61); Globulin 3.2 g/dL (1.3-4.6); Glomerular Filtration Rate 86.4 mL/min (90-130); Glucose 217 mg/dL (65-115); Magnesium 1.6 mg/dL (1.7-2.3); Osmolality Calculated 294 mOsm/kg (285-295); Phosphorus 2.8 mg/dL (2.5-4.5); Potassium 4.1 mmol/L (3.5-5.1); Sodium 138 mmol/L (136-145); Total Bilirubin 0.4 mg/dL (0.15-1.2); Total Protein 7.2 g/dL (6.6-8.7)
[2023-05-16 07:25] LABS: Basophils # 0.1 10^3/uL (0.0-0.1); Basophils % 0.9 %; Eosinophils # 0.5 10^3/uL (0.0-0.8); Eosinophils % 8.5 %; Hematocrit 44.6 % (37-53); Lymphocytes # 0.9 10^3/uL (0.8-4.8); Lymphocytes % 17.1 %; Mean Corpuscular HGB Conc 33.2 g/dL (30-55); Mean Corpuscular Volume 87.5 fl (82-101); Mean Platelet Volume 9.6 fL (7.4-10.4); Monocytes # 0.8 10^3/uL (0.2-0.9); Monocytes % 15.7 %; Neutrophils # 3.03 10^3/uL (1.8-7.7); Neutrophils % 57.6 %; Nucleated Red Blood Cells % 0 %; Platelet Count 156 10^3/cmm (157-399); Red Cell Distribution Width 14.6 % (12.1-15.1); White Blood Count 5.27 10^3/uL (3.29-11.43)
[2023-05-16 07:57] LABS: Alanine Aminotransferase 25 U/L (0-41); Alkaline Phosphatase 106 U/L (40-130); Anion Gap 14.5 (5-19); Aspartate Amino Transferase 16 U/L (0-40); Blood Urea Nitrogen 18 mg/dL (6-20); Calcium 9.1 mg/dL (8.5-10.5); Carbon Dioxide 25 mmol/L (22-29); Chloride 101 mmol/L (98-107); Gamma Glutamyl Transferase 62 U/L (8-61); Globulin 3.3 g/dL (1.3-4.6); Glomerular Filtration Rate 86.4 mL/min (90-130); Glucose 293 mg/dL (65-115); Magnesium 1.7 mg/dL (1.7-2.3); Osmolality Calculated 295 mOsm/kg (285-295); Phosphorus 2.2 mg/dL (2.5-4.5); Potassium 4.5 mmol/L (3.5-5.1); Sodium 136 mmol/L (136-145); Total Bilirubin 0.4 mg/dL (0.15-1.2); Total Protein 7.3 g/dL (6.6-8.7)
[2023-05-23 06:35] LABS: Basophils # 0.1 10^3/uL (0.0-0.1); Basophils % 1.3 %; Eosinophils # 0.5 10^3/uL (0.0-0.8); Eosinophils % 10.2 %; Lymphocytes % 22.3 %; Mean Corpuscular HGB Conc 33.3 g/dL (30-55); Mean Corpuscular Volume 87.1 fl (82-101); Mean Platelet Volume 9.8 fL (7.4-10.4); Monocytes # 0.6 10^3/uL (0.2-0.9); Monocytes % 13.7 %; Neutrophils # 2.39 10^3/uL (1.8-7.7); Neutrophils % 51.8 %; Nucleated Red Blood Cells % 0 %; Platelet Count 149 10^3/cmm (157-399); Red Blood Count 4.82 10^6/uL (3.85-5.65); Red Cell Distribution Width 14.5 % (12.1-15.1); White Blood Count 4.61 10^3/uL (3.29-11.43)
[2023-05-23 07:05] LABS: Alanine Aminotransferase 28 U/L (0-41); Albumin Level 3.9 g/dL (3.5-5.2); Alkaline Phosphatase 101 U/L (40-130); Anion Gap 14.3 (5-19); Aspartate Amino Transferase 17 U/L (0-40); Blood Urea Nitrogen 16 mg/dL (6-20); Carbon Dioxide 24 mmol/L (22-29); Chloride 102 mmol/L (98-107); Gamma Glutamyl Transferase 57 U/L (8-61); Glomerular Filtration Rate 86.4 mL/min (90-130); Glucose 239 mg/dL (65-115); Magnesium 1.7 mg/dL (1.7-2.3); Osmolality Calculated 291 mOsm/kg (285-295); Phosphorus 2.4 mg/dL (2.5-4.5); Potassium 4.3 mmol/L (3.5-5.1); Sodium 136 mmol/L (136-145); Total Bilirubin 0.4 mg/dL (0.15-1.2); Total Protein 6.9 g/dL (6.6-8.7)
== END 2023-05-26 23:59 | disposition home or self-care (01) ==
LOC: LAB 06:17
PROVIDERS: PCP Family Medicine; Visit Provider Surgery Surgical Oncology
DX: Z94.4 Liver transplant status (principal); Z77.21 Contact with and (suspected) exposure to potentially hazardous body fluids
CPT/HCPCS: 36415; 80053; 80197; 82977; 83735; 84100; 85025

== ENCOUNTER 2023-06-21 06:10 | Outpatient (RCR) | payer OTHER, SELFPAY ==
[2023-05-30 06:41] LABS: Basophils # 0.1 10^3/uL (0.0-0.1); Eosinophils # 0.4 10^3/uL (0.0-0.8); Eosinophils % 7.4 %; Lymphocytes # 1.1 10^3/uL (0.8-4.8); Lymphocytes % 21.6 %; Mean Corpuscular HGB Conc 33.8 g/dL (30-55); Mean Corpuscular Hemoglobin 29.1 pg (27-33); Mean Corpuscular Volume 86.1 fl (82-101); Mean Platelet Volume 10.1 fL (7.4-10.4); Monocytes # 0.7 10^3/uL (0.2-0.9); Monocytes % 14.2 %; Neutrophils # 2.78 10^3/uL (1.8-7.7); Neutrophils % 55.4 %; Nucleated Red Blood Cells % 0 %; Platelet Count 175 10^3/cmm (157-399); Red Blood Count 4.88 10^6/uL (3.85-5.65); Red Cell Distribution Width 14.7 % (12.1-15.1); White Blood Count 5.01 10^3/uL (3.29-11.43)
[2023-05-30 07:04] LABS: Alanine Aminotransferase 21 U/L (0-41); Alkaline Phosphatase 92 U/L (40-130); Anion Gap 15.3 (5-19); Aspartate Amino Transferase 16 U/L (0-40); Blood Urea Nitrogen 17 mg/dL (6-20); Carbon Dioxide 23 mmol/L (22-29); Chloride 104 mmol/L (98-107); Glomerular Filtration Rate 86.4 mL/min (90-130); Glucose 194 mg/dL (65-115); Magnesium 1.7 mg/dL (1.7-2.3); Osmolality Calculated 293 mOsm/kg (285-295); Potassium 4.3 mmol/L (3.5-5.1); Sodium 138 mmol/L (136-145); Total Bilirubin 0.5 mg/dL (0.15-1.2)
[2023-05-30 07:25] LABS: Gamma Glutamyl Transferase 55 U/L (8-61)
[2023-06-06 06:42] LABS: Basophils % 0.8 %; Eosinophils # 0.3 10^3/uL (0.0-0.8); Eosinophils % 5.2 %; Hematocrit 42.7 % (37-53); Lymphocytes # 0.9 10^3/uL (0.8-4.8); Lymphocytes % 16.4 %; Mean Corpuscular HGB Conc 33.7 g/dL (30-55); Mean Corpuscular Hemoglobin 29.4 pg (27-33); Mean Corpuscular Volume 87.3 fl (82-101); Mean Platelet Volume 10.3 fL (7.4-10.4); Monocytes # 0.8 10^3/uL (0.2-0.9); Monocytes % 15.5 %; Neutrophils # 3.25 10^3/uL (1.8-7.7); Neutrophils % 61.9 %; Nucleated Red Blood Cells % 0 %; Platelet Count 155 10^3/cmm (157-399); Red Blood Count 4.89 10^6/uL (3.85-5.65); Red Cell Distribution Width 14.7 % (12.1-15.1); White Blood Count 5.24 10^3/uL (3.29-11.43)
[2023-06-06 06:58] LABS: Alanine Aminotransferase 41 U/L (0-41); Albumin Level 3.9 g/dL (3.5-5.2); Alkaline Phosphatase 88 U/L (40-130); Anion Gap 13.3 (5-19); Aspartate Amino Transferase 20 U/L (0-40); Blood Urea Nitrogen 22 mg/dL (6-20); Calcium 9.1 mg/dL (8.5-10.5); Carbon Dioxide 26 mmol/L (22-29); Chloride 102 mmol/L (98-107); Gamma Glutamyl Transferase 59 U/L (8-61); Globulin 3.2 g/dL (1.3-4.6); Glomerular Filtration Rate 76.5 mL/min (90-130); Glucose 217 mg/dL (65-115); Magnesium 1.6 mg/dL (1.7-2.3); Osmolality Calculated 294 mOsm/kg (285-295); Phosphorus 2.8 mg/dL (2.5-4.5); Potassium 4.3 mmol/L (3.5-5.1); Sodium 137 mmol/L (136-145); Total Bilirubin 0.5 mg/dL (0.15-1.2); Total Protein 7.1 g/dL (6.6-8.7)
[2023-06-13 06:48] LABS: Basophils # 0.1 10^3/uL (0.0-0.1); Basophils % 1.4 %; Eosinophils # 0.3 10^3/uL (0.0-0.8); Eosinophils % 7.7 %; Hematocrit 40.8 % (37-53); Lymphocytes # 0.8 10^3/uL (0.8-4.8); Lymphocytes % 17.2 %; Mean Corpuscular HGB Conc 33.6 g/dL (30-55); Mean Corpuscular Hemoglobin 28.8 pg (27-33); Mean Corpuscular Volume 85.9 fl (82-101); Mean Platelet Volume 9.3 fL (7.4-10.4); Monocytes # 0.6 10^3/uL (0.2-0.9); Monocytes % 13.6 %; Neutrophils # 2.63 10^3/uL (1.8-7.7); Neutrophils % 59.4 %; Nucleated Red Blood Cells % 0 %; Platelet Count 159 10^3/cmm (157-399); Red Blood Count 4.75 10^6/uL (3.85-5.65); Red Cell Distribution Width 14.6 % (12.1-15.1); White Blood Count 4.42 10^3/uL (3.29-11.43)
[2023-06-13 07:08] LABS: Alanine Aminotransferase 33 U/L (0-41); Albumin Level 3.9 g/dL (3.5-5.2); Alkaline Phosphatase 108 U/L (40-130); Anion Gap 11.1 (5-19); Aspartate Amino Transferase 19 U/L (0-40); Blood Urea Nitrogen 14 mg/dL (6-20); Carbon Dioxide 27 mmol/L (22-29); Chloride 104 mmol/L (98-107); Gamma Glutamyl Transferase 69 U/L (8-61); Globulin 3.1 g/dL (1.3-4.6); Glomerular Filtration Rate 86.4 mL/min (90-130); Glucose 257 mg/dL (65-115); Magnesium 1.7 mg/dL (1.7-2.3); Osmolality Calculated 295 mOsm/kg (285-295); Phosphorus 2.4 mg/dL (2.5-4.5); Potassium 4.1 mmol/L (3.5-5.1); Sodium 138 mmol/L (136-145); Total Bilirubin 0.4 mg/dL (0.15-1.2)
[2023-06-21 06:51] LABS: Basophils # 0.1 10^3/uL (0.0-0.1); Basophils % 1.8 %; Eosinophils # 0.3 10^3/uL (0.0-0.8); Eosinophils % 7.3 %; Hematocrit 42.8 % (37-53); Lymphocytes # 0.9 10^3/uL (0.8-4.8); Lymphocytes % 21.7 %; Mean Corpuscular HGB Conc 33.4 g/dL (30-55); Mean Corpuscular Hemoglobin 29.5 pg (27-33); Mean Corpuscular Volume 88.2 fl (82-101); Mean Platelet Volume 10.1 fL (7.4-10.4); Monocytes # 0.5 10^3/uL (0.2-0.9); Monocytes % 13.6 %; Neutrophils # 2.19 10^3/uL (1.8-7.7); Neutrophils % 55.3 %; Nucleated Red Blood Cells % 0 %; Platelet Count 157 10^3/cmm (157-399); Red Blood Count 4.85 10^6/uL (3.85-5.65); Red Cell Distribution Width 14.6 % (12.1-15.1); White Blood Count 3.96 10^3/uL (3.29-11.43)
[2023-06-21 07:13] LABS: Alanine Aminotransferase 23 U/L (0-41); Alkaline Phosphatase 98 U/L (40-130); Anion Gap 13.6 (5-19); Aspartate Amino Transferase 17 U/L (0-40); Blood Urea Nitrogen 18 mg/dL (6-20); Calcium 9.2 mg/dL (8.5-10.5); Carbon Dioxide 26 mmol/L (22-29); Chloride 103 mmol/L (98-107); Gamma Glutamyl Transferase 49 U/L (8-61); Glomerular Filtration Rate 86.4 mL/min (90-130); Glucose 267 mg/dL (65-115); Magnesium 1.7 mg/dL (1.7-2.3); Osmolality Calculated 297 mOsm/kg (285-295); Phosphorus 2.5 mg/dL (2.5-4.5); Potassium 4.6 mmol/L (3.5-5.1); Sodium 138 mmol/L (136-145); Total Bilirubin 0.3 mg/dL (0.15-1.2)
== END 2023-06-26 23:59 | disposition home or self-care (01) ==
LOC: LAB 06:10
PROVIDERS: PCP Family Medicine; Visit Provider Surgery Surgical Oncology
DX: Z94.4 Liver transplant status (principal); Z77.21 Contact with and (suspected) exposure to potentially hazardous body fluids
CPT/HCPCS: 36415; 80053; 80197; 82977; 83735; 84100; 85025

== ENCOUNTER 2023-06-24 06:54 | Outpatient (CLI) | payer OTHER, SELFPAY ==
--- NOTE | 2023-06-24 07:13 | MR_ITS ---
WS: [id number] MRI/MRCP OF THE ABDOMEN WITHOUT GADOLINIUM ENHANCEMENT TECHNIQUE: Coronal T2 Fase BH, Axial T2 Fase BH, Axial T2 FS BH, Zxial 3D Can BH, Axial DWI BH, 2D MRCP Radial BH, 3D MRCP (Resp), and Axial 3D Dyn BH Post sequences. CLINICAL INFORMATION: HEPATOCELLULAR CARCINOMA SCREEN HCC SCREENING COMPARISON: None. FINDINGS: Hepatomegaly. Portal vein and hepatic veins appear patent. No significant biliary ductal dilatation. Splenic vein is patent. Cholecystectomy. Splenomegaly. Incidental RIGHT hepatic cyst laterally measur ing 12 mm. No suspicious enhancing hepatic lesions. Small esophageal hiatal hernia. Mild splenomegaly. Small splenule. Adrenal glands are normal. No hydr onephrosis in either kidney. Small RIGHT renal cyst. Normal caliber abdominal aorta. Fatty atrophy of the pancreas. Residual upper abdominal varices. Common bile duct appears normal. A few slightly prom inent upper abdominal and peripancreatic lymph nodes likely reactive. Impression: 1. Incidental cyst in the RIGHT hepatic lobe measuring 11 mm. 2. No suspicious enhancing hepatic lesions. 3. Hepatomegaly and splenomegaly. 4. Cholecystectomy. 5. No other suspicious findings.
[2023-06-24] MEDS: gadobenate dimeglumine 20 mL vial IV (08:04)
== END 2023-06-24 06:55 | disposition home or self-care (01) ==
LOC: RAD 06:55
PROVIDERS: PCP Family Medicine; Visit Provider Surgery Surgical Oncology
DX: Z12.89 Encounter for screening for malignant neoplasm of other sites (principal); Z94.4 Liver transplant status; R16.2 Hepatomegaly with splenomegaly, not elsewhere classified; Z90.49 Acquired absence of other specified parts of digestive tract
CPT/HCPCS: 74183; A9577

== ENCOUNTER 2023-06-28 07:24 | Inpatient (IN) | payer OTHER, SELFPAY ==
[2023-06-28] VITALS (35 sets, daily range): BP systolic 107–166; BP diastolic 59–114; PULSE 58–144; RESP 12–23; TEMP 37.1; O2SAT 90–100; BMI 28.7
--- NOTE | 2023-06-28 07:39 | XRR_ITS ---
PROCEDURE INFORMATION: Exam: XR Chest Exam date and time: 06/28/2023 9:49 AM Age: 58 years old Clinical indication: Pain; Angina pectoris; Additional info: Chest pain TECHNIQUE: Imaging protocol: Radiologic exam of the chest. Views: 1 view. COMPARISON: CR XR chest 1V portable [id number] 12/15/2021 11:23 AM FINDINGS: Lungs: Unremarkable. No consolidation. Pleural spaces: Unremarkable. No pleural effusion. No pneumothorax. Heart/Mediastinum: Unremarkable. No cardiomegaly. Bones/joints: Unremarkable. XR/XR chest 1V portable [id number] IMPRESSION: No acute findings.
--- NOTE | 2023-06-28 07:40 | ECG_ITS ---
[facility] Test Date: 2023-06-28 Pat Name: Tani Montenegro Department: Room: Gender: Male Manager Knowledge: : 1965 Requested By: Neville Dubose Order Number: [id number] Armando MD: Nickie Denton M.D. Measurements Intervals [place] Rate: 119 P: 24 SD: 247 QRS: -13 QRSD: 102 T: 17 QT: 296 QTc: 417 Interpretive Statements Atrial fibrillation with rapid ventricular rate POSSIBLE ANTERIOR MYOCARDIAL INFARCTION , OF INDETERMINATE AGE [30 ms Q WAVE IN V3/V4, OR R < 0.2 mV IN V4] INFERIOR MYOCARDIAL INFARCTION , POSSIBLY ACUTE [40+ ms Q WAVE AND/OR ST/T ABNORMALITY IN II/aVF] ACUTE [place] INTERPRETATION BASED ON A DEFAULT AGE OF 40 YEARS Compared to ECG 12/15/2021 16:33:44 First degree AV block now present Myocardial infarct finding now present Intraventricular conduction delay no longer present Electronically Signed On 06-28-2023 17:45:37 ECHOCARDIOGRAPHY TECHNOLOGIST by Nickie Denton M.D. [id number]
--- NOTE | 2023-06-28 07:41 | W.ED.CHESTPA ---
HPI - Chest Pain General: Stated Complaint: left arm ache, sob, cold sweats Time Seen by Provider: 06/28/23 07:39 Source: patient Mode of arrival: ambulatory History of Present Illness: 58-year-old male presents emergency room with complaints of chest pain radiating to his left arm. He has been short of breath and diaphoretic with it. Is been intermittent the last several days got worse this morning when he went outside to load his wood furnace. It is also persisting this time. Patient is a known diabetic has not previously had any kind of interventions angiogram bypass or stress test. MD complaint: chest pain Onset (ago): hour(s) Timing of current episode: episodic Prior episodes: Yes Onset: during exertion Pain location: substernal Pain radiation: left arm Severity: mild Relieving factors: nothing Exacerbating factors: nothing Associated symptoms: Deny abdominal pain, diaphoresis, dyspnea, fever(s), leg edema, nausea, palpitations, sense of impending doom, syncope or vomiting Treatment prior to arrival: none Review of Systems Const: Denies: fever(s) or diaphoresis Card: Reports: chest pain; Denies: palpitations or syncope Resp: Denies: dyspnea GI: Denies: abdominal pain, nausea or vomiting : Denies: dysuria, urinary frequency or urinary urgency Musc: Denies: neck pain or back pain Skin/Breast: Denies: rash PFSH ED PFSH: Medical History Acute hepatic encephalopathy Chronic anticoagulation Esophageal varices Hematemesis Nephrolithiasis Liver cirrhosis Anemia GI bleed Type 2 diabetes mellitus Hypertension Surgical History 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) Normal colonoscopy History of esophagogastroduodenoscopy (EGD) April 2019 H/O lithotripsy Family History Other Cancer Diabetes Social History Smoking and tobacco/nicotine status: never used tobacco/nicotine Alcohol intake: former Substance/Drug Use: never Marital status: Physical Exam Const: COMMON NORMALS: no acute distress GENERAL APPEARANCE: cooperative and comfortable ORIENTATION/CONSCIOUSNESS: Yes awake, Yes oriented to person, Yes oriented to place and Yes oriented to time HENMT: COMMON NORMALS: normocephalic, atraumatic and hearing grossly normal bilaterally HEAD & SCALP: normocephalic and atraumatic Resp: COMMON NORMALS: normal respiratory effort, No retractions, No use of accessory muscles and clear to auscultation bilaterally AUSCULTATION: clear to auscultation bilaterally Cardio: COMMON NORMALS: regular rate, regular rhythm and No murmurs present (Cardio) RATE: regular rate RHYTHM: regular rhythm GI: COMMON NORMALS: Soft to palpation and No hepatosplenomegaly present AUSCULTATION: Yes normoactive bowel sounds PALPATION: Yes Soft to palpation, No Tenderness to palpation present (GI), No Guarding due to palpation present (GI) and Yes No hepatosplenomegaly present Extremity: COMMON NORMALS: normal to inspection, capillary refill normal, no clubbing, cyanosis or edema, no calf tenderness and no pedal edema Neuro: SENSORIUM/ORIENTATION: Yes oriented to person, Yes oriented to place and Yes oriented to time Skin: COMMON NORMALS: no rashes or lesions noted GENERAL SKIN EXAM: no rashes or lesions noted MDM - Chest Pain Medical Decision Making Acute STEMI with escalating angina over the last couple days. EKG shows ST elevation in 2 3 and aVF but meet criteria for STEMI. Dr. Lai is seen the patient and they are proceeding directly to the Land Development Project Manager Medical Records I reviewed the patient's medical records. Lab Data I reviewed the patient's lab results. XR interpretation done by ED provider, pending radiology final review Discharge Plan Discharge Patient Disposition: Admitted As Inpatient Clinical Impression: ST elevation (STEMI) myocardial infarction, Hypertension, Type 2 diabetes mellitus Condition: Stable Coding Level of Care Code ED Florist Supplies Salesperson for Erick Murphy
--- NOTE | 2023-06-28 07:44 | XACV_ITS ---
Exam Room: [facility] Ht: 178 cm Wt: 91 kg BSA: 2.14 m2 Gender: Male : 1965 Any Known Allergies: No known allergies Exam Priority: Routine Procedure(s): Procedure Description: Diagnostic procedure Procedure Description: PCI procedure Procedure Description: Drug Eluting Coronary Stent Procedure Description: PTCA Procedure Description: Miscellaneous Procedure Description: ACT Procedure Description: Coronary Angiography Diagnostic Cath Status: Emergency Diagnostic Findings * INDICATION: 58 year old male with past medical history of hypertension, diabetes, liver cirrhosis s/p liver transplant following up with team in [place] has presented with 2 days of chest pain. It has gotten worse today. Substernal with radiation to the left arm. EKG demonstrates ST elevation in inferior leads. Tack Cutter activated emergently. * Left Main has no significant disease. * Left Anterior Descending has mild luminal irregularities. * Circumflex has no significant disease. * Mid Right Coronary Artery: total thrombotic occlusion, JOSE: 0 flow. * Coronary angiography shows right dominance. PCI Status: Emergency PCI Indication: STEMI - Immediate PCI for STEMI Interventional Findings * PROCEDURE DETAIL: We engaged RCA with JR4 guide catheter. IV heparin was administered to maintain anticoagulation. 0.014 run-through guidewire was used to cross the occluded vessel. We performed balloon angioplasty with 2.5 x 12 mm semicompliant balloon. This was followed by placement of 3.0 x 30 mm resolute Sergey drug-eluting stent. At this time final angiogram was performed that showed excellent stent expansion, no residual stenosis and JOSE-3 flow. Guidewire and guide catheter were removed. Patient left the Tack Cutter in a stable condition.. * Mid Right Coronary Artery: 100% stenosis treated with a AB TREK 2.50X12 RX BALLOON, and MDT R SERGEY 3.0X30 . 0% residual stenosis, JOSE: 3 flow. Conclusions 1. Total thrombotic occlusion of mid RCA status post successful revascularization with 1 stent.. 2. Mid Right Coronary Artery was treated with a Balloon, and Drug Eluting Stent. Recommendations * Dual antiplatelet therapy with aspirin and plavix for at least 1 year. * High intensity statin therapy. * Outpatient cardiology follow up in 4 weeks. Interventional RX Recommendation: PCI w/o planned CABG Diagnostic RX Recommendation: PCI w/o planned CABG Anticoagulation: Heparin Pressures Phase:Rest AO : 98 / 69 ( 76 ) @ 7:59:00 AM 92 / 81 ( 87 ) @ 8:12:00 AM Clinical Evaluation EBL: 5mL-10mL Procedural Details Pre-Procedure Time Out. Identified patient by full name and date of as verbalized by the patient/guarantor. Does the consent match the physician's order: N/A Emergent. Accurate & Complete Informed Consent: N/A Emergent. Inpatient/Outpatient History & Physical on Chart: N/A Emergent. If H&P is completed, is and addenduem needed: N/A Emergent; If yes, is the addendum complete: N/A Emergent. Visualize and Verify Site with Patient/Guarantor: N/A. Relevant Radiology Images available: N/A Emergent. Pre-op teaching completed and patient verbalized understanding. The risks, benefits, and alternatives of sedation and/or procedure were discussed by physician. The patient agrees to continue. Procedure started. [facility] Clinical Fraility Score: 4: Vulnerable. Tack Cutter Indications: ACS <= 24 hours. Chest Pain Symptom Assessment: Atypical Angina. Cardiovascular Instability: Yes, if yes, Persistant Ischemic Symptoms. Current diagnosis: STEMI. PERRLA. 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 Lungs clear x 5 lobes. IV Site on Arrival: 18 gauge in the right anticubital. IV Site on Arrival: 18 gauge in the left anticubital. IV Fluids: 0.9% NaCl at KVO. 0 mL infused prior to lab manager. Oxygen started at 2liters/min via nasal canula. right groin was prepped with chloroprep then draped in the usual sterile fashion. right radial was prepped with chloroprep then draped in the usual sterile fashion. Physician arrived. AP Pads placed on the patient. Current Diagnosis : STEMI. Baseline sample Acquired. HR: 100 BPM. Physician scrubbed in. Immediate Pre-Procedure Time Out. Correct Patient: Yes; Correct Procedure: Yes; Correct Site: Yes; Correct Patient Position: Yes; Correct Supplies: Yes; Dried Flammable Prep: Yes; Blood Products Available: N/A;. Lidocaine 1% infiltrated to the right radial. Arterial access obtained. 6 english JR 4 guide catheter was inserted over the wire. Runthrough guidewire was advanced through the guide catheter to lesion in the prox RCA. Inflation number : 1 A AB TREK 2.50X12 RX BALLOON was prepped and advanced across the Mid RCA , then inflated to 12 SHEN for 0:04 seconds. Balloon out. Guideliner inserted OTW. Inflation Number : 2 A NIESHA Seth SERGEY 3.0X30 -Lot Number# _[id number] EXP: 04/24/2024 was prepped and advanced across the Mid RCA. The stent was deployed at 12 SHEN for 0:23 seconds. Stent balloon out over wire. Results checked. Guideliner and wire out. ACT drawn. Results 393 seconds. Therapeutic limits - pre-heparin administration 90-150 seconds and monitoring heparin during a vascular procedure >250 seconds. Guide catheter out. A 5 english TIG catheter in over wire. Multiple views taken of left coronary artery. Lab called with a critial troponin of 604. Catheter removed over the exchange wire. A TR Band was successful obtaining hemostatsis at the Right Radial artery insertion site. Post Procedure: Pulses reassessed and unchanged. PERRLA. 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 No VTE prophylaxis required. Medication's Wasted: Heparin = 1000 units. Medication's Wasted: Other = Fentanyl 50mcg Versed 1 mg. Vital chart was stopped. Medication's Wasted: Nitro = 49.9 mg. Medication's Wasted: Lidocaine 1% = 2 mL. Total IV fluids: 267 mL. Complications: None. Estimated blood loss: 5mL-10mL. Responsiveness - Normal response to verbal stimuli; alert and oriented, PERRLA. Airway - Unaffected, no intervention required; spontaneous ventilation. Circulation: W/N/L, pulses unchanged. Nausea/Vomiting: No. Procedure completed. Patient transferred by wheelchair to ICU. Access Site Site: Right Radial artery Sheath Size: 6 Fr Hemostasis Method: TR Band Hemostasis Success: Successful Procedure Medications Start: 7:51 AM Stop: 7:51 AM Medication: Versed Amount: 1 mg Route: I.V. Start: 7:51 AM Stop: 7:51 AM Medication: Fentanyl Amount: 50 mcg Route: I.V. Start: 7:55 AM Stop: 7:55 AM Medication: Versed Amount: 1 mg Route: I.V. Start: 8:00 AM Stop: 8:00 AM Medication: Heparin Amount: 4000 units Route: I.V. Start: 8:00 AM Stop: 8:00 AM Medication: 0.9% Saline Amount: 250 ml/hr Route: I.V. bolus Start: 8:05 AM Stop: 8:05 AM Medication: Versed Amount: 1 mg Route: I.V. Start: 8:09 AM Stop: 8:09 AM Medication: Heparin Amount: 1000 units Route: I.V. Start: 7:57 AM Stop: 7:57 AM Medication: Nitrogylcerin Amount: 100 mcg Route: I.A. I, the attending physician, have reviewed and verified all procedure medications. Yes, all medications given per verbal order History/Risk Factors Hypertension: No Dyslipidemia: No Peripheral Arterial Disease (PAD): No Myocardial Infarction ([place]): No Obesity: No Renal Disease: No Prior Interventions PCI: No CABG: No Valve Surgery: No Report Signatures Finalized by Baldo Stanley MD on 07/03/2023 01:31 PM
[2023-06-28] MEDS: heparin 5,000 unit/mL INJ 1 mL 4000 UNIT IVP (07:45)
[2023-06-28] MEDS: aspirin 325 mg Tablet PO (07:45)
[2023-06-28] MEDS: clopidogrel 300 mg Tablet 600 MG PO (07:45)
--- NOTE | 2023-06-28 07:49 | PM.HP ---
Providers/Chief Complaint Admitting Physician: Baldo Stanley MD/ Cardiology Primary Care Provider: Amber Can MD Chief Complaint: left arm ache, sob, cold sweats History of Present Illness Tani Montenegro is a 58 year old male with past medical history of hypertension, diabetes, liver cirrhosis s/p liver transplant following up with team in [place] has presented with 2 days of chest pain. It has gotten worse today. Substernal with radiation to the left arm. EKG demonstrates ST elevation in inferior leads. Nursery Manager activated emergently. Review of Systems Const: Denies: fever(s) or diaphoresis Card: Reports: chest pain; Denies: palpitations or syncope Resp: Denies: dyspnea GI: Denies: abdominal pain, nausea or vomiting : Denies: dysuria, urinary frequency or urinary urgency Musc: Denies: neck pain or back pain Skin/Breast: Denies: rash Medications/Allergies Home Medications Medication Instructions Recorded Confirmed Last Taken Type cyanocobalamin (vitamin B-12) 1,000 mcg PO DAILY 11/04/21 05/05/23 Unknown History 1,000 mcg capsule liraglutide 0.6 mg/0.1 mL (18 mg/3 1.8 mg (0.3 mL) SUBCUT QAM #27 mL 12/04/21 05/05/23 12/11/21 Rx mL) subcutaneous pen injector (Victoza 3-Harsh) dvzhnviu-uq-qocbi 300 mcg-K 60 1 tab PO DAILY 12/11/21 05/05/23 Unknown History mcg-lycop 600 mcg-lutein 300 mcg tablet (Centrum Silver Men) rifaximin 550 mg tablet (Xifaxan) 550 mg PO ONCE 01/05/22 05/05/23 Unknown History levothyroxine 50 mcg tablet See Rx Instructions .Route 06/22/22 05/05/23 Unknown Rx .COMPLEX #100 tabs omeprazole 20 mg capsule,delayed 20 mg PO DAILY 60 days #60 caps 10/12/22 05/05/23 Unknown Rx release blood-glucose meter (Embrace PRO #1 ea 12/07/22 05/05/23 Unknown Rx Blood Glucose Meter) acetaminophen 500 mg tablet 500 mg PO Q8H PRN 12/27/22 05/05/23 Unknown History (Tylenol Extra Strength) aspirin 81 mg tablet,delayed 81 mg PO DAILY 12/27/22 05/05/23 Unknown History release blood-glucose meter,continuous #1 ea 12/27/22 05/05/23 Unknown Rx (Dexcom G7 Power Plant Engineer) blood-glucose sensor (Dexcom G7 #3 ea 12/27/22 05/05/23 Unknown Rx Sensor device) carvedilol 6.25 mg tablet 6.25 mg PO BID 12/27/22 05/05/23 Unknown History cholecalciferol (vitamin D3) 50 50 mcg PO DAILY 12/27/22 05/05/23 Unknown History mcg (2,000 unit) capsule cyclobenzaprine 5 mg tablet 5 mg PO TID PRN 12/27/22 05/05/23 Unknown History levothyroxine 50 mcg tablet 50 mcg PO DAILY 12/27/22 05/05/23 Unknown History magnesium oxide 400 mg (241.3 mg 400 mg PO DAILY 12/27/22 05/05/23 Unknown History magnesium) tablet ondansetron HCl 8 mg tablet 8 mg PO Q8H 12/27/22 05/05/23 Unknown History oxycodone 5 mg tablet 5 mg PO Q4H PRN 12/27/22 05/05/23 Unknown History pantoprazole 40 mg tablet,delayed 40 mg PO DAILY 12/27/22 05/05/23 Unknown History release (Protonix) prednisone 5 mg tablet 5 mg PO DAILY 12/27/22 05/05/23 Unknown History sennosides 8.6 mg-docusate sodium 1 tab-cap PO DAILY 12/27/22 05/05/23 Unknown History 50 mg tablet (Senna with Docusate Sodium) sulfamethoxazole 400 1 tab PO DAILY 12/27/22 05/05/23 Unknown History mg-trimethoprim 80 mg tablet (Bactrim) tacrolimus 1 mg capsule, 1 mg PO Q12H 12/27/22 05/05/23 Unknown History immediate-release (Prograf) valganciclovir 450 mg tablet 900 mg PO DAILY 12/27/22 05/05/23 Unknown History (Valcyte) amlodipine 10 mg tablet 5 mg PO BID 12/29/22 05/05/23 Unknown History pen needle, diabetic 32 gauge x #100 ea 03/04/23 05/05/23 Unknown Rx (Easy Comfort Pen Firth) insulin glargine 100 unit/mL (3 25 unit SUBCUT DAILY 03/07/23 05/05/23 Unknown History mL) subcutaneous pen (Lantus Solostar U-100 Insulin) insulin glargine-aglr 100 unit/mL 50 unit (0.5 mL) SUBCUT DAILY #15 03/07/23 05/05/23 Unknown Rx (3 mL) subcutaneous pen mL mycophenolate sodium 360 mg 360 mg PO BID 03/07/23 05/05/23 Unknown History tablet,delayed release (Myfortic) insulin aspart U-100 100 unit/mL 14 unit (0.14 mL) SUBCUT TID 90 04/18/23 05/05/23 Unknown Rx (3 mL) subcutaneous pen (Novolog days #60 mL FlexPen U-100 Insulin aspart) hydrochlorothiazide 12.5 mg tablet See Rx Instructions .Route 05/31/23 Unknown Rx .COMPLEX #90 tabs blood sugar diagnostic (True #300 strips 06/21/23 Unknown Rx Metrix Glucose Test Strip) Allergies Allergy/AdvReac Type Severity Reaction Status Date / Time No Known Allergies Allergy Verified 06/28/23 07:52 PFSH Acute PFSH: Medical History Acute hepatic encephalopathy Chronic anticoagulation Esophageal varices Hematemesis Nephrolithiasis Liver cirrhosis Anemia GI bleed Type 2 diabetes mellitus Hypertension Surgical History 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 [] NECK: No jugular vein distension. [] HEENT: No cyanosis. No icterus. No pallor. [] HEART: Regular S1 and S2. No murmur, rub or gallop. [] LUNGS: Clear to auscultate bilaterally. [] CENTRAL NERVOUS SYSTEM: Grossly nonfocal. [] EXTREMITIES: Lower extremities with 1+ edema bilaterally. Data 06/28/23 07:41 06/28/23 07:41 A&P Assessment and plan (1) ST elevation (STEMI) myocardial infarction: (2) Hypertension: Qualifiers: Hypertension type: essential hypertension Qualified Code(s): I10 - Essential (primary) hypertension (3) Hyperlipemia, mixed: (4) Type 2 diabetes mellitus: Qualifiers: Diabetes mellitus complication status: with hyperglycemia Diabetes mellitus half-way insulin use: with buttermaker helper use Qualified Code(s): E11.65 - Type 2 diabetes mellitus with hyperglycemia; Z79.4 - terminal make up operator (current) use of insulin (5) Liver transplant recipient: (6) Liver cirrhosis: Plan Patient has presented with acute inferior wall ST elevation [place]. We will proceed with coronary angiogram with possible percutaneous coronary intervention. Risks and benefits of the procedure have been discussed with the patient. Aspirin, Plavix load given. IV heparin bolus given. Will order echocardiogram. Will consult medicine team for management of medical issues. Attestations Medical Necessity Statement*: Care expected to cross 2 midnights. Patient has presented with acute ST elevation OH and will be taken to cardiac Nursery Manager for emergent coronary angiogram with possible PCI. Coding Level of Care Code Acute Code for [facility] Fwd Diagnoses ST elevation (STEMI) myocardial infarction I21.3 Essential hypertension I10 Hypertension type: essential hypertension Hyperlipemia, mixed E78.2 Type 2 diabetes mellitus with hyperglycemia, with long-term current use of insulin E11.65; Z79.4 Diabetes mellitus complication status: with hyperglycemia Diabetes mellitus buttermaker helper insulin use: with half-way use Liver transplant recipient Z94.4 Liver cirrhosis K74.60
[2023-06-28 07:54] LABS: Basophils # 0.1 10^3/uL (0.0-0.1); Basophils % 0.6 %; Eosinophils # 0.1 10^3/uL (0.0-0.8); Eosinophils % 0.6 %; Hematocrit 49.8 % (37-53); Lymphocytes # 1.5 10^3/uL (0.8-4.8); Lymphocytes % 10.7 %; Mean Corpuscular HGB Conc 33.3 g/dL (30-55); Mean Corpuscular Hemoglobin 29.2 pg (27-33); Mean Corpuscular Volume 87.7 fl (82-101); Mean Platelet Volume 10.2 fL (7.4-10.4); Monocytes # 1.8 10^3/uL (0.2-0.9); Monocytes % 12.5 %; Neutrophils % 75.2 %; Nucleated Red Blood Cells % 0 %; Platelet Count 250 10^3/cmm (157-399); Red Blood Count 5.68 10^6/uL (3.85-5.65); White Blood Count 14.25 10^3/uL (3.29-11.43)
[2023-06-28 08:08] LABS: Alanine Aminotransferase 35 U/L (0-41); Albumin Level 4.2 g/dL (3.5-5.2); Alkaline Phosphatase 111 U/L (40-130); Anion Gap 19.5 (5-19); Aspartate Amino Transferase 39 U/L (0-40); Blood Urea Nitrogen 21 mg/dL (6-20); Calcium 9.5 mg/dL (8.5-10.5); Carbon Dioxide 23 mmol/L (22-29); Chloride 96 mmol/L (98-107); Creatinine Clr Calc Pharmacy 81.9074; Globulin 3.9 g/dL (1.3-4.6); Glomerular Filtration Rate 68.5 mL/min (90-130); Glucose 331 mg/dL (65-115); Osmolality Calculated 294 mOsm/kg (285-295); Potassium 4.5 mmol/L (3.5-5.1); Sodium 134 mmol/L (136-145); Total Protein 8.1 g/dL (6.6-8.7)
[2023-06-28 08:13] LABS: Troponin(5th) Baseline 604 ng/L (0-15)
--- NOTE | 2023-06-28 08:28 | USCV_ITS ---
Tani Montenegro Age: 58 Gender: M : 1965 Exam Date: 06/28/2023 13:38 Ordering Phys: Baldo Stanley M.D ([email or web address]) Technologist: GUALBERTO Exam Location: [facility] [place] Indication: POST STEMI BP: 137 / 70 HR: 57 Rhythm: Sinus Technical Quality: Adequate MEASUREMENTS (Male / Female) Normal Values 2D ECHO LV Ejection Fraction MOD 2C 60.6 % LV Ejection Fraction 2C AL 60.0 % LA Diameter 3.2 cm LA Width 3.0 cm LA Height 5.2 cm RA Width 3.4 cm RA Height 3.8 cm Aorta at Sinotubular Diameter 2.4 cm IVC Diameter 1.1 cm M-MODE Aortic Annulus Diameter 3.0 cm LA Ao Ratio MM 1.0 MV E Point Septal Separation 0.9 cm DOPPLER AV Peak Velocity 136.0 cm/s LVOT Peak Velocity 111.0 cm/s MV Peak Velocity 132.0 cm/s MV Area PHT 5.0 cm squared Mitral E to A Ratio 1.1 MV E' Velocity 68.0 cm/s Mitral E to MV E' Ratio 8.2 Mitral E to LV E' Lateral Ratio 7.3 Mitral E to LV E' Septal Ratio 9.3 TR Peak Velocity 122.5 cm/s TR Peak Gradient 6.0 mmHg TR Mean Velocity 95.7 cm/s TR Mean Gradient 4.0 mmHg TR Velocity Time Integral 27.9 cm TV Peak E Velocity 69.0 cm/s Right Atrial Pressure 3.0 mmHg Pulmonary Artery Systolic Pressu 9.0 mmHg PV Peak Velocity 88.0 cm/s RV Acceleration Time 0.1 s RV Ejection Time 0.3 s RV AcT/ET 0.3 FINDINGS Left Ventricle Left ventricle is normal in size. LV systolic function is normal with EF of 50 to 55%. Mild to moderate hypokinesis of the inferior wall. Right Ventricle Normal in size and function Right Atrium Normal in size Left Atrium Normal in size Mitral Valve Structurally normal mitral valve. Mild mitral regurgitation. Aortic Valve Structurally normal aortic valve. No significant stenosis. Tricuspid Valve Mild tricuspid regurgitation. Insufficient TR jet to evaluate RVSP. Pulmonic Valve Not well visualized Pericardium Normal Aorta Normal in size IVC Appears to be normal CONCLUSIONS LV systolic function is normal with EF 50 to 55%. Mild to moderate hypokinesis of inferior wall. Mild mitral regurgitation Mild tricuspid regurgitation. No comparison studies are available. Baldo Stanley MD (Electronically Signed) Final Date: 28 June 2023 17:07 S
--- NOTE | 2023-06-28 08:48 | PM.CONSULT ---
Providers/Reason For Consult Consulting Physician/Specialty*: Paco Luevano MD, hospitalist Reason for Consult*: Medical management Requesting Physician: Dr. Stanley Attending Physician: Baldo Stanley M.D Primary Care Provider: Amber Can MD History of Present Illness History of Present Illness Tani Montenegro is a 58 year old male who was seen in the emergency department with chest discomfort radiating down his left arm. He was diagnosed with an ST elevation myocardial infarction, taken to the [facility] and had a drug-eluting RCA stent. He reports he has been having discomfort for 4 days off-and-on, but more constant day of presentation. He reports his heart rate has been high, and you have been short of breath with minimal exertion. Some sweating. No nausea or vomiting. Denies any prior history of coronary disease. Does have history of liver transplant in October secondary to cirrhosis, gastric and esophageal varices, anemia, diabetes mellitus, hypertension. Denies any recent bleeding, or anemia since his transplantation. No recent illness. Review of Systems General: Reports: 10 or more systems reviewed and unremarkable except in HPI and below Card: Reports: chest pain Resp: Reports: dyspnea GI: Denies: abdominal pain, nausea, vomiting or melena Medications/Allergies Home Medications Medication Instructions Recorded Confirmed Last Taken Type kvjtlpym-sk-cmbin 300 mcg-K 60 1 tab PO DAILY 12/11/21 06/28/23 Unknown History mcg-lycop 600 mcg-lutein 300 mcg tablet (Centrum Silver Men) blood-glucose meter (Embrace PRO #1 ea 12/07/22 06/28/23 Unknown Rx Blood Glucose Meter) acetaminophen 500 mg tablet 500 - 1,000 mg PO Q8H PRN Pain 12/27/22 06/28/23 Unknown History (Tylenol Extra Strength) aspirin 81 mg tablet,delayed 81 mg PO QAM 12/27/22 06/28/23 Unknown History release blood-glucose meter,continuous #1 ea 12/27/22 06/28/23 Unknown Rx (Dexcom G7 Dip [place]) blood-glucose sensor (Dexcom G7 #3 ea 12/27/22 06/28/23 Unknown Rx Sensor device) carvedilol 6.25 mg tablet 12.5 mg PO BID 12/27/22 06/28/23 Unknown History cholecalciferol (vitamin D3) 50 50 mcg PO QAM 12/27/22 06/28/23 Unknown History mcg (2,000 unit) capsule cyclobenzaprine 5 mg tablet 5 mg PO TID PRN Muscle Spasm 12/27/22 06/28/23 Unknown History levothyroxine 50 mcg tablet 75 mcg PO QAM 12/27/22 06/28/23 Unknown History magnesium oxide 400 mg (241.3 mg 800 mg PO DAILY@12 12/27/22 06/28/23 Unknown History magnesium) tablet ondansetron HCl 8 mg tablet 8 mg PO Q8H PRN Nausea And Vomiting 12/27/22 06/28/23 Unknown History pantoprazole 40 mg tablet,delayed 40 mg PO QAM 12/27/22 06/28/23 Unknown History release (Protonix) sennosides 8.6 mg-docusate sodium 1 tab-cap PO BID PRN Constipation 12/27/22 06/28/23 Unknown History 50 mg tablet (Senna with Docusate Sodium) sulfamethoxazole 400 1 tab PO DAILY 12/27/22 06/28/23 Unknown History mg-trimethoprim 80 mg tablet (Bactrim) amlodipine 10 mg tablet 10 mg PO QAM 12/29/22 06/28/23 Unknown History pen needle, diabetic 32 gauge x #100 ea 03/04/23 06/28/23 Unknown Rx (Easy Comfort Pen [place]) insulin glargine 100 unit/mL (3 38 unit SUBCUT QAM 03/07/23 06/28/23 Unknown History mL) subcutaneous pen (Lantus Solostar U-100 Insulin) mycophenolate sodium 360 mg 360 mg PO BID 03/07/23 06/28/23 Unknown History tablet,delayed release (Myfortic) blood sugar diagnostic (True #300 strips 06/21/23 06/28/23 Unknown Rx Metrix Glucose Test Strip) famotidine 20 mg tablet (Pepcid) 20 mg PO BEDTIME PRN Heartburn 06/28/23 06/28/23 Unknown History hydrochlorothiazide 12.5 mg tablet 12.5 mg PO QAM 06/28/23 06/28/23 Unknown History insulin aspart U-100 100 unit/mL See Rx Instructions .Route .COMPLEX 06/28/23 06/28/23 Unknown History (3 mL) subcutaneous pen (Novolog FlexPen U-100 Insulin aspart) omeprazole 20 mg capsule,delayed 20 mg PO QAM 06/28/23 06/28/23 Unknown History release tacrolimus 1 mg capsule, See Rx Instructions .Route .COMPLEX 06/28/23 06/28/23 Unknown History immediate-release Allergies Allergy/AdvReac Type Severity Reaction Status Date / Time No Known Allergies Allergy Verified 06/28/23 07:52 PFSH Acute PFSH: Medical History (Updated 06/28/23 @ 08:58 by Paco Luevano MD) Acute hepatic encephalopathy Chronic anticoagulation Esophageal varices Hematemesis Nephrolithiasis Liver cirrhosis Anemia GI bleed Type 2 diabetes mellitus Hypertension Surgical History (Updated 06/28/23 @ 08:58 by Paco Luevano MD) History of liver transplant 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) Normal colonoscopy History of esophagogastroduodenoscopy (EGD) April 2019 H/O lithotripsy Family History Other Cancer Diabetes Social History Smoking and tobacco/nicotine status: never used tobacco/nicotine Alcohol intake: former Substance/Drug Use: never Marital status: Vitals/I&O/Wt Last Vital Signs Pulse 144 H 06/28/23 07:37 BP 166/96 06/28/23 07:37 Pulse Ox 98 06/28/23 07:37 O2 Del Method Room Air 06/28/23 07:37 Weight last 48 hrs Weight 90.889 kg Weight 90.718 kg Physical Exam Narrative: General exam is a white male, currently no distress, denies discomfort HEENT: Atraumatic normocephalic. Oropharynx clear Neck is supple no lymphadenopathy thyromegaly Cardiovascular slightly tachycardic, no murmur Lungs clear no wheezing or crackles Abdomen is soft, positive bowel sounds. Surgical scar noted that is well-healed exam deferred Extremities no cyanosis, edema, cap refill brisk Skin no rash Neuro no focal deficits Data 06/28/23 07:41 06/28/23 07:41 Other Labs: Magnesium 1.6 Phosphorus slightly low at 2.4 Calcium, albumin normal LFTs normal Troponin 604 Chest x-ray by my read no infiltrate EKG per my read demonstrates sinus tachycardia, left axis deviation, ST elevation inferiorly A&P Assessment and plan (1) ST elevation (STEMI) myocardial infarction: Patient presents with ST elevation [place] He has received an RCA stent acutely, drug-eluting Continue Plavix, aspirin which was started in the [facility] Continue Coreg Add statin, will discuss with his transplant services at [facility] Adjust medication for blood pressure Close monitoring on telemetry (2) CAD (coronary artery disease): See above (3) History of liver transplant: Continue his transplant medications Informed transplant services at [facility] regarding his hospitalization (4) Type 2 diabetes mellitus: Consistent carb diet Continue long-acting insulin, slightly lower dose along with sliding scale Qualifiers: Diabetes mellitus complication status: with hyperglycemia Diabetes mellitus 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 Thank you for this consultation Consult Attestations Medical Necessity Statement: As per primary Diagnoses ST elevation (STEMI) myocardial infarction I21.3 CAD (coronary artery disease) I25.10 History of liver transplant Z94.4 Type 2 diabetes mellitus with hyperglycemia, with long-term current use of insulin E11.65; Z79.4 Diabetes mellitus complication status: with hyperglycemia Diabetes mellitus snf insulin use: with snf use Time Spent (min) 50
--- NOTE | 2023-06-28 09:45 | ECG_ITS ---
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 Measurements Intervals [place] Rate: 86 P: 47 VA: 263 QRS: -36 QRSD: 97 T: 18 QT: 350 QTc: 421 Interpretive Statements SINUS RHYTHM WITH FIRST DEGREE AV BLOCK WITH FREQUENT SUPRAVENTRICULAR PREMATURE COMPLEXES MARKED LEFT AXIS DEVIATION [QRS AXIS < -30] POSSIBLE ANTERIOR MYOCARDIAL INFARCTION [30 ms Q WAVE IN V3/V4, OR R < 0.2 mV IN V4], OF INDETERMINATE AGE INFERIOR MYOCARDIAL INFARCTION [40+ ms Q WAVE AND/OR ST/T ABNORMALITY IN II/aVF], POSSIBLY ACUTE ACUTE [place] Compared to ECG 06/28/2023 07:32:11 Left-axis deviation now present Sinus tachycardia no longer present Myocardial infarct finding still present Electronically Signed On 06-28-2023 17:46:23 PULPWOOD DEALER by iNckie Denton M.D. [id number]
[2023-06-28] MEDS: morphine 4 mg/mL SDV 1 mL 2 MG IVP ×2 (09:56→12:40)
[2023-06-28] MEDS: magnesium sulfate premix 2 GM/50 ML PIGGYBACK IV (10:03)
[2023-06-28] MEDS: aspirin 81 mg EC Tablet PO (10:03)
[2023-06-28] MEDS: carvedilol 6.25 mg Tablet PO ×2 (10:03→17:44)
[2023-06-28] MEDS: levothyroxine 50 mcg Tablet PO (10:03)
[2023-06-28] MEDS: sodium chloride 0.9% 1,000 ML 100 ML IV ×2 (10:04→17:45)
--- NOTE | 2023-06-28 10:08 | XACV_ITS ---
Exam Room: 2 Ht: 178 cm Wt: 91 kg BSA: 2.14 m2 Gender: Male : 1965 Any Known Allergies: No known allergies Exam Priority: Routine Procedure(s): Procedure Description: Diagnostic procedure Procedure Description: Miscellaneous Procedure Description: Angio-Seal Procedure Description: Coronary Angiography Diagnostic Cath Status: Urgent Diagnostic Findings * INDICATION: Patient had successful revascularization of totally occluded mid RCA with 1 stent earlier today. Once he went back to ICU started complaining of chest pain again. Has had persistent ST changes on EKG, we decided to bring him back to [facility] urgently. * RCA has patent stent. No stenosis. * Only RCA injected as other arteries had no significant disease on coronary angiogram earlier today. * Coronary angiography shows right dominance. Conclusions 1. RCA has patent stent. No stenosis. Recommendations * Transfer back to ICU. 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 We will uptitrate aspirin to 324mg daily. Continue plavix. Interventional RX Recommendation: medical therapy and/or counseling Diagnostic RX Recommendation: medical therapy and/or counseling Clinical Evaluation EBL: 5mL-10mL Procedural Details Procedure Consent Obtained. Pre-Procedure Time Out. Identified patient by full name and date of as verbalized by the patient/guarantor. Does the consent match the physician's order: Yes. Accurate & Complete Informed Consent: Yes. Inpatient/Outpatient History & Physical on Chart: Yes. If H&P is completed, is and addenduem needed: No. Visualize and Verify Site with Patient/Guarantor: N/A. Relevant Radiology Images available: N/A. The risks, benefits, and alternatives of sedation and/or procedure were discussed by physician. The patient agrees to continue. Procedure started. [facility] Clinical Fraility Score: 3: Managing Well. Physician arrived. Belt Sander Indications: Worsening Angina. Chest Pain Symptom Assessment: Typical Angina Symptoms. Correct patient, site and procedure confirmed by cath team. Current diagnosis: Chest Pain. PERRLA. Strong, equal hand floral assistant bilaterally. Lungs clear x 5 lobes. IV Fluids: 0.9% NaCl at KVO. 400 mL infused prior to dental laboratory technician. Oxygen started at 2liters/min via nasal canula. Baseline sample Acquired. HR: 112 BPM. bilateral groins was prepped with chloroprep then draped in the usual sterile fashion. Physician scrubbed in. Immediate Pre-Procedure Time Out. Correct Patient: Yes; Correct Procedure: Yes; Correct Site: Yes; Correct Patient Position: Yes; Correct Supplies: Yes; Dried Flammable Prep: Yes; Blood Products Available: N/A;. Lidocaine 1% infiltrated to the right groin. Arterial access obtained with micropuncture set. A 5 estonian JR4 catheter in over wire. Multiple views taken of right coronary artery. Catheter removed over the standard wire. A Right femoral angiogram was performed to determine safe placement of closure device. Ultrasound being used to rule out a plueral effusion. A Angio-Seal VIP ([place]) was successful obtaining hemostatsis at the Right Femoral artery insertion site. Post Procedure: Pulses reassessed and unchanged. PERRLA. Strong, equal hand floral assistant bilaterally. No VTE prophylaxis required. Medication's Wasted: Other = Fentanyl 50mcg Versed 1 mg. Total IV fluids: 430 mL. Post-op diagnosis: Normal Coronaries. Complications: None. Estimated blood loss: 5mL-10mL. Responsiveness - Normal response to verbal stimuli; alert and oriented, PERRLA. Airway - Unaffected, no intervention required; spontaneous ventilation. Circulation: W/N/L, pulses unchanged. Nausea/Vomiting: No. Procedure completed. Patient transferred by bed to ICU. Vital chart was stopped. Access Site Site: Right Femoral artery Sheath Size: 5 Fr Hemostasis Method: Angio-Seal VIP ([place]) Hemostasis Success: Successful Procedure Medications Start: 10:18 AM Stop: 10:18 AM Medication: Fentanyl Amount: 50 mcg Route: I.V. Start: 10:18 AM Stop: 10:18 AM Medication: Versed Amount: 1 mg Route: I.V. I, the attending physician, have reviewed and verified all procedure medications. Yes, all medications given per verbal order History/Risk Factors Hypertension: No Dyslipidemia: No Peripheral Arterial Disease (PAD): No Myocardial Infarction (SD): No Obesity: No Renal Disease: No Prior Interventions PCI: No CABG: No Valve Surgery: No Report Signatures Finalized by Baldo Stanley MD on 07/03/2023 01:46 PM
--- NOTE | 2023-06-28 10:16 | PC.NURSE ---
Patient arrived to ICU at approximately 0830 via wheelchair, TR band right wrist with 17mm air instilled, pulses intact, AOX4 reports 2/10 chest pain and 5/10 throat pain stating he has had a sore throat for a few days. NS at 100ml/hr. 0945 patient reports 10/10 chest pain, Dr. Luevano notified and order received for EKG and morphine, Dr. Stanley notified, see MAR and EKG results, patient back to pathology laboratory aide at approximately 1010. TR band in place with 15mm air remaining.
--- NOTE | 2023-06-28 10:50 | PC.PHAR ---
pt and pts verified pts medications-pts states the pt is taking mycophenolate dr 360mg one tab bid rx filled on 06/21/23 30d/s 2 tabs bid-pt states he takes prograf 1mg takes 2 caps (2mg) qam and 1 cap (1mg) hs rx filled 06/17/23 30d/s 1mg bid-pts states the bactrim daily is on hold-pts states the dr dced prednisone 12/2022-pts states the pt uses lantus solostar 38 units qam rx filled 50 units daily on 06/06/23 90d/s-pts states the pt uses novolog flexpen base 20 units per ss tid rx filled 14 units tid on 06/03/23-notes are made in the pharmacy comments
[2023-06-28] MEDS: lidocaine 2% viscous 15 ML, aluminum-mag hydrox-simethicon 30 ML, sucralfate oral liq 1 GM PO (10:59)
--- NOTE | 2023-06-28 11:56 | W.PM.OPSUD ---
Surgery/Procedure H&P Update DATE OF PROCEDURE: June 28, 2023 DATE H&P PERFORMED: 06/28/23 H&P UPDATE INFORMATION: I have reviewed H&P completed within last 30 days, I have examined patient prior to procedure and Changes to prior documentation as noted here CHANGES TO PREVIOUS DOCUMENTATION: In the ICU patient again started complaining of chest pain. EKG was unchanged from before and still had ST elevations in inferior leads. We brought patient urgently to perform coronary angiogram. PREOP DIAGNOSIS: Worsening angina PRIMARY INDICATION FOR PROCEDURE: Worsening angina PLANNED PROCEDURE: Operation Date: 06/28/23 15:00 Proposed Procedures p Cardiac Catheterization(Not Applicable) - Baldo Stanley M.D PATIENT REASSESSED PRIOR TO SEDATION, WITH NO CHANGE NOTED: Yes PHYSICAL EXAM: alert, oriented x 3, clear to auscultation bilaterally and regular rate & rhythm AIRWAY EVAL/ANESTHESIA PLAN: normal airway, ASA III, Local Anesthesia, Risks, benefits & alternatives of sedation and/or procedure discussed and Patient agrees to continue as planned ADDITIONAL INFORMATION: Moderate sedation
[2023-06-28] MEDS: nitroglycerin 0.4 mg sublingual Tablet SUBLINGUAL (12:28)
--- NOTE | 2023-06-28 12:32 | ECG_ITS ---
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 Measurements Intervals [place] Rate: 56 P: 0 OR: 0 QRS: -38 QRSD: 98 T: 24 QT: 379 QTc: 368 Interpretive Statements SINUS BRADYCARDIA WITH first-degree AV block POSSIBLE ANTERIOR MYOCARDIAL INFARCTION [30 ms Q WAVE IN V3/V4, OR R < 0.2 mV IN V4], OF INDETERMINATE AGE INFERIOR MYOCARDIAL INFARCTION [40+ ms Q WAVE AND/OR ST/T ABNORMALITY IN II/aVF], POSSIBLY ACUTE ACUTE [place] Compared to ECG 06/28/2023 09:57:11 Sinus rhythm no longer present Left-axis deviation no longer present Myocardial infarct finding still present Electronically Signed On 06-28-2023 17:51:03 NETWORK DEVELOPER by Nickie Denton M.D. [id number]
[2023-06-28] MEDS: nitroglycerin drip 50 MG/250 ML PREMIX IV (12:50)
[2023-06-28] MEDS: alum-mag-hydroxide-sime 30 mL UDC PO (13:16)
--- NOTE | 2023-06-28 13:40 | ECG_ITS ---
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 Measurements Intervals [place] Rate: 58 P: 50 NE: 261 QRS: -42 QRSD: 100 T: 37 QT: 382 QTc: 377 Interpretive Statements SINUS BRADYCARDIA WITH FIRST DEGREE AV BLOCK LEFT VENTRICULAR HYPERTROPHY AND ST-T CHANGE [VOLTAGE CRITERIA PLUS ST/T ABNORMALITY] POSSIBLE ANTERIOR MYOCARDIAL INFARCTION [30 ms Q WAVE IN V3/V4, OR R < 0.2 mV IN V4], OF INDETERMINATE AGE INFERIOR MYOCARDIAL INFARCTION [40+ ms Q WAVE AND/OR ST/T ABNORMALITY IN II/aVF], POSSIBLY ACUTE ACUTE [place] Compared to ECG 06/28/2023 12:46:32 First degree AV block now present Left ventricular hypertrophy now present ST (T wave) deviation now present Myocardial infarct finding still present Electronically Signed On 06-28-2023 21:49:57 STRUCTURER by Nickie Denton M.D. [id number]
--- NOTE | 2023-06-28 16:18 | PC.NURSE ---
Late entry TR band removal note: Right side TR band removed with no complications, no bleeding, dressing applied, pulses remained throughout.
[2023-06-28] MEDS: pantoprazole DR 40 mg Tablet PO (17:44)
[2023-06-28 17:54] LABS: Glucose Point of Care 328 mg/dL (70-110)
[2023-06-28] MEDS: insulin lispro 100 unit/1 mL SUBCUT ×2 (18:34→21:10)
--- NOTE | 2023-06-28 19:18 | PC.NURSE ---
Patient able to get home medication of Myfortic 360mg. Patient did not have bottle, blue pill box in his belongings for morning dose. Family is going to bring prescription bottle tomorrow, 06/29/23. Tara VALLADARES, and this nurse as witness to medication administration and storage in belongings.
[2023-06-28 21:01] LABS: Glucose Point of Care 342 mg/dL (70-110)
[2023-06-28] MEDS: atorvastatin 40 mg Tablet PO (21:09)
[2023-06-28] MEDS: tacrolimus 0.5 mg Capsule 1 MG PO (21:09)
[2023-06-29] VITALS (57 sets, daily range): BP systolic 97–150; BP diastolic 60–106; PULSE 79–105; RESP 14–26; TEMP 36.5–37.1; O2SAT 91–95
[2023-06-29] MEDS: temazepam 15 mg Capsule PO (00:52)
[2023-06-29] MEDS: sodium chloride 0.9% 1,000 ML 100 ML IV (03:29)
[2023-06-29 04:48] LABS: Basophils # 0.1 10^3/uL (0.0-0.1); Basophils % 0.6 %; Eosinophils % 0.5 %; Hematocrit 36.3 % (37-53); Lymphocytes % 12.2 %; Mean Corpuscular HGB Conc 34.7 g/dL (30-55); Mean Corpuscular Hemoglobin 29.8 pg (27-33); Mean Corpuscular Volume 85.8 fl (82-101); Mean Platelet Volume 10.2 fL (7.4-10.4); Monocytes # 1.2 10^3/uL (0.2-0.9); Neutrophils # 5.52 10^3/uL (1.8-7.7); Neutrophils % 71.1 %; Nucleated Red Blood Cells % 0 %; Platelet Count 149 10^3/cmm (157-399); Red Blood Count 4.23 10^6/uL (3.85-5.65); Red Cell Distribution Width 14.6 % (12.1-15.1); White Blood Count 7.78 10^3/uL (3.29-11.43)
[2023-06-29 05:07] LABS: Alanine Aminotransferase 22 U/L (0-41); Albumin Level 3.2 g/dL (3.5-5.2); Alkaline Phosphatase 82 U/L (40-130); Anion Gap 13.4 (5-19); Aspartate Amino Transferase 25 U/L (0-40); Blood Urea Nitrogen 19 mg/dL (6-20); Calcium 8.5 mg/dL (8.5-10.5); Carbon Dioxide 24 mmol/L (22-29); Chloride 98 mmol/L (98-107); Globulin 3.1 g/dL (1.3-4.6); Glomerular Filtration Rate 86.4 mL/min (90-130); Glucose 315 mg/dL (65-115); Osmolality Calculated 286 mOsm/kg (285-295); Potassium 4.4 mmol/L (3.5-5.1); Sodium 131 mmol/L (136-145); Total Bilirubin 0.8 mg/dL (0.15-1.2); Total Protein 6.3 g/dL (6.6-8.7)
[2023-06-29 05:20] LABS: Slide Review Slide Review Perform
[2023-06-29] MEDS: tacrolimus 0.5 mg Capsule 2 MG PO (06:32)
[2023-06-29] MEDS: pantoprazole DR 40 mg Tablet PO ×3 (06:32→18:16)
[2023-06-29] MEDS: amlodipine 10 mg Tablet PO (06:32)
[2023-06-29] MEDS: insulin glargine 100 units/1 mL 20 UNIT SUBCUT (06:34)
[2023-06-29 06:51] LABS: Glucose Point of Care 290 mg/dL (70-110)
--- NOTE | 2023-06-29 08:04 | PM.PN ---
Documented by User: BRYSON Ojeda STDREJI 06/29/23 08:14 Subjective Subjective: Patient resting in bed on 2 L nasal cannula family member at bedside. He complained of having chest pain overnight and currently rating chest pain at a 3 on a scale of 1-10. Nitroglycerin drip noted to be infusing at 10mcg/min. Medications: Reviewed: Yes Vitals/I&O/Wt Last Vital Signs Temp 98.8 F 06/28/23 21:15 Pulse 99 06/29/23 06:30 Resp 25 H 06/29/23 06:30 BP 111/69 06/29/23 06:30 Pulse Ox 93 06/29/23 06:30 O2 Del Method Nasal Cannula 06/29/23 06:30 O2 Flow Rate 2 06/29/23 06:30 06/28/23 06/29/23 06/29/23 22:59 06:59 14:59 Intake Total 1721.783 / 2194.833 1166.933 / 3361.766 1.2 / 1.2 Output Total 800 / 800 800 / 1600 Balance 921.783 / 1394.833 366.933 / 1761.766 1.2 / 1.2 Weight last 48 hrs Weight 200 lb 6 oz Weight 200 lb Physical Exam Narrative: General exam is a white male, no distress, reports chest discomfort. HEENT: Atraumatic normocephalic. Oropharynx clear Neck is supple, no lymphadenopathy, no thyromegaly Cardiovascular slightly tachycardic, no murmur Lungs clear no wheezing or crackles Abdomen is soft, positive bowel sounds. Last bowel movement 06/27. exam deferred Extremities no cyanosis, edema, cap refill brisk Skin no rash, Surgical scar noted on abd that is well-healed. Neuro no focal deficits. Moves all extremities, alert oriented x 4. 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 Thank you for this consultation Coding Level of Care Code [address] (STEMI) myocardial infarction I21.3 CAD (coronary artery disease) I25.10 History of liver transplant Z94.4 Type 2 diabetes mellitus with hyperglycemia, with long-term current use of insulin E11.65; Z79.4 Diabetes mellitus complication status: with hyperglycemia Diabetes mellitus long term acute care registered nurse insulin use: with long term acute care registered nurse use Time Spent (min) 25 Documented by User: Paco Luevano MD 06/29/23 10:01 Physical Exam Narrative: General exam is a white male, no distress, reports chest discomfort. Neck is supple, no lymphadenopathy, no thyromegaly Cardiovascular slightly tachycardic, no murmur. Rub noted. Lungs clear no wheezing or crackles Abdomen is soft, positive bowel sounds. Last bowel movement 06/27. 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 Close monitoring on telemetry Nitroglycerin drip weaned off Cardiology is transferring out of ICU to stepdown unit Yesterday was taken back to License Examiner secondary to recurrent pain, and no significant changes were found, stent patent. Today slight rub was noted. Aspirin increased. (2) CAD (coronary artery disease): (3) History of liver transplant: (4) Type 2 diabetes mellitus: Qualifiers: Diabetes mellitus complication status: with hyperglycemia Diabetes mellitus long term acute care registered nurse insulin use: with long term acute care registered nurse use Qualified Code(s): E11.65 - Type 2 diabetes mellitus with hyperglycemia; Z79.4 - MCC (current) use of insulin Attestations Medical Necessity Statement*: As per primary Diagnoses ST elevation (STEMI) myocardial infarction I21.3 CAD (coronary artery disease) I25.10 History of liver transplant Z94.4 Type 2 diabetes mellitus with hyperglycemia, with long-term current use of insulin E11.65; Z79.4 Diabetes mellitus complication status: with hyperglycemia Diabetes mellitus long term acute care registered nurse insulin use: with skilled nursing use Time Spent (min) 25
[2023-06-29 08:07] LABS: Glucose Point of Care 251 mg/dL (70-110)
[2023-06-29] MEDS: clopidogrel 75 mg Tablet PO (08:24)
[2023-06-29] MEDS: levothyroxine 50 mcg Tablet PO (08:24)
[2023-06-29] MEDS: carvedilol 6.25 mg Tablet PO ×3 (08:24→18:16)
[2023-06-29] MEDS: insulin lispro 100 unit/1 mL SUBCUT ×4 (08:25→21:15)
[2023-06-29] MEDS: aspirin 81 mg EC Tablet PO (08:25)
--- NOTE | 2023-06-29 09:09 | PM.PN ---
Subjective Subjective: Patient had PCI of RCA yesterday. Post procedure had chest pain and because of persistent chest pain, we proceeded with repeat coronary angiogram. Stent was patent. On further history, pain is pleuritic consistent with mario infarction pericarditis. Vitals/I&O/Wt Last Vital Signs Temp 98.8 F 06/28/23 21:15 Pulse 99 06/29/23 06:30 Resp 25 H 06/29/23 06:30 BP 111/69 06/29/23 06:30 Pulse Ox 93 06/29/23 06:30 O2 Del Method Nasal Cannula 06/29/23 06:30 O2 Flow Rate 2 06/29/23 06:30 06/28/23 06/29/23 06/29/23 22:59 06:59 14:59 Intake Total 1721.783 / 2194.833 1166.933 / 3361.766 4.7 / 4.7 Output Total 800 / 800 800 / 1600 Balance 921.783 / 1394.833 366.933 / 1761.766 4.7 / 4.7 Weight last 48 hrs Weight 200 lb 6 oz Weight 200 lb Physical Exam Narrative: GENERAL: Patient is alert, awake and oriented x3. [] NECK: No jugular vein distension. [] HEENT: No cyanosis. No icterus. No pallor. [] HEART: Regular S1 and S2. Friction rub LUNGS: Clear to auscultate bilaterally. [] CENTRAL NERVOUS SYSTEM: Grossly nonfocal. [] EXTREMITIES: Lower extremities with 1+ edema bilaterally. Data 06/29/23 04:25 06/29/23 04:25 A&P Assessment and plan (1) ST elevation (STEMI) myocardial infarction: (2) Hypertension: Qualifiers: Hypertension type: essential hypertension Qualified Code(s): I10 - Essential (primary) hypertension (3) Hyperlipemia, mixed: (4) Type 2 diabetes mellitus: Qualifiers: Diabetes mellitus [facility] insulin use: with [facility] use Diabetes mellitus complication status: with hyperglycemia Qualified Code(s): E11.65 - Type 2 diabetes mellitus with hyperglycemia; Z79.4 - supervisor throwing department (current) use of insulin (5) Liver transplant recipient: (6) Liver cirrhosis: (7) Pericarditis secondary to acute myocardial infarction: Plan Patient had PCI of totally occluded mid RCA with 1 stent. Had chest pain post procedure for which repeat angiogram was performed showing patent stent. Pain consistent with mario-infarction pericarditis Continue aspirin and plavix. We will uptitrate aspirin to 325mg daily for pericarditis. Continue Plavix We will uptitrate coreg to 12.5mg BID EF is normal on echo. Hospitalist team consulted for management of medical issues. Appreciate recs. Thank you for involving us with care of this patient. We will continue to follow. Please call with questions. Attestations Medical Necessity Statement*: Care expected to cross [address] Patient had acute [address] elevation PR. S/p PCI. We will monitor him today in hospital. Plan for discharge tomorrow. Coding Level of Care Code Acute Code for [facility] Diagnoses ST elevation (STEMI) myocardial infarction I21.3 Essential hypertension I10 Hypertension type: essential hypertension Hyperlipemia, mixed E78.2 Type 2 diabetes mellitus with hyperglycemia, with long-term current use of insulin E11.65; Z79.4 Diabetes mellitus [facility] insulin use: with director of diagnostic imaging use Diabetes mellitus complication status: with hyperglycemia Liver transplant recipient Z94.4 Liver cirrhosis K74.60 Pericarditis secondary to acute myocardial infarction I24.1
[2023-06-29] MEDS: aspirin 81 mg EC Tablet 243 MG PO (10:25)
[2023-06-29 11:55] LABS: Glucose Point of Care 325 mg/dL (70-110)
[2023-06-29] MEDS: magnesium oxide 400 mg tablet 800 MG PO (12:14)
--- NOTE | 2023-06-29 14:44 | PC.NURSE ---
Sushma taken to [facility] for a shower. OKayed by Dr hernandez with instructions to not scrub wrist or groin cath sites and to avoid a hot shower. Cath sites inspected after shower and sites are unremarkable, waterproof dressings stayed in place.
--- NOTE | 2023-06-29 14:46 | PC.NURSE ---
Report given to Vidya in [facility], going to room 107. Belongings included a bag of clothes, jacket, shoes, cell phone, and home medication myfortic.
[2023-06-29 16:39] LABS: Glucose Point of Care 317 mg/dL (70-110)
[2023-06-29 20:33] LABS: Glucose Point of Care 356 mg/dL (70-110)
[2023-06-29] MEDS: atorvastatin 40 mg Tablet PO (21:15)
[2023-06-29] MEDS: tacrolimus 0.5 mg Capsule 1 MG PO (21:54)
[2023-06-30] VITALS: BP 137/76; PULSE 96; RESP 18; TEMP 37.1; O2SAT 92
[2023-06-30] MEDS: temazepam 15 mg Capsule PO (02:43)
[2023-06-30 03:50] VITALS: BP 111/67; PULSE 94; RESP 15; TEMP 37.2; O2SAT 91
[2023-06-30 04:53] LABS: Basophils % 0.5 %; Eosinophils # 0.2 10^3/uL (0.0-0.8); Eosinophils % 3.6 %; Hematocrit 38.8 % (37-53); Lymphocytes # 0.8 10^3/uL (0.8-4.8); Lymphocytes % 13.5 %; Mean Corpuscular HGB Conc 34.3 g/dL (30-55); Mean Corpuscular Hemoglobin 29.8 pg (27-33); Mean Platelet Volume 10.5 fL (7.4-10.4); Monocytes # 0.7 10^3/uL (0.2-0.9); Monocytes % 12.6 %; Neutrophils # 3.88 10^3/uL (1.8-7.7); Neutrophils % 68.9 %; Nucleated Red Blood Cells % 0 %; Platelet Count 133 10^3/cmm (157-399); Red Blood Count 4.46 10^6/uL (3.85-5.65); Red Cell Distribution Width 14.5 % (12.1-15.1); White Blood Count 5.63 10^3/uL (3.29-11.43)
[2023-06-30 05:12] LABS: Alanine Aminotransferase 16 U/L (0-41); Albumin Level 3.2 g/dL (3.5-5.2); Alkaline Phosphatase 87 U/L (40-130); Aspartate Amino Transferase 16 U/L (0-40); Blood Urea Nitrogen 19 mg/dL (6-20); Calcium 9.1 mg/dL (8.5-10.5); Carbon Dioxide 24 mmol/L (22-29); Chloride 101 mmol/L (98-107); Globulin 3.4 g/dL (1.3-4.6); Glomerular Filtration Rate 98.9 mL/min (90-130); Glucose 276 mg/dL (65-115); Osmolality Calculated 292 mOsm/kg (285-295); Sodium 135 mmol/L (136-145); Total Bilirubin 0.4 mg/dL (0.15-1.2); Total Protein 6.6 g/dL (6.6-8.7)
[2023-06-30 06:00] VITALS: PULSE 83
[2023-06-30] MEDS: insulin glargine 100 units/1 mL 20 UNIT SUBCUT (06:19)
[2023-06-30] MEDS: tacrolimus 0.5 mg Capsule 2 MG PO (06:19)
[2023-06-30] MEDS: pantoprazole DR 40 mg Tablet PO ×2 (06:20→08:22)
[2023-06-30] MEDS: amlodipine 10 mg Tablet PO (06:20)
[2023-06-30 06:50] LABS: Glucose Point of Care 261 mg/dL (70-110)
[2023-06-30 07:30] VITALS: BP 137/84; PULSE 91; RESP 21; TEMP 36.6; O2SAT 92
[2023-06-30] MEDS: insulin lispro 100 unit/1 mL SUBCUT (08:21)
[2023-06-30] MEDS: levothyroxine 50 mcg Tablet PO (08:22)
[2023-06-30] MEDS: carvedilol 6.25 mg Tablet PO (08:22)
[2023-06-30] MEDS: aspirin 325 mg Tablet PO (08:22)
[2023-06-30] MEDS: clopidogrel 75 mg Tablet PO (08:22)
--- NOTE | 2023-06-30 08:52 | P.PN_ITS ---
Documented by User: BRYSON Ojeda STDREJI 06/30/23 09:23 Subjective 2 Subjective: Patient resting in bed on room air, denies chest pain this morning. Mr. Montenegro states he feels overall better this am. Medications: Reviewed: Yes Vitals/I&O/Wt Last Vital Signs Temp 97.9 F 06/30/23 07:30 Pulse 91 06/30/23 07:30 Resp 21 H 06/30/23 07:30 BP 137/84 06/30/23 07:30 Pulse Ox 92 06/30/23 07:30 O2 Del Method Room Air 06/30/23 07:30 O2 Flow Rate 2 06/29/23 06:30 06/29/23 06/30/23 06/30/23 22:59 06:59 14:59 Intake Total 240 / 744.7 200 / 944.7 Balance 240 / -255.3 200 / -55.3 Weight last 48 hrs Weight 200 lb 12.8 oz Physical Exam 2 Narrative: General exam is a white male, no distress, reports chest discomfort. Neck is supple, no lymphadenopathy, no thyromegaly Cardiovascular slightly tachycardic, no murmur. Rub noted. Lungs clear no wheezing or crackles. On RA. Abdomen is soft, non-tender, positive bowel sounds. Last bowel movement 06/27. Extremities no cyanosis, edema, cap refill brisk Skin no rash. Data 06/30/23 04:06 06/30/23 04:06 A&P Assessment and plan (1) ST elevation (STEMI) myocardial infarction: Patient presents with ST elevation [place] He has received an RCA stent acutely on 06/28/23, drug-eluting Continue Plavix, aspirin, Coreg Continue statin, discussed with his transplant services at [facility] Close monitoring on telemetry (2) CAD (coronary artery disease): See above (3) History of liver transplant: Continue his transplant medications Informed transplant services at [facility] regarding his hospitalization (4) Type 2 diabetes mellitus: Consistent carb diet Continue long-acting insulin, slightly lower dose along with sliding scale Qualifiers: Diabetes mellitus complication status: with hyperglycemia Diabetes mellitus terminal clerk insulin use: with assisted use Qualified Code(s): E11.65 - Type 2 diabetes mellitus with hyperglycemia; Z79.4 - skilled nursing (current) use of insulin Plan Multiple other medical problems as outlined in this past medical history Patient can discharge today by my medical standpoint. Full code currently SCDs for DVT prophylaxis Lovenox will be initiated today. Thank you for this consultation Coding Level of Care Code [address] elevation (STEMI) myocardial infarction I21.3 CAD (coronary artery disease) I25.10 History of liver transplant Z94.4 Type 2 diabetes mellitus with hyperglycemia, with long-term current use of insulin E11.65; Z79.4 Diabetes mellitus complication status: with hyperglycemia Diabetes mellitus terminal clerk insulin use: with assisted use Time Spent (min) 21 Documented by User: Paco Luevano MD 06/30/23 09:28 Data 06/30/23 04:06 06/30/23 04:06 A&P Assessment and plan (1) ST elevation (STEMI) myocardial infarction: Patient presents with ST elevation [place] He has received an RCA stent acutely on 06/28/23, drug-eluting Continue Plavix, aspirin, Coreg Continue statin, discussed with his transplant services at [facility] (2) CAD (coronary artery disease): (3) History of liver transplant: (4) Type 2 diabetes mellitus: Qualifiers: Diabetes mellitus complication status: with hyperglycemia Diabetes mellitus terminal clerk insulin use: with assisted use Qualified Code(s): E11.65 - Type 2 diabetes mellitus with hyperglycemia; 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 Full code currently SCDs for DVT prophylaxis Attestations 2 Medical Necessity Statement*: As per primary Diagnoses ST elevation (STEMI) myocardial infarction I21.3 CAD (coronary artery disease) I25.10 History of liver transplant Z94.4 Type 2 diabetes mellitus with hyperglycemia, with long-term current use of insulin E11.65; Z79.4 Diabetes mellitus complication status: with hyperglycemia Diabetes mellitus assisted insulin use: with terminal clerk use Time Spent (min) 21
--- NOTE | 2023-06-30 09:45 | PM.DCS ---
Discharge Providers Date of Admission: 06/28/23 07:51 Date of Discharge: June 30, 2023 Attending Provider at Admission: Baldo Stanley M.D Attending Provider at Discharge: Baldo Stanley M.D Primary Care Provider: Amber Can MD Diagnoses at Discharge Discharge Diagnosis (1) ST elevation (STEMI) myocardial infarction: Status: Inactive (2) CAD (coronary artery disease): Status: Acute (3) History of liver transplant: Status: Acute (4) Type 2 diabetes mellitus: Status: Acute Qualifiers: Diabetes mellitus complication status: with hyperglycemia Diabetes mellitus long term care phlebotomist insulin use: with fpc use Qualified Code(s): E11.65 - Type 2 diabetes mellitus with hyperglycemia; Z79.4 - intermission coordinator (current) use of insulin Reason for Visit Reason for Visit: left arm ache, sob, cold sweats Brief History: 58 year old male with past medical history of hypertension, diabetes, liver cirrhosis s/p liver transplant following up with team in [place] has presented with 2 days of chest pain. It has gotten worse today. Substernal with radiation to the left arm. EKG demonstrates ST elevation in inferior leads. Cover Maker activated emergently. Hospital Course Hospital Course Coronary angiography showed total thrombotic occlusion of mid RCA. He underwent successful revascularization with 1 stent. Post revascularization, patient again had chest pain and that was significant. Repeat angiography was performed to confirm patency of stent. No further intervention was required. His chest pain was pleuritic now consistent with postinfarction pericarditis. His dose of aspirin was increased to 325 mg daily along with Plavix 75 mg. Echo showed normal LV systolic function with mild to moderate hypokinesis of inferior wall. Pleuritic pain resolved next day. Hospitalist team was consulted for medical management as has diabetes and history of liver transplant. He was observed in the hospital and was discharged home in a stable condition. Physical Exam Narrative: GENERAL: Patient is alert, awake and oriented x3. [] NECK: No jugular vein distension. [] HEENT: No cyanosis. No icterus. No pallor. [] HEART: Regular S1 and S2. Friction rub LUNGS: Clear to auscultate bilaterally. [] CENTRAL NERVOUS SYSTEM: Grossly nonfocal. [] EXTREMITIES: Lower extremities with 1+ edema bilaterally. Discharge Data Studies Completed and Pending Completed Studies During Hospitalization Category Date Time Status XR chest 1V portable [id number] Stat Exams 06/28/23 07:39 Completed CV. echo complete* [id number] Routine Ultrasound 06/28/23 08:28 Completed Pending at discharge Category Date Time Status REVENUE ENFORCEMENT COLLECTION AGENT request for service Stat Exams 06/28/23 07:44 Taken REVENUE ENFORCEMENT COLLECTION AGENT request for service Stat Exams 06/28/23 10:08 Taken FK [id number] (Tacrolimus) Routine Lab 06/30/23 04:06 Received Radiology Impressions Chest X-Ray 06/28/23 07:39 IMPRESSION: No acute findings. Laboratory Results WBC 5.63 10^3/uL (3.29-11.43) 06/30/23 04:06 RBC 4.46 10^6/uL (3.85-5.65) 06/30/23 04:06 Hgb 13.30 g/dL (11.27-16.99) 06/30/23 04:06 Hct 38.8 % (37-53) 06/30/23 04:06 MCV 87.0 fl (82-101) 06/30/23 04:06 MCH 29.8 pg (27-33) 06/30/23 04:06 MCHC 34.3 g/dL (30-55) 06/30/23 04:06 RDW 14.5 % (12.1-15.1) 06/30/23 04:06 Plt Count 133 10^3/cmm (157-399) L 06/30/23 04:06 MPV 10.5 fL (7.4-10.4) H 06/30/23 04:06 Neut % (Auto) 68.9 % 06/30/23 04:06 Lymph % (Auto) 13.5 % 06/30/23 04:06 [place] % (Auto) 12.6 % 06/30/23 04:06 Eos % (Auto) 3.6 % 06/30/23 04:06 Baso % (Auto) 0.5 % 06/30/23 04:06 Neut # (Auto) 3.88 10^3/uL (1.8-7.7) 06/30/23 04:06 Lymph # (Auto) 0.8 10^3/uL (0.8-4.8) 06/30/23 04:06 [place] # (Auto) 0.7 10^3/uL (0.2-0.9) 06/30/23 04:06 Eos # (Auto) 0.2 10^3/uL (0.0-0.8) 06/30/23 04:06 Baso # (Auto) 0.0 10^3/uL (0.0-0.1) 06/30/23 04:06 Nucleated RBC % (auto) 0 % 06/30/23 04:06 Nucleated RBCs # 0.0 /100WBC 06/30/23 04:06 Sodium 135 mmol/L (136-145) L 06/30/23 04:06 Potassium 4.0 mmol/L (3.5-5.1) 06/30/23 04:06 Chloride 101 mmol/L (98-107) 06/30/23 04:06 Carbon Dioxide 24 mmol/L (22-29) 06/30/23 04:06 Anion Gap 14.0 (5-19) 06/30/23 04:06 BUN 19 mg/dL (6-20) 06/30/23 04:06 Creatinine 0.8 mg/dL (0.7-1.2) 06/30/23 04:06 GFR Calculation 98.9 mL/min (90-130) 06/30/23 04:06 Glucose 276 mg/dL (65-115) H 06/30/23 04:06 POC Glucose 261 mg/dL (70-110) H 06/30/23 06:28 Calculated Osmolality 292 mOsm/kg (285-295) 06/30/23 04:06 Calcium 9.1 mg/dL (8.5-10.5) 06/30/23 04:06 Total Bilirubin 0.4 mg/dL (0.15-1.2) 06/30/23 04:06 AST 16 U/L (0-40) 06/30/23 04:06 ALT 16 U/L (0-41) 06/30/23 04:06 Alkaline Phosphatase 87 U/L (40-130) 06/30/23 04:06 Troponin T Baseline 604 ng/L (0-15) H* 06/28/23 07:41 Total Protein 6.6 g/dL (6.6-8.7) 06/30/23 04:06 Albumin 3.2 g/dL (3.5-5.2) L 06/30/23 04:06 Globulin 3.4 g/dL (1.3-4.6) 06/30/23 04:06 Vitals Last Vital Signs Temp 97.9 F 06/30/23 07:30 Pulse 91 06/30/23 07:30 Resp 21 H 06/30/23 07:30 BP 137/84 06/30/23 07:30 Pulse Ox 92 06/30/23 07:30 O2 Del Method Room Air 06/30/23 07:30 O2 Flow Rate 2 06/29/23 06:30 Discharge Plan Discharge Patient Disposition: Home Condition: Stable Prescriptions: New atorvastatin 40 mg Tablet 40 mg PO BEDTIME Qty: 90 3RF clopidogrel 75 mg Tablet 75 mg PO DAILY Qty: 90 3RF Bg Aspirin 325 mg tablet 325 mg PO DAILY Qty: 90 3RF Continued insulin glargine [Lantus Solostar U-100 Insulin] 100 unit/mL (3 mL) insulin pen 38 unit SUBCUT QAM mycophenolate sodium [Myfortic] 360 mg tablet,delayed release (DR/EC) 360 mg PO BID sulfamethoxazole-trimethoprim [Bactrim] 400-80 mg tablet 1 tab PO DAILY Rx Instructions: medication on hold per pts family 06/28/23 sennosides-docusate sodium [Senna with Docusate Sodium] 8.6-50 mg tablet 1 tab-cap PO BID PRN (Reason: Constipation) pantoprazole [Protonix] 40 mg tablet,delayed release (DR/EC) 40 mg PO QAM levothyroxine 50 mcg tablet 75 mcg PO QAM magnesium oxide 400 mg (241.3 mg magnesium) tablet 800 mg PO DAILY@12 cholecalciferol (vitamin D3) 50 mcg (2,000 unit) capsule 50 mcg PO QAM carvedilol 6.25 mg tablet 12.5 mg PO BID Rx Instructions: must administer with a meal/food cyclobenzaprine 5 mg tablet 5 mg PO TID PRN (Reason: Muscle Spasm) ondansetron HCl 8 mg tablet 8 mg PO Q8H PRN (Reason: Nausea And Vomiting) acetaminophen [Tylenol Extra Strength] 500 mg tablet 500 - 1,000 mg PO Q8H PRN (Reason: Pain) (DME) Dexcom G7 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 Misc See Rx Instructions .ROUTE .MEDSUPPLY Qty: 1 0RF Rx Instructions: As directed (DME) Dexcom G7 Sensor Device See Rx Instructions .ROUTE .MEDSUPPLY Qty: 3 2RF Rx Instructions: As directed amlodipine 10 mg tablet 10 mg PO QAM (DME) blood-glucose meter [Embrace PRO Glucose meter] [facility] See Rx Instructions .Route Qty: 1 0RF Rx Instructions: check up 3 to 4 times a day (DME) pen needle, diabetic [Easy Comfort Pen [place]] 32 gauge x 5/32 needle See Rx Instructions .ROUTE .MEDSUPPLY Qty: 100 3RF Rx Instructions: daily (DME) True Metrix Glucose Test Strip Strip See Rx Instructions .ROUTE .COMPLEX Qty: 300 0RF Dose Instruction: Check UP TO three TO four times daily Rx Instructions: Check UP TO three TO four times daily Centrum Silver Men 300-600-300 mcg Tablet 1 tab PO DAILY Pepcid 20 mg Tablet 20 mg PO BEDTIME PRN (Reason: Heartburn) tacrolimus 1 mg capsule See Rx Instructions .ROUTE .COMPLEX Rx Instructions: take 2mg (2 caps) po in the AM and 1mg (1 cap) at bedtime omeprazole 20 mg capsule,delayed release(DR/EC) 20 mg PO QAM hydrochlorothiazide 12.5 mg tablet 12.5 mg PO QAM Discontinued aspirin 81 mg tablet,delayed release (DR/EC) 81 mg PO QAM No Action Novolog FlexPen U-100 Insulin 100 unit/mL (3 mL) insulin pen See Rx Instructions .ROUTE .COMPLEX Qty: 15 0RF Rx Instructions: base of 20 units subcutaneously Per Sliding scale tid MAX dose daily 54 units Discharge Orders: Discharge Order (Routine); Ordered 06/30/23 Ordered By: Baldo Stanley Referrals: Amber Can MD [Primary Care Provider] - 07/11/23 1:00 pm Libertad Campos FNP [Nurse Practitioner] - 07/11/23 11:00 am Discharge Diet: Cardiac and Diabetic Discharge Activity: Increase activity as tolerated Patient Instructions: Aspirin (By mouth) (Bg Extra Strength, Bg Aspirin Children's,..., Atorvastatin (By mouth) (Lipitor, Atorvaliq), Clopidogrel (By mouth) (Plavix), Coronary Artery Disease (DC), Coronary Angioplasty (DC), Opioid Safety, Post Angiogram Home Care Instructions, Post Heart Attack Stoplight Activity Restrictions/Additional Instructions: Please resume the mycophenolate, tacrolimus as instructed by your transplant team. Follow-up with your primary care provider 7 to 10 days Discharge Attestations Time Spent in Discharge Care*: greater than 30 min Quality Metrics Clinical Quality Measures [ Acute Myocardial Infaction { Clinical Trial Participant: No; Contraindication to aspirin: None; Aspirin prescribed; Contraindication to statin: None; Statin prescribed; Contraindication to PCI: None; PCI performed;}] Coding Level of Care Code Acute Code for [facility] Diagnoses ST elevation (STEMI) myocardial infarction I21.3 CAD (coronary artery disease) I25.10 History of liver transplant Z94.4 Type 2 diabetes mellitus with hyperglycemia, with long-term current use of insulin E11.65; Z79.4 Diabetes mellitus complication status: with hyperglycemia Diabetes mellitus long term care phlebotomist insulin use: with fpc use
[2023-06-30 10:04] VITALS: BP 137/84; PULSE 91; RESP 21; TEMP 36.6; O2SAT 92
--- NOTE | 2023-06-30 11:29 | PC.NURSE ---
Discharge Note Patient discharged to home via POV accompanied by spouse. 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 Mobile pharmacy medications and/or prescriptions provided. Belongings/home medications returned.
== END 2023-06-30 11:34 | disposition home or self-care (01) | DRG 322 ==
LOC: ER 07:39 → CCL 07:44 → ICU 07:51 → CSU 06-29 15:00
PROVIDERS: Internal Medicine; Admitting Provider Internal Medicine; Emergency Provider Family Medicine; PCP Family Medicine; Visit Provider Internal Medicine
PROC: B2111ZZ Fluoroscopy of Multiple Coronary Arteries using Low Osmolar Contrast (ICD-10-PCS; principal; 2023-06-28 08:00)
PROC: B2111ZZ Fluoroscopy of Multiple Coronary Arteries using Low Osmolar Contrast (ICD-10-PCS; 2023-06-28 08:00)
DX: I21.19 ST elevation (STEMI) myocardial infarction involving other coronary artery of inferior wall (principal); I24.1 Dressler's syndrome; Z94.4 Liver transplant status; I25.10 Atherosclerotic heart disease of native coronary artery without angina pectoris; E11.65 Type 2 diabetes mellitus with hyperglycemia; Z79.4 Long term (current) use of insulin; I10 Essential (primary) hypertension; E78.2 Mixed hyperlipidemia; R00.0 Tachycardia, unspecified
CPT/HCPCS: 36415; 36416; 71045; 80053; 80197; 82962; 84484; 85025; 85347; 93005; 93306; 93454; 96365; 96372; 96374; 96376; 99152; 99153; 99285; C1725; C1760; C1769; C1874; C1887; C1894; C9600; J0461; J1644; J1815; J2250; J2270; J3010; J3475; J3490; J7030; J7507; Q9967

== ENCOUNTER 2023-07-11 07:48 | Outpatient (RCR) | payer OTHER, SELFPAY ==
[2023-06-28 07:32] LABS: Basophils # 0.1 10^3/uL (0.0-0.1); Basophils % 0.6 %; Eosinophils # 0.1 10^3/uL (0.0-0.8); Eosinophils % 0.9 %; Hematocrit 47.1 % (37-53); Lymphocytes # 1.4 10^3/uL (0.8-4.8); Lymphocytes % 10.4 %; Mean Corpuscular Hemoglobin 29.6 pg (27-33); Mean Corpuscular Volume 87.2 fl (82-101); Mean Platelet Volume 10.4 fL (7.4-10.4); Monocytes # 1.9 10^3/uL (0.2-0.9); Neutrophils # 9.87 10^3/uL (1.8-7.7); Neutrophils % 73.5 %; Nucleated Red Blood Cells % 0 %; Platelet Count 234 10^3/cmm (157-399); Red Cell Distribution Width 14.9 % (12.1-15.1); White Blood Count 13.43 10^3/uL (3.29-11.43)
[2023-06-28 07:51] LABS: Alanine Aminotransferase 34 U/L (0-41); Alkaline Phosphatase 106 U/L (40-130); Anion Gap 17.5 (5-19); Aspartate Amino Transferase 38 U/L (0-40); Blood Urea Nitrogen 21 mg/dL (6-20); Calcium 9.3 mg/dL (8.5-10.5); Carbon Dioxide 24 mmol/L (22-29); Chloride 98 mmol/L (98-107); Gamma Glutamyl Transferase 47 U/L (8-61); Globulin 3.7 g/dL (1.3-4.6); Glomerular Filtration Rate 68.5 mL/min (90-130); Glucose 331 mg/dL (65-115); Magnesium 1.6 mg/dL (1.7-2.3); Osmolality Calculated 296 mOsm/kg (285-295); Phosphorus 2.4 mg/dL (2.5-4.5); Potassium 4.5 mmol/L (3.5-5.1); Sodium 135 mmol/L (136-145); Total Bilirubin 0.9 mg/dL (0.15-1.2); Total Protein 7.7 g/dL (6.6-8.7)
[2023-07-04 06:36] LABS: Basophils # 0.1 10^3/uL (0.0-0.1); Basophils % 0.7 %; Eosinophils # 0.4 10^3/uL (0.0-0.8); Eosinophils % 5.7 %; Hematocrit 40.9 % (37-53); Lymphocytes # 0.9 10^3/uL (0.8-4.8); Lymphocytes % 12.6 %; Mean Corpuscular Hemoglobin 29.1 pg (27-33); Mean Corpuscular Volume 85.7 fl (82-101); Mean Platelet Volume 9.2 fL (7.4-10.4); Monocytes # 0.9 10^3/uL (0.2-0.9); Monocytes % 12.6 %; Neutrophils # 4.61 10^3/uL (1.8-7.7); Nucleated Red Blood Cells % 0 %; Platelet Count 185 10^3/cmm (157-399); Red Blood Count 4.77 10^6/uL (3.85-5.65); Red Cell Distribution Width 14.4 % (12.1-15.1)
[2023-07-04 07:40] LABS: Alanine Aminotransferase 23 U/L (0-41); Albumin Level 3.7 g/dL (3.5-5.2); Alkaline Phosphatase 99 U/L (40-130); Anion Gap 16.4 (5-19); Aspartate Amino Transferase 15 U/L (0-40); Blood Urea Nitrogen 18 mg/dL (6-20); Calcium 9.1 mg/dL (8.5-10.5); Carbon Dioxide 24 mmol/L (22-29); Chloride 102 mmol/L (98-107); Gamma Glutamyl Transferase 37 U/L (8-61); Globulin 3.5 g/dL (1.3-4.6); Glomerular Filtration Rate 76.5 mL/min (90-130); Glucose 214 mg/dL (65-115); Magnesium 1.5 mg/dL (1.7-2.3); Osmolality Calculated 294 mOsm/kg (285-295); Potassium 4.4 mmol/L (3.5-5.1); Sodium 138 mmol/L (136-145); Total Bilirubin 0.5 mg/dL (0.15-1.2); Total Protein 7.2 g/dL (6.6-8.7)
[2023-07-11 08:07] LABS: Basophils # 0.1 10^3/uL (0.0-0.1); Basophils % 0.8 %; Eosinophils # 0.6 10^3/uL (0.0-0.8); Eosinophils % 7.4 %; Hematocrit 43.7 % (37-53); Lymphocytes % 13.4 %; Mean Corpuscular HGB Conc 33.4 g/dL (30-55); Mean Corpuscular Hemoglobin 29.1 pg (27-33); Mean Corpuscular Volume 87.2 fl (82-101); Mean Platelet Volume 9.3 fL (7.4-10.4); Monocytes # 0.7 10^3/uL (0.2-0.9); Monocytes % 8.8 %; Neutrophils # 5.16 10^3/uL (1.8-7.7); Neutrophils % 69.2 %; Nucleated Red Blood Cells % 0 %; Platelet Count 226 10^3/cmm (157-399); Red Blood Count 5.01 10^6/uL (3.85-5.65); Red Cell Distribution Width 14.1 % (12.1-15.1); White Blood Count 7.46 10^3/uL (3.29-11.43)
[2023-07-11 08:29] LABS: Alanine Aminotransferase 15 U/L (0-41); Alkaline Phosphatase 105 U/L (40-130); Anion Gap 15.1 (5-19); Aspartate Amino Transferase 12 U/L (0-40); Blood Urea Nitrogen 20 mg/dL (6-20); Carbon Dioxide 27 mmol/L (22-29); Chloride 99 mmol/L (98-107); Globulin 3.7 g/dL (1.3-4.6); Glomerular Filtration Rate 76.5 mL/min (90-130); Glucose 239 mg/dL (65-115); Magnesium 1.6 mg/dL (1.7-2.3); Osmolality Calculated 292 mOsm/kg (285-295); Potassium 5.1 mmol/L (3.5-5.1); Sodium 136 mmol/L (136-145); Total Bilirubin 0.4 mg/dL (0.15-1.2); Total Protein 7.7 g/dL (6.6-8.7)
[2023-07-11 08:44] LABS: Gamma Glutamyl Transferase 35 U/L (8-61)
[2023-07-25 06:44] LABS: Basophils # 0.1 10^3/uL (0.0-0.1); Basophils % 1.1 %; Eosinophils # 0.4 10^3/uL (0.0-0.8); Eosinophils % 7.9 %; Hematocrit 40.3 % (37-53); Lymphocytes % 22.3 %; Mean Corpuscular Hemoglobin 29.1 pg (27-33); Mean Corpuscular Volume 85.6 fl (82-101); Mean Platelet Volume 9.8 fL (7.4-10.4); Monocytes # 0.5 10^3/uL (0.2-0.9); Monocytes % 11.6 %; Neutrophils # 2.61 10^3/uL (1.8-7.7); Neutrophils % 56.9 %; Nucleated Red Blood Cells % 0 %; Platelet Count 144 10^3/cmm (157-399); Red Blood Count 4.71 10^6/uL (3.85-5.65); Red Cell Distribution Width 14.2 % (12.1-15.1); White Blood Count 4.58 10^3/uL (3.29-11.43)
[2023-07-25 07:09] LABS: Alanine Aminotransferase 27 U/L (0-41); Albumin Level 3.9 g/dL (3.5-5.2); Alkaline Phosphatase 90 U/L (40-130); Anion Gap 12.2 (5-19); Aspartate Amino Transferase 16 U/L (0-40); Blood Urea Nitrogen 19 mg/dL (6-20); Calcium 9.2 mg/dL (8.5-10.5); Carbon Dioxide 27 mmol/L (22-29); Chloride 103 mmol/L (98-107); Gamma Glutamyl Transferase 35 U/L (8-61); Globulin 3.1 g/dL (1.3-4.6); Glomerular Filtration Rate 98.9 mL/min (90-130); Glucose 207 mg/dL (65-115); Magnesium 1.6 mg/dL (1.7-2.3); Osmolality Calculated 294 mOsm/kg (285-295); Potassium 4.2 mmol/L (3.5-5.1); Sodium 138 mmol/L (136-145); Total Bilirubin 0.4 mg/dL (0.15-1.2)
== END 2023-07-27 23:59 | disposition home or self-care (01) ==
LOC: LAB 07:48
PROVIDERS: PCP Family Medicine; Visit Provider Surgery Surgical Oncology
DX: Z94.4 Liver transplant status (principal); Z77.21 Contact with and (suspected) exposure to potentially hazardous body fluids; Z79.899 Other long term (current) drug therapy
CPT/HCPCS: 36415; 80053; 80197; 82977; 83735; 84100; 85025

== ENCOUNTER 2023-07-18 07:28 | Outpatient (CLI) | payer OTHER, SELFPAY ==
[2023-07-18 07:50] LABS: Basophils # 0.1 10^3/uL (0.0-0.1); Eosinophils # 0.4 10^3/uL (0.0-0.8); Eosinophils % 7.5 %; Hematocrit 42.1 % (37-53); Lymphocytes % 21.4 %; Mean Corpuscular HGB Conc 33.5 g/dL (30-55); Mean Corpuscular Volume 86.6 fl (82-101); Mean Platelet Volume 9.4 fL (7.4-10.4); Monocytes # 0.5 10^3/uL (0.2-0.9); Monocytes % 10.9 %; Neutrophils % 58.8 %; Nucleated Red Blood Cells % 0 %; Platelet Count 197 10^3/cmm (157-399); Red Blood Count 4.86 10^6/uL (3.85-5.65); Red Cell Distribution Width 14.1 % (12.1-15.1); White Blood Count 4.77 10^3/uL (3.29-11.43)
[2023-07-18 08:12] LABS: Alanine Aminotransferase 17 U/L (0-41); Albumin Level 4.1 g/dL (3.5-5.2); Alkaline Phosphatase 95 U/L (40-130); Anion Gap 13.4 (5-19); Aspartate Amino Transferase 10 U/L (0-40); Blood Urea Nitrogen 21 mg/dL (6-20); Calcium 9.3 mg/dL (8.5-10.5); Carbon Dioxide 27 mmol/L (22-29); Chloride 106 mmol/L (98-107); Gamma Glutamyl Transferase 33 U/L (8-61); Globulin 3.3 g/dL (1.3-4.6); Glomerular Filtration Rate 98.9 mL/min (90-130); Glucose 223 mg/dL (65-115); Magnesium 1.5 mg/dL (1.7-2.3); Osmolality Calculated 304 mOsm/kg (285-295); Phosphorus 2.6 mg/dL (2.5-4.5); Potassium 4.4 mmol/L (3.5-5.1); Sodium 142 mmol/L (136-145); Total Bilirubin 0.3 mg/dL (0.15-1.2); Total Protein 7.4 g/dL (6.6-8.7)
== END 2023-07-18 07:29 | disposition home or self-care (01) ==
PROVIDERS: PCP Family Medicine; Visit Provider Internal Medicine Gastroenterology
DX: Z94.4 Liver transplant status (principal); Z79.899 Other long term (current) drug therapy
CPT/HCPCS: 36415; 80053; 80197; 82977; 83735; 84100; 85025

== ENCOUNTER 2023-08-22 06:11 | Outpatient (RCR) | payer OTHER, SELFPAY ==
[2023-08-01 07:30] LABS: Basophils # 0.1 10^3/uL (0.0-0.1); Basophils % 0.7 %; Eosinophils # 0.3 10^3/uL (0.0-0.8); Eosinophils % 4.3 %; Hematocrit 40.3 % (37-53); Lymphocytes # 0.7 10^3/uL (0.8-4.8); Mean Corpuscular HGB Conc 33.5 g/dL (30-55); Mean Corpuscular Hemoglobin 29.2 pg (27-33); Mean Platelet Volume 10.3 fL (7.4-10.4); Monocytes # 1.1 10^3/uL (0.2-0.9); Monocytes % 15.6 %; Neutrophils # 4.69 10^3/uL (1.8-7.7); Nucleated Red Blood Cells % 0 %; Platelet Count 143 10^3/cmm (157-399); Red Blood Count 4.63 10^6/uL (3.85-5.65); Red Cell Distribution Width 14.6 % (12.1-15.1)
[2023-08-01 07:44] LABS: Alanine Aminotransferase 63 U/L (0-41); Albumin Level 3.8 g/dL (3.5-5.2); Alkaline Phosphatase 103 U/L (40-130); Anion Gap 12.5 (5-19); Aspartate Amino Transferase 26 U/L (0-40); Blood Urea Nitrogen 20 mg/dL (6-20); Calcium 9.2 mg/dL (8.5-10.5); Carbon Dioxide 27 mmol/L (22-29); Chloride 102 mmol/L (98-107); Gamma Glutamyl Transferase 47 U/L (8-61); Globulin 3.5 g/dL (1.3-4.6); Glomerular Filtration Rate 98.9 mL/min (90-130); Glucose 215 mg/dL (65-115); Magnesium 1.7 mg/dL (1.7-2.3); Osmolality Calculated 293 mOsm/kg (285-295); Phosphorus 2.9 mg/dL (2.5-4.5); Potassium 4.5 mmol/L (3.5-5.1); Sodium 137 mmol/L (136-145); Total Bilirubin 0.6 mg/dL (0.15-1.2); Total Protein 7.3 g/dL (6.6-8.7)
[2023-08-08 06:41] LABS: Basophils # 0.1 10^3/uL (0.0-0.1); Basophils % 1.1 %; Eosinophils # 0.4 10^3/uL (0.0-0.8); Eosinophils % 4.8 %; Hematocrit 41.6 % (37-53); Lymphocytes % 13.3 %; Mean Corpuscular HGB Conc 33.9 g/dL (30-55); Mean Corpuscular Hemoglobin 29.4 pg (27-33); Mean Corpuscular Volume 86.7 fl (82-101); Mean Platelet Volume 9.5 fL (7.4-10.4); Monocytes # 0.8 10^3/uL (0.2-0.9); Monocytes % 10.6 %; Neutrophils # 5.26 10^3/uL (1.8-7.7); Neutrophils % 69.9 %; Nucleated Red Blood Cells % 0 %; Platelet Count 184 10^3/cmm (157-399); Red Cell Distribution Width 14.6 % (12.1-15.1); White Blood Count 7.52 10^3/uL (3.29-11.43)
[2023-08-08 07:04] LABS: Alanine Aminotransferase 42 U/L (0-41); Alkaline Phosphatase 120 U/L (40-130); Anion Gap 12.5 (5-19); Aspartate Amino Transferase 17 U/L (0-40); Blood Urea Nitrogen 24 mg/dL (6-20); Carbon Dioxide 27 mmol/L (22-29); Chloride 100 mmol/L (98-107); Chol HDL Ratio 3.35 mg/dL (1.0-5.00); Cholesterol 104 mg/dL (0-200); Globulin 3.4 g/dL (1.3-4.6); Glomerular Filtration Rate 76.5 mL/min (90-130); Glucose 187 mg/dL (65-115); HDL Cholesterol 31 mg/dL (60-100); LDL Cholesterol Calculated 40 mg/dL (50-129); LDL HDL Ratio 1.29 RATIO (0.00-3.22); Osmolality Calculated 289 mOsm/kg (285-295); Potassium 4.5 mmol/L (3.5-5.1); Sodium 135 mmol/L (136-145); Total Bilirubin 0.7 mg/dL (0.15-1.2); Total Protein 7.4 g/dL (6.6-8.7); Triglycerides 166 mg/dL (0-150)
[2023-08-08 07:05] LABS: Gamma Glutamyl Transferase 66 U/L (8-61); Magnesium 1.7 mg/dL (1.7-2.3); Phosphorus 3.5 mg/dL (2.5-4.5)
[2023-08-08 09:10] LABS: Creatinine Urine, Random 229 mg/dL (39-259); Microalbum Creatinine Ratio Ur 26 mg/dL (0-20); Microalbumin Random Urine 6 ug/dL (0-20)
[2023-08-11 07:33] LABS: Estmated Average Glucose 174; Hemoglobin A1C 7.7 % (4.0-6.0)
[2023-08-15 06:57] LABS: Basophils # 0.1 10^3/uL (0.0-0.1); Basophils % 0.9 %; Eosinophils # 0.3 10^3/uL (0.0-0.8); Eosinophils % 5.1 %; Hematocrit 40.8 % (37-53); Lymphocytes # 0.9 10^3/uL (0.8-4.8); Lymphocytes % 16.4 %; Mean Corpuscular HGB Conc 33.3 g/dL (30-55); Mean Corpuscular Hemoglobin 29.4 pg (27-33); Mean Corpuscular Volume 88.1 fl (82-101); Mean Platelet Volume 9.8 fL (7.4-10.4); Monocytes # 0.6 10^3/uL (0.2-0.9); Monocytes % 10.1 %; Neutrophils # 3.72 10^3/uL (1.8-7.7); Neutrophils % 67.1 %; Nucleated Red Blood Cells % 0 %; Platelet Count 154 10^3/cmm (157-399); Red Blood Count 4.63 10^6/uL (3.85-5.65); Red Cell Distribution Width 14.4 % (12.1-15.1); White Blood Count 5.54 10^3/uL (3.29-11.43)
[2023-08-15 07:19] LABS: Alanine Aminotransferase 27 U/L (0-41); Alkaline Phosphatase 114 U/L (40-130); Anion Gap 12.4 (5-19); Aspartate Amino Transferase 15 U/L (0-40); Blood Urea Nitrogen 17 mg/dL (6-20); Calcium 8.9 mg/dL (8.5-10.5); Carbon Dioxide 28 mmol/L (22-29); Chloride 101 mmol/L (98-107); Gamma Glutamyl Transferase 57 U/L (8-61); Globulin 3.4 g/dL (1.3-4.6); Glomerular Filtration Rate 98.9 mL/min (90-130); Glucose 257 mg/dL (65-115); Magnesium 1.6 mg/dL (1.7-2.3); Osmolality Calculated 294 mOsm/kg (285-295); Potassium 4.4 mmol/L (3.5-5.1); Sodium 137 mmol/L (136-145); Total Bilirubin 0.6 mg/dL (0.15-1.2); Total Protein 7.4 g/dL (6.6-8.7)
[2023-08-22 06:32] LABS: Basophils % 0.9 %; Eosinophils # 0.3 10^3/uL (0.0-0.8); Hematocrit 38.9 % (37-53); Lymphocytes # 0.8 10^3/uL (0.8-4.8); Lymphocytes % 17.7 %; Mean Corpuscular HGB Conc 33.4 g/dL (30-55); Mean Corpuscular Hemoglobin 29.3 pg (27-33); Mean Corpuscular Volume 87.8 fl (82-101); Mean Platelet Volume 9.7 fL (7.4-10.4); Monocytes # 0.6 10^3/uL (0.2-0.9); Monocytes % 13.5 %; Neutrophils # 2.59 10^3/uL (1.8-7.7); Neutrophils % 60.4 %; Nucleated Red Blood Cells % 0 %; Platelet Count 144 10^3/cmm (157-399); Red Blood Count 4.43 10^6/uL (3.85-5.65); Red Cell Distribution Width 14.7 % (12.1-15.1); White Blood Count 4.29 10^3/uL (3.29-11.43)
[2023-08-22 06:58] LABS: Alanine Aminotransferase 33 U/L (0-41); Albumin Level 3.8 g/dL (3.5-5.2); Alkaline Phosphatase 104 U/L (40-130); Anion Gap 10.4 (5-19); Aspartate Amino Transferase 24 U/L (0-40); Blood Urea Nitrogen 20 mg/dL (6-20); Calcium 9.1 mg/dL (8.5-10.5); Carbon Dioxide 26 mmol/L (22-29); Chloride 107 mmol/L (98-107); Gamma Glutamyl Transferase 52 U/L (8-61); Globulin 2.9 g/dL (1.3-4.6); Glomerular Filtration Rate 86.4 mL/min (90-130); Glucose 287 mg/dL (65-115); Magnesium 1.6 mg/dL (1.7-2.3); Osmolality Calculated 301 mOsm/kg (285-295); Phosphorus 2.9 mg/dL (2.5-4.5); Potassium 4.4 mmol/L (3.5-5.1); Sodium 139 mmol/L (136-145); Total Bilirubin 0.4 mg/dL (0.15-1.2); Total Protein 6.7 g/dL (6.6-8.7)
== END 2023-08-25 23:59 | disposition home or self-care (01) ==
LOC: LAB 06:11
PROVIDERS: Internal Medicine; PCP Family Medicine; Visit Provider Surgery Surgical Oncology
DX: Z94.4 Liver transplant status (principal); Z77.21 Contact with and (suspected) exposure to potentially hazardous body fluids
CPT/HCPCS: 36415; 80053; 80061; 80197; 82044; 82977; 83036; 83735; 84100; 85025

== ENCOUNTER 2023-09-05 06:26 | Outpatient (CLI) | payer OTHER, SELFPAY ==
[2023-09-05 07:02] LABS: Basophils # 0.1 10^3/uL (0.0-0.1); Basophils % 1.2 %; Eosinophils # 0.3 10^3/uL (0.0-0.8); Eosinophils % 6.2 %; Hematocrit 41.3 % (37-53); Lymphocytes # 0.9 10^3/uL (0.8-4.8); Lymphocytes % 18.5 %; Mean Corpuscular HGB Conc 32.9 g/dL (30-55); Mean Corpuscular Hemoglobin 29.6 pg (27-33); Mean Platelet Volume 10.1 fL (7.4-10.4); Monocytes # 0.6 10^3/uL (0.2-0.9); Monocytes % 12.7 %; Neutrophils # 2.94 10^3/uL (1.8-7.7); Nucleated Red Blood Cells % 0 %; Platelet Count 157 10^3/cmm (157-399); Red Blood Count 4.59 10^6/uL (3.85-5.65); Red Cell Distribution Width 14.9 % (12.1-15.1); White Blood Count 4.82 10^3/uL (3.29-11.43)
[2023-09-05 07:19] LABS: Alanine Aminotransferase 25 U/L (0-41); Alkaline Phosphatase 94 U/L (40-130); Anion Gap 12.8 (5-19); Aspartate Amino Transferase 16 U/L (0-40); Blood Urea Nitrogen 21 mg/dL (6-20); Calcium 9.2 mg/dL (8.5-10.5); Carbon Dioxide 27 mmol/L (22-29); Chloride 104 mmol/L (98-107); Gamma Glutamyl Transferase 39 U/L (8-61); Globulin 2.9 g/dL (1.3-4.6); Glomerular Filtration Rate 98.9 mL/min (90-130); Glucose 283 mg/dL (65-115); Magnesium 1.7 mg/dL (1.7-2.3); Osmolality Calculated 301 mOsm/kg (285-295); Phosphorus 3.3 mg/dL (2.5-4.5); Potassium 4.8 mmol/L (3.5-5.1); Sodium 139 mmol/L (136-145); Total Bilirubin 0.4 mg/dL (0.15-1.2); Total Protein 6.9 g/dL (6.6-8.7)
== END 2023-09-05 06:27 | disposition home or self-care (01) ==
PROVIDERS: Surgery Surgical Oncology; PCP Family Medicine; Visit Provider Internal Medicine
DX: Z01.89 Encounter for other specified special examinations (principal)
CPT/HCPCS: 36415; 80053; 80197; 82977; 83735; 84100; 85025

== ENCOUNTER 2023-09-12 07:05 | Emergency (ER) | payer OTHER, SELFPAY ==
[2023-09-12 07:24] VITALS: BP 176/83; PULSE 75; RESP 16; TEMP 36.6; O2SAT 98
--- NOTE | 2023-09-12 07:29 | XR_ITS ---
WS: [id number] CHEST, 1 view. HISTORY: dizziness COMPARISON: 06/28/2023 Lungs are clear and well expanded. No pleural effusion or pneumothorax. Cardiac size: Normal. Mediastinum/Aorta: Normal mediastinum. No osseous abnormality seen. IMPRESSION: Unremarkable chest.
--- NOTE | 2023-09-12 07:29 | CT_ITS ---
WS: [id number] CT HEAD TECHNIQUE: Noncontrast CT of the head obtained from the skullbase to the vertex. CLINICAL INFORMATION: dizziness COMPARISON: 2021 DLP: 1043.[address] scans at [facility] use at least one of these dose optimization techniques: automated e xposure control; mA and/or kV adjustment per patient size (includes targeted exams where dose is matc hed to clinical indication); or iterative reconstruction. FINDINGS: No evidence of intracranial hemorrhage or mass effect. Ventricular system and basal cisterns are haynes nt. Mild small vessel changes with mild parenchymal volume loss. No extra-axial fluid collections. No evidence of mass or mass effect. Mild mucosal thickening in the ethmoid air cells. Mastoid air cells are well aerated. Cavernous carot id calcification. IMPRESSION: 1. No evidence of intracranial hemorrhage or mass effect. 2. No acute intracranial findings. Notified Leonarda Faria MD at 09/12/2023 845 AM.
[2023-09-12 07:30] VITALS: BP 184/78; BP 185/83; BP 199/83; PULSE 66; PULSE 76; PULSE 84
--- NOTE | 2023-09-12 08:12 | W.ED.GENADLT ---
HPI - General Adult General: Chief complaint: General Medical Stated complaint: light headed, dizzy Time Seen by Provider: 09/12/23 07:23 History of Present Illness: 58-year-old male with a history of liver transplant, hypertension, hyperlipidemia and diabetes who presents to the emergency room with dizziness. He says he is been lightheaded since yesterday. He says that usually when he stands up. He says he will feel a little bit off balance initially and then I will get better. He actually gone to lab this morning and had lab work done secondary to his liver transplant. He denies any other symptoms. No chest pain. No shortness of breath. No fevers. No cough. No abdominal pain. No dysuria. Review of Systems Narrative: Constitutional symptoms: Negative except as documented in HPI. Skin symptoms: Negative except as documented in HPI. Eye symptoms: Negative except as documented in HPI. ENMT symptoms: Negative except as documented in HPI. Respiratory symptoms: Negative except as documented in HPI. Cardiovascular symptoms: Negative except as documented in HPI. Gastrointestinal symptoms: Negative except as documented in HPI. Genitourinary symptoms: Negative except as documented in HPI. Musculoskeletal symptoms: Negative except as documented in HPI. Neurologic symptoms: Negative except as documented in HPI. Psychiatric symptoms: Negative except as documented in HPI. Endocrine symptoms: Negative except as documented in HPI. 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 Skin: Warm, dry. Head: Normocephalic, atraumatic. Neck: Supple, trachea midline. Eye: Extraocular movements are intact. Ears, nose, mouth and throat: mucosa moist. Cardiovascular: Regular, Normal peripheral perfusion. Respiratory: Lungs are clear to auscultation, respirations are non-labored, breath sounds are equal, Symmetrical chest wall expansion. Gastrointestinal: Soft, Nontender, Non distended, Normal bowel sounds. Musculoskeletal: Normal ROM, no deformity. Neurological: Alert and oriented, No focal neurological deficit observed. Psychiatric: Cooperative, appropriate mood & affect. Course Vital Signs: Vital signs: Vital Signs Temperature 97.9 F 09/12/23 07:24 Pulse Rate 66 09/12/23 07:30 Respiratory Rate 16 09/12/23 07:24 Blood Pressure 184/78 09/12/23 07:30 Pulse Oximetry 98 09/12/23 07:24 Oxygen Delivery Me thod Room Air 09/12/23 07:24 MDM - General Adult Medical Decision Making Medical decision making: Differential diagnosis including but not limited to and based on the above HPI, review of systems and physical exam: In this immunocompromise patient I would have concern for infection. I also concern for dehydration and orthostasis. Basic lab work is drawn and pending from lab. I am adding a lactate and a urinalysis and a chest x-ray and EKG. Lab Review: Laboratory results were reviewed and interpreted by myself the emergency room physician. Lab work is fairly unremarkable. No renal failure. No leukocytosis. Urine is clear. He does have some hyperglycemia, but says he did not take his diabetic medications this morning because of fasting lab work. CT head: No acute intracranial process. no intracranial hemorrhage, no evidence of infarct. no evidence of acute fracture.This was reviewed and interpreted by myself the ER physician. Reexamination: Patient remained stable. No increased work of breathing. No altered mental status. No hypotension. Offered fluids for his hyperglycemia. He says he will hydrate orally. Also he will follow-up with his transplant team. Lab Data Laboratory Results Urine Color Yellow (Yellow) 09/12/23 07:45 Urine Appearance Clear (CLEAR) 09/12/23 07:45 Urine pH 6 (5-7) 09/12/23 07:45 Ur Specific [place] 1.015 (1.005-1.030) 09/12/23 07:45 Urine Protein Neg (Negative) 09/12/23 07:45 Urine Glucose (UA) 4+ (Normal) H 09/12/23 07:45 Urine Ketones Negative (Negative) 09/12/23 07:45 Urine Blood Neg (Negative) 09/12/23 07:45 Urine Nitrate Negative (Negative) 09/12/23 07:45 Urine Bilirubin Neg (Negative) 09/12/23 07:45 Urine Urobilinogen Norm mg/dL (Negative) 09/12/23 07:45 Ur Leukocyte Esterase Negative (Negative) 09/12/23 07:45 Urine RBC None /hpf (0-2) 09/12/23 07:45 Urine WBC None /hpf (0-5) 09/12/23 07:45 Ur Squamous Epith Cells None /hpf (0-5) 09/12/23 07:45 Amorphous Sediment Not Reportable 09/12/23 07:45 Urine Bacteria Trace /hpf (NONE) 09/12/23 07:45 Influenza Type A Ag negative (Negative) 09/12/23 07:42 Influenza Type B Ag negative (Negative) 09/12/23 07:42 All radiology interpretation(s) finalized by discharge Discharge Plan Discharge Patient Disposition: Home Clinical Impression: Dizziness, Hyperglycemia, Dehydration Condition: Stable Prescriptions: No Action insulin glargine [Lantus Solostar U-100 Insulin] 100 unit/mL (3 mL) insulin pen 32 unit SUBCUT QAM mycophenolate sodium [Myfortic] 360 mg tablet,delayed release (DR/EC) 360 mg PO BID sennosides-docusate sodium [Senna with Docusate Sodium] 8.6-50 mg tablet 1 tab-cap PO BID PRN (Reason: Constipation) levothyroxine 50 mcg tablet 75 mcg PO QAM magnesium oxide 400 mg (241.3 mg magnesium) tablet 800 mg PO DAILY@12 cholecalciferol (vitamin D3) 50 mcg (2,000 unit) capsule 50 mcg PO QAM carvedilol 6.25 mg tablet 12.5 mg PO BID Rx Instructions: must administer with a meal/food cyclobenzaprine 5 mg tablet 5 mg PO TID PRN (Reason: Muscle Spasm) ondansetron HCl 8 mg tablet 8 mg PO Q8H PRN (Reason: Nausea And Vomiting) acetaminophen [Tylenol Extra Strength] 500 mg tablet 500 - 1,000 mg PO Q8H PRN (Reason: Pain) (DME) Dexcom G7 [facility] See Rx Instructions .ROUTE .MEDSUPPLY Qty: 1 0RF Rx Instructions: As directed (DME) Dexcom G7 Sensor Device See Rx Instructions .ROUTE .MEDSUPPLY Qty: 3 2RF Rx Instructions: As directed amlodipine 10 mg tablet 10 mg PO QAM (DME) blood-glucose meter [Embrace PRO Glucose meter] [facility] See Rx Instructions .Route Qty: 1 0RF Rx Instructions: check up 3 to 4 times a day (DME) True Metrix Glucose Test Strip Strip See Rx Instructions .ROUTE .COMPLEX Qty: 300 0RF Dose Instruction: Check UP TO three TO four times daily Rx Instructions: Check UP TO three TO four times daily (DME) pen needle, diabetic [BD Brenna 2nd Gen Pen Needle] 32 gauge x 5/32 needle See Rx Instructions .ROUTE .COMPLEX Qty: 100 0RF Dose Instruction: USE DAILY Rx Instructions: USE DAILY insulin aspart U-100 100 unit/mL (3 mL) insulin pen See Rx Instructions .ROUTE .COMPLEX Qty: 15 0RF Dose Instruction: INJECT 20 UNITS SUBCUTANEOUSLY THREE TIMES DAILY PER sliding scale; max of 54 UNITS DAILY Rx Instructions: INJECT 20 UNITS SUBCUTANEOUSLY THREE TIMES DAILY PER sliding scale; max of 54 UNITS DAILY famotidine [Pepcid] 20 mg Tablet 20 mg PO BEDTIME PRN (Reason: Heartburn) tacrolimus 1 mg capsule See Rx Instructions .ROUTE .COMPLEX Rx Instructions: take 2mg (2 caps) po in the AM and 1mg (1 cap) at bedtime hydrochlorothiazide 12.5 mg tablet 12.5 mg PO QAM atorvastatin 40 mg Tablet 40 mg PO BEDTIME Qty: 90 3RF clopidogrel 75 mg Tablet 75 mg PO DAILY Qty: 90 3RF aspirin [Bg Aspirin] 325 mg tablet 325 mg PO DAILY Qty: 90 3RF omeprazole 20 mg capsule,delayed release(DR/EC) 20 mg PO DAILY oxycodone 5 mg Tablet 5 - 10 mg PO Q4H PRN (Reason: Pain) Discharge Orders: Discharge ED (Routine); Ordered 09/12/23 Ordered By: Sheba Crockett Referrals: Amber Can MD [Primary Care Provider] - (You have been screened and evaluated and felt safe for discharge. Health conditions do change or evolve sometimes and as such it is important that you follow up with your Primary Doctor to be re checked, 3-5 days is a general good time frame for follow up. You are always welcome to return to the ED for re assessment if your symptoms are worsening or you have new concerns) Discharge Diet: Usual diet Discharge Activity: Resume usual activity Patient Instructions: Opioid Safety, Pain Management Coding Level of Care Code ED Safety And Health Manager for Erick Murphy
[2023-09-12 08:13] LABS: Add Urine Culture? No; Bacteria Urine TRACE /hpf; Bilirubin Urine Neg (Negative); Blood Urine Neg (Negative); Glucose Urine UA 4+ (Normal); Ketones Urine Negative (Negative); Leukocyte Esterase Urine Negative (Negative); Nitrate Urine Negative (Negative); Protein Urine Neg (Negative); Specific Gravity, Urine 1.015 (1.005-1.030); Urine Appearance Clear (CLEAR); Urine Color Yellow (Yellow); Urobilinogen Urine Norm (Negative); pH Urine 6 (5-7)
[2023-09-12 08:19] LABS: Influenza A by IFA negative (Negative); Influenza B by IFA negative (Negative)
--- NOTE | 2023-09-12 09:14 | ECG_ITS ---
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 Measurements Intervals [place] Rate: 67 P: 11 [place]: 215 QRS: -31 QRSD: 90 T: -22 QT: 359 QTc: 382 Interpretive Statements SINUS RHYTHM WITH FIRST DEGREE AV BLOCK Compared to ECG 06/28/2023 14:24:34 Sinus bradycardia no longer present Left ventricular hypertrophy no longer present ST (T wave) deviation no longer present Myocardial infarct finding no longer present Electronically Signed On 09-12-2023 18:56:23 CDT by Nickie Denton M.D. [id number] f
[2023-09-12 11:38] LABS: Adenovirus Not Detected (NOT DETECT); Chlamydia Pneumoniae Not Detected (NOT DETECT); Coronavirus 229E,HKU1,NL63,OC4 Not Detected (NOT DETECT); Human Metapneumovirus Not Detected (NOT DETECT); Human Rhinovirus/Enterovirus Not Detected (NOT DETECT); Influenza A Not Detected (NOT DETECT); Influenza A H1 Not Detected (NOT DETECT); Influenza A H1-2009 Not Detected (NOT DETECT); Influenza A H3 Not Detected (NOT DETECT); Influenza B Not Detected (NOT DETECT); Mycoplasma Pneumoniae Not Detected (NOT DETECT); Parainfluenza Virus Type 1 Not Detected (NOT DETECT); Parainfluenza Virus Type 2 Not Detected (NOT DETECT); Parainfluenza Virus Type 3 Not Detected (NOT DETECT); Parainfluenza Virus Type 4 Not Detected (NOT DETECT); Respiratory Syncytial Virus A Not Detected (NOT DETECT); Respiratory Syncytial Virus B Not Detected (NOT DETECT); SARS-COV-2 Not Detected (NOT DETECT)
== END 2023-09-12 10:00 | disposition home or self-care (01) ==
PROVIDERS: Emergency Provider Emergency Medicine; PCP Family Medicine
DX: R42 Dizziness and giddiness (principal); E11.65 Type 2 diabetes mellitus with hyperglycemia; E86.0 Dehydration; I25.2 Old myocardial infarction; Z94.4 Liver transplant status; E78.5 Hyperlipidemia, unspecified; Z79.02 Long term (current) use of antithrombotics/antiplatelets; Z79.82 Long term (current) use of aspirin; Z79.4 Long term (current) use of insulin; Z11.52 Encounter for screening for COVID-19
CPT/HCPCS: 70450; 71045; 81001; 87635; 87804; 93005; 99285

== ENCOUNTER 2023-09-19 06:06 | Outpatient (RCR) | payer OTHER, SELFPAY ==
[2023-08-29 06:57] LABS: Basophils % 0.8 %; Eosinophils # 0.3 10^3/uL (0.0-0.8); Eosinophils % 6.6 %; Hematocrit 40.3 % (37-53); Lymphocytes # 0.9 10^3/uL (0.8-4.8); Lymphocytes % 18.6 %; Mean Corpuscular HGB Conc 33.5 g/dL (30-55); Mean Corpuscular Hemoglobin 29.4 pg (27-33); Mean Corpuscular Volume 87.8 fl (82-101); Monocytes # 0.6 10^3/uL (0.2-0.9); Monocytes % 12.4 %; Neutrophils # 3.07 10^3/uL (1.8-7.7); Neutrophils % 61.2 %; Nucleated Red Blood Cells % 0 %; Platelet Count 162 10^3/cmm (157-399); Red Blood Count 4.59 10^6/uL (3.85-5.65); Red Cell Distribution Width 14.9 % (12.1-15.1); White Blood Count 5.01 10^3/uL (3.29-11.43)
[2023-08-29 07:20] LABS: Alanine Aminotransferase 18 U/L (0-41); Albumin Level 4.1 g/dL (3.5-5.2); Alkaline Phosphatase 87 U/L (40-130); Blood Urea Nitrogen 24 mg/dL (6-20); Calcium 8.8 mg/dL (8.5-10.5); Carbon Dioxide 25 mmol/L (22-29); Chloride 103 mmol/L (98-107); Gamma Glutamyl Transferase 38 U/L (8-61); Globulin 3.1 g/dL (1.3-4.6); Glomerular Filtration Rate 98.9 mL/min (90-130); Glucose 256 mg/dL (65-115); Magnesium 1.7 mg/dL (1.7-2.3); Osmolality Calculated 293 mOsm/kg (285-295); Phosphorus 2.7 mg/dL (2.5-4.5); Sodium 135 mmol/L (136-145); Total Bilirubin 0.5 mg/dL (0.15-1.2); Total Protein 7.2 g/dL (6.6-8.7)
[2023-08-29 07:28] LABS: Anion Gap 11.6 (5-19); Aspartate Amino Transferase 16 U/L (0-40); Potassium 4.6 mmol/L (3.5-5.1)
[2023-09-12 07:09] LABS: Basophils # 0.1 10^3/uL (0.0-0.1); Basophils % 0.9 %; Eosinophils # 0.5 10^3/uL (0.0-0.8); Eosinophils % 6.8 %; Hematocrit 42.8 % (37-53); Lymphocytes % 14.3 %; Mean Corpuscular HGB Conc 33.9 g/dL (30-55); Mean Corpuscular Hemoglobin 29.5 pg (27-33); Mean Corpuscular Volume 87.2 fl (82-101); Mean Platelet Volume 10.1 fL (7.4-10.4); Monocytes # 0.7 10^3/uL (0.2-0.9); Monocytes % 10.5 %; Neutrophils # 4.57 10^3/uL (1.8-7.7); Neutrophils % 67.4 %; Nucleated Red Blood Cells % 0 %; Platelet Count 169 10^3/cmm (157-399); Red Blood Count 4.91 10^6/uL (3.85-5.65); White Blood Count 6.78 10^3/uL (3.29-11.43)
[2023-09-12 07:35] LABS: Alanine Aminotransferase 34 U/L (0-41); Albumin Level 4.2 g/dL (3.5-5.2); Alkaline Phosphatase 106 U/L (40-130); Aspartate Amino Transferase 22 U/L (0-40); Blood Urea Nitrogen 17 mg/dL (6-20); Calcium 9.4 mg/dL (8.5-10.5); Carbon Dioxide 27 mmol/L (22-29); Chloride 98 mmol/L (98-107); Gamma Glutamyl Transferase 37 U/L (8-61); Globulin 3.1 g/dL (1.3-4.6); Glomerular Filtration Rate 86.4 mL/min (90-130); Glucose 261 mg/dL (65-115); Magnesium 1.8 mg/dL (1.7-2.3); Osmolality Calculated 287 mOsm/kg (285-295); Phosphorus 2.8 mg/dL (2.5-4.5); Sodium 133 mmol/L (136-145); Total Bilirubin 0.4 mg/dL (0.15-1.2); Total Protein 7.3 g/dL (6.6-8.7)
[2023-09-12 07:37] LABS: Anion Gap 12.7 (5-19); Potassium 4.7 mmol/L (3.5-5.1)
[2023-09-19 07:09] LABS: Basophils # 0.1 10^3/uL (0.0-0.1); Basophils % 1.4 %; Eosinophils # 0.5 10^3/uL (0.0-0.8); Eosinophils % 9.3 %; Hematocrit 40.5 % (37-53); Lymphocytes % 19.5 %; Mean Corpuscular HGB Conc 33.6 g/dL (30-55); Mean Corpuscular Hemoglobin 29.8 pg (27-33); Mean Corpuscular Volume 88.6 fl (82-101); Mean Platelet Volume 10.4 fL (7.4-10.4); Monocytes # 0.8 10^3/uL (0.2-0.9); Monocytes % 15.2 %; Neutrophils # 2.76 10^3/uL (1.8-7.7); Neutrophils % 54.2 %; Nucleated Red Blood Cells % 0 %; Platelet Count 148 10^3/cmm (157-399); Red Blood Count 4.57 10^6/uL (3.85-5.65); Red Cell Distribution Width 14.7 % (12.1-15.1); White Blood Count 5.08 10^3/uL (3.29-11.43)
[2023-09-19 07:21] LABS: Alanine Aminotransferase 27 U/L (0-41); Alkaline Phosphatase 105 U/L (40-130); Anion Gap 12.6 (5-19); Aspartate Amino Transferase 17 U/L (0-40); Blood Urea Nitrogen 21 mg/dL (6-20); Carbon Dioxide 27 mmol/L (22-29); Chloride 102 mmol/L (98-107); Glomerular Filtration Rate 76.5 mL/min (90-130); Glucose 249 mg/dL (65-115); Osmolality Calculated 295 mOsm/kg (285-295); Phosphorus 2.9 mg/dL (2.5-4.5); Potassium 4.6 mmol/L (3.5-5.1); Sodium 137 mmol/L (136-145); Total Bilirubin 0.5 mg/dL (0.15-1.2)
[2023-09-19 09:04] LABS: Gamma Glutamyl Transferase 33 U/L (8-61)
== END 2023-09-25 23:59 | disposition home or self-care (01) ==
LOC: LAB 06:06
PROVIDERS: PCP Family Medicine; Visit Provider Surgery Surgical Oncology
DX: Z94.4 Liver transplant status (principal); Z77.21 Contact with and (suspected) exposure to potentially hazardous body fluids; Z79.899 Other long term (current) drug therapy
CPT/HCPCS: 36415; 80053; 80197; 82977; 83735; 84100; 85025

== ENCOUNTER 2023-10-03 06:19 | Outpatient (CLI) | payer OTHER, SELFPAY ==
[2023-10-03 06:58] LABS: Basophils % 0.6 %; Eosinophils # 0.4 10^3/uL (0.0-0.8); Eosinophils % 5.7 %; Hematocrit 42.8 % (37-53); Lymphocytes # 0.8 10^3/uL (0.8-4.8); Lymphocytes % 12.1 %; Mean Corpuscular HGB Conc 33.6 g/dL (30-55); Mean Corpuscular Hemoglobin 30.3 pg (27-33); Mean Corpuscular Volume 90.1 fl (82-101); Mean Platelet Volume 10.3 fL (7.4-10.4); Monocytes # 1.1 10^3/uL (0.2-0.9); Monocytes % 15.5 %; Neutrophils # 4.52 10^3/uL (1.8-7.7); Nucleated Red Blood Cells % 0 %; Platelet Count 148 10^3/cmm (157-399); Red Blood Count 4.75 10^6/uL (3.85-5.65); Red Cell Distribution Width 14.6 % (12.1-15.1); White Blood Count 6.96 10^3/uL (3.29-11.43)
[2023-10-03 07:17] LABS: Alanine Aminotransferase 99 U/L (0-41); Alkaline Phosphatase 127 U/L (40-130); Anion Gap 11.5 (5-19); Aspartate Amino Transferase 26 U/L (0-40); Blood Urea Nitrogen 15 mg/dL (6-20); Calcium 9.1 mg/dL (8.5-10.5); Carbon Dioxide 28 mmol/L (22-29); Chloride 104 mmol/L (98-107); Gamma Glutamyl Transferase 65 U/L (8-61); Globulin 3.2 g/dL (1.3-4.6); Glomerular Filtration Rate 98.9 mL/min (90-130); Glucose 204 mg/dL (65-115); Magnesium 1.8 mg/dL (1.7-2.3); Osmolality Calculated 295 mOsm/kg (285-295); Phosphorus 2.5 mg/dL (2.5-4.5); Potassium 4.5 mmol/L (3.5-5.1); Sodium 139 mmol/L (136-145); Total Bilirubin 0.5 mg/dL (0.15-1.2); Total Protein 7.2 g/dL (6.6-8.7)
== END 2023-10-03 06:20 | disposition home or self-care (01) ==
PROVIDERS: PCP Family Medicine; Visit Provider Surgery Surgical Oncology
DX: Z94.4 Liver transplant status (principal)
CPT/HCPCS: 36415; 80053; 80197; 82977; 83735; 84100; 85025

== ENCOUNTER 2023-10-17 06:15 | Outpatient (RCR) | payer OTHER, SELFPAY ==
[2023-10-17 06:56] LABS: Basophils # 0.1 10^3/uL (0.0-0.1); Basophils % 1.1 %; Eosinophils # 0.4 10^3/uL (0.0-0.8); Eosinophils % 6.8 %; Hematocrit 40.8 % (37-53); Lymphocytes % 17.7 %; Mean Corpuscular HGB Conc 34.1 g/dL (30-55); Mean Corpuscular Hemoglobin 29.7 pg (27-33); Mean Corpuscular Volume 87.2 fl (82-101); Monocytes # 0.8 10^3/uL (0.2-0.9); Monocytes % 14.4 %; Neutrophils # 3.25 10^3/uL (1.8-7.7); Neutrophils % 59.8 %; Nucleated Red Blood Cells % 0 %; Platelet Count 165 10^3/cmm (157-399); Red Blood Count 4.68 10^6/uL (3.85-5.65); Red Cell Distribution Width 14.4 % (12.1-15.1); White Blood Count 5.43 10^3/uL (3.29-11.43)
[2023-10-17 07:11] LABS: Alanine Aminotransferase 35 U/L (0-41); Albumin Level 3.9 g/dL (3.5-5.2); Alkaline Phosphatase 114 U/L (40-130); Anion Gap 11.5 (5-19); Aspartate Amino Transferase 21 U/L (0-40); Blood Urea Nitrogen 19 mg/dL (6-20); Calcium 9.2 mg/dL (8.5-10.5); Carbon Dioxide 27 mmol/L (22-29); Chloride 105 mmol/L (98-107); Gamma Glutamyl Transferase 61 U/L (8-61); Glomerular Filtration Rate 86.4 mL/min (90-130); Glucose 218 mg/dL (65-115); Magnesium 1.7 mg/dL (1.7-2.3); Osmolality Calculated 297 mOsm/kg (285-295); Phosphorus 2.8 mg/dL (2.5-4.5); Potassium 4.5 mmol/L (3.5-5.1); Sodium 139 mmol/L (136-145); Total Bilirubin 0.4 mg/dL (0.15-1.2); Total Protein 6.9 g/dL (6.6-8.7)
== END 2023-10-25 23:59 | disposition home or self-care (01) ==
LOC: LAB 06:15
PROVIDERS: PCP Family Medicine; Visit Provider Surgery Surgical Oncology
DX: Z94.4 Liver transplant status (principal); Z77.21 Contact with and (suspected) exposure to potentially hazardous body fluids; Z79.899 Other long term (current) drug therapy
CPT/HCPCS: 36415; 80053; 80197; 82977; 83735; 84100; 85025

== ENCOUNTER 2023-11-14 06:25 | Outpatient (RCR) | payer OTHER, SELFPAY ==
[2023-10-31 07:05] LABS: Basophils # 0.1 10^3/uL (0.0-0.1); Basophils % 1.2 %; Eosinophils # 0.5 10^3/uL (0.0-0.8); Eosinophils % 8.9 %; Hematocrit 42.5 % (37-53); Lymphocytes # 0.9 10^3/uL (0.8-4.8); Lymphocytes % 15.6 %; Mean Corpuscular HGB Conc 33.2 g/dL (30-55); Mean Corpuscular Hemoglobin 29.3 pg (27-33); Mean Corpuscular Volume 88.2 fl (82-101); Mean Platelet Volume 9.9 fL (7.4-10.4); Monocytes # 0.7 10^3/uL (0.2-0.9); Monocytes % 11.8 %; Neutrophils # 3.64 10^3/uL (1.8-7.7); Neutrophils % 62.3 %; Nucleated Red Blood Cells % 0 %; Platelet Count 154 10^3/cmm (157-399); Red Blood Count 4.82 10^6/uL (3.85-5.65); Red Cell Distribution Width 14.2 % (12.1-15.1); White Blood Count 5.84 10^3/uL (3.29-11.43)
[2023-10-31 07:25] LABS: Magnesium 1.7 mg/dL (1.7-2.3); Phosphorus 2.7 mg/dL (2.5-4.5)
[2023-10-31 07:28] LABS: Estmated Average Glucose 177; Hemoglobin A1C 7.8 % (4.0-6.0)
[2023-10-31 08:07] LABS: Alanine Aminotransferase 24 U/L (0-41); Albumin Level 3.9 g/dL (3.5-5.2); Alkaline Phosphatase 106 U/L (40-130); Anion Gap 15.3 (5-19); Aspartate Amino Transferase 14 U/L (0-40); Blood Urea Nitrogen 19 mg/dL (6-20); Calcium 9.1 mg/dL (8.5-10.5); Carbon Dioxide 24 mmol/L (22-29); Chloride 104 mmol/L (98-107); Chol HDL Ratio 4.29 mg/dL (1.0-5.00); Cholesterol 120 mg/dL (0-200); Free T4 Free Thyroxine 0.97 ng/dL (0.82-1.77); Globulin 3.3 g/dL (1.3-4.6); Glomerular Filtration Rate 98.9 mL/min (90-130); Glucose 302 mg/dL (65-115); HDL Cholesterol 28 mg/dL (60-100); LDL Cholesterol Calculated 35 mg/dL (50-129); LDL HDL Ratio 1.25 RATIO (0.00-3.22); Osmolality Calculated 302 mOsm/kg (285-295); Potassium 4.3 mmol/L (3.5-5.1); Sodium 139 mmol/L (136-145); Thyroid Stimulating Hormone 5.43 uIU/mL (0.27-4.20); Total Bilirubin 0.4 mg/dL (0.15-1.2); Total Protein 7.2 g/dL (6.6-8.7); Triglycerides 285 mg/dL (0-150)
[2023-10-31 08:51] LABS: 25 Hydroxy Vitamin D 30 ng/mL (30-100)
[2023-11-14 06:59] LABS: Basophils # 0.1 10^3/uL (0.0-0.1); Basophils % 0.9 %; Eosinophils # 0.5 10^3/uL (0.0-0.8); Hematocrit 42.5 % (37-53); Lymphocytes # 1.1 10^3/uL (0.8-4.8); Mean Corpuscular HGB Conc 33.6 g/dL (30-55); Mean Corpuscular Hemoglobin 29.2 pg (27-33); Mean Corpuscular Volume 86.9 fl (82-101); Mean Platelet Volume 10.1 fL (7.4-10.4); Monocytes # 0.7 10^3/uL (0.2-0.9); Monocytes % 11.8 %; Neutrophils # 3.44 10^3/uL (1.8-7.7); Nucleated Red Blood Cells % 0 %; Platelet Count 168 10^3/cmm (157-399); Red Blood Count 4.89 10^6/uL (3.85-5.65); Red Cell Distribution Width 13.6 % (12.1-15.1); White Blood Count 5.74 10^3/uL (3.29-11.43)
[2023-11-14 07:17] LABS: Creatinine Urine, Random 74 mg/dL (39-259); Microalbumin Random Urine 5 ug/dL (0-20)
[2023-11-14 07:17] LABS: Alanine Aminotransferase 32 U/L (0-41); Alkaline Phosphatase 122 U/L (40-130); Anion Gap 12.4 (5-19); Aspartate Amino Transferase 17 U/L (0-40); Blood Urea Nitrogen 21 mg/dL (6-20); Calcium 8.7 mg/dL (8.5-10.5); Carbon Dioxide 28 mmol/L (22-29); Chloride 102 mmol/L (98-107); Gamma Glutamyl Transferase 74 U/L (8-61); Globulin 3.3 g/dL (1.3-4.6); Glomerular Filtration Rate 98.9 mL/min (90-130); Glucose 299 mg/dL (65-115); Magnesium 1.6 mg/dL (1.7-2.3); Osmolality Calculated 300 mOsm/kg (285-295); Potassium 4.4 mmol/L (3.5-5.1); Sodium 138 mmol/L (136-145); Total Bilirubin 0.4 mg/dL (0.15-1.2); Total Protein 7.3 g/dL (6.6-8.7)
[2023-11-14 07:20] LABS: Microalbum Creatinine Ratio Ur 68 mg/dL (0-20)
== END 2023-11-25 23:59 | disposition home or self-care (01) ==
LOC: LAB 06:25
PROVIDERS: PCP Family Medicine; Visit Provider Internal Medicine
DX: E11.65 Type 2 diabetes mellitus with hyperglycemia (principal); Z79.4 Long term (current) use of insulin; E78.2 Mixed hyperlipidemia; E03.9 Hypothyroidism, unspecified; Z79.899 Other long term (current) drug therapy
CPT/HCPCS: 36415; 80053; 80061; 80197; 82044; 82306; 82977; 83036; 83735; 84100; 84439; 84443; 85025

== ENCOUNTER 2023-12-12 06:30 | Outpatient (RCR) | payer OTHER, SELFPAY ==
[2023-11-28 07:02] LABS: Basophils # 0.1 10^3/uL (0.0-0.1); Eosinophils # 0.5 10^3/uL (0.0-0.8); Eosinophils % 7.3 %; Hematocrit 41.5 % (37-53); Lymphocytes % 15.6 %; Mean Corpuscular Hemoglobin 29.7 pg (27-33); Mean Corpuscular Volume 87.6 fl (82-101); Mean Platelet Volume 10.2 fL (7.4-10.4); Monocytes # 0.7 10^3/uL (0.2-0.9); Monocytes % 11.2 %; Neutrophils # 3.98 10^3/uL (1.8-7.7); Neutrophils % 64.7 %; Nucleated Red Blood Cells % 0 %; Platelet Count 184 10^3/cmm (157-399); Red Blood Count 4.74 10^6/uL (3.85-5.65); Red Cell Distribution Width 13.5 % (12.1-15.1); White Blood Count 6.15 10^3/uL (3.29-11.43)
[2023-11-28 07:24] LABS: Tumor Marker Alpha Fetoprotein 2.2 ng/mL (0-8.3)
[2023-11-28 07:37] LABS: Alanine Aminotransferase 24 U/L (0-41); Alkaline Phosphatase 110 U/L (40-130); Anion Gap 13.5 (5-19); Aspartate Amino Transferase 15 U/L (0-40); Blood Urea Nitrogen 20 mg/dL (6-20); Calcium 9.2 mg/dL (8.5-10.5); Carbon Dioxide 26 mmol/L (22-29); Chloride 102 mmol/L (98-107); Globulin 3.3 g/dL (1.3-4.6); Glomerular Filtration Rate 86.4 mL/min (90-130); Glucose 268 mg/dL (65-115); Magnesium 1.7 mg/dL (1.7-2.3); Osmolality Calculated 296 mOsm/kg (285-295); Phosphorus 2.7 mg/dL (2.5-4.5); Potassium 4.5 mmol/L (3.5-5.1); Sodium 137 mmol/L (136-145); Total Bilirubin 0.5 mg/dL (0.15-1.2); Total Protein 7.3 g/dL (6.6-8.7)
[2023-11-28 07:50] LABS: Gamma Glutamyl Transferase 57 U/L (8-61)
[2023-11-30 08:28] LABS: Hepatitis B Virus DNA NOT DETECTED (NOT DETECTED); Hepatitis B Virus DNA PCR NOT DETECTED Log IU/mL (NOT DETECTED)
[2023-12-12 06:54] LABS: Basophils # 0.1 10^3/uL (0.0-0.1); Basophils % 0.8 %; Eosinophils # 0.4 10^3/uL (0.0-0.8); Hematocrit 41.8 % (37-53); Lymphocytes # 1.1 10^3/uL (0.8-4.8); Lymphocytes % 18.3 %; Mean Corpuscular Hemoglobin 29.9 pg (27-33); Mean Platelet Volume 10.3 fL (7.4-10.4); Monocytes # 0.7 10^3/uL (0.2-0.9); Monocytes % 12.2 %; Neutrophils # 3.65 10^3/uL (1.8-7.7); Neutrophils % 61.4 %; Nucleated Red Blood Cells % 0 %; Platelet Count 173 10^3/cmm (157-399); Red Blood Count 4.75 10^6/uL (3.85-5.65); Red Cell Distribution Width 13.8 % (12.1-15.1); White Blood Count 5.96 10^3/uL (3.29-11.43)
[2023-12-12 07:14] LABS: Alanine Aminotransferase 53 U/L (0-41); Albumin Level 4.1 g/dL (3.5-5.2); Alkaline Phosphatase 135 U/L (40-130); Anion Gap 12.3 (5-19); Aspartate Amino Transferase 20 U/L (0-40); Blood Urea Nitrogen 20 mg/dL (6-20); Calcium 9.5 mg/dL (8.5-10.5); Carbon Dioxide 27 mmol/L (22-29); Chloride 108 mmol/L (98-107); Gamma Glutamyl Transferase 67 U/L (8-61); Globulin 3.3 g/dL (1.3-4.6); Glomerular Filtration Rate 86.4 mL/min (90-130); Glucose 216 mg/dL (65-115); Magnesium 1.8 mg/dL (1.7-2.3); Osmolality Calculated 305 mOsm/kg (285-295); Phosphorus 3.3 mg/dL (2.5-4.5); Potassium 4.3 mmol/L (3.5-5.1); Sodium 143 mmol/L (136-145); Total Bilirubin 0.5 mg/dL (0.15-1.2); Total Protein 7.4 g/dL (6.6-8.7)
== END 2023-12-25 23:59 | disposition home or self-care (01) ==
LOC: LAB 06:30
PROVIDERS: PCP Family Medicine; Visit Provider Internal Medicine
DX: C22.0 Liver cell carcinoma (principal); Z94.4 Liver transplant status; Z79.899 Other long term (current) drug therapy
CPT/HCPCS: 36415; 80053; 80197; 82105; 82977; 83735; 84100; 85025; 87517

== ENCOUNTER 2024-01-23 06:12 | Outpatient (RCR) | payer OTHER, SELFPAY ==
[2023-12-26 06:44] LABS: Basophils # 0.1 10^3/uL (0.0-0.1); Basophils % 0.7 %; Eosinophils # 0.5 10^3/uL (0.0-0.8); Eosinophils % 7.2 %; Hematocrit 41.5 % (37-53); Lymphocytes % 14.8 %; Mean Corpuscular Hemoglobin 29.4 pg (27-33); Mean Corpuscular Volume 86.6 fl (82-101); Mean Platelet Volume 9.8 fL (7.4-10.4); Monocytes # 0.8 10^3/uL (0.2-0.9); Monocytes % 10.9 %; Neutrophils # 4.61 10^3/uL (1.8-7.7); Nucleated Red Blood Cells % 0 %; Platelet Count 166 10^3/cmm (157-399); Red Blood Count 4.79 10^6/uL (3.85-5.65); Red Cell Distribution Width 13.7 % (12.1-15.1); White Blood Count 6.98 10^3/uL (3.29-11.43)
[2023-12-26 07:08] LABS: Alanine Aminotransferase 26 U/L (0-41); Alkaline Phosphatase 115 U/L (40-130); Anion Gap 12.2 (5-19); Aspartate Amino Transferase 15 U/L (0-40); Blood Urea Nitrogen 15 mg/dL (6-20); Calcium 9.1 mg/dL (8.5-10.5); Carbon Dioxide 26 mmol/L (22-29); Chloride 103 mmol/L (98-107); Gamma Glutamyl Transferase 50 U/L (8-61); Globulin 3.3 g/dL (1.3-4.6); Glomerular Filtration Rate 98.9 mL/min (90-130); Glucose 181 mg/dL (65-115); Magnesium 1.6 mg/dL (1.7-2.3); Osmolality Calculated 289 mOsm/kg (285-295); Phosphorus 3.3 mg/dL (2.5-4.5); Potassium 4.2 mmol/L (3.5-5.1); Sodium 137 mmol/L (136-145); Total Bilirubin 0.4 mg/dL (0.15-1.2); Total Protein 7.3 g/dL (6.6-8.7)
[2023-12-26 11:41] LABS: Tumor Marker Alpha Fetoprotein 2.4 ng/mL (0-8.3)
[2023-12-27 20:55] LABS: Hepatitis B Virus DNA NOT DETECTED (NOT DETECTED); Hepatitis B Virus DNA PCR NOT DETECTED Log IU/mL (NOT DETECTED)
[2024-01-09 06:59] LABS: Basophils # 0.1 10^3/uL (0.0-0.1); Eosinophils # 0.4 10^3/uL (0.0-0.8); Lymphocytes # 0.9 10^3/uL (0.8-4.8); Lymphocytes % 19.6 %; Mean Corpuscular HGB Conc 33.7 g/dL (30-55); Mean Corpuscular Hemoglobin 29.4 pg (27-33); Mean Corpuscular Volume 87.4 fl (82-101); Mean Platelet Volume 9.6 fL (7.4-10.4); Monocytes # 0.7 10^3/uL (0.2-0.9); Monocytes % 14.6 %; Neutrophils # 2.67 10^3/uL (1.8-7.7); Neutrophils % 55.6 %; Nucleated Red Blood Cells % 0 %; Platelet Count 165 10^3/cmm (157-399); Red Blood Count 4.69 10^6/uL (3.85-5.65); Red Cell Distribution Width 13.9 % (12.1-15.1)
[2024-01-09 07:16] LABS: Alanine Aminotransferase 30 U/L (0-41); Albumin Level 3.9 g/dL (3.5-5.2); Alkaline Phosphatase 112 U/L (40-130); Anion Gap 16.3 (5-19); Aspartate Amino Transferase 16 U/L (0-40); Blood Urea Nitrogen 24 mg/dL (6-20); Calcium 8.9 mg/dL (8.5-10.5); Carbon Dioxide 24 mmol/L (22-29); Chloride 101 mmol/L (98-107); Globulin 3.3 g/dL (1.3-4.6); Glomerular Filtration Rate 86.4 mL/min (90-130); Glucose 226 mg/dL (65-115); Magnesium 1.8 mg/dL (1.7-2.3); Osmolality Calculated 295 mOsm/kg (285-295); Phosphorus 2.9 mg/dL (2.5-4.5); Potassium 4.3 mmol/L (3.5-5.1); Sodium 137 mmol/L (136-145); Total Bilirubin 0.5 mg/dL (0.15-1.2); Total Protein 7.2 g/dL (6.6-8.7)
[2024-01-09 07:52] LABS: Gamma Glutamyl Transferase 44 U/L (8-61)
[2024-01-13 15:30] LABS: Hepatitis B Virus DNA NOT DETECTED (NOT DETECTED); Hepatitis B Virus DNA PCR NOT DETECTED Log IU/mL (NOT DETECTED)
[2024-01-23 06:38] LABS: Basophils # 0.1 10^3/uL (0.0-0.1); Basophils % 1.1 %; Eosinophils # 0.3 10^3/uL (0.0-0.8); Eosinophils % 6.6 %; Hematocrit 41.3 % (37-53); Lymphocytes % 21.1 %; Mean Corpuscular HGB Conc 33.2 g/dL (30-55); Mean Corpuscular Hemoglobin 28.5 pg (27-33); Mean Platelet Volume 9.8 fL (7.4-10.4); Monocytes # 0.8 10^3/uL (0.2-0.9); Monocytes % 16.4 %; Neutrophils # 2.55 10^3/uL (1.8-7.7); Neutrophils % 54.4 %; Nucleated Red Blood Cells % 0 %; Platelet Count 165 10^3/cmm (157-399); Red Cell Distribution Width 13.7 % (12.1-15.1); White Blood Count 4.69 10^3/uL (3.29-11.43)
[2024-01-23 07:03] LABS: Tumor Marker Alpha Fetoprotein 2.8 ng/mL (0-8.3)
[2024-01-23 07:14] LABS: Alanine Aminotransferase 19 U/L (0-41); Alkaline Phosphatase 104 U/L (40-130); Anion Gap 15.7 (5-19); Aspartate Amino Transferase 13 U/L (0-40); Blood Urea Nitrogen 23 mg/dL (6-20); Calcium 9.1 mg/dL (8.5-10.5); Carbon Dioxide 25 mmol/L (22-29); Chloride 103 mmol/L (98-107); Globulin 3.6 g/dL (1.3-4.6); Glomerular Filtration Rate 86.4 mL/min (90-130); Glucose 264 mg/dL (65-115); Magnesium 1.7 mg/dL (1.7-2.3); Osmolality Calculated 301 mOsm/kg (285-295); Phosphorus 2.8 mg/dL (2.5-4.5); Potassium 4.7 mmol/L (3.5-5.1); Sodium 139 mmol/L (136-145); Total Bilirubin 0.4 mg/dL (0.15-1.2); Total Protein 7.6 g/dL (6.6-8.7)
[2024-01-24 14:55] LABS: Hepatitis B Virus DNA NOT DETECTED (NOT DETECTED); Hepatitis B Virus DNA PCR NOT DETECTED Log IU/mL (NOT DETECTED)
== END 2024-01-25 23:59 | disposition home or self-care (01) ==
LOC: LAB 06:12
PROVIDERS: Surgery Surgical Oncology; PCP Family Medicine; Visit Provider Internal Medicine
DX: Z94.4 Liver transplant status (principal); C22.0 Liver cell carcinoma; Z79.899 Other long term (current) drug therapy
CPT/HCPCS: 36415; 80053; 80197; 82105; 82977; 83735; 84100; 85025; 87517

== ENCOUNTER 2024-02-20 06:16 | Outpatient (RCR) | payer OTHER, SELFPAY ==
[2024-02-06 06:43] LABS: Basophils # 0.1 10^3/uL (0.0-0.1); Basophils % 0.9 %; Eosinophils # 0.4 10^3/uL (0.0-0.8); Eosinophils % 6.5 %; Hematocrit 40.5 % (37-53); Lymphocytes # 0.9 10^3/uL (0.8-4.8); Lymphocytes % 16.3 %; Mean Corpuscular HGB Conc 33.3 g/dL (30-55); Mean Corpuscular Hemoglobin 28.6 pg (27-33); Mean Corpuscular Volume 85.8 fl (82-101); Mean Platelet Volume 10.4 fL (7.4-10.4); Monocytes # 0.6 10^3/uL (0.2-0.9); Neutrophils # 3.67 10^3/uL (1.8-7.7); Neutrophils % 64.8 %; Nucleated Red Blood Cells % 0 %; Platelet Count 164 10^3/cmm (157-399); Red Blood Count 4.72 10^6/uL (3.85-5.65); Red Cell Distribution Width 13.5 % (12.1-15.1); White Blood Count 5.66 10^3/uL (3.29-11.43)
[2024-02-06 07:07] LABS: Thyroid Stimulating Hormone 4.06 uIU/mL (0.27-4.20); Tumor Marker Alpha Fetoprotein 2.8 ng/mL (0-8.3)
[2024-02-06 07:18] LABS: Alanine Aminotransferase 33 U/L (0-41); Alkaline Phosphatase 111 U/L (40-130); Anion Gap 15.6 (5-19); Aspartate Amino Transferase 17 U/L (0-40); Blood Urea Nitrogen 19 mg/dL (6-20); Calcium 8.9 mg/dL (8.5-10.5); Carbon Dioxide 23 mmol/L (22-29); Chloride 102 mmol/L (98-107); Chol HDL Ratio 3.69 mg/dL (1.0-5.00); Cholesterol 96 mg/dL (0-200); Globulin 3.2 g/dL (1.3-4.6); Glomerular Filtration Rate 86.4 mL/min (90-130); Glucose 355 mg/dL (65-115); HDL Cholesterol 26 mg/dL (60-100); LDL Cholesterol Calculated 24 mg/dL (50-129); LDL HDL Ratio 0.92 RATIO (0.00-3.22); Magnesium 1.7 mg/dL (1.7-2.3); Osmolality Calculated 299 mOsm/kg (285-295); Phosphorus 2.2 mg/dL (2.5-4.5); Potassium 4.6 mmol/L (3.5-5.1); Sodium 136 mmol/L (136-145); Total Bilirubin 0.4 mg/dL (0.15-1.2); Total Protein 7.2 g/dL (6.6-8.7); Triglycerides 228 mg/dL (0-150)
[2024-02-06 07:21] LABS: Estmated Average Glucose 171; Hemoglobin A1C 7.6 % (4.0-6.0)
[2024-02-06 07:35] LABS: Gamma Glutamyl Transferase 51 U/L (8-61)
[2024-02-07 13:10] LABS: Hepatitis B Virus DNA NOT DETECTED (NOT DETECTED); Hepatitis B Virus DNA PCR NOT DETECTED Log IU/mL (NOT DETECTED)
[2024-02-13 06:53] LABS: Basophils # 0.1 10^3/uL (0.0-0.1); Basophils % 0.8 %; Eosinophils # 0.4 10^3/uL (0.0-0.8); Eosinophils % 6.2 %; Hematocrit 40.9 % (37-53); Lymphocytes # 0.8 10^3/uL (0.8-4.8); Lymphocytes % 12.2 %; Mean Corpuscular HGB Conc 33.7 g/dL (30-55); Mean Corpuscular Hemoglobin 29.4 pg (27-33); Mean Platelet Volume 10.1 fL (7.4-10.4); Monocytes # 0.9 10^3/uL (0.2-0.9); Monocytes % 13.7 %; Neutrophils # 4.28 10^3/uL (1.8-7.7); Neutrophils % 66.8 %; Nucleated Red Blood Cells % 0 %; Platelet Count 163 10^3/cmm (157-399); Red Cell Distribution Width 13.7 % (12.1-15.1); White Blood Count 6.41 10^3/uL (3.29-11.43)
[2024-02-13 07:02] LABS: Alanine Aminotransferase 32 U/L (0-41); Albumin Level 3.9 g/dL (3.5-5.2); Alkaline Phosphatase 106 U/L (40-130); Anion Gap 14.3 (5-19); Aspartate Amino Transferase 17 U/L (0-40); Blood Urea Nitrogen 22 mg/dL (6-20); Calcium 8.9 mg/dL (8.5-10.5); Carbon Dioxide 26 mmol/L (22-29); Chloride 99 mmol/L (98-107); Globulin 3.4 g/dL (1.3-4.6); Glomerular Filtration Rate 86.4 mL/min (90-130); Glucose 239 mg/dL (65-115); Osmolality Calculated 291 mOsm/kg (285-295); Potassium 4.3 mmol/L (3.5-5.1); Sodium 135 mmol/L (136-145); Total Bilirubin 0.5 mg/dL (0.15-1.2); Total Protein 7.3 g/dL (6.6-8.7)
[2024-02-13 07:04] LABS: Creatinine Urine, Random 126 mg/dL (39-259); Microalbum Creatinine Ratio Ur 24 mg/dL (0-20); Microalbumin Random Urine 3 ug/dL (0-20)
[2024-02-13 07:37] LABS: Gamma Glutamyl Transferase 58 U/L (8-61)
[2024-02-20 06:44] LABS: Basophils % 0.6 %; Eosinophils # 0.4 10^3/uL (0.0-0.8); Eosinophils % 6.5 %; Hematocrit 41.1 % (37-53); Lymphocytes % 15.2 %; Mean Corpuscular HGB Conc 33.3 g/dL (30-55); Mean Corpuscular Hemoglobin 28.9 pg (27-33); Mean Corpuscular Volume 86.7 fl (82-101); Mean Platelet Volume 10.1 fL (7.4-10.4); Monocytes # 0.6 10^3/uL (0.2-0.9); Monocytes % 9.4 %; Neutrophils # 4.39 10^3/uL (1.8-7.7); Nucleated Red Blood Cells % 0 %; Platelet Count 174 10^3/cmm (157-399); Red Blood Count 4.74 10^6/uL (3.85-5.65); Red Cell Distribution Width 13.7 % (12.1-15.1); White Blood Count 6.46 10^3/uL (3.29-11.43)
[2024-02-20 07:04] LABS: Alanine Aminotransferase 21 U/L (0-41); Albumin Level 4.1 g/dL (3.5-5.2); Alkaline Phosphatase 102 U/L (40-130); Anion Gap 13.3 (5-19); Aspartate Amino Transferase 13 U/L (0-40); Blood Urea Nitrogen 23 mg/dL (6-20); Calcium 9.1 mg/dL (8.5-10.5); Carbon Dioxide 26 mmol/L (22-29); Chloride 102 mmol/L (98-107); Gamma Glutamyl Transferase 48 U/L (8-61); Glomerular Filtration Rate 86.4 mL/min (90-130); Glucose 263 mg/dL (65-115); Magnesium 1.7 mg/dL (1.7-2.3); Osmolality Calculated 297 mOsm/kg (285-295); Phosphorus 2.9 mg/dL (2.5-4.5); Potassium 4.3 mmol/L (3.5-5.1); Sodium 137 mmol/L (136-145); Total Bilirubin 0.4 mg/dL (0.15-1.2); Total Protein 7.1 g/dL (6.6-8.7)
[2024-02-23 09:34] LABS: CMV DNA By PCR Not Detected (Not Detected); CMV DNA, QN PCR Not Detected Log IU/mL (Not Detected)
== END 2024-02-25 18:00 | disposition home or self-care (01) ==
LOC: LAB 06:16
PROVIDERS: Absent Provider Internal Medicine; PCP Family Medicine; Visit Provider Internal Medicine Gastroenterology
DX: E11.65 Type 2 diabetes mellitus with hyperglycemia (principal); Z79.4 Long term (current) use of insulin; E03.9 Hypothyroidism, unspecified; E78.2 Mixed hyperlipidemia
CPT/HCPCS: 36415; 80053; 80061; 80197; 82044; 82105; 82977; 83036; 83735; 84100; 84439; 84443; 85025; 87496; 87517

== ENCOUNTER 2024-03-05 06:23 | Outpatient (CLI) | payer OTHER, SELFPAY ==
[2024-03-05 06:43] LABS: Basophils % 0.7 %; Eosinophils # 0.3 10^3/uL (0.0-0.8); Eosinophils % 5.1 %; Hematocrit 40.8 % (37-53); Lymphocytes % 17.6 %; Mean Corpuscular HGB Conc 33.1 g/dL (30-55); Mean Corpuscular Hemoglobin 28.7 pg (27-33); Mean Corpuscular Volume 86.8 fl (82-101); Monocytes # 0.7 10^3/uL (0.2-0.9); Monocytes % 13.2 %; Neutrophils # 3.45 10^3/uL (1.8-7.7); Nucleated Red Blood Cells % 0 %; Platelet Count 167 10^3/cmm (157-399); White Blood Count 5.47 10^3/uL (3.29-11.43)
[2024-03-05 07:12] LABS: Alanine Aminotransferase 22 U/L (0-41); Albumin Level 4.1 g/dL (3.5-5.2); Alkaline Phosphatase 106 U/L (40-130); Anion Gap 14.3 (5-19); Aspartate Amino Transferase 14 U/L (0-40); Blood Urea Nitrogen 17 mg/dL (8-23); Calcium 9.2 mg/dL (8.5-10.5); Carbon Dioxide 26 mmol/L (22-29); Chloride 104 mmol/L (98-107); Gamma Glutamyl Transferase 54 U/L (8-61); Globulin 3.1 g/dL (1.3-4.6); Glomerular Filtration Rate 98.6 mL/min (90-130); Glucose 243 mg/dL (65-115); Magnesium 1.8 mg/dL (1.7-2.3); Osmolality Calculated 300 mOsm/kg (285-295); Phosphorus 2.9 mg/dL (2.5-4.5); Potassium 4.3 mmol/L (3.5-5.1); Sodium 140 mmol/L (136-145); Total Bilirubin 0.4 mg/dL (0.15-1.2); Total Protein 7.2 g/dL (6.6-8.7)
== END 2024-03-05 06:24 | disposition home or self-care (01) ==
PROVIDERS: Internal Medicine Gastroenterology; PCP Family Medicine; Visit Provider Internal Medicine
DX: Z79.899 Other long term (current) drug therapy (principal); Z94.4 Liver transplant status
CPT/HCPCS: 36415; 80053; 80197; 82977; 83735; 84100; 85025; 87496

== ENCOUNTER 2024-03-19 06:21 | Outpatient (CLI) | payer OTHER, SELFPAY ==
[2024-03-19 06:45] LABS: Basophils # 0.1 10^3/uL (0.0-0.1); Basophils % 0.9 %; Eosinophils # 0.5 10^3/uL (0.0-0.8); Eosinophils % 6.5 %; Hematocrit 42.3 % (37-53); Lymphocytes % 14.8 %; Mean Corpuscular HGB Conc 32.9 g/dL (30-55); Mean Corpuscular Hemoglobin 28.8 pg (27-33); Mean Corpuscular Volume 87.8 fl (82-101); Mean Platelet Volume 10.1 fL (7.4-10.4); Monocytes # 0.7 10^3/uL (0.2-0.9); Monocytes % 9.5 %; Neutrophils # 4.78 10^3/uL (1.8-7.7); Nucleated Red Blood Cells % 0 %; Platelet Count 189 10^3/cmm (157-399); Red Blood Count 4.82 10^6/uL (3.85-5.65); Red Cell Distribution Width 14.3 % (12.1-15.1); White Blood Count 7.03 10^3/uL (3.29-11.43)
[2024-03-19 07:05] LABS: Alanine Aminotransferase 23 U/L (0-41); Albumin Level 4.1 g/dL (3.5-5.2); Alkaline Phosphatase 106 U/L (40-130); Anion Gap 14.5 (5-19); Aspartate Amino Transferase 15 U/L (0-40); Blood Urea Nitrogen 22 mg/dL (8-23); Calcium 9.3 mg/dL (8.5-10.5); Carbon Dioxide 25 mmol/L (22-29); Chloride 103 mmol/L (98-107); Gamma Glutamyl Transferase 59 U/L (8-61); Globulin 3.2 g/dL (1.3-4.6); Glomerular Filtration Rate 86.1 mL/min (90-130); Glucose 184 mg/dL (65-115); Magnesium 1.8 mg/dL (1.7-2.3); Osmolality Calculated 294 mOsm/kg (285-295); Potassium 4.5 mmol/L (3.5-5.1); Sodium 138 mmol/L (136-145); Total Bilirubin 0.5 mg/dL (0.15-1.2); Total Protein 7.3 g/dL (6.6-8.7)
[2024-03-20 16:18] LABS: Tacrolimus, Highly Sensitive 5.4 mcg/L
== END 2024-03-19 06:22 | disposition home or self-care (01) ==
PROVIDERS: PCP Family Medicine; Visit Provider Internal Medicine
DX: E11.65 Type 2 diabetes mellitus with hyperglycemia (principal); Z79.4 Long term (current) use of insulin
CPT/HCPCS: 36415; 80053; 80197; 82977; 83735; 84100; 85025

== ENCOUNTER 2024-04-02 06:19 | Outpatient (CLI) | payer OTHER, SELFPAY ==
[2024-04-02 07:22] LABS: Basophils % 0.6 %; Eosinophils # 0.4 10^3/uL (0.0-0.8); Eosinophils % 6.9 %; Lymphocytes % 16.1 %; Mean Corpuscular HGB Conc 32.9 g/dL (30-55); Mean Corpuscular Hemoglobin 28.7 pg (27-33); Mean Corpuscular Volume 87.3 fl (82-101); Mean Platelet Volume 10.2 fL (7.4-10.4); Monocytes # 0.7 10^3/uL (0.2-0.9); Monocytes % 11.1 %; Neutrophils # 4.03 10^3/uL (1.8-7.7); Nucleated Red Blood Cells % 0 %; Platelet Count 174 10^3/cmm (157-399); Red Blood Count 4.81 10^6/uL (3.85-5.65); Red Cell Distribution Width 14.5 % (12.1-15.1); White Blood Count 6.21 10^3/uL (3.29-11.43)
[2024-04-02 07:39] LABS: Alanine Aminotransferase 36 U/L (0-41); Alkaline Phosphatase 107 U/L (40-130); Anion Gap 9.2 (5-19); Aspartate Amino Transferase 21 U/L (0-40); Blood Urea Nitrogen 18 mg/dL (8-23); Calcium 8.7 mg/dL (8.5-10.5); Carbon Dioxide 28 mmol/L (22-29); Chloride 101 mmol/L (98-107); Gamma Glutamyl Transferase 59 U/L (8-61); Globulin 3.2 g/dL (1.3-4.6); Glomerular Filtration Rate 98.6 mL/min (90-130); Glucose 205 mg/dL (65-115); Osmolality Calculated 286 mOsm/kg (285-295); Potassium 4.2 mmol/L (3.5-5.1); Sodium 134 mmol/L (136-145); Total Bilirubin 0.5 mg/dL (0.15-1.2); Total Protein 7.2 g/dL (6.6-8.7)
[2024-04-03 16:24] LABS: Tacrolimus, Highly Sensitive 4.5 mcg/L
== END 2024-04-02 06:20 | disposition home or self-care (01) ==
LOC: LAB 06:22
PROVIDERS: PCP Family Medicine; Visit Provider Internal Medicine
DX: Z79.899 Other long term (current) drug therapy (principal); Z94.4 Liver transplant status
CPT/HCPCS: 80053; 80197; 82977; 85025

== ENCOUNTER 2024-04-16 06:51 | Outpatient (CLI) | payer OTHER, SELFPAY ==
[2024-04-16 07:52] LABS: Basophils # 0.1 10^3/uL (0.0-0.1); Eosinophils # 0.5 10^3/uL (0.0-0.8); Eosinophils % 8.2 %; Lymphocytes # 1.1 10^3/uL (0.8-4.8); Lymphocytes % 18.5 %; Mean Corpuscular HGB Conc 33.1 g/dL (30-55); Mean Corpuscular Hemoglobin 29.4 pg (27-33); Mean Corpuscular Volume 88.8 fl (82-101); Mean Platelet Volume 10.5 fL (7.4-10.4); Monocytes # 0.7 10^3/uL (0.2-0.9); Monocytes % 12.7 %; Neutrophils # 3.41 10^3/uL (1.8-7.7); Neutrophils % 59.4 %; Nucleated Red Blood Cells % 0 %; Platelet Count 194 10^3/cmm (157-399); Red Blood Count 4.73 10^6/uL (3.85-5.65); Red Cell Distribution Width 14.6 % (12.1-15.1); White Blood Count 5.74 10^3/uL (3.29-11.43)
[2024-04-16 08:18] LABS: Alanine Aminotransferase 29 U/L (0-41); Albumin Level 4.2 g/dL (3.5-5.2); Alkaline Phosphatase 114 U/L (40-130); Anion Gap 13.2 (5-19); Aspartate Amino Transferase 18 U/L (0-40); Blood Urea Nitrogen 18 mg/dL (8-23); Calcium 8.9 mg/dL (8.5-10.5); Carbon Dioxide 29 mmol/L (22-29); Chloride 105 mmol/L (98-107); Gamma Glutamyl Transferase 54 U/L (8-61); Glomerular Filtration Rate 86.1 mL/min (90-130); Glucose 200 mg/dL (65-115); Osmolality Calculated 304 mOsm/kg (285-295); Potassium 4.2 mmol/L (3.5-5.1); Sodium 143 mmol/L (136-145); Total Bilirubin 0.5 mg/dL (0.15-1.2); Total Protein 7.2 g/dL (6.6-8.7)
[2024-04-17 16:09] LABS: Tacrolimus, Highly Sensitive 4.1 mcg/L
== END 2024-04-16 06:52 | disposition home or self-care (01) ==
LOC: LAB 06:54
PROVIDERS: PCP Family Medicine; Visit Provider Internal Medicine
DX: Z79.899 Other long term (current) drug therapy (principal); Z94.4 Liver transplant status
CPT/HCPCS: 36415; 80053; 80197; 82977; 85025

== ENCOUNTER 2024-04-30 06:47 | Outpatient (CLI) | payer MEDICARE, SELFPAY ==
[2024-04-30 07:46] LABS: Basophils # 0.1 10^3/uL (0.0-0.1); Eosinophils # 0.5 10^3/uL (0.0-0.8); Eosinophils % 8.1 %; Hematocrit 42.2 % (37-53); Lymphocytes # 0.9 10^3/uL (0.8-4.8); Lymphocytes % 13.8 %; Mean Corpuscular HGB Conc 32.7 g/dL (30-55); Mean Corpuscular Hemoglobin 28.6 pg (27-33); Mean Corpuscular Volume 87.4 fl (82-101); Mean Platelet Volume 10.5 fL (7.4-10.4); Monocytes # 0.7 10^3/uL (0.2-0.9); Monocytes % 11.4 %; Neutrophils # 4.01 10^3/uL (1.8-7.7); Neutrophils % 65.1 %; Nucleated Red Blood Cells % 0 %; Platelet Count 200 10^3/cmm (157-399); Red Blood Count 4.83 10^6/uL (3.85-5.65); White Blood Count 6.16 10^3/uL (3.29-11.43)
[2024-04-30 07:57] LABS: Alanine Aminotransferase 34 U/L (0-41); Albumin Level 4.1 g/dL (3.5-5.2); Alkaline Phosphatase 127 U/L (40-130); Anion Gap 12.4 (5-19); Aspartate Amino Transferase 14 U/L (0-40); Blood Urea Nitrogen 18 mg/dL (8-23); Calcium 8.7 mg/dL (8.5-10.5); Carbon Dioxide 29 mmol/L (22-29); Chloride 102 mmol/L (98-107); Gamma Glutamyl Transferase 50 U/L (8-61); Globulin 2.4 g/dL (1.3-4.6); Glomerular Filtration Rate 86.1 mL/min (90-130); Glucose 284 mg/dL (65-115); Osmolality Calculated 300 mOsm/kg (285-295); Potassium 4.4 mmol/L (3.5-5.1); Sodium 139 mmol/L (136-145); Total Bilirubin 0.4 mg/dL (0.15-1.2); Total Protein 6.5 g/dL (6.6-8.7)
== END 2024-04-30 06:48 | disposition home or self-care (01) ==
LOC: LAB 06:52
PROVIDERS: PCP Family Medicine; Visit Provider Internal Medicine
DX: Z79.899 Other long term (current) drug therapy (principal); Z94.4 Liver transplant status
CPT/HCPCS: 80053; 80197; 82977; 85025

== ENCOUNTER 2024-05-14 06:46 | Outpatient (CLI) | payer MEDICARE, OTHER, SELFPAY ==
[2024-05-14 07:09] LABS: Basophils # 0.1 10^3/uL (0.0-0.1); Basophils % 0.9 %; Eosinophils # 0.6 10^3/uL (0.0-0.8); Hematocrit 40.3 % (37-53); Lymphocytes # 1.1 10^3/uL (0.8-4.8); Lymphocytes % 19.2 %; Mean Corpuscular HGB Conc 33.7 g/dL (30-55); Mean Corpuscular Hemoglobin 29.1 pg (27-33); Mean Corpuscular Volume 86.1 fl (82-101); Mean Platelet Volume 9.9 fL (7.4-10.4); Monocytes # 0.6 10^3/uL (0.2-0.9); Monocytes % 10.9 %; Neutrophils # 3.33 10^3/uL (1.8-7.7); Neutrophils % 58.6 %; Nucleated Red Blood Cells % 0 %; Platelet Count 175 10^3/cmm (157-399); Red Blood Count 4.68 10^6/uL (3.85-5.65); White Blood Count 5.68 10^3/uL (3.29-11.43)
[2024-05-14 07:28] LABS: Alanine Aminotransferase 23 U/L (0-41); Alkaline Phosphatase 115 U/L (40-130); Anion Gap 11.3 (5-19); Aspartate Amino Transferase 15 U/L (0-40); Blood Urea Nitrogen 20 mg/dL (8-23); Calcium 9.3 mg/dL (8.5-10.5); Carbon Dioxide 27 mmol/L (22-29); Chloride 101 mmol/L (98-107); Gamma Glutamyl Transferase 48 U/L (8-61); Globulin 3.2 g/dL (1.3-4.6); Glomerular Filtration Rate 86.1 mL/min (90-130); Glucose 281 mg/dL (65-115); Osmolality Calculated 293 mOsm/kg (285-295); Potassium 4.3 mmol/L (3.5-5.1); Sodium 135 mmol/L (136-145); Total Bilirubin 0.3 mg/dL (0.15-1.2); Total Protein 7.2 g/dL (6.6-8.7)
[2024-05-15 14:14] LABS: Tacrolimus, Highly Sensitive 4.5 mcg/L
== END 2024-05-14 06:47 | disposition home or self-care (01) ==
LOC: LAB 06:50
PROVIDERS: PCP Family Medicine; Visit Provider Internal Medicine
DX: Z79.899 Other long term (current) drug therapy (principal); Z94.4 Liver transplant status
CPT/HCPCS: 36415; 80053; 80197; 82977; 85025

== ENCOUNTER 2024-05-25 07:01 | Outpatient (CLI) | payer MEDICARE, OTHER, SELFPAY ==
--- NOTE | 2024-05-25 07:10 | MRR_ITS ---
PROCEDURE INFORMATION: Exam: MR Abdomen Without Contrast Exam date and time: 05/25/2024 7:32 AM Age: 59 years old Clinical indication: Abdominal pain; Generalized; Prior surgery; Surgery date: 6+ months; Surgery type: Liver transplant 10/2022; Patient HX: Liver transplant in October 2022 after history of liver cancer, routine follow-up, no new symptoms or concerns. HX of liver cancer TECHNIQUE: Imaging protocol: Magnetic resonance imaging of the abdomen without contrast. COMPARISON: MR abdomen wo/w con* [id number] 06/24/2023 7:28 AM FINDINGS: Liver: There is an unchanged 1.3 cm simple right hepatic cyst and tiny cyst within the caudal right lobe liver, also unchanged when compared retrospectively with the previous examination. No new liver lesions. Gallbladder and biliary ducts: The gallbladder absent. Pancreas: Unremarkable. No ductal dilation. Spleen: A small accessory splenic lobule is noted. There is unchanged mild splenomegaly Adrenal glands: Unremarkable. No mass. Kidneys: There is a simple right renal cyst Stomach and bowel: Visualized stomach and intestines are unremarkable. Intraperitoneal space: No free fluid. Vasculature: No abdominal aortic aneurysm. Lymph nodes: No enlarged nodes. Bones/joints: Unremarkable. No suspicious lesions. Soft tissues: Unremarkable. MR/MR abdomen wo/w con* [id number] IMPRESSION: 1. Stable hepatic cysts. No new liver lesions 2. Previous cholecystectomy 3. Simple right renal cyst 4. Unchanged splenomegaly COMMENTS: Consistent with the [employer]'s Incidental Findings Committee white paper (J Am Philip Radiol 2018): Any incidental renal lesion less than 1 cm or classified as too small to characterize, or any incidental cystic renal lesion characterized as simple-appearing, is likely benign. No follow-up imaging is recommended for these lesions per consensus recommendations based on imaging criteria.
== END 2024-05-25 07:02 | disposition home or self-care (01) ==
LOC: RAD 07:02
PROVIDERS: PCP Family Medicine; Visit Provider Internal Medicine Gastroenterology
DX: Z94.4 Liver transplant status (principal); C22.0 Liver cell carcinoma; Q44.6 Cystic disease of liver; Z90.49 Acquired absence of other specified parts of digestive tract; N28.1 Cyst of kidney, acquired; R16.1 Splenomegaly, not elsewhere classified
CPT/HCPCS: 74183; A9577

== ENCOUNTER 2024-05-28 06:29 | Outpatient (CLI) | payer MEDICARE, OTHER, SELFPAY ==
[2024-05-28 07:19] LABS: Basophils # 0.1 10^3/uL (0.0-0.1); Basophils % 1.1 %; Eosinophils # 0.5 10^3/uL (0.0-0.8); Eosinophils % 9.3 %; Hematocrit 42.1 % (37-53); Lymphocytes % 17.4 %; Mean Corpuscular HGB Conc 32.8 g/dL (30-55); Mean Corpuscular Hemoglobin 28.5 pg (27-33); Mean Platelet Volume 10.5 fL (7.4-10.4); Monocytes # 0.7 10^3/uL (0.2-0.9); Monocytes % 12.8 %; Neutrophils # 3.23 10^3/uL (1.8-7.7); Nucleated Red Blood Cells % 0 %; Platelet Count 180 10^3/cmm (157-399); Red Blood Count 4.84 10^6/uL (3.85-5.65); Red Cell Distribution Width 14.2 % (12.1-15.1); White Blood Count 5.47 10^3/uL (3.29-11.43)
[2024-05-28 07:36] LABS: Alanine Aminotransferase 24 U/L (0-41); Albumin Level 4.1 g/dL (3.5-5.2); Alkaline Phosphatase 113 U/L (40-130); Anion Gap 13.2 (5-19); Aspartate Amino Transferase 16 U/L (0-40); Blood Urea Nitrogen 18 mg/dL (8-23); Calcium 9.1 mg/dL (8.5-10.5); Carbon Dioxide 27 mmol/L (22-29); Chloride 104 mmol/L (98-107); Glomerular Filtration Rate 98.6 mL/min (90-130); Glucose 194 mg/dL (65-115); Osmolality Calculated 297 mOsm/kg (285-295); Potassium 4.2 mmol/L (3.5-5.1); Sodium 140 mmol/L (136-145); Total Bilirubin 0.4 mg/dL (0.15-1.2); Total Protein 7.1 g/dL (6.6-8.7)
[2024-05-28 08:51] LABS: Gamma Glutamyl Transferase 48 U/L (8-61)
[2024-05-30 09:24] LABS: Tacrolimus, Highly Sensitive 3.7 mcg/L
== END 2024-05-28 06:30 | disposition home or self-care (01) ==
LOC: LAB 06:32
PROVIDERS: PCP Family Medicine; Visit Provider Internal Medicine
DX: Z79.899 Other long term (current) drug therapy (principal); Z94.4 Liver transplant status
CPT/HCPCS: 36415; 80053; 80197; 82977; 85025

== ENCOUNTER 2024-06-11 06:42 | Outpatient (CLI) | payer MEDICARE, OTHER, SELFPAY ==
[2024-06-11 07:32] LABS: Basophils # 0.1 10^3/uL (0.0-0.1); Eosinophils # 0.7 10^3/uL (0.0-0.8); Eosinophils % 9.6 %; Hematocrit 43.3 % (37-53); Lymphocytes % 13.9 %; Mean Corpuscular Hemoglobin 28.5 pg (27-33); Mean Corpuscular Volume 86.4 fl (82-101); Mean Platelet Volume 10.2 fL (7.4-10.4); Monocytes # 0.8 10^3/uL (0.2-0.9); Monocytes % 11.5 %; Neutrophils # 4.44 10^3/uL (1.8-7.7); Neutrophils % 63.6 %; Nucleated Red Blood Cells % 0 %; Platelet Count 209 10^3/cmm (157-399); Red Blood Count 5.01 10^6/uL (3.85-5.65); White Blood Count 6.98 10^3/uL (3.29-11.43)
[2024-06-11 07:52] LABS: Alanine Aminotransferase 26 U/L (0-41); Albumin Level 4.4 g/dL (3.5-5.2); Alkaline Phosphatase 119 U/L (40-130); Aspartate Amino Transferase 17 U/L (0-40); Blood Urea Nitrogen 19 mg/dL (8-23); Calcium 9.5 mg/dL (8.5-10.5); Carbon Dioxide 27 mmol/L (22-29); Chloride 100 mmol/L (98-107); Gamma Glutamyl Transferase 54 U/L (8-61); Globulin 3.1 g/dL (1.3-4.6); Glomerular Filtration Rate 86.1 mL/min (90-130); Glucose 165 mg/dL (65-115); Osmolality Calculated 296 mOsm/kg (285-295); Sodium 140 mmol/L (136-145); Total Bilirubin 0.5 mg/dL (0.15-1.2); Total Protein 7.5 g/dL (6.6-8.7)
[2024-06-11 07:59] LABS: Anion Gap 17.6 (5-19); Potassium 4.6 mmol/L (3.5-5.1)
[2024-06-13 15:40] LABS: Tacrolimus, Highly Sensitive 5.4 mcg/L
== END 2024-06-11 06:43 | disposition home or self-care (01) ==
PROVIDERS: PCP Family Medicine; Visit Provider Internal Medicine
DX: Z79.899 Other long term (current) drug therapy (principal)
CPT/HCPCS: 36415; 80053; 80197; 82977; 85025

== ENCOUNTER 2024-06-18 06:42 | Outpatient (CLI) | payer MEDICARE, OTHER, SELFPAY ==
[2024-06-18 07:31] LABS: Basophils # 0.1 10^3/uL (0.0-0.1); Basophils % 0.9 %; Eosinophils # 0.6 10^3/uL (0.0-0.8); Eosinophils % 9.6 %; Hematocrit 42.8 % (37-53); Lymphocytes # 1.1 10^3/uL (0.8-4.8); Lymphocytes % 17.1 %; Mean Corpuscular HGB Conc 32.5 g/dL (30-55); Mean Corpuscular Hemoglobin 28.7 pg (27-33); Mean Corpuscular Volume 88.4 fl (82-101); Mean Platelet Volume 10.2 fL (7.4-10.4); Monocytes # 0.7 10^3/uL (0.2-0.9); Monocytes % 10.7 %; Neutrophils % 61.2 %; Nucleated Red Blood Cells % 0 %; Platelet Count 182 10^3/cmm (157-399); Red Blood Count 4.84 10^6/uL (3.85-5.65); Red Cell Distribution Width 14.1 % (12.1-15.1); White Blood Count 6.37 10^3/uL (3.29-11.43)
[2024-06-18 07:48] LABS: Gamma Glutamyl Transferase 54 U/L (8-61)
[2024-06-18 07:57] LABS: Creatinine Urine, Random 140 mg/dL (39-259); Microalbumin Random Urine 11 ug/dL (0-20)
[2024-06-18 07:58] LABS: Microalbum Creatinine Ratio Ur 79 mg/dL (0-20)
[2024-06-18 08:01] LABS: Alanine Aminotransferase 23 U/L (0-41); Alkaline Phosphatase 115 U/L (40-130); Anion Gap 13.2 (5-19); Aspartate Amino Transferase 14 U/L (0-40); Blood Urea Nitrogen 18 mg/dL (8-23); Calcium 9.2 mg/dL (8.5-10.5); Carbon Dioxide 27 mmol/L (22-29); Chloride 104 mmol/L (98-107); Chol HDL Ratio 3.23 mg/dL (1.0-5.00); Cholesterol 84 mg/dL (0-200); Free T4 Free Thyroxine 1.08 ng/dL (0.82-1.77); Globulin 3.1 g/dL (1.3-4.6); Glomerular Filtration Rate 98.6 mL/min (90-130); Glucose 229 mg/dL (65-115); HDL Cholesterol 26 mg/dL (60-100); LDL Cholesterol Calculated 30 mg/dL (50-129); LDL HDL Ratio 1.15 RATIO (0.00-3.22); Osmolality Calculated 299 mOsm/kg (285-295); Potassium 4.2 mmol/L (3.5-5.1); Sodium 140 mmol/L (136-145); Thyroid Stimulating Hormone 4.77 uIU/mL (0.27-4.20); Total Bilirubin 0.4 mg/dL (0.15-1.2); Total Protein 7.1 g/dL (6.6-8.7); Triglycerides 140 mg/dL (0-150)
[2024-06-18 08:02] LABS: Estmated Average Glucose 180; Hemoglobin A1C 7.9 % (4.0-6.0)
[2024-06-19 14:24] LABS: Tacrolimus, Highly Sensitive 4.6 mcg/L
== END 2024-06-18 06:43 | disposition home or self-care (01) ==
LOC: LAB 06:47
PROVIDERS: Absent Provider Internal Medicine; PCP Family Medicine; Visit Provider Internal Medicine
DX: E11.65 Type 2 diabetes mellitus with hyperglycemia (principal); Z79.4 Long term (current) use of insulin; E03.9 Hypothyroidism, unspecified; Z79.899 Other long term (current) drug therapy; Z94.4 Liver transplant status
CPT/HCPCS: 80053; 80061; 80197; 82044; 82977; 83036; 84439; 84443; 85025

== ENCOUNTER → 2024-06-25 11:50 | Outpatient (BNVA) | payer MEDICARE, OTHER, SELFPAY | PROVIDERS: PCP Family Medicine; Visit Provider Internal Medicine | DX: I25.10 Atherosclerotic heart disease of native coronary artery without angina pectoris (principal); I10 Essential (primary) hypertension; E78.2 Mixed hyperlipidemia; Z79.01 Long term (current) use of anticoagulants; E11.65 Type 2 diabetes mellitus with hyperglycemia; Z79.4 Long term (current) use of insulin; E03.9 Hypothyroidism, unspecified; Z94.4 Liver transplant status; Z87.891 Personal history of nicotine dependence | CPT/HCPCS: 99214 ==

== ENCOUNTER → 2024-06-25 14:40 | Outpatient (BNVA) | payer MEDICARE, OTHER, SELFPAY | PROVIDERS: PCP Family Medicine; Referring Provider Internal Medicine; Visit Provider Internal Medicine | DX: R00.2 Palpitations (principal); I49.1 Atrial premature depolarization; I49.3 Ventricular premature depolarization; I47.19 Other supraventricular tachycardia | CPT/HCPCS: 93242 ==

== ENCOUNTER → 2024-06-26 11:15 | Outpatient (BNVA) | payer MEDICARE, OTHER, SELFPAY | PROVIDERS: PCP Family Medicine; Visit Provider Internal Medicine | DX: E11.65 Type 2 diabetes mellitus with hyperglycemia (principal); Z79.4 Long term (current) use of insulin; K22.9 Disease of esophagus, unspecified; E03.9 Hypothyroidism, unspecified; E78.2 Mixed hyperlipidemia; R16.0 Hepatomegaly, not elsewhere classified; R74.01 Elevation of levels of liver transaminase levels; Z79.890 Hormone replacement therapy | CPT/HCPCS: 99214 ==

== ENCOUNTER 2024-07-02 06:21 | Outpatient (CLI) | payer MEDICARE, SELFPAY ==
[2024-07-02 07:20] LABS: Basophils % 0.7 %; Eosinophils # 0.6 10^3/uL (0.0-0.8); Eosinophils % 9.6 %; Hematocrit 42.6 % (37-53); Lymphocytes # 0.9 10^3/uL (0.8-4.8); Lymphocytes % 14.7 %; Mean Corpuscular HGB Conc 32.9 g/dL (30-55); Mean Corpuscular Hemoglobin 28.5 pg (27-33); Mean Corpuscular Volume 86.6 fl (82-101); Mean Platelet Volume 10.3 fL (7.4-10.4); Monocytes # 0.7 10^3/uL (0.2-0.9); Monocytes % 12.5 %; Neutrophils # 3.65 10^3/uL (1.8-7.7); Neutrophils % 62.3 %; Nucleated Red Blood Cells % 0 %; Platelet Count 171 10^3/cmm (157-399); Red Blood Count 4.92 10^6/uL (3.85-5.65); White Blood Count 5.85 10^3/uL (3.29-11.43)
[2024-07-02 07:30] LABS: Alanine Aminotransferase 22 U/L (0-41); Alkaline Phosphatase 110 U/L (40-130); Anion Gap 12.4 (5-19); Aspartate Amino Transferase 16 U/L (0-40); Blood Urea Nitrogen 16 mg/dL (8-23); Calcium 9.2 mg/dL (8.5-10.5); Carbon Dioxide 27 mmol/L (22-29); Chloride 102 mmol/L (98-107); Gamma Glutamyl Transferase 51 U/L (8-61); Globulin 3.3 g/dL (1.3-4.6); Glomerular Filtration Rate 98.6 mL/min (90-130); Glucose 263 mg/dL (65-115); Osmolality Calculated 294 mOsm/kg (285-295); Potassium 4.4 mmol/L (3.5-5.1); Sodium 137 mmol/L (136-145); Total Bilirubin 0.4 mg/dL (0.15-1.2); Total Protein 7.3 g/dL (6.6-8.7)
[2024-07-03 15:03] LABS: Tacrolimus, Highly Sensitive 6.1 mcg/L
== END 2024-07-02 06:22 | disposition home or self-care (01) ==
PROVIDERS: PCP Family Medicine; Visit Provider Family Medicine
DX: Z79.899 Other long term (current) drug therapy (principal); Z94.4 Liver transplant status
CPT/HCPCS: 36415; 80053; 80197; 82977; 85025

== ENCOUNTER 2024-07-16 06:49 | Outpatient (CLI) | payer MEDICARE, SELFPAY ==
[2024-07-16 08:47] LABS: Basophils # 0.1 10^3/uL (0.0-0.1); Basophils % 1.3 %; Eosinophils # 0.7 10^3/uL (0.0-0.8); Eosinophils % 10.3 %; Lymphocytes # 1.2 10^3/uL (0.8-4.8); Lymphocytes % 16.7 %; Mean Corpuscular Hemoglobin 28.3 pg (27-33); Mean Corpuscular Volume 85.8 fl (82-101); Mean Platelet Volume 10.2 fL (7.4-10.4); Monocytes # 0.7 10^3/uL (0.2-0.9); Monocytes % 10.2 %; Neutrophils # 4.19 10^3/uL (1.8-7.7); Neutrophils % 61.1 %; Nucleated Red Blood Cells % 0 %; Platelet Count 226 10^3/cmm (157-399); Red Blood Count 5.13 10^6/uL (3.85-5.65); Red Cell Distribution Width 13.9 % (12.1-15.1); White Blood Count 6.87 10^3/uL (3.29-11.43)
[2024-07-16 09:12] LABS: Alanine Aminotransferase 29 U/L (0-41); Albumin Level 4.3 g/dL (3.5-5.2); Alkaline Phosphatase 127 U/L (40-130); Anion Gap 16.5 (5-19); Aspartate Amino Transferase 17 U/L (0-40); Blood Urea Nitrogen 22 mg/dL (8-23); Calcium 9.8 mg/dL (8.5-10.5); Carbon Dioxide 25 mmol/L (22-29); Chloride 104 mmol/L (98-107); Globulin 3.7 g/dL (1.3-4.6); Glomerular Filtration Rate 86.1 mL/min (90-130); Glucose 133 mg/dL (65-115); Osmolality Calculated 297 mOsm/kg (285-295); Potassium 4.5 mmol/L (3.5-5.1); Sodium 141 mmol/L (136-145); Total Bilirubin 0.4 mg/dL (0.15-1.2)
[2024-07-16 09:13] LABS: Gamma Glutamyl Transferase 64 U/L (8-61); Magnesium 1.7 mg/dL (1.7-2.3); Phosphorus 2.5 mg/dL (2.5-4.5)
== END 2024-07-16 06:50 | disposition home or self-care (01) ==
LOC: LAB 06:54
PROVIDERS: Internal Medicine; Surgery Surgical Oncology; PCP Family Medicine; Visit Provider Family Medicine
DX: E11.65 Type 2 diabetes mellitus with hyperglycemia (principal); Z79.4 Long term (current) use of insulin; E78.2 Mixed hyperlipidemia
CPT/HCPCS: 36415; 80053; 80197; 82977; 83735; 84100; 84681; 85025; 86337; 86341

== ENCOUNTER → 2024-07-17 08:10 | Outpatient (BNVA) | payer MEDICARE, SELFPAY | PROVIDERS: PCP Family Medicine; Visit Provider Surgery | DX: R03.0 Elevated blood-pressure reading, without diagnosis of hypertension (principal) | CPT/HCPCS: 99204; 99214 ==

== ENCOUNTER 2024-07-26 05:43 | Day surgery (SDC) | payer MEDICARE, SELFPAY ==
--- NOTE | 2024-07-26 05:39 | P.HPUD_ITS ---
Surgery/Procedure H&P Update DATE OF PROCEDURE: July 26, 2024 DATE H&P PERFORMED: 06/28/23 H&P UPDATE INFORMATION: I have reviewed H&P completed within last 30 days, I have examined patient prior to procedure, No changes to prior documentation and H&P is in [facility] EMR on date indicated PLANNED PROCEDURE: Operation Date: 07/26/24 07:00 Proposed Procedures p Colonoscopy 60148, G0105, Z12.11(Not Applicable) - Delio Kaur MD
[2024-07-26 06:05] VITALS: BP 165/98; PULSE 84; RESP 18; TEMP 36.3; O2SAT 97; BMI 30.8
[2024-07-26 06:12] LABS: Glucose Point of Care 163 mg/dL (70-110)
[2024-07-26] MEDS: sodium chloride 0.9% 500 ML 15 ML IV (06:15)
--- NOTE | 2024-07-26 07:12 | ANES.PREANE2 ---
Pre-Anesthetic Assessment Height/Weight: Height 1.78 m Weight 97.522 kg Temp Pulse Resp BP Pulse Ox O2 Del Method 97.3 F L 84 18 165/98 97 Room Air 07/26/24 06:05 07/26/24 06:05 07/26/24 06:05 07/26/24 06:05 07/26/24 06:05 07/26/24 06:05 Preop Diagnosis: screening Operation Date: 07/26/24 07:00 Proposed Procedures p Colonoscopy 87980, G0105, Z12.11(Not Applicable) - Delio Kaur MD Was Clonidine taken within 24 hours: N/A Last intake: Intake Last Liquid Date 07/25/24 Last Liquid Time 23:30 Last Solid Date 07/24/24 Social No alcohol and No tobacco Exam alert, oriented x 3, clear to auscultation bilaterally and regular rate & rhythm Airway Submandibular: within normal limits Cervical ROM: within normal limits Mallampati: Class II Dentition: full History/ROS No significant history except as noted and No significant complaints Pulmonary None reported CV/HEM Coronary Artery Disease and Hypertension None reported Hepatic None reported Hx liver transplant GI None reported Metabolic Diabetes Mellitus [facility] [place] None reported Neuropsych None reported Anesthetic Plan ASA status: 4 Anesthesia: MAC Risk of > 500 ml blood loss (7ml/kg in children): No Medications/Allergies Home Medications Medication Instructions Recorded Confirmed Last Taken Type blood-glucose meter (Embrace PRO #1 ea 12/07/22 07/17/24 Unknown Rx Blood Glucose Meter) acetaminophen 500 mg tablet 500 - 1,000 mg PO Q8H PRN Pain 12/27/22 07/26/24 Unknown History (Tylenol Extra Strength) cholecalciferol (vitamin D3) 50 50 mcg PO QAM 12/27/22 07/24/24 07/25/24 History mcg (2,000 unit) capsule magnesium oxide 400 mg (241.3 mg 800 mg PO DAILY@12 12/27/22 07/24/24 07/25/24 History magnesium) tablet ondansetron HCl 8 mg tablet 8 mg PO Q8H PRN Nausea And Vomiting 12/27/22 07/26/24 Unknown History tacrolimus 1 mg capsule, See Rx Instructions .Route .COMPLEX 06/28/23 07/24/24 07/25/24 History immediate-release atorvastatin 40 mg tablet 40 mg PO BEDTIME #90 tabs 06/30/23 07/24/24 07/25/24 Rx blood-glucose meter,continuous #1 ea 09/29/23 07/17/24 Unknown Rx (FreeStyle Charli 3 Otho) blood-glucose sensor (FreeStyle #2 ea 09/29/23 07/17/24 Unknown Rx Charli 3 Sensor device) oxycodone 5 mg tablet 5 mg PO Q4H PRN Pain 7 days #28 12/28/23 07/26/24 Unknown Rx tabs blood sugar diagnostic (True #300 strips 01/04/24 07/17/24 Unknown Rx Metrix Glucose Test Strip) pen needle, diabetic 32 gauge x #100 ea 02/20/24 07/17/24 Unknown Rx (BD Brenna 2nd Gen Pen Needle) insulin glargine 100 unit/mL (3 100 unit SUBCUT DAILY #90 mL 02/23/24 07/26/24 07/25/24 Rx mL) subcutaneous pen (Melissaaglbelem De [place] U-100 Insulin) insulin aspart U-100 100 unit/mL 20 unit (0.2 mL) SUBCUT TID #15 mL 04/30/24 07/24/24 07/25/24 Rx (3 mL) subcutaneous pen hydrochlorothiazide 25 mg tablet 25 mg PO DAILY #90 tabs 06/25/24 07/24/24 07/25/24 Rx tacrolimus 0.5 mg capsule, 0.5 mg PO DAILY 06/25/24 07/24/24 07/25/24 History immediate-release levothyroxine 100 mcg tablet 100 mcg PO DAILY #30 tabs 06/26/24 07/24/24 07/25/24 Rx aspirin 325 mg tablet 325 mg PO DAILY 07/17/24 07/24/24 07/20/24 History amlodipine 10 mg tablet 10 mg PO DAILY 07/24/24 07/24/24 07/25/24 History carvedilol 6.25 mg tablet 12.5 mg PO DAILY 07/24/24 07/24/24 07/25/24 History omeprazole 20 mg capsule,delayed 20 mg PO DAILY 07/24/24 07/26/24 07/25/24 History release Allergies Allergy/AdvReac Type Severity Reaction Status Date / Time No Known Allergies Allergy Verified 07/17/24 08:20 Current Medications Generic Name Dose Route Start Last Admin Trade Name Freq PRN Reason Stop Dose Admin Sodium Chloride 500 mls @ 15 mls/hr 07/26/24 05:52 07/26/24 06:15 Sodium Chloride 0.9% IV 07/27/24 05:51 15 mls/hr .Q24H PRN Administration COLONOSCOPY FLUIDS PFSH Anesthesia Medical History Pericarditis secondary to acute myocardial infarction ST elevation (STEMI) myocardial infarction Acute hepatic encephalopathy Chronic anticoagulation Esophageal varices Hematemesis Nephrolithiasis Liver cirrhosis Anemia GI bleed Type 2 diabetes mellitus Hypertension Surgical History History of liver transplant 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
[2024-07-26 07:25] VITALS: BP 122/74; PULSE 79; RESP 15; TEMP 36.3; O2SAT 95
[2024-07-26 07:35] VITALS: BP 133/85; PULSE 79; RESP 18; O2SAT 94
[2024-07-26 07:40] VITALS: BP 151/80; PULSE 74; RESP 18; O2SAT 94
--- NOTE | 2024-07-26 14:02 | ANE.PACU2 ---
Inpatient post-anesthesia follow up: Airway intact: Yes Vital signs: Temperature 97.4 F Pulse Rate 74 Respiratory Rate 18 Blood Pressure 151/80 Pulse Oximetry 94 Oxygen Delivery Me thod Room Air Oxygen Flow Rate Fraction of Inspir ed Oxygen Hydration adequate: Yes Nausea and vomiting: No Pain level: 1 Mental status: Baseline
== END 2024-07-26 07:52 | disposition home or self-care (01) ==
PROVIDERS: PCP Family Medicine; Visit Provider Surgery
PROC: 0DJD8ZZ Inspection of Lower Intestinal Tract, Via Natural or Artificial Opening Endoscopic (ICD-10-PCS; CPT 45378; principal; 2024-07-26 07:00)
DX: Z12.11 Encounter for screening for malignant neoplasm of colon (principal); I25.10 Atherosclerotic heart disease of native coronary artery without angina pectoris; I10 Essential (primary) hypertension; E11.9 Type 2 diabetes mellitus without complications; Z94.4 Liver transplant status; Z79.899 Other long term (current) drug therapy; Z79.4 Long term (current) use of insulin; Z79.82 Long term (current) use of aspirin; Z79.890 Hormone replacement therapy; I25.2 Old myocardial infarction; Z79.01 Long term (current) use of anticoagulants; D84.89 Other immunodeficiencies; K57.30 Diverticulosis of large intestine without perforation or abscess without bleeding
CPT/HCPCS: 36416; 82962; G0105; J2704; J3490; J7040

== ENCOUNTER 2024-07-30 06:51 | Outpatient (CLI) | payer MEDICARE, SELFPAY ==
[2024-07-30 07:34] LABS: Basophils % 0.8 %; Eosinophils # 0.5 10^3/uL (0.0-0.8); Eosinophils % 9.3 %; Hematocrit 41.1 % (37-53); Lymphocytes % 19.8 %; Mean Corpuscular HGB Conc 33.1 g/dL (30-55); Mean Corpuscular Hemoglobin 28.6 pg (27-33); Mean Corpuscular Volume 86.5 fl (82-101); Mean Platelet Volume 10.3 fL (7.4-10.4); Monocytes # 0.7 10^3/uL (0.2-0.9); Monocytes % 12.9 %; Neutrophils # 2.87 10^3/uL (1.8-7.7); Nucleated Red Blood Cells % 0 %; Platelet Count 185 10^3/cmm (157-399); Red Blood Count 4.75 10^6/uL (3.85-5.65); Red Cell Distribution Width 14.1 % (12.1-15.1); White Blood Count 5.04 10^3/uL (3.29-11.43)
[2024-07-30 07:51] LABS: Alanine Aminotransferase 19 U/L (0-41); Albumin Level 3.9 g/dL (3.5-5.2); Alkaline Phosphatase 100 U/L (40-130); Anion Gap 11.2 (5-19); Aspartate Amino Transferase 14 U/L (0-40); Blood Urea Nitrogen 22 mg/dL (8-23); Calcium 9.5 mg/dL (8.5-10.5); Carbon Dioxide 27 mmol/L (22-29); Chloride 102 mmol/L (98-107); Chol HDL Ratio 3.38 mg/dL (1.0-5.00); Cholesterol 88 mg/dL (0-200); Gamma Glutamyl Transferase 43 U/L (8-61); Globulin 3.5 g/dL (1.3-4.6); Glomerular Filtration Rate 86.1 mL/min (90-130); Glucose 233 mg/dL (65-115); HDL Cholesterol 26 mg/dL (60-100); LDL Cholesterol Calculated 34 mg/dL (50-129); LDL HDL Ratio 1.31 RATIO (0.00-3.22); Magnesium 1.9 mg/dL (1.7-2.3); Osmolality Calculated 293 mOsm/kg (285-295); Phosphorus 2.7 mg/dL (2.5-4.5); Potassium 4.2 mmol/L (3.5-5.1); Sodium 136 mmol/L (136-145); Total Bilirubin 0.4 mg/dL (0.15-1.2); Total Protein 7.4 g/dL (6.6-8.7); Triglycerides 139 mg/dL (0-150)
[2024-07-30 08:00] LABS: Thyroid Stimulating Hormone 2.21 uIU/mL (0.27-4.20)
[2024-07-30 08:01] LABS: Creatinine Urine, Random 120 mg/dL (39-259); Microalbum Creatinine Ratio Ur 58 mg/dL (0-20); Microalbumin Random Urine 7 ug/dL (0-20)
[2024-07-30 08:14] LABS: Estmated Average Glucose 174; Hemoglobin A1C 7.7 % (4.0-6.0)
[2024-07-30 08:20] LABS: Free T4 Free Thyroxine 1.15 ng/dL (0.82-1.77)
== END 2024-07-30 06:52 | disposition home or self-care (01) ==
PROVIDERS: Surgery Surgical Oncology; PCP Family Medicine; Referring Provider Internal Medicine; Visit Provider Family Medicine
DX: E03.9 Hypothyroidism, unspecified (principal); Z94.4 Liver transplant status; Z79.4 Long term (current) use of insulin; E11.65 Type 2 diabetes mellitus with hyperglycemia
CPT/HCPCS: 36415; 80053; 80061; 80197; 82044; 82977; 83036; 83735; 84100; 84439; 84443; 85025

== ENCOUNTER 2024-08-13 07:53 | Outpatient (CLI) | payer MEDICARE, SELFPAY ==
[2024-08-13 08:27] LABS: Basophils # 0.1 10^3/uL (0.0-0.1); Basophils % 1.1 %; Eosinophils # 0.5 10^3/uL (0.0-0.8); Eosinophils % 7.8 %; Hematocrit 41.9 % (37-53); Lymphocytes # 1.1 10^3/uL (0.8-4.8); Lymphocytes % 17.7 %; Mean Corpuscular HGB Conc 33.2 g/dL (30-55); Mean Corpuscular Hemoglobin 28.5 pg (27-33); Mean Platelet Volume 10.2 fL (7.4-10.4); Monocytes # 0.8 10^3/uL (0.2-0.9); Monocytes % 11.9 %; Neutrophils # 3.87 10^3/uL (1.8-7.7); Neutrophils % 61.2 %; Nucleated Red Blood Cells % 0 %; Platelet Count 210 10^3/cmm (157-399); Red Blood Count 4.87 10^6/uL (3.85-5.65); Red Cell Distribution Width 14.1 % (12.1-15.1); White Blood Count 6.32 10^3/uL (3.29-11.43)
[2024-08-13 08:53] LABS: Alanine Aminotransferase 27 U/L (0-41); Albumin Level 4.2 g/dL (3.5-5.2); Alkaline Phosphatase 114 U/L (40-130); Anion Gap 11.5 (5-19); Aspartate Amino Transferase 17 U/L (0-40); Blood Urea Nitrogen 20 mg/dL (8-23); Calcium 9.1 mg/dL (8.5-10.5); Carbon Dioxide 27 mmol/L (22-29); Chloride 106 mmol/L (98-107); Gamma Glutamyl Transferase 54 U/L (8-61); Globulin 3.2 g/dL (1.3-4.6); Glomerular Filtration Rate 86.1 mL/min (90-130); Glucose 279 mg/dL (65-115); Osmolality Calculated 303 mOsm/kg (285-295); Potassium 4.5 mmol/L (3.5-5.1); Sodium 140 mmol/L (136-145); Total Bilirubin 0.5 mg/dL (0.15-1.2); Total Protein 7.4 g/dL (6.6-8.7)
== END 2024-08-13 07:54 | disposition home or self-care (01) ==
LOC: LAB 07:59
PROVIDERS: PCP Family Medicine; Visit Provider Internal Medicine
DX: Z79.899 Other long term (current) drug therapy (principal); Z94.4 Liver transplant status
CPT/HCPCS: 36415; 80053; 80197; 82977; 85025

== ENCOUNTER 2024-08-27 07:21 | Outpatient (CLI) | payer MEDICARE, SELFPAY ==
[2024-08-27 08:05] LABS: Basophils # 0.1 10^3/uL (0.0-0.1); Basophils % 0.9 %; Eosinophils # 0.5 10^3/uL (0.0-0.8); Eosinophils % 8.9 %; Hematocrit 41.5 % (37-53); Lymphocytes # 1.1 10^3/uL (0.8-4.8); Lymphocytes % 19.5 %; Mean Corpuscular HGB Conc 33.3 g/dL (30-55); Mean Corpuscular Hemoglobin 28.5 pg (27-33); Mean Corpuscular Volume 85.7 fl (82-101); Monocytes # 0.7 10^3/uL (0.2-0.9); Monocytes % 11.8 %; Neutrophils # 3.22 10^3/uL (1.8-7.7); Neutrophils % 58.5 %; Nucleated Red Blood Cells % 0 %; Platelet Count 196 10^3/cmm (157-399); Red Blood Count 4.84 10^6/uL (3.85-5.65); Red Cell Distribution Width 14.2 % (12.1-15.1)
[2024-08-27 08:27] LABS: Alanine Aminotransferase 23 U/L (0-41); Albumin Level 4.2 g/dL (3.5-5.2); Alkaline Phosphatase 103 U/L (40-130); Anion Gap 12.9 (5-19); Aspartate Amino Transferase 16 U/L (0-40); Blood Urea Nitrogen 18 mg/dL (8-23); Calcium 9.2 mg/dL (8.5-10.5); Carbon Dioxide 26 mmol/L (22-29); Chloride 103 mmol/L (98-107); Gamma Glutamyl Transferase 50 U/L (8-61); Glomerular Filtration Rate 98.6 mL/min (90-130); Glucose 145 mg/dL (65-115); Osmolality Calculated 290 mOsm/kg (285-295); Potassium 3.9 mmol/L (3.5-5.1); Sodium 138 mmol/L (136-145); Total Bilirubin 0.4 mg/dL (0.15-1.2); Total Protein 7.2 g/dL (6.6-8.7)
== END 2024-08-27 07:22 | disposition home or self-care (01) ==
LOC: LAB 07:23
PROVIDERS: PCP Family Medicine; Visit Provider Surgery Surgical Oncology
DX: Z79.899 Other long term (current) drug therapy (principal); Z94.4 Liver transplant status
CPT/HCPCS: 36415; 80053; 80197; 82977; 85025

== ENCOUNTER 2024-09-10 08:50 | Outpatient (CLI) | payer MEDICARE, SELFPAY ==
[2024-09-10 09:34] LABS: Basophils # 0.1 10^3/uL (0.0-0.1); Basophils % 0.8 %; Eosinophils # 0.5 10^3/uL (0.0-0.8); Eosinophils % 7.7 %; Hematocrit 44.5 % (37-53); Lymphocytes % 16.6 %; Mean Corpuscular HGB Conc 33.5 g/dL (30-55); Mean Corpuscular Volume 86.6 fl (82-101); Mean Platelet Volume 10.3 fL (7.4-10.4); Monocytes # 0.7 10^3/uL (0.2-0.9); Monocytes % 10.7 %; Neutrophils # 4.01 10^3/uL (1.8-7.7); Neutrophils % 63.9 %; Nucleated Red Blood Cells % 0 %; Platelet Count 187 10^3/cmm (157-399); Red Blood Count 5.14 10^6/uL (3.85-5.65); Red Cell Distribution Width 14.3 % (12.1-15.1); White Blood Count 6.27 10^3/uL (3.29-11.43)
[2024-09-10 09:56] LABS: Alanine Aminotransferase 23 U/L (0-41); Albumin Level 4.4 g/dL (3.5-5.2); Alkaline Phosphatase 117 U/L (40-130); Anion Gap 14.4 (5-19); Aspartate Amino Transferase 15 U/L (0-40); Blood Urea Nitrogen 15 mg/dL (8-23); Calcium 9.1 mg/dL (8.5-10.5); Carbon Dioxide 27 mmol/L (22-29); Chloride 103 mmol/L (98-107); Gamma Glutamyl Transferase 53 U/L (8-61); Globulin 3.3 g/dL (1.3-4.6); Glucose 220 mg/dL (65-115); Osmolality Calculated 298 mOsm/kg (285-295); Potassium 4.4 mmol/L (3.5-5.1); Sodium 140 mmol/L (136-145); Total Bilirubin 0.6 mg/dL (0.15-1.2); Total Protein 7.7 g/dL (6.6-8.7)
[2024-09-11 15:33] LABS: Tacrolimus, Highly Sensitive 4.7 mcg/L
== END 2024-09-10 08:51 | disposition home or self-care (01) ==
LOC: LAB 09:00
PROVIDERS: PCP Family Medicine; Visit Provider Internal Medicine
DX: Z79.899 Other long term (current) drug therapy (principal)
CPT/HCPCS: 36415; 80053; 80197; 82977; 85025

== ENCOUNTER → 2024-09-21 09:34 | Outpatient (BNVA) | payer MEDICARE, SELFPAY | PROVIDERS: PCP Family Medicine; Visit Provider Internal Medicine | DX: E11.65 Type 2 diabetes mellitus with hyperglycemia (principal); Z79.4 Long term (current) use of insulin; R74.01 Elevation of levels of liver transaminase levels; R16.0 Hepatomegaly, not elsewhere classified; E78.2 Mixed hyperlipidemia; E03.9 Hypothyroidism, unspecified; K22.9 Disease of esophagus, unspecified | CPT/HCPCS: 99214 ==

== ENCOUNTER 2024-09-24 07:26 | Outpatient (CLI) | payer MEDICARE, SELFPAY ==
[2024-09-24 08:52] LABS: Basophils # 0.1 10^3/uL (0.0-0.1); Basophils % 0.9 %; Eosinophils # 0.5 10^3/uL (0.0-0.8); Eosinophils % 7.3 %; Hematocrit 43.6 % (37-53); Lymphocytes # 0.9 10^3/uL (0.8-4.8); Lymphocytes % 13.4 %; Mean Corpuscular HGB Conc 33.7 g/dL (30-55); Mean Corpuscular Hemoglobin 29.2 pg (27-33); Mean Corpuscular Volume 86.7 fl (82-101); Mean Platelet Volume 10.9 fL (7.4-10.4); Monocytes # 0.8 10^3/uL (0.2-0.9); Monocytes % 12.5 %; Neutrophils # 4.31 10^3/uL (1.8-7.7); Neutrophils % 65.6 %; Nucleated Red Blood Cells % 0 %; Platelet Count 196 10^3/cmm (157-399); Red Blood Count 5.03 10^6/uL (3.85-5.65); Red Cell Distribution Width 14.5 % (12.1-15.1); White Blood Count 6.57 10^3/uL (3.29-11.43)
[2024-09-24 09:18] LABS: Alanine Aminotransferase 20 U/L (0-41); Albumin Level 4.3 g/dL (3.5-5.2); Alkaline Phosphatase 109 U/L (40-130); Anion Gap 15.3 (5-19); Aspartate Amino Transferase 16 U/L (0-40); Blood Urea Nitrogen 17 mg/dL (8-23); Calcium 9.3 mg/dL (8.5-10.5); Carbon Dioxide 25 mmol/L (22-29); Chloride 102 mmol/L (98-107); Gamma Glutamyl Transferase 52 U/L (8-61); Globulin 3.3 g/dL (1.3-4.6); Glomerular Filtration Rate 98.6 mL/min (90-130); Glucose 218 mg/dL (65-115); Osmolality Calculated 294 mOsm/kg (285-295); Potassium 4.3 mmol/L (3.5-5.1); Sodium 138 mmol/L (136-145); Total Bilirubin 0.6 mg/dL (0.15-1.2); Total Protein 7.6 g/dL (6.6-8.7)
== END 2024-09-24 07:27 | disposition home or self-care (01) ==
LOC: LAB 07:28
PROVIDERS: PCP Family Medicine; Visit Provider Internal Medicine
DX: Z79.899 Other long term (current) drug therapy (principal); Z94.4 Liver transplant status
CPT/HCPCS: 80053; 80197; 82977; 85025

== ENCOUNTER 2024-10-08 07:50 | Outpatient (CLI) | payer MEDICARE, SELFPAY ==
[2024-10-08 08:47] LABS: Basophils # 0.1 10^3/uL (0.0-0.1); Basophils % 0.9 %; Eosinophils # 0.5 10^3/uL (0.0-0.8); Eosinophils % 7.7 %; Hematocrit 44.1 % (37-53); Lymphocytes # 1.2 10^3/uL (0.8-4.8); Lymphocytes % 17.9 %; Mean Corpuscular HGB Conc 33.6 g/dL (30-55); Mean Corpuscular Hemoglobin 28.9 pg (27-33); Mean Corpuscular Volume 86.1 fl (82-101); Mean Platelet Volume 10.3 fL (7.4-10.4); Monocytes # 0.8 10^3/uL (0.2-0.9); Monocytes % 11.7 %; Neutrophils # 3.97 10^3/uL (1.8-7.7); Neutrophils % 61.5 %; Nucleated Red Blood Cells % 0 %; Platelet Count 195 10^3/cmm (157-399); Red Blood Count 5.12 10^6/uL (3.85-5.65); Red Cell Distribution Width 13.8 % (12.1-15.1); White Blood Count 6.47 10^3/uL (3.29-11.43)
[2024-10-08 09:07] LABS: Alanine Aminotransferase 19 U/L (0-41); Albumin Level 4.2 g/dL (3.5-5.2); Alkaline Phosphatase 112 U/L (40-130); Anion Gap 14.9 (5-19); Aspartate Amino Transferase 15 U/L (0-40); Blood Urea Nitrogen 22 mg/dL (8-23); Calcium 9.2 mg/dL (8.5-10.5); Carbon Dioxide 25 mmol/L (22-29); Chloride 102 mmol/L (98-107); Gamma Glutamyl Transferase 47 U/L (8-61); Globulin 3.5 g/dL (1.3-4.6); Glomerular Filtration Rate 86.1 mL/min (90-130); Glucose 137 mg/dL (65-115); Osmolality Calculated 291 mOsm/kg (285-295); Potassium 3.9 mmol/L (3.5-5.1); Sodium 138 mmol/L (136-145); Total Bilirubin 0.6 mg/dL (0.15-1.2); Total Protein 7.7 g/dL (6.6-8.7)
[2024-10-09 14:50] LABS: Tacrolimus, Highly Sensitive 6.5 mcg/L
== END 2024-10-08 07:51 | disposition home or self-care (01) ==
PROVIDERS: PCP Family Medicine; Visit Provider Internal Medicine
DX: Z94.4 Liver transplant status (principal); Z79.899 Other long term (current) drug therapy
CPT/HCPCS: 36415; 80053; 80197; 82977; 85025

== ENCOUNTER 2024-10-22 07:30 | Outpatient (CLI) | payer MEDICARE, SELFPAY ==
[2024-10-22 08:06] LABS: Basophils # 0.1 10^3/uL (0.0-0.1); Eosinophils # 0.5 10^3/uL (0.0-0.8); Hematocrit 42.2 % (37-53); Lymphocytes % 17.7 %; Mean Corpuscular HGB Conc 33.6 g/dL (30-55); Mean Corpuscular Hemoglobin 29.8 pg (27-33); Mean Corpuscular Volume 88.7 fl (82-101); Mean Platelet Volume 10.2 fL (7.4-10.4); Monocytes # 0.9 10^3/uL (0.2-0.9); Monocytes % 15.4 %; Neutrophils # 3.33 10^3/uL (1.8-7.7); Neutrophils % 57.7 %; Nucleated Red Blood Cells % 0 %; Platelet Count 185 10^3/cmm (157-399); Red Blood Count 4.76 10^6/uL (3.85-5.65); Red Cell Distribution Width 14.3 % (12.1-15.1); White Blood Count 5.77 10^3/uL (3.29-11.43)
[2024-10-22 08:31] LABS: Alanine Aminotransferase 24 U/L (0-41); Albumin Level 4.3 g/dL (3.5-5.2); Alkaline Phosphatase 101 U/L (40-130); Aspartate Amino Transferase 16 U/L (0-40); Blood Urea Nitrogen 20 mg/dL (8-23); Calcium 9.4 mg/dL (8.5-10.5); Carbon Dioxide 25 mmol/L (22-29); Chloride 103 mmol/L (98-107); Globulin 3.5 g/dL (1.3-4.6); Glomerular Filtration Rate 86.1 mL/min (90-130); Glucose 115 mg/dL (65-115); Osmolality Calculated 290 mOsm/kg (285-295); Phosphorus 3.1 mg/dL (2.5-4.5); Sodium 138 mmol/L (136-145); Total Bilirubin 0.4 mg/dL (0.15-1.2); Total Protein 7.8 g/dL (6.6-8.7)
[2024-10-22 08:33] LABS: Gamma Glutamyl Transferase 34 U/L (8-61)
[2024-10-23 15:54] LABS: Tacrolimus, Highly Sensitive 5.1 mcg/L
== END 2024-10-22 07:31 | disposition home or self-care (01) ==
PROVIDERS: PCP Family Medicine; Visit Provider Surgery Surgical Oncology
DX: Z94.4 Liver transplant status (principal)
CPT/HCPCS: 36415; 80053; 80197; 82977; 83735; 84100; 85025

== ENCOUNTER 2024-11-05 07:59 | Outpatient (CLI) | payer MEDICARE, SELFPAY ==
[2024-11-05 09:27] LABS: Estmated Average Glucose 151; Hemoglobin A1C 6.9 % (4.0-6.0)
[2024-11-05 09:31] LABS: Alanine Aminotransferase 20 U/L (0-41); Albumin Level 4.1 g/dL (3.5-5.2); Alkaline Phosphatase 95 U/L (40-130); Anion Gap 13.9 (5-19); Aspartate Amino Transferase 16 U/L (0-40); Blood Urea Nitrogen 19 mg/dL (8-23); Calcium 9.5 mg/dL (8.5-10.5); Carbon Dioxide 26 mmol/L (22-29); Chloride 105 mmol/L (98-107); Cholesterol 75 mg/dL (0-200); Globulin 3.5 g/dL (1.3-4.6); Glomerular Filtration Rate 86.1 mL/min (90-130); Glucose 130 mg/dL (65-115); HDL Cholesterol 25 mg/dL (60-100); LDL Cholesterol Calculated 30 mg/dL (50-129); Osmolality Calculated 296 mOsm/kg (285-295); Potassium 3.9 mmol/L (3.5-5.1); Sodium 141 mmol/L (136-145); Total Bilirubin 0.6 mg/dL (0.15-1.2); Total Protein 7.6 g/dL (6.6-8.7); Triglycerides 100 mg/dL (0-150)
[2024-11-05 09:39] LABS: Creatinine Urine, Random 197 mg/dL (39-259); Microalbumin Random Urine 13 ug/dL (0-20)
[2024-11-05 09:40] LABS: Microalbum Creatinine Ratio Ur 66 mg/dL (0-20)
== END 2024-11-05 08:00 | disposition home or self-care (01) ==
PROVIDERS: Internal Medicine; PCP Family Medicine; Visit Provider Surgery Surgical Oncology
DX: Z94.4 Liver transplant status (principal); R74.01 Elevation of levels of liver transaminase levels; R16.0 Hepatomegaly, not elsewhere classified; E78.2 Mixed hyperlipidemia; E03.9 Hypothyroidism, unspecified; K22.9 Disease of esophagus, unspecified; E11.65 Type 2 diabetes mellitus with hyperglycemia; Z79.4 Long term (current) use of insulin
CPT/HCPCS: 36415; 80053; 80061; 82044; 83036

== ENCOUNTER 2024-11-19 07:08 | Outpatient (CLI) | payer MEDICARE, SELFPAY ==
[2024-11-19 07:59] LABS: Tumor Marker Alpha Fetoprotein 2.6 ng/mL (0-8.3)
== END 2024-11-19 07:09 | disposition home or self-care (01) ==
PROVIDERS: PCP Family Medicine
DX: Z94.4 Liver transplant status (principal); D84.9 Immunodeficiency, unspecified; R93.2 Abnormal findings on diagnostic imaging of liver and biliary tract
CPT/HCPCS: 82105

== ENCOUNTER 2024-12-03 06:54 | Outpatient (CLI) | payer MEDICARE, SELFPAY ==
[2024-12-03 07:30] LABS: Basophils # 0.1 10^3/uL (0.0-0.1); Basophils % 0.8 %; Eosinophils # 0.4 10^3/uL (0.0-0.8); Eosinophils % 7.2 %; Lymphocytes # 1.1 10^3/uL (0.8-4.8); Lymphocytes % 18.5 %; Mean Corpuscular HGB Conc 32.7 g/dL (30-55); Mean Corpuscular Hemoglobin 29.4 pg (27-33); Mean Corpuscular Volume 89.8 fl (82-101); Mean Platelet Volume 10.2 fL (7.4-10.4); Monocytes # 0.7 10^3/uL (0.2-0.9); Monocytes % 12.4 %; Neutrophils % 60.6 %; Nucleated Red Blood Cells % 0 %; Platelet Count 203 10^3/cmm (157-399); Red Cell Distribution Width 13.8 % (12.1-15.1); White Blood Count 5.95 10^3/uL (3.29-11.43)
[2024-12-03 07:50] LABS: Alanine Aminotransferase 30 U/L (0-41); Alkaline Phosphatase 120 U/L (40-130); Anion Gap 15.2 (5-19); Aspartate Amino Transferase 20 U/L (0-40); Blood Urea Nitrogen 18 mg/dL (8-23); Carbon Dioxide 25 mmol/L (22-29); Chloride 105 mmol/L (98-107); Gamma Glutamyl Transferase 88 U/L (8-61); Globulin 3.5 g/dL (1.3-4.6); Glomerular Filtration Rate 86.1 mL/min (90-130); Glucose 120 mg/dL (65-115); Osmolality Calculated 295 mOsm/kg (285-295); Potassium 4.2 mmol/L (3.5-5.1); Sodium 141 mmol/L (136-145); Total Bilirubin 0.5 mg/dL (0.15-1.2); Total Protein 7.5 g/dL (6.6-8.7)
[2024-12-04 19:00] LABS: Tacrolimus, Highly Sensitive 5.2 mcg/L
== END 2024-12-03 06:55 | disposition home or self-care (01) ==
PROVIDERS: PCP Family Medicine; Visit Provider Internal Medicine
DX: Z79.899 Other long term (current) drug therapy (principal); Z94.4 Liver transplant status
CPT/HCPCS: 36415; 80053; 80197; 82977; 85025

== ENCOUNTER 2024-12-21 07:27 | Outpatient (CLI) | payer MEDICARE, SELFPAY ==
[2024-12-21 08:20] LABS: Alanine Aminotransferase 45 U/L (0-41); Albumin Level 4.3 g/dL (3.5-5.2); Alkaline Phosphatase 112 U/L (40-130); Aspartate Amino Transferase 24 U/L (0-40); Blood Urea Nitrogen 23 mg/dL (8-23); Calcium 9.5 mg/dL (8.5-10.5); Carbon Dioxide 26 mmol/L (22-29); Chloride 101 mmol/L (98-107); Globulin 3.8 g/dL (1.3-4.6); Glomerular Filtration Rate 68.3 mL/min (90-130); Glucose 91 mg/dL (65-115); Osmolality Calculated 289 mOsm/kg (285-295); Sodium 138 mmol/L (136-145); Total Bilirubin 0.6 mg/dL (0.15-1.2); Total Protein 8.1 g/dL (6.6-8.7)
== END 2024-12-21 07:28 | disposition home or self-care (01) ==
LOC: LAB 07:28
PROVIDERS: PCP Family Medicine; Visit Provider Internal Medicine
DX: E11.65 Type 2 diabetes mellitus with hyperglycemia (principal); Z79.4 Long term (current) use of insulin; E78.2 Mixed hyperlipidemia; E03.9 Hypothyroidism, unspecified
CPT/HCPCS: 80053; 86337; 86341; 99214

== ENCOUNTER → 2024-12-24 15:08 | Outpatient (BNVA) | payer MEDICARE, SELFPAY | PROVIDERS: PCP Family Medicine; Visit Provider Internal Medicine | DX: I25.10 Atherosclerotic heart disease of native coronary artery without angina pectoris (principal); E78.2 Mixed hyperlipidemia; I10 Essential (primary) hypertension; E11.65 Type 2 diabetes mellitus with hyperglycemia; Z79.4 Long term (current) use of insulin; E03.9 Hypothyroidism, unspecified; Z79.82 Long term (current) use of aspirin; Z94.4 Liver transplant status; I25.2 Old myocardial infarction | CPT/HCPCS: 99214 ==

== ENCOUNTER 2025-01-07 06:53 | Outpatient (CLI) | payer MEDICARE, OTHER, SELFPAY ==
[2025-01-07 08:59] LABS: Tumor Marker Alpha Fetoprotein 4.7 ng/mL (0-8.3)
== END 2025-01-07 06:54 | disposition home or self-care (01) ==
PROVIDERS: PCP Family Medicine; Visit Provider Nurse Practitioner Gerontology
DX: R93.2 Abnormal findings on diagnostic imaging of liver and biliary tract (principal); Z94.4 Liver transplant status; D84.9 Immunodeficiency, unspecified
CPT/HCPCS: 36415; 82105

== ENCOUNTER 2025-01-28 06:55 | Outpatient (CLI) | payer MEDICARE, OTHER, SELFPAY ==
[2025-01-28 08:04] LABS: Tumor Marker Alpha Fetoprotein 2.4 ng/mL (0-8.3)
== END 2025-01-28 06:56 | disposition home or self-care (01) ==
PROVIDERS: PCP Family Medicine; Visit Provider Nurse Practitioner Gerontology
DX: R93.2 Abnormal findings on diagnostic imaging of liver and biliary tract (principal); D84.9 Immunodeficiency, unspecified; Z94.4 Liver transplant status
CPT/HCPCS: 36415; 82105

== ENCOUNTER 2025-03-11 07:30 | Outpatient (CLI) | payer MEDICARE, OTHER, SELFPAY ==
[2025-03-11 08:41] LABS: Alanine Aminotransferase 21 U/L (0-41); Albumin Level 4.3 g/dL (3.5-5.2); Alkaline Phosphatase 84 U/L (40-130); Anion Gap 14.2 (5-19); Aspartate Amino Transferase 16 U/L (0-40); Blood Urea Nitrogen 20 mg/dL (8-23); Calcium 9.6 mg/dL (8.5-10.5); Carbon Dioxide 27 mmol/L (22-29); Chloride 106 mmol/L (98-107); Cholesterol 92 mg/dL (0-200); Free T4 Free Thyroxine 0.95 ng/dL (0.82-1.77); Globulin 3.4 g/dL (1.3-4.6); Glucose 111 mg/dL (65-115); HDL Cholesterol 31 mg/dL (60-100); Osmolality Calculated 299 mOsm/kg (285-295); Potassium 4.2 mmol/L (3.5-5.1); Sodium 143 mmol/L (136-145); Thyroid Stimulating Hormone 2.22 uIU/mL (0.27-4.20); Total Protein 7.7 g/dL (6.6-8.7); Triglycerides 101 mg/dL (0-150)
[2025-03-11 09:05] LABS: Tumor Marker Alpha Fetoprotein 2.7 ng/mL (0-8.3)
[2025-03-11 10:44] LABS: Creatinine Urine, Random 144 mg/dL (39-259)
[2025-03-11 10:49] LABS: Microalbum Creatinine Ratio Ur 90 mg/dL (0-20)
== END 2025-03-11 07:31 | disposition home or self-care (01) ==
PROVIDERS: Absent Provider Nurse Practitioner Gerontology; PCP Family Medicine; Visit Provider Internal Medicine
DX: R16.0 Hepatomegaly, not elsewhere classified (principal); R74.01 Elevation of levels of liver transaminase levels; E78.2 Mixed hyperlipidemia; E03.9 Hypothyroidism, unspecified; E11.65 Type 2 diabetes mellitus with hyperglycemia; Z79.4 Long term (current) use of insulin; R93.2 Abnormal findings on diagnostic imaging of liver and biliary tract
CPT/HCPCS: 36415; 80053; 80061; 82044; 82105; 83036; 84439; 84443

== ENCOUNTER → 2025-03-22 09:14 | Outpatient (BNVA) | payer MEDICARE, OTHER, SELFPAY | PROVIDERS: PCP Family Medicine; Visit Provider Internal Medicine | DX: K22.9 Disease of esophagus, unspecified (principal); E03.9 Hypothyroidism, unspecified; E78.2 Mixed hyperlipidemia; R16.0 Hepatomegaly, not elsewhere classified; R74.01 Elevation of levels of liver transaminase levels; E10.9 Type 1 diabetes mellitus without complications | CPT/HCPCS: 99214 ==

== ENCOUNTER 2025-04-01 06:56 | Outpatient (CLI) | payer MEDICARE, OTHER, SELFPAY | END 2025-04-01 06:57 | disposition home or self-care (01) | PROVIDERS: PCP Family Medicine; Visit Provider Nurse Practitioner Gerontology | DX: D84.9 Immunodeficiency, unspecified (principal); R93.2 Abnormal findings on diagnostic imaging of liver and biliary tract; Z94.4 Liver transplant status | CPT/HCPCS: 36415 ==

== ENCOUNTER 2025-05-06 07:02 | Outpatient (CLI) | payer MEDICARE, OTHER, SELFPAY ==
[2025-05-06 08:01] LABS: Tumor Marker Alpha Fetoprotein 2.6 ng/mL (0-8.3)
== END 2025-05-06 07:03 | disposition home or self-care (01) ==
PROVIDERS: PCP Family Medicine; Visit Provider Nurse Practitioner Gerontology
DX: R93.2 Abnormal findings on diagnostic imaging of liver and biliary tract (principal)
CPT/HCPCS: 36415; 82105